=== PATIENT | female | born 1945 | race African-American/Black ===

== ENCOUNTER 2016-11-03 08:43 | Day surgery (SDC) | payer MEDICARE, OTHER ==
[~2016-11-03] VITALS: Ht 160 cm; Wt 61.7 kg
[2016-11-03] VITALS (7 sets, daily range): BP systolic 121–147; BP diastolic 79–85
[~2016-11-03 08:43] MED LIST: ASPIR-LOW81 MG PO; ATIVAN1 MG ORAL; ATORVASTATIN CA20 MG ORAL; BC POWDER PACK1 EAC1 PO; CARAFATE1 G1 ORAL; CREON DR 24,001 EACH PO; DEXILANT60 MG ORAL; GAS-X80 MG PO; LOTREL 10-20 M1 EACH PO; LOTREL 10-40 M1 EACH ORAL; MAALOX MAXIMUM355 M1 PO; MECLIZINE HCL25 MG ORAL; Muscle relaxer PO; NORCO 5-325 TA1 EACH ORAL; NORCO 5-325 TA1 EACH PO; PEPCID20 M1 *; PEPCID20 MG ORAL; PRILOSEC40 MG ORAL; VICODIN ES 7.51 EACH PO; ZANTAC150 MG ORAL; ZESTRIL5 MG PO
[2016-11-03 10:20] LABS: HEMOLYSIS 7; IRON 55 ug/dL (37-145); TOTAL IRON BINDING CAPACITY 321 ug/dL (250-400)
--- NOTE | 2016-11-03 10:53 | Pre-Procedure Note/Attestation ---
Pre-Procedure Note/Attestation Complete Prior to Procedure Planned Procedure: not applicable Procedure Narrative: colonoscopy Indications for Procedure Pre-Operative Diagnosis: screening Attestation I attest that I discussed the nature of the procedure; its benefits; risks and complications; and alternatives (and the risks and benefits of such alternatives ), prior to the procedure, with the patient (or the patient's legal pharmaceutical sales representative). I attest that, if there was a reasonable possibility of needing a blood transfusion, the patient (or the patient's legal pharmaceutical sales representative) was given the [facility] standardized written summary, pursuant to the [place] Blood Safety Act ([place] Health and Safety Code # 1645, as amended). I attest that I re-evaluated the patient just prior to the surgery and that there has been no change in the patient's H&P, except as documented below: LIBBY FRANCO November 03, 2016 10:53
--- NOTE | 2016-11-03 10:54 | Short Stay Surgery H&P ---
History of Present Illness History of Present Illness Chief Complaint screening colon HPI Alisa Severino is a 70 year old female who was admitted on for Lower Abdominal Pain Patient History Allergies: Coded Allergies: MORPHINE (Verified Allergy, Severe, 11/03/16) nausea/vomiting PAST MEDICAL HISTORY: (1) COPD (chronic obstructive pulmonary disease) (2) GERD (gastroesophageal reflux disease) (3) Pancreatitis (4) Gastritis (5) Diverticulosis (6) Constipation (7) Internal hemorrhoids Past Surgeries: Social History: Medication History Scheduled Amlodipine Besylate/Benazepril 10-40 Mg (Lotrel 10-40 Mg Capsule), 1 CAP ORAL DAILY, (Reported) Aspirin* (Aspir-Low*), 81 MG PO DAILY, (Reported) Lipase/Protease/Amylase (Creon Dr 24,000 Units Capsule), 2 EACH PO TID, ( Reported) Lorazepam* (Ativan*), 1 MG ORAL BEDTIME, (Reported) Scheduled PRN Hydrocodone Bit/Acetaminophen 5-325* ([place] 5-325*), 1 TAB ORAL Q6H PRN for For Pain, (Reported) Meclizine Hcl* (Meclizine*), 25 MG ORAL THREE TIMES A DAY PRN for for dizziness, (Reported) Discontinued Medications Atorvastatin Calcium* (Atorvastatin Calcium*), 20 MG ORAL BEDTIME, (Reported) Discontinued Reason: Pt stopped taking med Simethicone (Gas-X), 80 MG PO DAILY, (Reported) Discontinued Reason: Pt stopped taking med Review of Systems Cardiovascular: Reports: no symptoms Gastrointestinal: Reports: gastro esophageal reflux disease Genitourinary: Reports: no symptoms Neurologic: Reports: no symptoms Endocrine: Reports: no symptoms Hematologic: Reports: no symptoms Physical Exam Vital Signs Last Vital Signs Date Time Temp Pulse Resp B/P Pulse Ox O2 Delivery O2 Flow Rate FiO2 11/03/16 09:27 98.2 90 20 147/82 99 Room Air Labs Laboratory Tests Test 11/03/16 09:25 Iron Level 55 ug/dL (37-145) Total Iron Binding Capacity 321 ug/dL (250-400) Percent Iron Saturation 17 % (15-50) Unsaturated Iron Binding 266 ug/dL (112-346) Skin: normal HENT: normal Heart: normal Lungs: normal Abdomen: normal Extremities: normal Plan Plan of Care colonoscopy Final Diagnosis: Attestation Are the patient's medical conditions optimized for surgery? Attestation Response: yes LIBBY FRANCO November 03, 2016 10:54
[2016-11-03] MEDS ORDERED: Propofol 10mg/ml 20ml IV ONE (11:00)
--- NOTE | 2016-11-03 11:27 | Anethesia Preoperative Eval ---
Anesthesia Pre-op PMH/ROS General Date of Evaluation: November 03, 2016 Time of Evaluation: 11:05 Anesthesiologist: lubna ASA Score: ASA 3 Mallampati Score Class I : Soft palate, uvula, fauces, pillars visible Class II: Soft palate, uvula, fauces visible Class III: Soft palate, base of uvula visible Class IV: Only hard plate visible Mallampati Classification: Class II Surgeon: carter Diagnosis: screening Surgical Procedure: colonocopy Anesthesia History: none Social History: smoking Allergies: Coded Allergies: MORPHINE (Verified Allergy, Severe, 11/03/16) nausea/vomiting Past Medical History Cardiovascular: Reports: HTN Pulmonary: Reports: COPD Gastrointestinal/Genitourinary: Reports: other - polycystic kidney disease Anesthesia Pre-op Phys. Exam Physician Exam Last Vital Signs Date Time Temp Pulse Resp B/P Pulse Ox O2 Delivery O2 Flow Rate FiO2 11/03/16 09:27 98.2 90 20 147/82 99 Room Air Airway Exam Mallampati Score: Class II Teeth: missing Anesthesia Pre-op A/P Labs Chemistry Test 11/03/16 09:25 Iron Level 55 ug/dL (37-145) Total Iron Binding Capacity 321 ug/dL (250-400) Percent Iron Saturation 17 % (15-50) Unsaturated Iron Binding 266 ug/dL (112-346) Risk Assessment & Plan Plan: propofol Status Change Before Surgery: Crescencio Stacy MD November 03, 2016 11:27
--- NOTE | 2016-11-03 11:28 | Immediate Post-Op Evaluation ---
Immediate Post-Op Evalulation Immediate Post-Op Evalulation Date of Evaluation: November 03, 2016 Time of Evaluation: 11:45 IV Fluids: 500 Blood Pressure Systolic: 123 Blood Pressure Diastolic: 84 Pulse Rate: 83 Respiratory Rate: 24 O2 Sat by Pulse Oximetry: 100 Temperature (Fahrenheit): 97.8 Pain Score (1-10): 0 Nausea: No Vomiting: No Complications none Patient Status: awake, patent, none Hydration Status: adequate Crescencio Win MD November 03, 2016 11:28
--- NOTE | 2016-11-03 11:29 | 48 Hour Post Anesthesia Eval ---
Post Anesthesia Evaluation Date of Evaluation: November 03, 2016 Time of Evaluation: 12:31 Blood Pressure Systolic: 131 0: 61 Pulse Rate: 73 Respiratory Rate: 17 Temperature (Fahrenheit): 98.6 O2 Sat by Pulse Oximetry: 100 Airway: patent Nausea: No Vomiting: No Pain Intensity: 0 Hydration Status: adequate Cardiopulmonary Status: stable Mental Status/LOC: patient returned to baseline Follow-up Care/Observations: n/a Post-Anesthesia Complications: tolerated well Follow-up care needed: ready to discharge Crescencio Win MD November 03, 2016 11:29
--- NOTE | 2016-11-03 11:37 | Endoscopy Procedure Note ---
Endoscopy Procedure Note Indication for Procedure: screening colon Procedures Performed: colonoscopy Operative Findings/Diagnosis: diverticulosis Specimen: yes Pt Tolerated Procedure Well: Yes Estimated Blood Loss: none Anesthesiologist: lubna Anesthesia: MAC Implant(s) used?: No 50 yrs or older w/o bx or poly: Yes 10yrs. F/U not recommended: Yes If not recommended, why?: Above average risk 10 yrs. F/U needed: Yes 18 years or older w/prev. colo: Yes <3yrs. since last colonoscopy: Yes Med reason:<3 yrs.: Inadequate Prep LIBBY FRANCO November 03, 2016 11:37
--- NOTE | 2016-11-06 13:16 | Procedure Note ---
DATE OF PROCEDURE: 11/03/2016 SURGEON: Terry Villarreal M.D. PROCEDURE: Colonoscopy with biopsy. ANESTHESIOLOGIST: Crescencio Win M.D. INSTRUMENT: Olympus adult flexible colonoscope. INDICATION: Screening colonoscopy. REASON FOR PROCEDURE: The procedure, risks, benefits, and possible consequences, including hemorrhage, aspiration, perforation and infection, and alternative treatments, were explained to the patient/legal guardian by Dr. Terry Villarreal and the patient/legal guardian understood and accepted these risks. DESCRIPTION OF PROCEDURE: After informed consent was obtained and the patient was adequately sedated, first, a rectal exam was performed, which was normal. Then, the scope was advanced from the rectum into the proximal ascending colon. Given poor quality of prep, we could not advance the scope beyond this point. As I mentioned above, the patient has very poor prep especially in the left colon and the cecum. The patient had significant diverticulosis in the left colon and also some diverticulosis on the right, but the one in the left was very large and she had numerous ones. There was some minimum inflammation in the rectum, which was biopsied, most probably nonspecific proctitis. Retroflexion of rectum showed evidence of internal hemorrhoids. SUMMARY OF FINDINGS: 1. Poor colonic prep. 2. Diverticulosis. 3. Internal hemorrhoids. 4. Proctitis status biopsy. RECOMMENDATIONS: Follow up biopsies and treat accordingly. Terry Villarreal M.D. DR: OMAYRA JOB#: [id number] CC:
== END 2016-11-03 12:50 | disposition home or self-care (01) ==
LOC: GAS 08:43
DX: Z12.11 Encounter for screening for malignant neoplasm of colon (principal); K62.89 Other specified diseases of anus and rectum; K57.30 Diverticulosis of large intestine without perforation or abscess without bleeding; K64.8 Other hemorrhoids; I10 Essential (primary) hypertension; J44.9 Chronic obstructive pulmonary disease, unspecified; Q61.3 Polycystic kidney, unspecified; K21.9 Gastro-esophageal reflux disease without esophagitis; Z87.19 Personal history of other diseases of the digestive system; Z88.5 Allergy status to narcotic agent; Z79.82 Long term (current) use of aspirin
CPT/HCPCS: 36415; 45380; 83540; 83550; J2704; 94003; 94150

== ENCOUNTER 2017-01-02 10:31 | Outpatient (CLI) | payer MEDICARE, OTHER ==
--- NOTE | 2017-01-02 11:13 | GI Progress Note ---
Assessment/Plan Problems: (1) Proctitis ICD Codes: K62.89 - Other specified diseases of anus and rectum SNOMED: 2411872 (2) GERD (gastroesophageal reflux disease) ICD Codes: K21.9 - GERD (gastroesophageal reflux disease) SNOMED: 607843800 (3) Gastritis ICD Codes: K29.70 - Gastritis SNOMED: 1351993 (4) Constipation ICD Codes: K59.00 - Constipation SNOMED: 28292914 (5) Internal hemorrhoids ICD Codes: K64.8 - Internal hemorrhoids SNOMED: 77901941 (6) Abdominal pain ICD Codes: R10.9 - Unspecified abdominal pain SNOMED: 19109270 Status: stable Status Narrative Seen with Dr. Villarreal. Assessment/Plan colonoscopy reviewed with patient. iron panel unremarkable SUMMARY OF FINDINGS: 1. Poor colonic prep. 2. Diverticulosis. 3. Internal hemorrhoids. 4. Proctitis status biopsy. RECOMMENDATIONS: Follow up biopsies and treat accordingly >> negative for H. Pylori Rx Amitiza rx omeprazole RTC x 3 months repeat colon x 3 years due to poor prep Subjective Subjective colonoscopy review lower abdominal pain GERD >> zantac helps, but cannot afford constipation hemorrhoids have gotten worse and wants banding Objective T 98.2 BP 118/72 P64 93 RA General Appearance: no apparent distress, alert Cardiovascular: normal rate Respiratory/Chest: normal breath sounds, no respiratory distress Abdominal Exam: normal bowel sounds, non tender, soft Extremities: normal range of motion Kelsie Churchill N.P. Jan 02, 2017 11:13
== END 2017-01-02 11:15 | disposition home or self-care (01) ==
LOC: PAN 10:31
DX: K21.9 Gastro-esophageal reflux disease without esophagitis (principal); K62.89 Other specified diseases of anus and rectum; K29.70 Gastritis, unspecified, without bleeding; K59.00 Constipation, unspecified; K64.8 Other hemorrhoids; R10.9 Unspecified abdominal pain
CPT/HCPCS: 99211

== ENCOUNTER 2017-04-03 10:10 | Outpatient (CLI) | payer MEDICARE, OTHER ==
--- NOTE | 2017-04-03 10:43 | GI Progress Note ---
Assessment/Plan Problems: (1) Abdominal pain ICD Codes: R10.9 - Unspecified abdominal pain SNOMED: 85076025 (2) GERD (gastroesophageal reflux disease) ICD Codes: K21.9 - GERD (gastroesophageal reflux disease) SNOMED: 521749654 (3) Gastritis ICD Codes: K29.70 - Gastritis SNOMED: 9238388 (4) Constipation ICD Codes: K59.00 - Constipation SNOMED: 13594655 Status: stable Status Narrative Discussed with Dr. Villarreal. Assessment/Plan colonoscopy reviewed with patient. iron panel unremarkable SUMMARY OF FINDINGS: 1. Poor colonic prep. 2. Diverticulosis. 3. Internal hemorrhoids. 4. Proctitis status biopsy. follow up biopsies and treat accordingly >> negative for H. Pylori RECOMMENDATIONS: Rx Linzess 72mcg RTC x 3 months repeat colon x 3 years due to poor prep Subjective Subjective GERD >> does not take prescribed omeprazole, takes zantac constipation, did not use amitiza 24 not sure if covered by insurance has regular BM with diet labs by PCP with noted elevated cholesterol Objective T 97.9 BP 117/79 P 74 wt 129 lbs General Appearance: no apparent distress, alert, thin Cardiovascular: normal rate Respiratory/Chest: lungs clear, normal breath sounds Abdominal Exam: normal bowel sounds, non tender, soft Extremities: normal range of motion Kelsie Churchill N.P. Apr 03, 2017 10:43
[2017-04-03] MEDS ORDERED: ZANTAC150 MG ORAL (11:55)
[2017-04-03] MEDS ORDERED: [UNRECOGNIZED DRUG - REMARK] (11:55)
[2017-04-03] MEDS ORDERED: ACETAMINOPHEN-1 EAC1 ORAL (11:55)
== END 2017-04-03 12:10 | disposition home or self-care (01) ==
LOC: PAN 10:10
DX: R10.9 Unspecified abdominal pain (principal); K21.9 Gastro-esophageal reflux disease without esophagitis; K29.70 Gastritis, unspecified, without bleeding; K59.00 Constipation, unspecified; K57.90 Diverticulosis of intestine, part unspecified, without perforation or abscess without bleeding; K64.8 Other hemorrhoids
CPT/HCPCS: 99211

== ENCOUNTER 2017-07-03 10:39 | Outpatient (CLI) | payer MEDICARE, OTHER ==
[~2017-07-03 10:39] MED LIST changes: +ACETAMINOPHEN-1 EAC1 ORAL; +[UNRECOGNIZED DRUG - REMARK]
[2017-07-03 13:50] VITALS: BP 122/75
--- NOTE | 2017-07-04 15:25 | GI Progress Note ---
Assessment/Plan Problems: (1) Abdominal pain ICD Codes: R10.9 - Unspecified abdominal pain SNOMED: 07165639 (2) GERD (gastroesophageal reflux disease) ICD Codes: K21.9 - GERD (gastroesophageal reflux disease) SNOMED: 237334670 (3) Gastritis ICD Codes: K29.70 - Gastritis SNOMED: 7027761 (4) Constipation ICD Codes: K59.00 - Constipation SNOMED: 76124989 Status: stable Status Narrative Seen with Dr. Villarreal. Assessment/Plan EGD/EUS scheduled for 07/06/17 to evaluate GERD and follow up on pancreatic ductal dilation. - NPO @ [place] prior to procedure. Subjective Subjective GERD, taking zantac with no relief constipatino , on Linzess 72 requesting refill Objective T 98.2 BP 122/75 P83 95 RA Denies any unintentional weight loss or changes in dietary habits. General Appearance: WD/WN, no apparent distress, alert Cardiovascular: normal rate Respiratory/Chest: normal breath sounds, no respiratory distress Abdominal Exam: normal bowel sounds, non tender, soft Extremities: normal range of motion, non-tender Objective Colonoscopy 10/2016 No history of EGD Kelsie Churchill N.P. Jul 04, 2017 15:25
--- NOTE | 2017-07-05 09:43 | GI Initial Consult Note ---
History of Present Illness General Date patient seen: Jul 04, 2017 Time patient seen: 10:00 Reason for Consultation: SEVERE GERD Present Illness HPI Alisa Severino is a 71 year old female who presents today with severe epigastric pain with minimal relief from zantac. In addition, she presents today with c/o of constipation requesting a refill on her Linzess 72mcg. Patient has history of EUS for pancreatic ductal dilation back in 2011. Last colonoscopy was performed 10/2016, see summary below. Denies any unintentional weight loss or changes in dietary habits. No signs of abuse or neglect. Patient is not fall risk. Endoscopy Procedure Note Indication for Procedure: screening colon Procedures Performed: colonoscopy Operative Findings/Diagnosis: diverticulosis LIBBY FRANCO - November 03, 2016 11:37 Home Meds Reported Medications Acetaminophen With Codeine (T#3) (TYLENOL #3 TAB*) Y Tab, 2 TAB ORAL Q6H Y for For Pain, TAB 04/03/17 Ranitidine Hcl* (ZANTAC*) 150 Mg Tablet, 150 MG ORAL QHS, #30 TAB 0 Refills 04/03/17 Lipase/Protease/Amylase (CLARICE [place]OHNSON 24,000 UNITS CAPSULE) 1 Each Capsule.dr, 2 EACH PO TID, CAP 02/03/16 Meclizine Hcl* (MECLIZINE*) 25 Mg Tablet, 25 MG ORAL THREE TIMES A DAY Y for for dizziness, TAB 11/03/15 Hydrocodone Bit/Acetaminophen 5-325* ([place] 5-325*) 1 Each Tablet, 1 TAB ORAL Q6H Y for For Pain, #10 TAB 0 Refills 08/05/15 Amlodipine Besylate/Benazepril 10-40 Mg (LOTREL 10-40 MG CAPSULE) 1 Each Capsule , 1 CAP ORAL DAILY, CAP 09/16/14 Lorazepam* (ATIVAN*) 1 Mg Tablet, 1 MG ORAL BEDTIME, TAB 01/29/14 Aspirin* (ASPIR-LOW*) 81 Mg Tablet., 81 MG PO DAILY, TAB 05/27/12 Med list reviewed/reconciled: Yes Allergies: Coded Allergies: MORPHINE (Verified Allergy, Severe, 11/03/16) nausea/vomiting Patient History PMH Narrative (1) COPD (chronic obstructive pulmonary disease) (2) GERD (gastroesophageal reflux disease) (3) Pancreatitis (4) Gastritis (5) Diverticulosis (6) Constipation (7) Internal hemorrhoids Social History: Denies: smoking, alcohol use, drug use, other Review of Systems All Other Systems: negative except mentioned in HPI Physical Exam Vital Signs Date Time Temp Pulse Resp B/P (MAP) Pulse Ox O2 Delivery O2 Flow Rate FiO2 07/03/17 13:50 98.2 83 122/75 92 Sp02 EP Interpretation: reviewed, normal General Appearance: well appearing, no apparent distress, alert, thin Head: normocephalic EENT: PERRL/EOMI, normal ENT inspection Neck: supple Respiratory: normal breath sounds, no respiratory distress Cardiovascular: normal rate Gastrointestinal: normal inspection, non tender, soft, normal bowel sounds, non -distended Rectal: deferred Genitourinary: no CVA tenderness Musculoskeletal: normal inspection, back normal Neurologic: normal inspection, alert, oriented x3, responsive Psychiatric: normal inspection, judgement/insight normal, memory normal Skin: normal inspection, normal color, no rash, warm/dry, palpation normal, well hydrated Lymphatic: normal inspection, no adenopathy GI: Plan Problems: (1) Pancreatic duct dilated (2) GERD (gastroesophageal reflux disease) (3) Gastritis (4) Constipation (5) Diverticulosis (6) Abdominal pain Plan EGD/EUS scheduled for 07/06/17 to evaluate GERD and follow up on pancreatic ductal dilation. - NPO @ [place] prior to procedure. RX Harsh [address] Franco. Kelsie Churchill N.P. Jul 05, 2017 09:42
== END 2017-07-03 11:11 | disposition home or self-care (01) ==
LOC: PAN 10:39
DX: R10.9 Unspecified abdominal pain (principal); K21.9 Gastro-esophageal reflux disease without esophagitis; K29.70 Gastritis, unspecified, without bleeding; K59.00 Constipation, unspecified; K57.90 Diverticulosis of intestine, part unspecified, without perforation or abscess without bleeding; Z79.82 Long term (current) use of aspirin; J44.9 Chronic obstructive pulmonary disease, unspecified; Z88.6 Allergy status to analgesic agent
CPT/HCPCS: 99212

== ENCOUNTER 2017-07-06 08:42 | Day surgery (SDC) | payer MEDICARE, OTHER ==
[~2017-07-06] VITALS: Ht 30.5 cm; Wt 0.5 kg
== END 2017-07-06 10:45 | disposition home or self-care (01) ==
LOC: GAS 08:42
DX: Z53.9 Procedure and treatment not carried out, unspecified reason (principal)

== ENCOUNTER 2017-07-20 07:39 | Day surgery (SDC) | payer MEDICARE, OTHER ==
[~2017-07-20] VITALS: Ht 160 cm; Wt 59.0 kg
[2017-07-20] VITALS (8 sets, daily range): BP systolic 106–138; BP diastolic 64–77
--- NOTE | 2017-07-20 08:15 | Anethesia Preoperative Eval ---
Anesthesia Pre-op PMH/ROS General Date of Evaluation: Jul 20, 2017 Time of Evaluation: 09:02 Anesthesiologist: Gerson ASA Score: ASA 3 Mallampati Score Class I : Soft palate, uvula, fauces, pillars visible Class II: Soft palate, uvula, fauces visible Class III: Soft palate, base of uvula visible Class IV: Only hard plate visible Mallampati Classification: Class II Surgeon: Cherelle Diagnosis: GERD/pancreatic mass Surgical Procedure: EGD/EUS Anesthesia History: none Social History: smoking Family History: no anesthesia problems Allergies: Coded Allergies: MORPHINE (Verified Allergy, Severe, 11/03/16) nausea/vomiting Medications: see eMAR Past Medical History Cardiovascular: Reports: HTN, CAD Pulmonary: Reports: COPD Gastrointestinal/Genitourinary: Reports: GERD, other - diverticulosis, abd pain , Neurologic/Psychiatric: Reports: depression/anxiety - chest pain during anxiety , Endocrine: Reports: other - pancreatic mass, gout Hematology/Immune: Reports: anemia Musculoskeletal/Integumentary: Reports: OA, DJD, other - back pain, PSxH Narrative: hysterectomy 1974, mandibular fx 1985 Anesthesia Pre-op Phys. Exam Physician Exam Constitutional: NAD Neurologic: CN 2-12 intact Cardiovascular: RRR Respiratory: CTA Gastrointestinal: S/NT/ND Airway Exam Mallampati Score: Class II MO: limited ROM: limited - OA Teeth: missing Dentures: upper - partials Anesthesia Pre-op A/P Labs chart reviewed, new labs ordered by MD Studies Pre-op Studies: EKG - NSB 56 bpm Risk Assessment & Plan Assessment: A&ox4 Plan: MAC Status Change Before Surgery: No Pre-Antibiotics Given Within 1 Hr of Incision: No - none per surgeon Sharon Nieto CRNA Jul 20, 2017 08:15
[2017-07-20] MEDS ORDERED: FISH OIL 1,0001 EAC1 ORAL (08:45)
[2017-07-20] MEDS ORDERED: ALLOPURINOL100 M1 ORAL (08:47)
[2017-07-20] MEDS ORDERED: IRON159 MG PO (08:47)
--- NOTE | 2017-07-20 08:55 | Pre-Procedure Note/Attestation ---
Pre-Procedure Note/Attestation Complete Prior to Procedure Planned Procedure: not applicable Procedure Narrative: egd/eus Indications for Procedure Pre-Operative Diagnosis: abd pain Attestation I attest that I discussed the nature of the procedure; its benefits; risks and complications; and alternatives (and the risks and benefits of such alternatives ), prior to the procedure, with the patient (or the patient's legal retail field representative). I attest that, if there was a reasonable possibility of needing a blood transfusion, the patient (or the patient's legal retail field representative) was given the [facility] standardized written summary, pursuant to the [place] Blood Safety Act ([place] Health and Safety Code # 1645, as amended). I attest that I re-evaluated the patient just prior to the surgery and that there has been no change in the patient's H&P, except as documented below: LIBBY FRANCO Jul 20, 2017 08:55
--- NOTE | 2017-07-20 08:56 | Short Stay Surgery H&P ---
History of Present Illness History of Present Illness Chief Complaint see recent office consult note HPI Alisa Severino is a 71 year old female who was admitted on for Gerd,Pancreatic Mass Patient History Allergies: Coded Allergies: MORPHINE (Verified Allergy, Severe, 11/03/16) nausea/vomiting PAST MEDICAL HISTORY: Past Surgeries: Social History: Medication History Scheduled Allopurinol* (Allopurinol*), 100 MG ORAL DAILY, (Reported) Amlodipine Besylate/Benazepril 10-40 Mg (Lotrel 10-40 Mg Capsule), 1 CAP ORAL DAILY, (Reported) Aspirin* (Aspir-Low*), 81 MG PO DAILY, (Reported) Ferrous Sulfate, Dried (Iron), 159 MG PO DA, (Reported) Lipase/Protease/Amylase (Creon Dr 24,000 Units Capsule), 2 EACH PO TID, ( Reported) Lorazepam* (Ativan*), 1 MG ORAL BEDTIME, (Reported) [place]-3 Fatty Acids/Fish Oil* (Fish Oil 1,000 Mg Softgel*), 1 CAP ORAL DAILY, ( Reported) Ranitidine Hcl* (Zantac*), 150 MG ORAL QHS, (Reported) Scheduled PRN Acetaminophen With Codeine (T#3) (Tylenol #3 Tab*), 2 TAB ORAL Q6H PRN for For Pain, (Reported) Hydrocodone Bit/Acetaminophen 5-325* ([place] 5-325*), 1 TAB ORAL Q6H PRN for For Pain, (Reported) Meclizine Hcl* (Meclizine*), 25 MG ORAL THREE TIMES A DAY PRN for for dizziness, (Reported) Physical Exam Vital Signs Last Vital Signs Date Time Temp Pulse Resp B/P (MAP) Pulse Ox O2 Delivery O2 Flow Rate FiO2 07/20/17 08:38 98.2 59 20 138/77 100 Room Air Plan Attestation Are the patient's medical conditions optimized for surgery? LIBBY FRANCO Jul 20, 2017 08:56
[2017-07-20] MEDS ORDERED: Midazolam 2mg/2ml Inj ONE (09:00)
[2017-07-20] MEDS ORDERED: Lidocaine 1% MPF 10mg/ml 5ml ONE (09:00)
[2017-07-20] MEDS ORDERED: Propofol 200mg/20ml IV ONE (09:00)
--- NOTE | 2017-07-20 09:40 | Immediate Post-Op Evaluation ---
Immediate Post-Op Evalulation Immediate Post-Op Evalulation Procedure: EGD/EUS Date of Evaluation: Jul 20, 2017 Time of Evaluation: 09:55 IV Fluids: NSS 700 ml Blood Products: 0 Estimated Blood Loss: 0 Urinary Output: 0 Blood Pressure Systolic: 112 Blood Pressure Diastolic: 69 Pulse Rate: 70 Respiratory Rate: 19 O2 Sat by Pulse Oximetry: 99 Temperature (Fahrenheit): 97.4 Pain Score (1-10): 0 Nausea: No Vomiting: No Complications none noted Patient Status: awake, reacts Hydration Status: adequate Given Within 1 Hr of Incision: No - none per surgeon Sharon Nieto CRNA Jul 20, 2017 09:40
--- NOTE | 2017-07-20 09:42 | 48 Hour Post Anesthesia Eval ---
Post Anesthesia Evaluation Procedure: EGD/EUS Date of Evaluation: Jul 20, 2017 Time of Evaluation: 10:15 Blood Pressure Systolic: 120 0: 68 Pulse Rate: 72 Respiratory Rate: 20 Temperature (Fahrenheit): 97.5 O2 Sat by Pulse Oximetry: 100 Airway: patent Nausea: No Vomiting: No Pain Intensity: 0 Hydration Status: adequate Mental Status/LOC: patient returned to baseline Follow-up care needed: patient intructions given Sharon Nieto CRNA Jul 20, 2017 09:42
--- NOTE | 2017-07-20 09:43 | Endoscopy Procedure Note ---
Endoscopy Procedure Note Indication for Procedure: abd pain, dilated PD Procedures Performed: EGD, other Operative Findings/Diagnosis: esophagitis, pd cyst Specimen: yes Pt Tolerated Procedure Well: Yes Estimated Blood Loss: none Anesthesiologist: raúl Anesthesia: MAC Implant(s) used?: No 50 yrs or older w/o bx or poly: Not Applicable 10yrs. F/U not recommended: Not Applicable LIBBY FRANCO Jul 20, 2017 09:43
[2017-07-20 10:56] LABS: BASOPHILS % (AUTO) 1.1 % (0.0-2.0); EOSINOPHILS % (AUTO) 4.7 % (0.0-3.0); HEMOGLOBIN 12.9 G/DL (12.0-16.0); LYMPHOCYTES % (AUTO) 16.2 % (20.0-45.0); MEAN CORPUSCULAR VOLUME 95 FL (80-99); MONOCYTES % (AUTO) 4.8 % (1.0-10.0); NEUTROPHILS % (AUTO) 73.2 % (45.0-75.0); PLATELET COUNT 310 K/UL (150-450); RED BLOOD COUNT 4.12 M/UL (4.20-5.40); RED CELL DISTRIBUTION WIDTH 12.4 % (11.6-14.8)
[2017-07-20 10:58] LABS: ALANINE AMINOTRANSFERASE 13 U/L (12-78); ALBUMIN 3.5 G/DL (3.4-5.0); ALBUMIN/GLOBULIN RATIO 1.1 (1.0-2.7); ALKALINE PHOSPHATASE 75 U/L (46-116); AMYLASE 118 U/L (25-115); ANION GAP 10 mmol/L (5-15); ASPARTATE AMINO TRANSFERASE 18 U/L (15-37); BILIRUBIN,TOTAL 0.3 MG/DL (0.2-1.0); BLOOD UREA NITROGEN 26 mg/dL (7-18); CALCIUM 8.9 MG/DL (8.5-10.1); CARBON DIOXIDE 25 MMOL/L (21-32); CHLORIDE 109 MMOL/L (98-107); CREATININE 0.8 MG/DL (0.55-1.30); POTASSIUM 4.1 MMOL/L (3.5-5.1); SODIUM 144 MMOL/L (136-145)
--- NOTE | 2017-07-20 12:56 | Procedure Note ---
DATE OF PROCEDURE: 07/20/2017 SURGEON: Terry Villarreal M.D. ANESTHESIOLOGIST: Gerson JONES. PROCEDURE: Upper endoscopy with biopsy and endoscopic ultrasound. ANESTHESIA: Per Gerson JONES. INSTRUMENT: Olympus adult flexible upper endoscope and EUS scope. INDICATION: Abdominal pain, dilated pancreatic duct seen on imaging studies. The procedure, risks, benefits, and possible consequences, including hemorrhage, aspiration, perforation and infection, and alternative treatments, were explained to the patient/legal guardian by Dr. Terry Villarreal and the patient/legal guardian understood and accepted these risks. DESCRIPTION OF PROCEDURE: After informed consent was obtained and the patient was adequately sedated, first Olympus upper endoscope was advanced from mouth into the second portion of duodenum and retroflexion was performed in the stomach. In the esophagus, the patient had evidence of peeling off of the mucosa in the distal esophagus, so this peeling off was all the way up to about half of the esophagus in the mid esophagus. Biopsy from distal esophagus was obtained. At the GE junction which was at about 36 cm from the incisors, the patient had evidence of distal esophageal ring. The patient also has evidence of 4-cm hiatal hernia, In the stomach, there was diffuse gastritis. In the duodenal bulb, there was an adhesion looking may be about 3 mm with central cavitation. Endoscopically, it looked like accessory pancreatic duct and might be pancreatic rest. Given possibility of accessory pancreatic duct, we did not biopsy this lesion. At this time, the upper endoscope was retrieved and EUS radial scope was introduced. The pancreatic parenchyma grossly looked within normal limits in the body and tail of the pancreas. Pancreatic duct measured about 2.5 mm in the body and tail of the pancreas. Then, the scope was advanced to duodenal bulb and second portion of duodenum where the gallbladder and head of the pancreas was carefully examined. The patient had about 1.9-cm gallbladder polyp. No stone was seen in the gallbladder. Common bile duct at the head of the pancreas was measured roughly about 7 mm. There was a small cyst of about 6 mm in the head of the pancreas right at the opening of the pancreatic duct, it seemed to be arising from main pancreatic duct, so most likely this is a side branch of IPMN. It seemed that it was connected to pancreatic duct. SUMMARY OF FINDINGS: 1. Peeling of the distal esophageal lining suggestive of esophagitis. 2. Distal esophageal ring at the gastroesophageal unction at 36 cm from the incisors. 3. A 4-cm hiatal hernia. 4. A 3-mm lesion in the duodenal bulb suspicious for accessory pancreatic duct versus pancreatic rest, not biopsied. 5. Almost 2-cm gallbladder polyp. 6. 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 RECOMMENDATIONS: We will recommend the patient to have an MRCP. MRCP will help us in evaluating the cyst in the head of the pancreas and also if there is a true gallbladder polyp. If there is a true gallbladder polyp, we will recommend surgical resection of the gallbladder given this polyp is over 1-cm. We will discuss with the patient. We also sent some laboratories for today which were pending. The patient also needs to be on PPI daily given this distal esophageal peeling of the mucosa if she is not already on a PPI. Terry Villarreal M.D. DR: Tuan JOB#: [id number] CC: SOPHIA
--- NOTE | 2017-07-21 16:03 | Cardiology Report ---
APPROVED REPORT EKG Measurement Heart [id number] Sinus bradycardia Otherwise normal ECG
== END 2017-07-20 11:55 | disposition home or self-care (01) ==
LOC: GAS 07:39
DX: K44.9 Diaphragmatic hernia without obstruction or gangrene (principal); K82.4 Cholesterolosis of gallbladder; K22.2 Esophageal obstruction; R00.1 Bradycardia, unspecified; Z79.82 Long term (current) use of aspirin; Z88.6 Allergy status to analgesic agent; K21.9 Gastro-esophageal reflux disease without esophagitis; I10 Essential (primary) hypertension; I25.10 Atherosclerotic heart disease of native coronary artery without angina pectoris; J44.9 Chronic obstructive pulmonary disease, unspecified; K57.90 Diverticulosis of intestine, part unspecified, without perforation or abscess without bleeding; F32.9 Major depressive disorder, single episode, unspecified; F41.9 Anxiety disorder, unspecified; M19.90 Unspecified osteoarthritis, unspecified site; Z90.710 Acquired absence of both cervix and uterus
CPT/HCPCS: 36415; 43239; 43259; 80053; 82150; 82378; 83690; 85025; 93005; J2250; J2704; 94003; 94150

== ENCOUNTER 2017-07-31 10:30 | Outpatient (CLI) | payer MEDICARE, OTHER ==
[~2017-07-31 10:30] MED LIST changes: +ALLOPURINOL100 M1 ORAL; +FISH OIL 1,0001 EAC1 ORAL; +IRON159 MG PO
[2017-07-31 10:51] VITALS: BP 139/76
[2017-07-31] MEDS ORDERED: OMEPRAZOLE40 M1 ORAL (10:55)
--- NOTE | 2017-08-01 09:13 | GI Progress Note ---
Assessment/Plan Problems: (1) Esophagitis ICD Codes: K20.9 - Esophagitis, unspecified SNOMED: 86532139 (2) Abdominal pain ICD Codes: R10.9 - Unspecified abdominal pain SNOMED: 91346814 (3) GERD (gastroesophageal reflux disease) ICD Codes: K21.9 - GERD (gastroesophageal reflux disease) SNOMED: 781455972 (4) Constipation ICD Codes: K59.00 - Constipation SNOMED: 94167135 (5) Pancreatitis ICD Codes: K85.9 - Acute pancreatitis, unspecified SNOMED: 97327891 Status: stable Status Narrative Seen with Dr. Villarreal. Assessment/Plan SUMMARY OF FINDINGS reviewed with patient: 1. Peeling of the distal esophageal lining suggestive of esophagitis. 2. Distal esophageal ring at the gastroesophageal unction at 36 cm from the incisors. 3. A 4-cm hiatal hernia. 4. A 3-mm lesion in the duodenal bulb suspicious for accessory pancreatic duct versus pancreatic rest, not biopsied. 5. Almost 2-cm gallbladder polyp. 6. 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 RECOMMENDATIONS: cont PPI defer MRCP, patient cannot have due to foreign body. plan for EUS in 1 year >> If there is a true gallbladder polyp, we will recommend surgical resection of the gallbladder given this polyp is over 1-cm. RTC prn/1year Subjective Subjective abdominal pain, taking creon TID GERD, prilosec 40mg and had dc zantac constipation Objective Last 24 Hour Vital Signs Date Time Temp Pulse Resp B/P (MAP) Pulse Ox O2 Delivery O2 Flow Rate FiO2 07/31/17 10:51 97.6 77 16 139/76 96 General Appearance: WD/WN, no apparent distress, alert Cardiovascular: normal rate Respiratory/Chest: normal breath sounds, no respiratory distress Abdominal Exam: normal bowel sounds, non tender, soft Extremities: normal range of motion, non-tender Kelsie Churchill N.P. Aug 01, 2017 09:13
== END 2017-07-31 11:03 | disposition home or self-care (01) ==
LOC: PAN 10:30
DX: K20.9 Esophagitis, unspecified (principal); R10.9 Unspecified abdominal pain; K21.9 Gastro-esophageal reflux disease without esophagitis; K59.00 Constipation, unspecified; K85.90 Acute pancreatitis without necrosis or infection, unspecified; K44.9 Diaphragmatic hernia without obstruction or gangrene; K82.4 Cholesterolosis of gallbladder
CPT/HCPCS: 99212

== ENCOUNTER 2017-08-02 19:32 | Inpatient (IN) | payer MEDICARE, OTHER ==
[~2017-08-02] VITALS: Ht 160 cm; Wt 56.7 kg
[~2017-08-02 19:32] MED LIST changes: +OMEPRAZOLE40 M1 ORAL
[2017-08-02 19:55] VITALS: BP 154/95
[2017-08-02 20:59] LABS: HEMATOCRIT 48.6 % (37.0-47.0); HEMOGLOBIN 15.8 G/DL (12.0-16.0); MEAN CORPUSCULAR VOLUME 95 FL (80-99); PLATELET COUNT 266 K/UL (150-450); RED CELL DISTRIBUTION WIDTH 13.2 % (11.6-14.8); WHITE BLOOD COUNT 10.1 K/UL (4.8-10.8)
[2017-08-02 21:00] LABS: BASOPHILS % (AUTO) 0.5 % (0.0-2.0); EOSINOPHILS % (AUTO) 0.6 % (0.0-3.0); LYMPHOCYTES % (AUTO) 6.7 % (20.0-45.0); MONOCYTES % (AUTO) 2.1 % (1.0-10.0); NEUTROPHILS % (AUTO) 90.1 % (45.0-75.0)
--- NOTE | 2017-08-02 21:06 | Emergency Room Report ---
History of Present Illness General Chief Complaint: Abdominal Pain Source: Patient Present Illness HPI 71-year-old female, history of pancreatic"mass", had a biopsy a few weeks ago, presenting with lower abdominal pain for one day. Pointing to suprapubic and right lower quadrant for the pain. Also has had more than 5 episodes of nonbilious nonbloody vomiting. Has had constipation but is passing a lot of gas. No chest pain no shortness of breath. No fever or chills Allergies: Coded Allergies: MORPHINE (Verified Allergy, Severe, 11/03/16) nausea/vomiting Patient History Past Medical History: see triage record Past Surgical History: none Pertinent Family History: none Last Menstrual Period: NA Now: No Reviewed Nursing Documentation: PMH: Agreed, PSxH: Agreed Nursing Documentation-PMH Hx Cardiac Problems: Yes Hx Hypertension: Yes Hx COPD: Yes Hx Cancer: No Hx Gastrointestinal Problems: Yes Hx Neurological Problems: No Hx Head Trauma: Yes Review of Systems All Other Systems: negative except mentioned in HPI Physical Exam Vital Signs Date Time Temp Pulse Resp B/P (MAP) Pulse Ox O2 Delivery O2 Flow Rate FiO2 08/02/17 19:49 97.3 90 18 154/95 98 Room Air 97.3 Sp02 EP Interpretation: reviewed, normal General Appearance: alert, GCS 15, non-toxic, mild distress Head: normocephalic, atraumatic Eyes: bilateral eye normal inspection, bilateral eye PERRL, bilateral eye EOMI ENT: normal ENT inspection, normal pharynx, normal voice, moist mucus membranes Neck: normal inspection, full range of motion, supple Respiratory: normal inspection, lungs clear, normal breath sounds, no respiratory distress, no retraction, no wheezing, speaking full sentences, chest symmetrical Cardiovascular #1: normal inspection, regular rate, rhythm, normal capillary refill Cardiovascular #2: 2+ radial (R), 2+ radial (L) Gastrointestinal: other - Suprapubic and right lower quadrant tenderness, no guarding no rebound, normal bowel sounds Musculoskeletal: normal inspection, back normal, normal range of motion, non- tender Neurologic: normal inspection, alert, oriented x3, responsive, motor strength/ tone normal, sensory intact, normal gait, speech normal Psychiatric: normal inspection, judgement/insight normal, memory normal Skin: normal inspection, normal color, no rash, warm/dry, well hydrated, normal turgor Medical Decision Making Diagnostic Impression: Primary Impression: Abdominal pain Additional Impression: Nausea & vomiting ER Course 71-year-old female with abdominal pain with abdominal pain Differential Diagnosis: Gastritis, gastroenteritis, cholecystitis, appendicitis, diverticulitis, SBO,, cardiac, UTI/pyelo Plan: Basic labs, ua, ekg CT abdopelvis ER course: Patient has remained HD stable during ED stay. given zofran/fluids Disposition: Patient will be admitted to med surg. Discussed with hospitalist Dr Martin Please note that this Emergency Department Report was dictated using [employer] operator technology software, occasionally this can lead to erroneous entry secondary to interpretation by the dictation equipment EKG Diagnostic Results EP Interpretation: Yes Rate: normal Rhythm: NSR ST Segments: No acute changes ASA given to patient: No Rhythm Strip EP Interpretation: Yes Rate: 70 Rhythm: NSR, no PVCs, no ectopy Laboratory Tests Test 08/02/17 20:40 08/03/17 09:40 08/04/17 04:35 White Blood Count 10.1 K/UL (4.8-10.8) 5.3 K/UL (4.8-10.8) 4.9 K/UL (4.8-10.8) Red Blood Count 5.10 M/UL (4.20-5.40) 4.13 M/UL (4.20-5.40) L 4.08 M/UL (4.20-5.40) L Hemoglobin 15.8 G/DL (12.0-16.0) 13.1 G/DL (12.0-16.0) 12.8 G/DL (12.0-16.0) Hematocrit 48.6 % (37.0-47.0) H 39.0 % (37.0-47.0) 38.1 % (37.0-47.0) Mean Corpuscular Volume 95 FL (80-99) 94 FL (80-99) 94 FL (80-99) Mean Corpuscular Hemoglobin 30.9 PG (27.0-31.0) 31.6 PG (27.0-31.0) H 31.5 PG (27.0-31.0) H Mean Corpuscular Hemoglobin Concent 32.4 G/DL (32.0-36.0) 33.5 G/DL (32.0-36.0) 33.7 G/DL (32.0-36.0) Red Cell Distribution Width 13.2 % (11.6-14.8) 13.4 % (11.6-14.8) 13.1 % (11.6-14.8) Platelet Count 266 K/UL (150-450) 210 K/UL (150-450) 199 K/UL (150-450) Mean Platelet Volume 6.3 FL (6.5-10.1) L 6.1 FL (6.5-10.1) L 6.1 FL (6.5-10.1) L Neutrophils (%) (Auto) 90.1 % (45.0-75.0) H 67.8 % (45.0-75.0) 61.2 % (45.0-75.0) Lymphocytes (%) (Auto) 6.7 % (20.0-45.0) L 20.4 % (20.0-45.0) 23.5 % (20.0-45.0) Monocytes (%) (Auto) 2.1 % (1.0-10.0) 6.5 % (1.0-10.0) 7.4 % (1.0-10.0) Eosinophils (%) (Auto) 0.6 % (0.0-3.0) 4.1 % (0.0-3.0) H 6.9 % (0.0-3.0) H Basophils (%) (Auto) 0.5 % (0.0-2.0) 1.1 % (0.0-2.0) 1.2 % (0.0-2.0) Sodium Level 140 MMOL/L (136-145) 144 MMOL/L (136-145) 143 MMOL/L (136-145) Potassium Level 4.4 MMOL/L (3.5-5.1) 3.9 MMOL/L (3.5-5.1) 4.2 MMOL/L (3.5-5.1) Chloride Level 104 MMOL/L (98-107) 109 MMOL/L (98-107) H 106 MMOL/L (98-107) Carbon Dioxide Level 28 MMOL/L (21-32) 27 MMOL/L (21-32) 29 MMOL/L (21-32) Anion Gap 8 mmol/L (5-15) 8 mmol/L (5-15) 8 mmol/L (5-15) Blood Urea Nitrogen 18 mg/dL (7-18) 12 mg/dL (7-18) 11 mg/dL (7-18) Creatinine 1.0 MG/DL (0.55-1.30) 1.0 MG/DL (0.55-1.30) 0.9 MG/DL (0.55-1.30) Estimate Glomerular Filtration Rate mL/min (>60) mL/min (>60) mL/min (>60) Glucose Level 162 MG/DL (74-106) H 92 MG/DL (74-106) 79 MG/DL (74-106) Calcium Level 9.9 MG/DL (8.5-10.1) 9.2 MG/DL (8.5-10.1) 9.3 MG/DL (8.5-10.1) Total Bilirubin 0.3 MG/DL (0.2-1.0) 0.3 MG/DL (0.2-1.0) Aspartate Amino Transferase (AST) 21 U/L (15-37) 19 U/L (15-37) Alanine Aminotransferase (ALT) 26 U/L (12-78) 14 U/L (12-78) Alkaline Phosphatase 105 U/L (46-116) 77 U/L (46-116) Troponin I 0.000 ng/mL (0.000-0.056) Total Protein 8.5 G/DL (6.4-8.2) H 6.6 G/DL (6.4-8.2) Albumin 4.5 G/DL (3.4-5.0) 3.5 G/DL (3.4-5.0) Globulin 4.0 g/dL 3.1 g/dL Albumin/Globulin Ratio 1.1 (1.0-2.7) 1.1 (1.0-2.7) Lipase 151 U/L (73-393) Prothrombin Time 11.6 SEC (9.30-11.50) H Prothrombin Time INR 1.1 (0.9-1.1) PTT 28 SEC (23-33) Phosphorus Level 3.5 MG/DL (2.5-4.9) Magnesium Level 2.0 MG/DL (1.8-2.4) Last Vital Signs Date Time Temp Pulse Resp B/P (MAP) Pulse Ox O2 Delivery O2 Flow Rate FiO2 08/02/17 19:49 97.3 90 18 154/95 98 Room Air 97.3 Disposition: ADMITTED INPATIENT Condition: Serious RetinoJanell M.D. Aug 02, 2017 21:05
[2017-08-02 21:10] LABS: ANION GAP 8 mmol/L (5-15); BLOOD UREA NITROGEN 18 mg/dL (7-18); CALCIUM 9.9 MG/DL (8.5-10.1); CARBON DIOXIDE 28 MMOL/L (21-32); CHLORIDE 104 MMOL/L (98-107); POTASSIUM 4.4 MMOL/L (3.5-5.1); SODIUM 140 MMOL/L (136-145)
[2017-08-02 21:14] LABS: ALANINE AMINOTRANSFERASE 26 U/L (12-78); ALBUMIN 4.5 G/DL (3.4-5.0); ALBUMIN/GLOBULIN RATIO 1.1 (1.0-2.7); ALKALINE PHOSPHATASE 105 U/L (46-116); ASPARTATE AMINO TRANSFERASE 21 U/L (15-37); BILIRUBIN,TOTAL 0.3 MG/DL (0.2-1.0)
[2017-08-02 22:00] VITALS: BP 129/63
[2017-08-03] VITALS (8 sets, daily range): BP systolic 112–136; BP diastolic 48–78
[2017-08-03] MEDS ORDERED: LORazepam 1mg tab ORAL PRN (06:45)
[2017-08-03] MEDS ORDERED: Ketorolac 30mg Inj IM PRN (06:45)
[2017-08-03] MEDS ORDERED: Magnesium Citrate Liq Btl ORAL ONE (08:00)
[2017-08-03] MEDS: Allopurinol 100mg Tab ORAL SCH (08:21)
[2017-08-03] MEDS: Heparin 5000 units/ml inj SUBQ SCH ×2 (08:23→21:43)
[2017-08-03] MEDS: D5 1/2NS w/KCl 20mEq 1,000 ML IV SCH ×2 (09:39→21:45)
[2017-08-03 10:29] LABS: BASOPHILS % (AUTO) 1.1 % (0.0-2.0); EOSINOPHILS % (AUTO) 4.1 % (0.0-3.0); HEMOGLOBIN 13.1 G/DL (12.0-16.0); LYMPHOCYTES % (AUTO) 20.4 % (20.0-45.0); MEAN CORPUSCULAR VOLUME 94 FL (80-99); MONOCYTES % (AUTO) 6.5 % (1.0-10.0); NEUTROPHILS % (AUTO) 67.8 % (45.0-75.0); PLATELET COUNT 210 K/UL (150-450); RED BLOOD COUNT 4.13 M/UL (4.20-5.40); RED CELL DISTRIBUTION WIDTH 13.4 % (11.6-14.8); WHITE BLOOD COUNT 5.3 K/UL (4.8-10.8)
[2017-08-03 10:43] LABS: INR 1.1 (0.9-1.1)
--- NOTE | 2017-08-03 10:49 | Diagnostic Imaging Report ---
Clinical Indication: Pain Technique: No oral contrast utilized, per emergency room physician request IV administration nonionic contrast. Venous phase spiral acquisition obtained through the abdomen and pelvis. Multiplanar reconstructions were generated. Total dose length product 528.86 mGycm. CTDIvol(s) 10.75 mGy. Dose reduction achieved using automated exposure control Comparison: 11/16/2015 Findings: The appendix is normal. There is no evidence of diverticulosis or diverticulitis. There is mild prominence of some pelvic small bowel loops which are fluid-filled, normal caliber distal ileum. No free or loculated intraperitoneal air or fluid is evident. There is a small sliding-type hiatal hernia. The stomach, duodenum are unremarkable. Moderate amount of retained fecal material is seen throughout the colon. There is a small fat-containing Bochdalek hernia on the left, more evident on the previous and on the current exam. Again demonstrated is mild central intrahepatic biliary ductal dilatation which appears unchanged from the previous exam. The extrahepatic ducts are nondilated. The gallbladder is unremarkable. The liver demonstrates one or more subcentimeter low-attenuation lesions which are too small to characterize, most likely benign simple cysts, unchanged from previously. The pancreas demonstrates a tiny fat attenuation lesion in the pancreatic head, also evident previously, probably a small lipoma, unchanged. There are few calcifications within the pancreatic tail. Spleen, right adrenal are unremarkable. There is questionably a 1.5 cm left adrenal nodule, unchanged from previously. The right kidney again demonstrates lobulated upper pole contours. Both kidneys demonstrate multiple cysts, as well as subcentimeter low-attenuation lesions which are too small to characterize. No hydronephrosis or hydroureter. The bladder is distended. No pelvic mass or adenopathy. Uterus and ovaries are not demonstrated, presumed surgically absent. The distal abdominal aorta and common iliac arteries are mildly ectatic The included lung bases demonstrate some posterior atelectatic changes. The bones demonstrate degenerative spondylosis changes. There is slight alignment abnormality at L4-5 which is unchanged. There are degenerative changes of the bilateral hips and the pubic symphysis Impression: Borderline dilated fluid-filled distal small bowel. Most likely represents mild enteritis changes. However, the presence of nondilated distal ileum makes very early/partial small bowel obstruction a possibility, although less likely Possible mild constipation Tiny pancreatic head lipoma. No other evidence of pancreatic mass, despite stated clinical history of such. Nonspecific pancreatic calcifications Stable questionable 1.5 cm left adrenal nodule, presumably benign Distended bladder Bilateral renal cysts. Subcentimeter low-attenuation renal as well as hepatic lesions, too small to characterize, most likely benign simple cysts. No further follow-up needed Findings as noted, including degenerative changes of the hips, pubic symphysis and lumbar spine, evidence of prior hysterectomy, small sliding-type hiatal hernia, small left-sided Bochdalek hernia, renal scarring. This agrees with the preliminary interpretation provided overnight by [facility]eradiology service, with the exception of the small bowel abnormality. This was discussed by phone with Dr. Martin at the time of interpretation. The CT scanner at [facility] is accredited by the [place] [employer] and the scans are performed using protocols designed to limit radiation exposure to as low as reasonably achievable to attain images of sufficient resolution adequate for diagnostic evaluation.
[2017-08-03 10:58] LABS: ALANINE AMINOTRANSFERASE 14 U/L (12-78); ALBUMIN 3.5 G/DL (3.4-5.0); ALBUMIN/GLOBULIN RATIO 1.1 (1.0-2.7); ALKALINE PHOSPHATASE 77 U/L (46-116); ANION GAP 8 mmol/L (5-15); ASPARTATE AMINO TRANSFERASE 19 U/L (15-37); BILIRUBIN,TOTAL 0.3 MG/DL (0.2-1.0); BLOOD UREA NITROGEN 12 mg/dL (7-18); CALCIUM 9.2 MG/DL (8.5-10.1); CARBON DIOXIDE 27 MMOL/L (21-32); CHLORIDE 109 MMOL/L (98-107); PHOSPHORUS 3.5 MG/DL (2.5-4.9); POTASSIUM 3.9 MMOL/L (3.5-5.1); SODIUM 144 MMOL/L (136-145)
--- NOTE | 2017-08-03 11:20 | GI Initial Consult Note ---
KerlineKelsie Harmanoi N.PLalo 08/03/17 1120: History of Present Illness General Date patient seen: Aug 03, 2017 Time patient seen: 11:01 Reason for Hospitalization: Abdominal Pain Referring physician: CHANI WATT Reason for Consultation: ABDOMINAL PAIN Present Illness HPI 71-year-old female, history of pancreatic"mass", had a biopsy a few weeks ago, presenting with lower abdominal pain for one day. Pointing to suprapubic and right lower quadrant for the pain. Also has had more than 5 episodes of nonbilious nonbloody vomiting. Has had constipation but is passing a lot of gas. No chest pain no shortness of breath. No fever or chills. GI consulted for multiple eps of vomiting. Patient is known to us in the outpatient setting. Has history of EUS for pancreatic ductal dilation back in 2011. Last colonoscopy was performed 10/2016, see summary below. EUS performed 07/20/17 of this year. She presents today with lower abdominal pain and reports of vomiting. Denies any hematemesis or coffee grounds. At this moment, has nausea with no vomiting. Denies any unintentional weight loss or changes in dietary habits. No signs of abuse or neglect. Endoscopy Procedure Note Indication for Procedure: screening colon Procedures Performed: colonoscopy Operative Findings/Diagnosis: diverticulosis LIBBY FRANCO - November 03, 2016 11:37 Home Meds Active Scripts Al Hydroxide/mg Hydroxide (Mag-Al Plus Suspension) 30 Ml Oral.susp, 30 ML ORAL Q6H Y, #8 OZ Prov:Nadir (Fahad)Nathalia [employer] 08/05/17 Reported Medications Omeprazole (OMEPRAZOLE) 40 Mg Capsule.dr, 40 MG ORAL DAILY, CAP 07/31/17 Ferrous Sulfate, Dried (IRON) 159 Mg Tablet.er, 159 MG PO DA, TAB 07/20/17 Allopurinol* (ALLOPURINOL*) 100 Mg Tablet, 100 MG ORAL DAILY, TAB 07/20/17 [place]-3 Fatty Acids/Fish Oil* (FISH OIL 1,000 MG SOFTGEL*) 1 Each Capsule, 1 CAP ORAL DAILY, #30 CAP 0 Refills 07/20/17 Acetaminophen With Codeine (T#3) (TYLENOL #3 TAB*) Y Tab, 2 TAB ORAL Q6H Y for For Pain, TAB 04/03/17 Lipase/Protease/Amylase (CLARICE JOHNSON 24,000 UNITS CAPSULE) 1 Each Capsule., 2 EACH PO TID, CAP 02/03/16 Meclizine Hcl* (MECLIZINE*) 25 Mg Tablet, 25 MG ORAL THREE TIMES A DAY Y for for dizziness, TAB 11/03/15 Hydrocodone Bit/Acetaminophen 5-325* (NORCO 5-325*) 1 Each Tablet, 1 TAB ORAL Q6H Y for For Pain, #10 TAB 0 Refills 08/05/15 Amlodipine Besylate/Benazepril 10-40 Mg (LOTREL 10-40 MG CAPSULE) 1 Each Capsule , 1 CAP ORAL DAILY, CAP 09/16/14 Lorazepam* (ATIVAN*) 1 Mg Tablet, 1 MG ORAL BEDTIME, TAB 01/29/14 Aspirin* (ASPIR-LOW*) 81 Mg Tablet., 81 MG PO DAILY, TAB 05/27/12 Discontinued Reported Medications Ranitidine Hcl* (ZANTAC*) 150 Mg Tablet, 150 MG ORAL QHS, #30 TAB 0 Refills 04/03/17 Med list reviewed/reconciled: Yes Allergies: Coded Allergies: MORPHINE (Verified Allergy, Severe, 11/03/16) nausea/vomiting Patient History History Provided By: Patient PMH Narrative Past Medical History: see triage record Past Surgical History: none Pertinent Family History: none Last Menstrual Period: NA Now: No Reviewed Nursing Documentation: PMH: Agreed, PSxH: Agreed Nursing Documentation-PMH Hx Cardiac Problems: Yes Hx Hypertension: Yes Hx COPD: Yes Hx Cancer: No Hx Gastrointestinal Problems: Yes Hx Neurological Problems: No Hx Head Trauma: Yes Social History: Denies: smoking, alcohol use, drug use, other Review of Systems All Other Systems: negative except mentioned in HPI Physical Exam Vital Signs Date Time Temp Pulse Resp B/P (MAP) Pulse Ox O2 Delivery O2 Flow Rate FiO2 08/02/17 19:49 97.3 90 18 154/95 98 Room Air 97.3 Sp02 EP Interpretation: reviewed, normal Labs Laboratory Tests Test 08/02/17 20:40 08/03/17 09:40 White Blood Count 10.1 K/UL (4.8-10.8) 5.3 K/UL (4.8-10.8) Red Blood Count 5.10 M/UL (4.20-5.40) 4.13 M/UL (4.20-5.40) L Hemoglobin 15.8 G/DL (12.0-16.0) 13.1 G/DL (12.0-16.0) Hematocrit 48.6 % (37.0-47.0) H 39.0 % (37.0-47.0) Mean Corpuscular Volume 95 FL (80-99) 94 FL (80-99) Mean Corpuscular Hemoglobin 30.9 PG (27.0-31.0) 31.6 PG (27.0-31.0) H Mean Corpuscular Hemoglobin Concent 32.4 G/DL (32.0-36.0) 33.5 G/DL (32.0-36.0) Red Cell Distribution Width 13.2 % (11.6-14.8) 13.4 % (11.6-14.8) Platelet Count 266 K/UL (150-450) 210 K/UL (150-450) Mean Platelet Volume 6.3 FL (6.5-10.1) L 6.1 FL (6.5-10.1) L Neutrophils (%) (Auto) 90.1 % (45.0-75.0) H 67.8 % (45.0-75.0) Lymphocytes (%) (Auto) 6.7 % (20.0-45.0) L 20.4 % (20.0-45.0) Monocytes (%) (Auto) 2.1 % (1.0-10.0) 6.5 % (1.0-10.0) Eosinophils (%) (Auto) 0.6 % (0.0-3.0) 4.1 % (0.0-3.0) H Basophils (%) (Auto) 0.5 % (0.0-2.0) 1.1 % (0.0-2.0) Sodium Level 140 MMOL/L (136-145) Pending Potassium Level 4.4 MMOL/L (3.5-5.1) Pending Chloride Level 104 MMOL/L (98-107) Pending Carbon Dioxide Level 28 MMOL/L (21-32) Pending Anion Gap 8 mmol/L (5-15) Blood Urea Nitrogen 18 mg/dL (7-18) Pending Creatinine 1.0 MG/DL (0.55-1.30) Pending Estimat Glomerular Filtration Rate mL/min (>60) Pending Glucose Level 162 MG/DL (74-106) H Pending Calcium Level 9.9 MG/DL (8.5-10.1) Pending Total Bilirubin 0.3 MG/DL (0.2-1.0) Pending Aspartate Amino Transf (AST/SGOT) 21 U/L (15-37) Pending Alanine Aminotransferase (ALT/SGPT) 26 U/L (12-78) Pending Alkaline Phosphatase 105 U/L (46-116) Pending Troponin I 0.000 ng/mL (0.000-0.056) Total Protein 8.5 G/DL (6.4-8.2) H Pending Albumin 4.5 G/DL (3.4-5.0) Pending Globulin 4.0 g/dL Pending Albumin/Globulin Ratio 1.1 (1.0-2.7) Lipase 151 U/L (73-393) Prothrombin Time 11.6 SEC (9.30-11.50) H Prothromb Time International Ratio 1.1 (0.9-1.1) Activated Partial Thromboplast Time 28 SEC (23-33) Phosphorus Level Pending Magnesium Level Pending General Appearance: well appearing, no apparent distress, alert, thin Head: normocephalic EENT: PERRL/EOMI, normal ENT inspection Neck: supple Respiratory: normal breath sounds, no respiratory distress Cardiovascular: normal rate Gastrointestinal: normal inspection, non tender, soft, normal bowel sounds, non -distended Rectal: deferred Genitourinary: no CVA tenderness Musculoskeletal: normal inspection, back normal Neurologic: normal inspection, alert, oriented x3, responsive Psychiatric: normal inspection, judgement/insight normal, memory normal Skin: normal inspection, normal color, no rash, warm/dry, palpation normal, well hydrated Lymphatic: normal inspection, no adenopathy Current Medications Current Medications Medications (Trade) Dose Ordered Sig/Divya Route PRN Reason Start Time Stop Time Status Last Admin Dose Admin Acetaminophen (Tylenol) 650 mg Q6H PRN ORAL Mild Pain/Temp > 100.5 08/03/17 06:45 09/02/17 06:44 Allopurinol (Zyloprim) 100 mg DAILY ORAL 08/03/17 09:00 09/02/17 08:59 08/03/17 08:21 Dextrose/ Electrolytes 1,000 ml @ 75 mls/hr [id number] IV 08/03/17 08:00 09/02/17 07:59 08/03/17 09:39 Heparin Sodium (Porcine) (Heparin 5000 units/ml) 5,000 units EVERY 12 HOURS SUBQ 08/03/17 09:00 09/02/17 08:59 08/03/17 08:23 Ketorolac Tromethamine (Toradol 30mg) 15 mg Q6H PRN IM Moderate Breakthru Pain (5-7) 08/03/17 06:45 08/08/17 06:44 08/03/17 08:49 Lorazepam (Ativan) 1 mg HSPRN PRN ORAL For Anxiety 08/03/17 06:45 08/10/17 06:44 Ondansetron HCl (Zofran) 4 mg Q4H PRN IVP Nausea & Vomiting 08/03/17 06:45 09/02/17 06:44 GI: Plan Problems: (1) Nausea & vomiting (2) Abdominal pain (3) GERD (gastroesophageal reflux disease) (4) Pancreatitis (5) Constipation (6) Pancreatic duct dilated Plan s/p EUS 07/20/17 - see full report: 1. Peeling of the distal esophageal lining suggestive of esophagitis. 2. Distal esophageal ring at the gastroesophageal unction at 36 cm from the incisors. 3. A 4-cm hiatal hernia. 4. A 3-mm lesion in the duodenal bulb suspicious for accessory pancreatic duct versus pancreatic rest, not biopsied. 5. Almost 2-cm gallbladder polyp. 6. 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 CT AP reviewed >> - Borderline dilated fluid-filled distal small bowel. Most likely represents mild enteritis changes. - Possible mild constipation - Distended bladder - See full report. RECOMMENDATIONS: symptomatic treatment zofran prn cont PPI FLD, adv as tolerated Pancrease TID bowel regime bladder scan fu labs defer MRCP, patient cannot have due to foreign body. Discussed with Dr. Franco. Thank you for this patient referral, we will follow. LIBBY FRANCO 08/06/17 0915: History of Present Illness General Reason for Hospitalization: Abdominal Pain Present Illness Home Meds Active Scripts Al Hydroxide/mg Hydroxide (Mag-Al Plus Suspension) 30 Ml Oral.susp, 30 ML ORAL Q6H Y, #8 OZ Prov:Nadir (Fahad)Nathalia [employer] 08/05/17 Reported Medications Omeprazole (OMEPRAZOLE) 40 Mg Capsule.dr, 40 MG ORAL DAILY, CAP 07/31/17 Ferrous Sulfate, Dried (IRON) 159 Mg Tablet.er, 159 MG PO DA, TAB 07/20/17 Allopurinol* (ALLOPURINOL*) 100 Mg Tablet, 100 MG ORAL DAILY, TAB 07/20/17 [place]-3 Fatty Acids/Fish Oil* (FISH OIL 1,000 MG SOFTGEL*) 1 Each Capsule, 1 CAP ORAL DAILY, #30 CAP 0 Refills 07/20/17 Acetaminophen With Codeine (T#3) (TYLENOL #3 TAB*) Y Tab, 2 TAB ORAL Q6H Y for For Pain, TAB 04/03/17 Lipase/Protease/Amylase (CREON DR 24,000 UNITS CAPSULE) 1 Each Capsule.dr, 2 EACH PO TID, CAP 02/03/16 Meclizine Hcl* (MECLIZINE*) 25 Mg Tablet, 25 MG ORAL THREE TIMES A DAY Y for for dizziness, TAB 11/03/15 Hydrocodone Bit/Acetaminophen 5-325* (NORCO 5-325*) 1 Each Tablet, 1 TAB ORAL Q6H Y for For Pain, #10 TAB 0 Refills 08/05/15 Amlodipine Besylate/Benazepril 10-40 Mg (LOTREL 10-40 MG CAPSULE) 1 Each Capsule , 1 CAP ORAL DAILY, CAP 09/16/14 Lorazepam* (ATIVAN*) 1 Mg Tablet, 1 MG ORAL BEDTIME, TAB 01/29/14 Aspirin* (ASPIR-LOW*) 81 Mg Tablet.dr, 81 MG PO DAILY, TAB 05/27/12 Discontinued Reported Medications Ranitidine Hcl* (ZANTAC*) 150 Mg Tablet, 150 MG ORAL QHS, #30 TAB 0 Refills 04/03/17 Allergies: Coded Allergies: MORPHINE (Verified Allergy, Severe, 11/03/16) nausea/vomiting GI: Plan Plan The patient was seen and examined at bedside and all new and available data was reviewed in the patients chart. I agree with the above findings, impression and plan. (Patient seen earlier today. Signature stamp does not reflect patient encounter time.). - MD Kerline BernabeEn[facility] Memo NSunshine Aug 03, 2017 11:20 LIBBY FRANCO Aug 06, 2017 09:15
[2017-08-03] MEDS: Docusate 100mg cap ORAL SCH ×2 (13:18→18:09)
--- NOTE | 2017-08-03 14:19 | Cardiology Report ---
APPROVED REPORT EKG Measurement Heart [id number] VT [id number] Sinus rhythm with premature atrial complexes Otherwise normal ECG
--- NOTE | 2017-08-03 16:03 | Consultation ---
History of Present Illness General Date patient seen: Aug 03, 2017 Time patient seen: 15:00 Chief Complaint: Abdominal Pain Referring physician: CHANI WATT Reason for Consultation: inhospital management Present Illness HPI 71-year-old female,with PMH of HTN, COPD, ? pancreatic"mass"(had a biopsy a few weeks ago), presented with lower abdominal pain x1 day psin,localzied in suprapubic and lower abdominal areas About 5 episodes of nonbloody nonbilious emesis Passing gas, but constipated denied fevers, chills Workup in ED initiated. VSS, afebrile, BP slightly up-154/95 ECG with NSR, no acute ischemic changes, troponin negative lipase, LFT, renal parameters , lytes all WNL no leukocytosis stable HH patient was admitted for further management CT A/P revealed Borderline dilated fluid-filled distal small bowel. Most likely represents mild enteritis changes. However, the presence of nondilated distal ileum makes very early/partial small bowel obstruction a possibility, although less likely. Possible mild constipation Tiny pancreatic head lipoma. No other evidence of pancreatic mass, despite stated clinical history of such. Allergies: Coded Allergies: MORPHINE (Verified Allergy, Severe, 11/03/16) nausea/vomiting Medication History Scheduled Allopurinol* (Allopurinol*), 100 MG ORAL DAILY, (Reported) Amlodipine Besylate/Benazepril 10-40 Mg (Lotrel 10-40 Mg Capsule), 1 CAP ORAL DAILY, (Reported) Aspirin* (Aspir-Low*), 81 MG PO DAILY, (Reported) Ferrous Sulfate, Dried (Iron), 159 MG PO DA, (Reported) Lipase/Protease/Amylase (Creon Dr 24,000 Units Capsule), 2 EACH PO TID, ( Reported) Lorazepam* (Ativan*), 1 MG ORAL BEDTIME, (Reported) [place]-3 Fatty Acids/Fish Oil* (Fish Oil 1,000 Mg Softgel*), 1 CAP ORAL DAILY, ( Reported) Omeprazole (Omeprazole), 40 MG ORAL DAILY, (Reported) Scheduled PRN Acetaminophen With Codeine (T#3) (Tylenol #3 Tab*), 2 TAB ORAL Q6H PRN for For Pain, (Reported) Hydrocodone Bit/Acetaminophen 5-325* ([place]armel 5-325*), 1 TAB ORAL Q6H PRN for For Pain, (Reported) Meclizine Hcl* (Meclizine*), 25 MG ORAL THREE TIMES A DAY PRN for for dizziness, (Reported) Discontinued Medications Ranitidine Hcl* (Zantac*), 150 MG ORAL QHS, (Reported) Discontinued Reason: MD discontinued med Patient History Healthcare decision maker DAYNA MITCHELL Resuscitation status Full Code Advanced Directive on File No Past Medical/Surgical History Past Medical/Surgical History: (1) HTN (hypertension) (2) Esophagitis (3) Diverticulosis (4) COPD (chronic obstructive pulmonary disease) (5) Pancreatic duct dilated (6) GERD (gastroesophageal reflux disease) (7) Pancreatitis Physical Exam Physical Exam Narrative General Appearance: no acute distress HEENT: normocephalic, atraumatic, anicteric, mucous membranes moist, PERRL Respiratory/Chest: lungs clear, no respiratory distress, no accessory muscle use Cardiovascular: normal rate, no JVD Abdomen: normal bowel sounds, soft, non tender, non distended Extremities: no edema, pedal pulses normal Neurologic/Psychiatric: no motor/sensory deficits, alert, oriented x 3, responsive Musculoskeletal: normal muscle bulk Last 24 Hour Vital Signs Date Time Temp Pulse Resp B/P (MAP) Pulse Ox O2 Delivery O2 Flow Rate FiO2 08/03/17 11:44 Room Air 08/03/17 11:44 97.9 66 20 132/72 95 08/03/17 08:00 97.9 66 20 132/72 95 08/03/17 08:00 Room Air 08/03/17 03:05 98.2 67 19 122/65 93 08/03/17 01:55 98.2 80 20 125/72 98 Room Air 97.3 08/03/17 01:45 80 20 125/72 98 Room Air 08/03/17 00:00 85 25 127/60 97 Room Air 08/02/17 22:00 80 21 129/63 98 Room Air 08/02/17 19:55 97.3 18 154/95 98 Room Air 97.3 08/02/17 19:49 97.3 90 18 154/95 98 Room Air 97.3 Intake and Output 08/02/17 08/03/17 19:00 07:00 Intake Total 0 ml Balance 0 ml Intake Oral 0 ml # Voids 2 Laboratory Tests Test 08/02/17 20:40 08/03/17 09:40 White Blood Count 10.1 K/UL (4.8-10.8) 5.3 K/UL (4.8-10.8) Red Blood Count 5.10 M/UL (4.20-5.40) 4.13 M/UL (4.20-5.40) L Hemoglobin 15.8 G/DL (12.0-16.0) 13.1 G/DL (12.0-16.0) Hematocrit 48.6 % (37.0-47.0) H 39.0 % (37.0-47.0) Mean Corpuscular Volume 95 FL (80-99) 94 FL (80-99) Mean Corpuscular Hemoglobin 30.9 PG (27.0-31.0) 31.6 PG (27.0-31.0) H Mean Corpuscular Hemoglobin Concent 32.4 G/DL (32.0-36.0) 33.5 G/DL (32.0-36.0) Red Cell Distribution Width 13.2 % (11.6-14.8) 13.4 % (11.6-14.8) Platelet Count 266 K/UL (150-450) 210 K/UL (150-450) Mean Platelet Volume 6.3 FL (6.5-10.1) L 6.1 FL (6.5-10.1) L Neutrophils (%) (Auto) 90.1 % (45.0-75.0) H 67.8 % (45.0-75.0) Lymphocytes (%) (Auto) 6.7 % (20.0-45.0) L 20.4 % (20.0-45.0) Monocytes (%) (Auto) 2.1 % (1.0-10.0) 6.5 % (1.0-10.0) Eosinophils (%) (Auto) 0.6 % (0.0-3.0) 4.1 % (0.0-3.0) H Basophils (%) (Auto) 0.5 % (0.0-2.0) 1.1 % (0.0-2.0) Sodium Level 140 MMOL/L (136-145) 144 MMOL/L (136-145) Potassium Level 4.4 MMOL/L (3.5-5.1) 3.9 MMOL/L (3.5-5.1) Chloride Level 104 MMOL/L (98-107) 109 MMOL/L (98-107) H Carbon Dioxide Level 28 MMOL/L (21-32) 27 MMOL/L (21-32) Anion Gap 8 mmol/L (5-15) 8 mmol/L (5-15) Blood Urea Nitrogen 18 mg/dL (7-18) 12 mg/dL (7-18) Creatinine 1.0 MG/DL (0.55-1.30) 1.0 MG/DL (0.55-1.30) Estimat Glomerular Filtration Rate mL/min (>60) mL/min (>60) Glucose Level 162 MG/DL (74-106) H 92 MG/DL (74-106) Calcium Level 9.9 MG/DL (8.5-10.1) 9.2 MG/DL (8.5-10.1) Total Bilirubin 0.3 MG/DL (0.2-1.0) 0.3 MG/DL (0.2-1.0) Aspartate Amino Transf (AST/SGOT) 21 U/L (15-37) 19 U/L (15-37) Alanine Aminotransferase (ALT/SGPT) 26 U/L (12-78) 14 U/L (12-78) Alkaline Phosphatase 105 U/L (46-116) 77 U/L (46-116) Troponin I 0.000 ng/mL (0.000-0.056) Total Protein 8.5 G/DL (6.4-8.2) H 6.6 G/DL (6.4-8.2) Albumin 4.5 G/DL (3.4-5.0) 3.5 G/DL (3.4-5.0) Globulin 4.0 g/dL 3.1 g/dL Albumin/Globulin Ratio 1.1 (1.0-2.7) 1.1 (1.0-2.7) Lipase 151 U/L (73-393) Prothrombin Time 11.6 SEC (9.30-11.50) H Prothromb Time International Ratio 1.1 (0.9-1.1) Activated Partial Thromboplast Time 28 SEC (23-33) Phosphorus Level 3.5 MG/DL (2.5-4.9) Magnesium Level 2.0 MG/DL (1.8-2.4) Height (Feet): 5 Height (Inches): 3.00 Weight (Pounds): 125 Medications Current Medications Medications (Trade) Dose Ordered Sig/Divya Route PRN Reason Start Time Stop Time Status Last Admin Dose Admin Acetaminophen (Tylenol) 650 mg Q6H PRN ORAL Mild Pain/Temp > 100.5 08/03/17 06:45 09/02/17 06:44 08/03/17 11:59 Allopurinol (Zyloprim) 100 mg DAILY ORAL 08/03/17 09:00 09/02/17 08:59 08/03/17 08:21 Amylase/Lipase/ Protease (Pancrease) 2 ea BEFORE MEALS ORAL 08/03/17 16:30 09/02/17 16:29 Dextrose/ Electrolytes 1,000 ml @ 75 mls/hr [id number] IV 08/03/17 08:00 09/02/17 07:59 08/03/17 09:39 Docusate Sodium (Colace) 100 mg THREE TIMES A DAY ORAL 08/03/17 13:00 09/02/17 12:59 08/03/17 13:18 Heparin Sodium (Porcine) (Heparin 5000 units/ml) 5,000 units EVERY 12 HOURS SUBQ 08/03/17 09:00 09/02/17 08:59 08/03/17 08:23 Ketorolac Tromethamine (Toradol 30mg) 15 mg Q6H PRN IM Moderate Breakthru Pain (5-7) 08/03/17 06:45 08/08/17 06:44 08/03/17 08:49 Lorazepam (Ativan) 1 mg HSPRN PRN ORAL For Anxiety 08/03/17 06:45 08/10/17 06:44 Ondansetron HCl (Zofran) 4 mg Q4H PRN IVP Nausea & Vomiting 08/03/17 06:45 09/02/17 06:44 Pantoprazole (Protonix) 40 mg DAILY ORAL 08/04/17 09:00 09/03/17 08:59 Polyethylene Glycol (Miralax) 17 gm BEDTIME ORAL 08/03/17 21:00 09/02/17 20:59 Assessment/Plan Assessment/Plan ASSESSMENT abdominal pain intractable n/v possible enteritis pancreatitis dilated pancreatic duct COPD HTN GERD PLAN OF CARE MS floor IVF GI follows EUS findings noted ( from previous admissio0 a/emetic prn FL diet and advance as tolerated PPI [id number] bowel regimen O2 titrate prn, HHN prn monitor renal parameters,correct lytes as needed pain management bladder scan with PVR case discussed and evaluated by supervising physician Nadir (Fahad),Nathalia ANNE Aug 03, 2017 16:03
[2017-08-03] MEDS: Pancrease Cap ORAL SCH (17:03)
[2017-08-03] MEDS ORDERED: Norco 5mg/325mg tab ORAL PRN (17:45)
--- NOTE | 2017-08-03 18:05 | History & Physical ---
History and Physical History & Physicial Dictated for Int Med-Dr Martin no. [id number]. TAB GOLDSTEIN Aug 03, 2017 18:05
[2017-08-03] MEDS: Miralax 17gm pkt ORAL SCH (21:41)
--- NOTE | 2017-08-03 21:45 | History and Physical Report ---
DATE OF ADMISSION: 08/02/2017 CHIEF COMPLAINT: The patient is a 71-year-old white female, presents with chief complaint of abdominal pain, nausea, and vomiting. HISTORY OF PRESENT ILLNESS: The patient had an endoscopy on by Dr. Terry Villarreal. Please see procedure notes from that time. The patient states that since her endoscopy, she has had abdominal pain. The patient also has had reflux. The patient states that it got worse yesterday approximately 2 p.m. The patient also had intractable nausea with vomiting. The patient presented to [facility] emergency room. The patient is admitted for abdominal pain, nausea, and vomiting. REVIEW OF SYSTEMS: CONSTITUTIONAL: The patient denies weight loss or weight gain. The patient denies fevers or chills. HEENT: The patient denies ear or throat pain. The patient denies headache. CARDIOVASCULAR: The patient denies palpitations or chest pain. CHEST: The patient denies wheezes or shortness of breath. ABDOMINAL: The patient complains of epigastric pain. The patient complains of reflux. The patient complains of intractable nausea and vomiting. The patient denies constipation or diarrhea. GENITOURINARY: The patient denies dysuria or increased frequency of urination. NEUROMUSCULAR: The patient denies seizures or generalized weakness. PAST MEDICAL HISTORY: Significant for: 1. History of renal cysts. 2. Chronic obstructive pulmonary disease. 3. Hypertension. PAST SURGICAL HISTORY: The patient denies. CURRENT MEDICATIONS: 1. Tylenol No. 3 one tablet p.o. q.6 hours. 2. Allopurinol 100 mg p.o. daily. 3. Lotrel 10/40 one tablet p.o. daily. 4. Aspirin 81 mg p.o. daily. 5. Iron sulfate 159 mg p.o. daily. 6. Gary 5/325 mg one tablet p.o. q.6 h. p.r.n. 7. Creon two tablets p.o. three times daily. 8. Ativan 1 mg p.o. at bedtime. 9. Meclizine 25 mg p.o. three times daily. 10. Fish oil one tablet p.o. daily. 11. Omeprazole 40 mg p.o. daily. ALLERGIES: The patient claims no known allergies, however, the medical record states she is allergic to morphine. The patient also states she is allergic to phenobarbital. SOCIAL HISTORY: The patient is . The patient lives with her grown niece. The patient denies tobacco use, having quit in 2016. The patient denies alcohol use. PHYSICAL EXAMINATION: VITAL SIGNS: Temperature 98.2, respirations 20, pulse 80, and blood pressure 125/72. GENERAL: The patient is a well-developed and well-nourished white female, in no apparent distress. HEENT: Eyes, pupils are equal and responsive to light and accommodation. Extraocular movements are intact. NECK: Supple without lymphadenopathy. CHEST: Lungs are clear to auscultation bilaterally without wheezes or rales. CARDIOVASCULAR: Regular rhythm and rate. S1, S2 are normal without murmurs, rubs, or gallops. ABDOMEN: Soft, nontender, and nondistended. Positive bowel sounds. No evidence of hepatosplenomegaly. Currently, no rebound or guarding noted. EXTREMITIES: Negative for clubbing, cyanosis, or edema. RECTAL/GENITAL: Refused. NEUROLOGIC: Cranial nerves II through XII are grossly intact without focal deficits. Motor strength is 5/5 bilaterally. Deep tendon reflexes are 2+ plantar. LABORATORY AND DIAGNOSTIC DATA: Laboratory studies, WBC 10.1, hemoglobin 15.8, hematocrit 48.6, and platelets . Sodium 140, potassium 4.4, chloride 104, CO2 28, BUN 18, creatinine 1.0, and glucose 162. Lipase is normal at 151. CT scan of the abdomen revealed mild constipation, bilateral renal cysts. ASSESSMENT: This is a 71-year-old female with: 1. Abdominal pain. 2. Epigastric pain. 3. Gastroesophageal reflux disease. 4. Nausea with vomiting. 5. Hypertension. TREATMENT: 1. Abdominal pain/epigastric pain/gastroesophageal reflux disease/nausea/vomiting. A Gastroenterology consultation has been obtained with Dr. Terry Villarreal. The patient may require endoscopy during this. We will follow recommendations of Gastroenterology. 2. Hypertension. Continue Lotrel as above. Luis F Norman M.D. DR: FRANCIA JOB#: [id number] CC:
[2017-08-04] VITALS (7 sets, daily range): BP systolic 122–148; BP diastolic 71–100
[2017-08-04] MEDS: HYDROcodone/Acetamin 10/325 tab ORAL PRN ×4 (03:01→21:38)
[2017-08-04] MEDS: Pancrease Cap ORAL SCH ×3 (06:30→16:58)
[2017-08-04 07:28] LABS: BASOPHILS % (AUTO) 1.2 % (0.0-2.0); EOSINOPHILS % (AUTO) 6.9 % (0.0-3.0); HEMATOCRIT 38.1 % (37.0-47.0); HEMOGLOBIN 12.8 G/DL (12.0-16.0); LYMPHOCYTES % (AUTO) 23.5 % (20.0-45.0); MEAN CORPUSCULAR VOLUME 94 FL (80-99); MONOCYTES % (AUTO) 7.4 % (1.0-10.0); NEUTROPHILS % (AUTO) 61.2 % (45.0-75.0); PLATELET COUNT 199 K/UL (150-450); RED BLOOD COUNT 4.08 M/UL (4.20-5.40); RED CELL DISTRIBUTION WIDTH 13.1 % (11.6-14.8); WHITE BLOOD COUNT 4.9 K/UL (4.8-10.8)
[2017-08-04 07:47] LABS: ANION GAP 8 mmol/L (5-15); BLOOD UREA NITROGEN 11 mg/dL (7-18); CALCIUM 9.3 MG/DL (8.5-10.1); CARBON DIOXIDE 29 MMOL/L (21-32); CHLORIDE 106 MMOL/L (98-107); CREATININE 0.9 MG/DL (0.55-1.30); POTASSIUM 4.2 MMOL/L (3.5-5.1); SODIUM 143 MMOL/L (136-145)
[2017-08-04] MEDS: Docusate 100mg cap ORAL SCH ×3 (08:40→16:58)
[2017-08-04] MEDS: Allopurinol 100mg Tab ORAL SCH (08:40)
[2017-08-04] MEDS: Heparin 5000 units/ml inj SUBQ SCH ×2 (08:43→20:37)
[2017-08-04] MEDS: D5 1/2NS w/KCl 20mEq 1,000 ML IV SCH ×2 (10:40→14:46)
--- NOTE | 2017-08-04 10:49 | General Progress Note ---
Assessment/Plan Problem List: (1) Diverticulosis ICD Codes: K57.90 - Diverticulosis SNOMED: 700801511 (2) HTN (hypertension) ICD Codes: I10 - Essential (primary) hypertension SNOMED: 88151741 (3) Esophagitis ICD Codes: K20.9 - Esophagitis, unspecified SNOMED: 87651773 (4) Pancreatic duct dilated ICD Codes: K86.89 - Other specified diseases of pancreas SNOMED: 578827586 (5) Abdominal pain ICD Codes: R10.9 - Unspecified abdominal pain SNOMED: 43809460 (6) GERD (gastroesophageal reflux disease) ICD Codes: K21.9 - GERD (gastroesophageal reflux disease) SNOMED: 063824811 (7) Constipation ICD Codes: K59.00 - Constipation SNOMED: 53223380 Assessment/Plan no active GI concern ppi laxatives ok to dc GI stand point Subjective ROS Limited/Unobtainable: Yes Allergies: Coded Allergies: MORPHINE (Verified Allergy, Severe, 11/03/16) nausea/vomiting Subjective multiple c/o Objective Last 24 Hour Vital Signs Date Time Temp Pulse Resp B/P (MAP) Pulse Ox O2 Delivery O2 Flow Rate FiO2 08/04/17 09:39 97.9 08/04/17 09:19 97.9 61 19 130/71 96 08/04/17 08:40 97.9 08/04/17 04:00 97.6 69 20 147/78 93 08/04/17 03:01 97.9 08/04/17 00:00 97.9 64 21 140/78 96 08/03/17 19:59 97.0 65 19 136/78 96 08/03/17 15:53 97.0 63 20 134/77 97 08/03/17 11:44 Room Air 08/03/17 11:44 97.9 66 20 132/72 95 Intake and Output 08/03/17 08/04/17 19:00 07:00 Intake Total 1357.5 ml 1445 ml Output Total 600 ml 426 ml Balance 757.5 ml 1019 ml Intake Oral 720 ml 620 ml IV Total 637.5 ml 825 ml Output Urine Total 300 ml Post Void Residual 300 ml 426 ml Bladder Scan Volume Amount 88ml 151-200 ml 200ml 201-300 ml 81ml # Voids 2 4 Laboratory Tests 08/04/17 04:35: White Blood Count 4.9, Red Blood Count 4.08L, Hemoglobin 12.8, Hematocrit 38.1, Mean Corpuscular Volume 94, Mean Corpuscular Hemoglobin 31.5H, Mean Corpuscular Hemoglobin Concent 33.7, Red Cell Distribution Width 13.1, Platelet Count 199, Mean Platelet Volume 6.1L, Neutrophils (%) (Auto) 61.2, Lymphocytes (%) (Auto) 23.5, Monocytes (%) (Auto) 7.4, Eosinophils (%) (Auto) 6.9H, Basophils (%) (Auto ) 1.2, Sodium Level 143, Potassium Level 4.2, Chloride Level 106, Carbon Dioxide Level 29, Anion Gap 8, Blood Urea Nitrogen 11, Creatinine 0.9, Estimat Glomerular Filtration Rate , Glucose Level 79, Calcium Level 9.3 Height (Feet): 5 Height (Inches): 3.00 Weight (Pounds): 125 General Appearance: alert Neck: supple Cardiovascular: normal rate Respiratory/Chest: decreased breath sounds Abdomen: normal bowel sounds, non tender, soft Extremities: non-tender LIBBY FRANCO Aug 04, 2017 10:49
[2017-08-04] MEDS: Norco 5mg/325mg tab ORAL PRN (11:14)
--- NOTE | 2017-08-04 13:29 | Pulmonology Progress Note ---
Assessment/Plan Assessment/Plan ASSESSMENT possible enteritis abdominal pain with intractable n/v -resolved ( likely due to possible enteritis ) dilated pancreatic duct diverticulosis COPD HTN GERD PLAN OF CARE [facility] floor IVF GI follows EUS findings noted ( from previous admissio0 a/emetic prn [place] diet, tolerates , and advance to soft Pancrease bowel regimen O2 titrate prn, HHN prn monitor renal parameters,correct lytes as needed pain management bladder scan with PVR apparently reflected that patient is retaining urine repeat bladder scan and record GI cleared for dc , no active GI concerns get UA case discussed and evaluated by supervising physician Subjective Allergies: Coded Allergies: MORPHINE (Verified Allergy, Severe, 11/03/16) nausea/vomiting Subjective afebrile, no leukocytosis no signs of respiratory distress tolerates diet GI follows Objective Last 24 Hour Vital Signs Date Time Temp Pulse Resp B/P (MAP) Pulse Ox O2 Delivery O2 Flow Rate FiO2 08/04/17 12:13 98.1 08/04/17 12:00 98.1 69 18 148/76 97 08/04/17 11:14 97.9 08/04/17 09:39 97.9 08/04/17 09:19 97.9 61 19 130/71 96 08/04/17 08:40 97.9 08/04/17 08:00 97.9 61 19 130/71 96 08/04/17 04:00 97.6 69 20 147/78 93 08/04/17 03:01 97.9 08/04/17 00:00 97.9 64 21 140/78 96 08/03/17 19:59 97.0 65 19 136/78 96 08/03/17 15:53 97.0 63 20 134/77 97 Intake and Output 08/03/17 08/04/17 19:00 07:00 Intake Total 1357.5 ml 1445 ml Output Total 600 ml 426 ml Balance 757.5 ml 1019 ml Intake Oral 720 ml 620 ml IV Total 637.5 ml 825 ml Output Urine Total 300 ml Post Void Residual 300 ml 426 ml Bladder Scan Volume Amount 88ml 151-200 ml 200ml 201-300 ml 81ml # Voids 2 4 General Appearance: no acute distress HEENT: normocephalic, atraumatic, anicteric, mucous membranes moist, PERRL Respiratory/Chest: lungs clear, no respiratory distress, no accessory muscle use Cardiovascular: normal rate, no JVD Abdomen: normal bowel sounds, soft, non tender, non distended Extremities: no edema, pedal pulses normal Neurologic/Psychiatric: no motor/sensory deficits, alert, oriented x 3, responsive Musculoskeletal: normal muscle bulk Laboratory Tests 08/04/17 04:35: White Blood Count 4.9, Red Blood Count 4.08L, Hemoglobin 12.8, Hematocrit 38.1, Mean Corpuscular Volume 94, Mean Corpuscular Hemoglobin 31.5H, Mean Corpuscular Hemoglobin Concent 33.7, Red Cell Distribution Width 13.1, Platelet Count 199, Mean Platelet Volume 6.1L, Neutrophils (%) (Auto) 61.2, Lymphocytes (%) (Auto) 23.5, Monocytes (%) (Auto) 7.4, Eosinophils (%) (Auto) 6.9H, Basophils (%) (Auto ) 1.2, Sodium Level 143, Potassium Level 4.2, Chloride Level 106, Carbon Dioxide Level 29, Anion Gap 8, Blood Urea Nitrogen 11, Creatinine 0.9, Estimat Glomerular Filtration Rate , Glucose Level 79, Calcium Level 9.3 Current Medications Medications (Trade) Dose Ordered Sig/Divya Route PRN Reason Start Time Stop Time Status Last Admin Dose Admin Acetaminophen (Tylenol) 650 mg Q6H PRN ORAL Mild Pain/Temp > 100.5 08/03/17 06:45 09/02/17 06:44 08/03/17 11:59 Acetaminophen/ Hydrocodone Bitart ([place] 10/325) 1 tab Q4H PRN ORAL Severe Pain (Pain Scale 7-10) 08/03/17 18:00 08/10/17 17:59 08/04/17 08:40 Acetaminophen/ Hydrocodone Bitart ([place] 5/325) 1 tab Q6H PRN ORAL Moderate Pain (Pain Scale 4-6) 08/03/17 18:30 08/10/17 17:44 08/04/17 11:14 Allopurinol (Zyloprim) 100 mg DAILY ORAL 08/03/17 09:00 09/02/17 08:59 08/04/17 08:40 Amylase/Lipase/ Protease (Pancrease) 2 ea BEFORE MEALS ORAL 08/03/17 16:30 09/02/17 16:29 08/04/17 11:14 Dextrose/ Electrolytes 1,000 ml @ 75 mls/hr [id number] IV 08/03/17 08:00 09/02/17 07:59 08/03/17 21:45 Docusate Sodium (Colace) 100 mg THREE TIMES A DAY ORAL 08/03/17 13:00 09/02/17 12:59 08/04/17 12:41 Heparin Sodium (Porcine) (Heparin 5000 units/ml) 5,000 units EVERY 12 HOURS SUBQ 08/03/17 09:00 09/02/17 08:59 08/04/17 08:43 Lorazepam (Ativan) 1 mg HSPRN PRN ORAL For Anxiety 08/03/17 06:45 08/10/17 06:44 Ondansetron HCl (Zofran) 4 mg Q4H PRN IVP Nausea & Vomiting 08/03/17 06:45 09/02/17 06:44 Pantoprazole (Protonix) 40 mg DAILY ORAL 08/04/17 09:00 09/03/17 08:59 08/04/17 08:40 Polyethylene Glycol (Miralax) 17 gm BEDTIME ORAL 08/03/17 21:00 09/02/17 20:59 08/03/17 21:41 Nadir ([facility])Nathalia NP Aug 04, 2017 13:29
--- NOTE | 2017-08-04 14:20 | Internal Med Progress Note ---
Subjective Date of Service: Aug 04, 2017 Physician Name GoldsteinLuis F Attending Physician Oren Martin MD Current Medications Medications (Trade) Dose Ordered Sig/Divya Route PRN Reason Start Time Stop Time Status Last Admin Dose Admin Acetaminophen (Tylenol) 650 mg Q6H PRN ORAL Mild Pain/Temp > 100.5 08/03/17 06:45 09/02/17 06:44 08/03/17 11:59 Acetaminophen/ Hydrocodone Bitart ([place] 10/325) 1 tab Q4H PRN ORAL Severe Pain (Pain Scale 7-10) 08/03/17 18:00 08/10/17 17:59 08/04/17 08:40 Acetaminophen/ Hydrocodone Bitart ([place] 5/325) 1 tab Q6H PRN ORAL Moderate Pain (Pain Scale 4-6) 08/03/17 18:30 08/10/17 17:44 08/04/17 11:14 Allopurinol (Zyloprim) 100 mg DAILY ORAL 08/03/17 09:00 09/02/17 08:59 08/04/17 08:40 Amylase/Lipase/ Protease (Pancrease) 2 ea BEFORE MEALS ORAL 08/03/17 16:30 09/02/17 16:29 08/04/17 11:14 Dextrose/ Electrolytes 1,000 ml @ 75 mls/hr [id number] IV 08/03/17 08:00 09/02/17 07:59 08/03/17 21:45 Docusate Sodium (Colace) 100 mg THREE TIMES A DAY ORAL 08/03/17 13:00 09/02/17 12:59 08/04/17 12:41 Heparin Sodium (Porcine) (Heparin 5000 units/ml) 5,000 units EVERY 12 HOURS SUBQ 08/03/17 09:00 09/02/17 08:59 08/04/17 08:43 Lorazepam (Ativan) 1 mg HSPRN PRN ORAL For Anxiety 08/03/17 06:45 08/10/17 06:44 Ondansetron HCl (Zofran) 4 mg Q4H PRN IVP Nausea & Vomiting 08/03/17 06:45 09/02/17 06:44 Pantoprazole (Protonix) 40 mg DAILY ORAL 08/04/17 09:00 09/03/17 08:59 08/04/17 08:40 Polyethylene Glycol (Miralax) 17 gm BEDTIME ORAL 08/03/17 21:00 09/02/17 20:59 08/03/17 21:41 Allergies: Coded Allergies: MORPHINE (Verified Allergy, Severe, 11/03/16) nausea/vomiting ROS Limited/Unobtainable: No Constitutional: Reports: no symptoms HEENT: Reports: no symptoms Cardiovascular: Reports: no symptoms Respiratory: Reports: no symptoms Gastrointestinal/Abdominal: Reports: abdominal pain Genitourinary: Reports: no symptoms Neurologic/Psychiatric: Reports: no symptoms Subjective 71 YO F admitted with abdominal pain and nausea/vomiting. Cover for Int Med-Dr Martin. Objective Last Vital Signs Date Time Temp Pulse Resp B/P (MAP) Pulse Ox O2 Delivery O2 Flow Rate FiO2 08/04/17 12:13 98.1 08/04/17 12:00 69 18 148/76 97 08/03/17 11:44 Room Air General Appearance: WD/WN, no apparent distress, alert EENT: PERRL/EOMI, normal ENT inspection, TMs normal Neck: non-tender, normal alignment, supple Cardiovascular: normal peripheral pulses, normal rate, regular rhythm, no gallop/murmur, no JVD Respiratory/Chest: chest wall non-tender, lungs clear, normal breath sounds, no respiratory distress, no accessory muscle use Abdomen: normal bowel sounds, non tender, soft, no organomegaly, no mass Extremities: normal range of motion, non-tender 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, no motor/sensory deficits Skin: normal pigmentation, cyanotic Laboratory Tests Test 08/04/17 04:35 White Blood Count 4.9 K/UL (4.8-10.8) Red Blood Count 4.08 M/UL (4.20-5.40) L Hemoglobin 12.8 G/DL (12.0-16.0) Hematocrit 38.1 % (37.0-47.0) Mean Corpuscular Volume 94 FL (80-99) Mean Corpuscular Hemoglobin 31.5 PG (27.0-31.0) H Mean Corpuscular Hemoglobin Concent 33.7 G/DL (32.0-36.0) Red Cell Distribution Width 13.1 % (11.6-14.8) Platelet Count 199 K/UL (150-450) Mean Platelet Volume 6.1 FL (6.5-10.1) L Neutrophils (%) (Auto) 61.2 % (45.0-75.0) Lymphocytes (%) (Auto) 23.5 % (20.0-45.0) Monocytes (%) (Auto) 7.4 % (1.0-10.0) Eosinophils (%) (Auto) 6.9 % (0.0-3.0) H Basophils (%) (Auto) 1.2 % (0.0-2.0) Sodium Level 143 MMOL/L (136-145) Potassium Level 4.2 MMOL/L (3.5-5.1) Chloride Level 106 MMOL/L (98-107) Carbon Dioxide Level 29 MMOL/L (21-32) Anion Gap 8 mmol/L (5-15) Blood Urea Nitrogen 11 mg/dL (7-18) Creatinine 0.9 MG/DL (0.55-1.30) Estimat Glomerular Filtration Rate mL/min (>60) Glucose Level 79 MG/DL (74-106) Calcium Level 9.3 MG/DL (8.5-10.1) Intake and Output 08/03/17 08/04/17 19:00 07:00 Intake Total 1357.5 ml 1445 ml Output Total 600 ml 426 ml Balance 757.5 ml 1019 ml Intake Oral 720 ml 620 ml IV Total 637.5 ml 825 ml Output Urine Total 300 ml Post Void Residual 300 ml 426 ml Bladder Scan Volume Amount 88ml 151-200 ml 200ml 201-300 ml 81ml # Voids 2 4 Assessment/Plan Problem List: (1) HTN (hypertension) (2) COPD (chronic obstructive pulmonary disease) (3) GERD (gastroesophageal reflux disease) (4) Nausea & vomiting Assessment & Plan: Resolved (5) Abdominal pain Assessment & Plan: See GI note. (6) Pancreatitis Assessment & Plan: Continue pancrease Status: progressing Assessment/Plan Advance to soft diet. LUIS F GOLDSTEIN Aug 04, 2017 14:20
[2017-08-04 14:46] LABS: APPEARANCE,URINE CLEAR; BILIRUBIN, URINE NEGATIVE (NEGATIVE); COLOR,URINE PALE YELLOW; GLUCOSE, URINE (UA) NEGATIVE (NEGATIVE); KETONES,URINE NEGATIVE (NEGATIVE); LEUKOCYTE ESTERASE ,URINE NEGATIVE (NEGATIVE); NITRITE,URINE NEGATIVE (NEGATIVE); PH,URINE 8 (4.5-8.0); PROTEIN,URINE NEGATIVE (NEGATIVE); UROBILINOGEN,URINE NORMAL MG/DL (0.0-1.0)
[2017-08-04] MEDS: Mylanta II UD 30ml ORAL PRN (14:53)
[2017-08-04] MEDS: Miralax 17gm pkt ORAL SCH (20:36)
[2017-08-05] VITALS: BP 150/75
[2017-08-05] MEDS: HYDROcodone/Acetamin 10/325 tab ORAL PRN ×2 (03:38→13:20)
[2017-08-05 04:00] VITALS: BP 153/78
[2017-08-05] MEDS: D5 1/2NS w/KCl 20mEq 1,000 ML IV SCH (04:53)
[2017-08-05] MEDS: Mylanta II UD 30ml ORAL PRN (05:08)
[2017-08-05 05:53] LABS: EOSINOPHILS % (AUTO) 8.1 % (0.0-3.0); HEMATOCRIT 39.4 % (37.0-47.0); HEMOGLOBIN 13.4 G/DL (12.0-16.0); MEAN CORPUSCULAR VOLUME 94 FL (80-99); MONOCYTES % (AUTO) 6.5 % (1.0-10.0); NEUTROPHILS % (AUTO) 61.4 % (45.0-75.0); PLATELET COUNT 208 K/UL (150-450); RED BLOOD COUNT 4.21 M/UL (4.20-5.40); RED CELL DISTRIBUTION WIDTH 12.9 % (11.6-14.8); WHITE BLOOD COUNT 5.5 K/UL (4.8-10.8)
[2017-08-05 06:12] LABS: ANION GAP 6 mmol/L (5-15); BLOOD UREA NITROGEN 10 mg/dL (7-18); CALCIUM 9.3 MG/DL (8.5-10.1); CARBON DIOXIDE 29 MMOL/L (21-32); CHLORIDE 107 MMOL/L (98-107); POTASSIUM 4.1 MMOL/L (3.5-5.1); SODIUM 142 MMOL/L (136-145)
[2017-08-05] MEDS: Pancrease Cap ORAL SCH ×2 (06:13→10:56)
[2017-08-05 08:00] VITALS: BP 163/86
[2017-08-05] MEDS: Docusate 100mg cap ORAL SCH ×2 (08:17→13:20)
[2017-08-05] MEDS: Norco 5mg/325mg tab ORAL PRN (08:17)
[2017-08-05] MEDS: Allopurinol 100mg Tab ORAL SCH (08:17)
[2017-08-05] MEDS: Heparin 5000 units/ml inj SUBQ SCH (08:22)
--- NOTE | 2017-08-05 08:23 | General Progress Note ---
Assessment/Plan Problem List: (1) Diverticulosis ICD Codes: K57.90 - Diverticulosis SNOMED: 818230448 (2) HTN (hypertension) ICD Codes: I10 - Essential (primary) hypertension SNOMED: 41083204 (3) Esophagitis ICD Codes: K20.9 - Esophagitis, unspecified SNOMED: 37442547 (4) Pancreatic duct dilated ICD Codes: K86.89 - Other specified diseases of pancreas SNOMED: 634742656 (5) Abdominal pain ICD Codes: R10.9 - Unspecified abdominal pain SNOMED: 92660419 (6) GERD (gastroesophageal reflux disease) ICD Codes: K21.9 - GERD (gastroesophageal reflux disease) SNOMED: 798949405 (7) Constipation ICD Codes: K59.00 - Constipation SNOMED: 01623277 Assessment/Plan no active GI concern ppi laxatives ok to dc GI stand point Subjective ROS Limited/Unobtainable: Yes Allergies: Coded Allergies: MORPHINE (Verified Allergy, Severe, 11/03/16) nausea/vomiting Subjective multiple c/o Objective Last 24 Hour Vital Signs Date Time Temp Pulse Resp B/P (MAP) Pulse Ox O2 Delivery O2 Flow Rate FiO2 08/05/17 04:43 Room Air 08/05/17 04:37 97.7 08/05/17 04:00 97.7 60 20 153/78 94 Room Air 08/05/17 03:38 97.2 08/05/17 00:48 Room Air 08/05/17 00:00 97.2 65 19 150/75 95 Room Air 08/04/17 21:38 98.6 08/04/17 20:00 Room Air 08/04/17 20:00 98.6 61 21 122/76 97 Room Air 08/04/17 16:58 97.6 08/04/17 15:21 97.6 64 20 147/100 97 08/04/17 12:13 98.1 08/04/17 12:00 98.1 69 18 148/76 97 08/04/17 11:14 97.9 08/04/17 09:19 97.9 61 19 130/71 96 08/04/17 08:40 97.9 Intake and Output 08/04/17 08/05/17 19:00 07:00 Intake Total 1245 ml 825 ml Output Total 800 ml 138 ml Balance 445 ml 687 ml Intake Oral 570 ml IV Total 675 ml 825 ml Output Urine Total 600 ml Post Void Residual 200 ml 138 ml Bladder Scan Volume Amount 101-150 ml 101-150 ml # Voids 4 4 # Bowel Movements 1 Laboratory Tests 08/04/17 14:00: Urine Color Pale yellow, Urine Appearance Clear, Urine pH 8, Urine Specific [place] 1.010, Urine Protein Negative, Urine Glucose (UA) Negative, Urine Ketones Negative, Urine Occult Blood 1+H, Urine Nitrite Negative, Urine Bilirubin Negative, Urine Urobilinogen Normal, Urine Leukocyte Esterase Negative , Urine RBC 2-4H, Urine WBC 0-2, Urine Squamous Epithelial Cells Few, Urine Bacteria Occasional 08/05/17 03:30: White Blood Count 5.5, Red Blood Count 4.21, Hemoglobin 13.4, Hematocrit 39.4, Mean Corpuscular Volume 94, Mean Corpuscular Hemoglobin 31.8H, Mean Corpuscular Hemoglobin Concent 34.0, Red Cell Distribution Width 12.9, Platelet Count 208, Mean Platelet Volume 6.2L, Neutrophils (%) (Auto) 61.4, Lymphocytes (%) (Auto) 23.0, Monocytes (%) (Auto) 6.5, Eosinophils (%) (Auto) 8.1H, Basophils (%) (Auto ) 1.0, Sodium Level 142, Potassium Level 4.1, Chloride Level 107, Carbon Dioxide Level 29, Anion Gap 6, Blood Urea Nitrogen 10, Creatinine 1.0, Estimat Glomerular Filtration Rate , Glucose Level 98, Calcium Level 9.3 Height (Feet): 5 Height (Inches): 3.00 Weight (Pounds): 125 General Appearance: no apparent distress EENT: normal ENT inspection Neck: supple Cardiovascular: normal rate Respiratory/Chest: decreased breath sounds Abdomen: normal bowel sounds, non tender, soft Extremities: non-tender LIBBY FRANCO Aug 05, 2017 08:23
[2017-08-05 11:40] VITALS: BP 168/89
--- NOTE | 2017-08-05 12:38 | Pulmonology Progress Note ---
Assessment/Plan Assessment/Plan ASSESSMENT possible enteritis abdominal pain with intractable n/v-resolved ( possibly due to enteritis, other GI pathology may contribute as well) ) dilated pancreatic duct diverticulosis GERD COPD HTN PLAN OF CARE [facility] floor IVF GI follows EUS findings noted ( from previous admissio0 a/emetic prn tolerated soft diet , no n/v/ Pancrease bowel regimen O2 titrate prn, HHN prn monitor renal parameters,correct lytes as needed pain management bladder scan with PVR apparently reflected that patient was retaining urine bladder scan with PVR -143 cc GI cleared for dc , no active GI concerns UA - negative for infection dietary eval done to educate patient on proper nutrition at home agree with dc today case discussed and evaluated by supervising physician Subjective Allergies: Coded Allergies: MORPHINE (Verified Allergy, Severe, 11/03/16) nausea/vomiting Subjective afebrile, no leukocytosis no signs of respiratory distress tolerates diet GI follows, patient reports feeling better Objective Last 24 Hour Vital Signs Date Time Temp Pulse Resp B/P (MAP) Pulse Ox O2 Delivery O2 Flow Rate FiO2 08/05/17 11:40 97.7 59 19 168/89 96 08/05/17 09:25 69 163/86 08/05/17 09:16 97.7 08/05/17 08:17 97.7 08/05/17 08:00 97.2 69 19 163/86 96 08/05/17 04:43 Room Air 08/05/17 04:37 97.7 08/05/17 04:00 97.7 60 20 153/78 94 Room Air 08/05/17 03:38 97.2 08/05/17 00:48 Room Air 08/05/17 00:00 97.2 65 19 150/75 95 Room Air 08/04/17 21:38 98.6 08/04/17 20:00 Room Air 08/04/17 20:00 98.6 61 21 122/76 97 Room Air 08/04/17 16:58 97.6 08/04/17 15:21 97.6 64 20 147/100 97 Intake and Output 08/04/17 08/05/17 19:00 07:00 Intake Total 1245 ml 825 ml Output Total 800 ml 138 ml Balance 445 ml 687 ml Intake Oral 570 ml IV Total 675 ml 825 ml Output Urine Total 600 ml Post Void Residual 200 ml 138 ml Bladder Scan Volume Amount 101-150 ml 101-150 ml # Voids 4 4 # Bowel Movements 1 Objective General Appearance: no acute distress HEENT: normocephalic, atraumatic, anicteric, mucous membranes moist, PERRL Respiratory/Chest: lungs clear, no respiratory distress, no accessory muscle use Cardiovascular: normal rate, no JVD Abdomen: normal bowel sounds, soft, non tender, non distended Extremities: no edema, pedal pulses normal Neurologic/Psychiatric: no motor/sensory deficits, alert, oriented x 3, responsive Musculoskeletal: normal muscle bulk Laboratory Tests 08/04/17 14:00: Urine Color Pale yellow, Urine Appearance Clear, Urine pH 8, Urine Specific [place] 1.010, Urine Protein Negative, Urine Glucose (UA) Negative, Urine Ketones Negative, Urine Occult Blood 1+H, Urine Nitrite Negative, Urine Bilirubin Negative, Urine Urobilinogen Normal, Urine Leukocyte Esterase Negative , Urine RBC 2-4H, Urine WBC 0-2, Urine Squamous Epithelial Cells Few, Urine Bacteria Occasional 08/05/17 03:30: White Blood Count 5.5, Red Blood Count 4.21, Hemoglobin 13.4, Hematocrit 39.4, Mean Corpuscular Volume 94, Mean Corpuscular Hemoglobin 31.8H, Mean Corpuscular Hemoglobin Concent 34.0, Red Cell Distribution Width 12.9, Platelet Count 208, Mean Platelet Volume 6.2L, Neutrophils (%) (Auto) 61.4, Lymphocytes (%) (Auto) 23.0, Monocytes (%) (Auto) 6.5, Eosinophils (%) (Auto) 8.1H, Basophils (%) (Auto ) 1.0, Sodium Level 142, Potassium Level 4.1, Chloride Level 107, Carbon Dioxide Level 29, Anion Gap 6, Blood Urea Nitrogen 10, Creatinine 1.0, Estimat Glomerular Filtration Rate , Glucose Level 98, Calcium Level 9.3 Current Medications Medications (Trade) Dose Ordered Sig/Divya Route PRN Reason Start Time Stop Time Status Last Admin Dose Admin Acetaminophen (Tylenol) 650 mg Q6H PRN ORAL Mild Pain/Temp > 100.5 08/03/17 06:45 09/02/17 06:44 08/03/17 11:59 Acetaminophen/ Hydrocodone Bitart ([place] 10/325) 1 tab Q4H PRN ORAL Severe Pain (Pain Scale 7-10) 2/16/18 18:00 08/10/17 17:59 08/05/17 03:38 Acetaminophen/ Hydrocodone Bitart ([place] 5/325) 1 tab Q6H PRN ORAL Moderate Pain (Pain Scale 4-6) 08/03/17 18:30 08/10/17 17:44 08/05/17 08:17 Al Hydroxide/Mg Hydroxide ([place] II) 30 ml Q6H PRN ORAL Abdominal cramps 08/04/17 15:00 09/03/17 14:59 08/05/17 05:08 Allopurinol (Zyloprim) 100 mg DAILY ORAL 08/03/17 09:00 09/02/17 08:59 08/05/17 08:17 Amlodipine Besylate (Norvasc) 2.5 mg DAILY ORAL 08/05/17 10:00 09/04/17 09:59 08/05/17 09:25 Amylase/Lipase/ Protease (Pancrease) 2 ea BEFORE MEALS ORAL 08/03/17 16:30 09/02/17 16:29 08/05/17 10:56 Dextrose/ Electrolytes 1,000 ml @ 75 mls/hr [id number] IV 08/03/17 08:00 09/02/17 07:59 08/05/17 04:53 Docusate Sodium (Colace) 100 mg THREE TIMES A DAY ORAL 08/03/17 13:00 09/02/17 12:59 08/05/17 08:17 Heparin Sodium (Porcine) (Heparin 5000 units/ml) 5,000 units EVERY 12 HOURS SUBQ 08/03/17 09:00 09/02/17 08:59 08/05/17 08:22 Lorazepam (Ativan) 1 mg HSPRN PRN ORAL For Anxiety 08/03/17 06:45 08/10/17 06:44 08/04/17 20:36 Ondansetron HCl (Zofran) 4 mg Q4H PRN IVP Nausea & Vomiting 08/03/17 06:45 09/02/17 06:44 Pantoprazole (Protonix) 40 mg DAILY ORAL 08/04/17 09:00 09/03/17 08:59 08/05/17 08:17 Polyethylene Glycol (Miralax) 17 gm BEDTIME ORAL 08/03/17 21:00 09/02/17 20:59 08/04/17 20:36 Nadir ([facility])Nathalia NP Aug 05, 2017 12:38
[2017-08-05] MEDS ORDERED: MYLANTA II30 ML ORAL (12:39)
--- NOTE | 2017-08-05 14:49 | Internal Med Progress Note ---
Subjective Date of Service: Aug 05, 2017 Physician Name GoldsteinLuis F Attending Physician Oren Martin MD Current Medications Medications (Trade) Dose Ordered Sig/Divya Route PRN Reason Start Time Stop Time Status Last Admin Dose Admin Acetaminophen (Tylenol) 650 mg Q6H PRN ORAL Mild Pain/Temp > 100.5 08/03/17 06:45 09/02/17 06:44 08/03/17 11:59 Acetaminophen/ Hydrocodone Bitart ([place] 10/325) 1 tab Q4H PRN ORAL Severe Pain (Pain Scale 7-10) 08/03/17 18:00 08/10/17 17:59 08/05/17 13:20 Acetaminophen/ Hydrocodone Bitart ([place] 5/325) 1 tab Q6H PRN ORAL Moderate Pain (Pain Scale 4-6) 08/03/17 18:30 08/10/17 17:44 08/05/17 08:17 Al Hydroxide/Mg Hydroxide (Mylanta II) 30 ml Q6H PRN ORAL Abdominal cramps 08/04/17 15:00 09/03/17 14:59 08/05/17 05:08 Allopurinol (Zyloprim) 100 mg DAILY ORAL 08/03/17 09:00 09/02/17 08:59 08/05/17 08:17 Amlodipine Besylate (Norvasc) 2.5 mg DAILY ORAL 08/05/17 10:00 09/04/17 09:59 08/05/17 09:25 Amylase/Lipase/ Protease (Pancrease) 2 ea BEFORE MEALS ORAL 08/03/17 16:30 09/02/17 16:29 08/05/17 10:56 Dextrose/ Electrolytes 1,000 ml @ 75 mls/hr [id number] IV 08/03/17 08:00 09/02/17 07:59 08/05/17 04:53 Docusate Sodium (Colace) 100 mg THREE TIMES A DAY ORAL 08/03/17 13:00 09/02/17 12:59 08/05/17 13:20 Heparin Sodium (Porcine) (Heparin 5000 units/ml) 5,000 units EVERY 12 HOURS SUBQ 08/03/17 09:00 09/02/17 08:59 08/05/17 08:22 Lorazepam (Ativan) 1 mg HSPRN PRN ORAL For Anxiety 08/03/17 06:45 08/10/17 06:44 08/04/17 20:36 Ondansetron HCl (Zofran) 4 mg Q4H PRN IVP Nausea & Vomiting 08/03/17 06:45 09/02/17 06:44 Pantoprazole (Protonix) 40 mg DAILY ORAL 08/04/17 09:00 09/03/17 08:59 08/05/17 08:17 Polyethylene Glycol (Miralax) 17 gm BEDTIME ORAL 08/03/17 21:00 09/02/17 20:59 08/04/17 20:36 Allergies: Coded Allergies: MORPHINE (Verified Allergy, Severe, 11/03/16) nausea/vomiting ROS Limited/Unobtainable: No Constitutional: Reports: no symptoms HEENT: Reports: no symptoms Cardiovascular: Reports: no symptoms Respiratory: Reports: no symptoms Gastrointestinal/Abdominal: Reports: no symptoms Genitourinary: Reports: no symptoms Neurologic/Psychiatric: Reports: no symptoms Subjective 71 YO F admitted with abdominal pain and nausea/vomiting. Cover for [facility] Martin. Objective Last Vital Signs Date Time Temp Pulse Resp B/P (MAP) Pulse Ox O2 Delivery O2 Flow Rate FiO2 08/05/17 14:19 97.7 08/05/17 11:40 59 19 168/89 96 08/05/17 04:43 Room Air Laboratory Tests Test 08/05/17 03:30 White Blood Count 5.5 K/UL (4.8-10.8) Red Blood Count 4.21 M/UL (4.20-5.40) Hemoglobin 13.4 G/DL (12.0-16.0) Hematocrit 39.4 % (37.0-47.0) Mean Corpuscular Volume 94 FL (80-99) Mean Corpuscular Hemoglobin 31.8 PG (27.0-31.0) H Mean Corpuscular Hemoglobin Concent 34.0 G/DL (32.0-36.0) Red Cell Distribution Width 12.9 % (11.6-14.8) Platelet Count 208 K/UL (150-450) Mean Platelet Volume 6.2 FL (6.5-10.1) L Neutrophils (%) (Auto) 61.4 % (45.0-75.0) Lymphocytes (%) (Auto) 23.0 % (20.0-45.0) Monocytes (%) (Auto) 6.5 % (1.0-10.0) Eosinophils (%) (Auto) 8.1 % (0.0-3.0) H Basophils (%) (Auto) 1.0 % (0.0-2.0) Sodium Level 142 MMOL/L (136-145) Potassium Level 4.1 MMOL/L (3.5-5.1) Chloride Level 107 MMOL/L (98-107) Carbon Dioxide Level 29 MMOL/L (21-32) Anion Gap 6 mmol/L (5-15) Blood Urea Nitrogen 10 mg/dL (7-18) Creatinine 1.0 MG/DL (0.55-1.30) Estimat Glomerular Filtration Rate mL/min (>60) Glucose Level 98 MG/DL (74-106) Calcium Level 9.3 MG/DL (8.5-10.1) Intake and Output 08/04/17 08/05/17 19:00 07:00 Intake Total 1245 ml 825 ml Output Total 800 ml 138 ml Balance 445 ml 687 ml Intake Oral 570 ml IV Total 675 ml 825 ml Output Urine Total 600 ml Post Void Residual 200 ml 138 ml Bladder Scan Volume Amount 101-150 ml 101-150 ml # Voids 4 4 # Bowel Movements 1 Objective General Appearance: WD/WN, no apparent distress, alert EENT: PERRL/EOMI, normal ENT inspection, TMs normal Neck: non-tender, normal alignment, supple Cardiovascular: normal peripheral pulses, normal rate, regular rhythm, no gallop/murmur, no JVD Respiratory/Chest: chest wall non-tender, lungs clear, normal breath sounds, no respiratory distress, no accessory muscle use Abdomen: normal bowel sounds, non tender, soft, no organomegaly, no mass Extremities: normal range of motion, non-tender Neurologic: tobacco hanger II-XII grossly normal, no motor/sensory deficits Skin: normal pigmentation, cyanotic Assessment/Plan Problem List: (1) HTN (hypertension) (2) COPD (chronic obstructive pulmonary disease) (3) GERD (gastroesophageal reflux disease) (4) Nausea & vomiting Assessment & Plan: Resolved (5) Abdominal pain Assessment & Plan: See GI note. (6) Pancreatitis Assessment & Plan: Continue pancrease Assessment/Plan Discharge home today. F/U Dr Villarreal in 1 week. F/U Dr Goldstein 2 weeks LUIS F GOLDSTEIN Aug 05, 2017 14:49
--- NOTE | 2017-08-08 12:40 | Discharge Summary ---
Discharge Summary Hospital Course Date of Admission Aug 02, 2017 at 21:53 Date of Discharge Aug 05, 2017 at 15:30 Admitting Diagnosis NAUSEA/VOMITING/dehydration HPI Alisa Severino is a 71 year old female who was admitted on Aug 02, 2017 at 21: 53 for Nausea,Vomiting,Dehydration Hospital Course dc summary #[id number] Discharge Medications New Medications: Al Hydroxide/mg Hydroxide (Mag-Al Plus Suspension) 30 Ml Oral.susp 30 ML ORAL Q6H PRN, #8 OZ Continued Medications: Allopurinol* (Allopurinol*) 100 Mg Tablet 100 MG ORAL DAILY, TAB Amlodipine Besylate/Benazepril 10-40 Mg (Lotrel 10-40 Mg Capsule) 1 Each Capsule 1 CAP ORAL DAILY, CAP Aspirin* (Aspir-Low*) 81 Mg Tablet.dr 81 MG PO DAILY, TAB Ferrous Sulfate, Dried (Iron) 159 Mg Tablet.er 159 MG PO DA, TAB Lipase/Protease/Amylase (Creon Dr 24,000 Units Capsule) 1 Each Capsule.dr 2 EACH PO TID, CAP Lorazepam* (Ativan*) 1 Mg Tablet 1 MG ORAL BEDTIME, TAB Meclizine Hcl* (Meclizine*) 25 Mg Tablet 25 MG ORAL THREE TIMES A DAY PRN for for dizziness, TAB [place]-3 Fatty Acids/Fish Oil* (Fish Oil 1,000 Mg Softgel*) 1 Each Capsule 1 CAP ORAL DAILY, #30 CAP 0 Refills Omeprazole (Omeprazole) 40 Mg Capsule.dr 40 MG ORAL DAILY, CAP Discharge Condition Upon Discharge: stable Discharge Disposition Patient was discharged to Home (01) Discharge Diagnoses: Nadir (Fahad)Nathalia NP Aug 08, 2017 12:40
--- NOTE | 2017-08-09 04:30 | Discharge Summary 2 SIG ---
DATE OF ADMISSION: 08/02/2017 DATE OF DISCHARGE: 08/05/2017 REASON FOR ADMISSION: 71 years old female with past medical history of diverticulosis, dilated pancreatic duct, COPD, hypertension, and GERD, presented with lower abdominal pain. She reported more than five episodes of nonbilious and nonbloody vomiting and had constipation, but was able to pass lots of gas. She denied chest pain, shortness of breath or palpitations. No fever. No chills. Workup in the emergency department revealed slightly elevated blood pressure -154/95, otherwise stable vital signs. WBC -10.1. Hemoglobin and hematocrit stable. Electrolytes within normal limits. Troponin negative. Lipase -151. LFT were within normal limits. CT abdomen/pelvis with borderline dilated fluid-filled distal small bowel,most likely representing mild enteritis changes. No free air or fluid. No hydronephrosis. The patient was admitted with diagnoses of abdominal pain, intractable nausea and vomiting, GERD, hypertension, and COPD. HOSPITAL COURSE: The patient was admitted to Medical/Surgical floor. GI and Pulmonology consults were requested. The patient was on the IV fluids. GI closely followed. On previous admission, the patient had an endoscopic ultrasound. Antiemetic provided as needed. The patient was started slowly on diet and was advanced as tolerated. Patient was able to tolerate diet. No further nausea or vomiting. Pancrease added to take with meals. Bowel regimen was instituted. The patient was able to have bowel movement. Supplemental oxygen provided as needed to keep pulse oximetry above 92%. Pulmonary toilet was on the standby as needed. No evidence of acute COPD exacerbation. Renal parameters and electrolytes were closely monitored, and electrolytes were replaced as needed. Pain management was provided. Urinalysis was negative for UTI. Dietary evaluation was done to educate the patient on proper nutrition at home. GI cleared the patient for discharge. Follow up with the GI as outpatient. Per GI, no active GI concerns at this time. Continue PPI and bowel regimen. The patient was stable for discharge FINAL DIAGNOSES: 1. Possible enteritis. 2. Diverticulosis. 3. Pancreatitis. 4. Dilated pancreatic duct. 5. Chronic obstructive pulmonary disease. 6. Hypertension. 7. Gastroesophageal reflux disease. 8. Abdominal pain, likely secondary to possible enteritis, resolved. 9. Intractable nausea and vomiting, resolved. DISCHARGE MEDICATIONS: See medication reconciliation list. DISCHARGE INSTRUCTIONS: The patient was discharged home. Follow up with the GI doctor next week and with the primary care provider in two weeks. Oren Martin M.D. Nathalia MedinaMohawk Valley General HospitalTrino Austin DR: CHEO JOB#: [id number] CC: SOPHIA
== END 2017-08-05 15:30 | disposition home health service (06) | DRG 391 ==
LOC: EMR 21:27 → 4W 21:53 → EDBEDREQ 23:24 → 4W 08-03 17:37
DX: K52.9 Noninfective gastroenteritis and colitis, unspecified (principal); K85.90 Acute pancreatitis without necrosis or infection, unspecified; J44.9 Chronic obstructive pulmonary disease, unspecified; K86.89 Other specified diseases of pancreas; R10.9 Unspecified abdominal pain; K57.90 Diverticulosis of intestine, part unspecified, without perforation or abscess without bleeding; I10 Essential (primary) hypertension; K21.9 Gastro-esophageal reflux disease without esophagitis; Z88.6 Allergy status to analgesic agent; K44.9 Diaphragmatic hernia without obstruction or gangrene; K20.9 Esophagitis, unspecified; K59.00 Constipation, unspecified
CPT/HCPCS: 36415; 74177; 80048; 80053; 81001; 82962; 83690; 83735; 84100; 84484; 85025; 85610; 85730; 93005; 99212; 99285; J2405

== ENCOUNTER 2017-08-21 11:22 | Outpatient (CLI) | payer MEDICARE, OTHER ==
[~2017-08-21 11:22] MED LIST changes: +MYLANTA II30 ML ORAL
[2017-08-21 12:49] VITALS: BP 118/67
--- NOTE | 2017-08-22 16:09 | GI Progress Note ---
Assessment/Plan Problems: (1) Diarrhea ICD Codes: R19.7 - Diarrhea, unspecified SNOMED: 77896946 (2) Abdominal pain ICD Codes: R10.9 - Unspecified abdominal pain SNOMED: 46668098 (3) GERD (gastroesophageal reflux disease) ICD Codes: K21.9 - GERD (gastroesophageal reflux disease) SNOMED: 554912370 (4) Esophagitis ICD Codes: K20.9 - Esophagitis, unspecified SNOMED: 86365062 Status: stable Status Narrative Seen with Dr. Villarreal. Assessment/Plan SUMMARY OF FINDINGS reviewed with patient: 1. Peeling of the distal esophageal lining suggestive of esophagitis. 2. Distal esophageal ring at the gastroesophageal unction at 36 cm from the incisors. 3. A 4-cm hiatal hernia. 4. A 3-mm lesion in the duodenal bulb suspicious for accessory pancreatic duct versus pancreatic rest, not biopsied. 5. Almost 2-cm gallbladder polyp. 6. 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 RECOMMENDATIONS: plan of care / labs d/w patient cont dexilant defer MRCP, patient cannot have due to foreign body. plan for EUS in 1 year >> If there is a true gallbladder polyp, we will recommend surgical resection of the gallbladder given this polyp is over 1-cm. RTC prn/1year Subjective Subjective abdominal pain GERD, currently taking dexilant diarrhea Objective T 97.6 BP 69 77 97 RA General Appearance: WD/WN, no apparent distress, alert Cardiovascular: normal rate Respiratory/Chest: normal breath sounds, no respiratory distress Abdominal Exam: normal bowel sounds, non tender, soft Extremities: normal range of motion, non-tender Kelsie Churchill N.Valeriy Aug 22, 2017 16:08
== END 2017-08-21 11:55 | disposition home or self-care (01) ==
LOC: PAN 11:22
DX: Z53.9 Procedure and treatment not carried out, unspecified reason (principal)

== ENCOUNTER 2017-11-01 13:07 | Outpatient (CLI) | payer MEDICARE, OTHER ==
[2017-11-01 13:36] VITALS: BP 141/81
--- NOTE | 2017-11-01 15:41 | GI Progress Note ---
Assessment/Plan Problems: (1) Abdominal pain ICD Codes: R10.9 - Unspecified abdominal pain SNOMED: 24343065 (2) GERD (gastroesophageal reflux disease) ICD Codes: K21.9 - GERD (gastroesophageal reflux disease) SNOMED: 953520478 (3) Diarrhea ICD Codes: R19.7 - Diarrhea, unspecified SNOMED: 20488110 (4) Esophagitis ICD Codes: K20.9 - Esophagitis, unspecified SNOMED: 51178310 (5) Constipation ICD Codes: K59.00 - Constipation SNOMED: 66397612 (6) Internal hemorrhoids ICD Codes: K64.8 - Internal hemorrhoids SNOMED: 52739567 Status: stable Status Narrative Seen with Dr. Villarreal. Assessment/Plan Anusol HC BID prn Rx Bentyl 20mg PO q8 hours. RTC x 3 months The patient was seen and examined at bedside and all new and available data was reviewed in the patients chart. I agree with the above findings, impression and plan. (Patient seen earlier today. Signature stamp does not reflect patient encounter time.). - Terry Villarreal MD Subjective Subjective lower abdominal pain, possible UTI? epigastric pain abdominal cramping constipation, taking linzess diarrhea at times, mucous and blood in stool history of hemorrhoids Objective Last 24 Hour Vital Signs Date Time Temp Pulse Resp B/P (MAP) Pulse Ox O2 Delivery O2 Flow Rate FiO2 11/01/17 13:36 98.1 81 141/81 95 98.1 General Appearance: WD/WN, no apparent distress, alert Cardiovascular: normal rate Respiratory/Chest: normal breath sounds, no respiratory distress Abdominal Exam: normal bowel sounds, non tender, soft Extremities: normal range of motion, non-tender Petey Churchill [employer] MA[employer]GER November 01, 2017 15:41
== END 2017-11-01 13:39 | disposition home or self-care (01) ==
LOC: PAN 13:07
DX: K21.9 Gastro-esophageal reflux disease without esophagitis (principal); R19.7 Diarrhea, unspecified; K20.9 Esophagitis, unspecified; K59.00 Constipation, unspecified; K64.8 Other hemorrhoids; R10.9 Unspecified abdominal pain
CPT/HCPCS: 99212

== ENCOUNTER 2018-01-28 13:06 | Outpatient (CLI) | payer MEDICARE, OTHER ==
--- NOTE | 2018-01-28 16:01 | GI Progress Note ---
Assessment/Plan Problems: (1) Abdominal pain ICD Codes: R10.9 - Unspecified abdominal pain SNOMED: 65318526 (2) GERD (gastroesophageal reflux disease) ICD Codes: K21.9 - GERD (gastroesophageal reflux disease) SNOMED: 741263086 (3) Diarrhea ICD Codes: R19.7 - Diarrhea, unspecified SNOMED: 35779270 (4) Esophagitis ICD Codes: K20.9 - Esophagitis, unspecified SNOMED: 21904691 (5) Internal hemorrhoids ICD Codes: K64.8 - Internal hemorrhoids SNOMED: 41743428 (6) Proctitis ICD Codes: K62.89 - Other specified diseases of anus and rectum SNOMED: 8215751 (7) Diverticulosis ICD Codes: K57.90 - Diverticulosis SNOMED: 955261760 Status Narrative Seen with Dr. Villarreal. Assessment/Plan Dexilant refill annusol HC prn Bentyl 20g PRN RTC x 3 months The patient was seen and examined at bedside and all new and available data was reviewed in the patients chart. I agree with the above findings, impression and plan. (Patient seen earlier today. Signature stamp does not reflect patient encounter time.). - Terry Villarreal MD Subjective Subjective abdominal pain, lower abdominal cramping GERD constipation rectal bleed, occasional Objective T 97.6 BP 120/74 P 69 97 General Appearance: WD/WN, no apparent distress, alert Cardiovascular: normal rate Respiratory/Chest: normal breath sounds, no respiratory distress Abdominal Exam: normal bowel sounds, non tender, soft Extremities: normal range of motion, non-tender Petey Churchill NP Jan 28, 2018 16:01
== END 2018-01-28 13:36 | disposition home or self-care (01) ==
LOC: PAN 13:06
DX: R10.9 Unspecified abdominal pain (principal); K21.9 Gastro-esophageal reflux disease without esophagitis; R19.7 Diarrhea, unspecified; K20.9 Esophagitis, unspecified; K64.8 Other hemorrhoids; K62.89 Other specified diseases of anus and rectum; K57.90 Diverticulosis of intestine, part unspecified, without perforation or abscess without bleeding; K59.00 Constipation, unspecified
CPT/HCPCS: G0463

== ENCOUNTER → 2018-03-07 | Outpatient (CLI) | payer MEDICARE, OTHER ==
[2018-03-07 11:07] LABS: BILIRUBIN, URINE NEGATIVE (NEGATIVE); COLOR,URINE PALE YELLOW; GLUCOSE, URINE (UA) NEGATIVE (NEGATIVE); KETONES,URINE NEGATIVE (NEGATIVE); LEUKOCYTE ESTERASE ,URINE NEGATIVE (NEGATIVE); NITRITE,URINE NEGATIVE (NEGATIVE); PH,URINE 6 (4.5-8.0); PROTEIN,URINE NEGATIVE (NEGATIVE); UROBILINOGEN,URINE NORMAL MG/DL (0.0-1.0)
[2018-03-07 11:21] LABS: APPEARANCE,URINE SLIGHTLY CLOUDY
[2018-03-07 11:24] LABS: ANION GAP 7 mmol/L (5-15); BLOOD UREA NITROGEN 29 mg/dL (7-18); CALCIUM 9.7 MG/DL (8.5-10.1); CARBON DIOXIDE 27 MMOL/L (21-32); CHLORIDE 109 MMOL/L (98-107); PHOSPHORUS 4.9 MG/DL (2.5-4.9); POTASSIUM 4.9 MMOL/L (3.5-5.1); SODIUM 143 MMOL/L (136-145)
== END | disposition home or self-care (01) ==
LOC: LAB 10:28
DX: I12.9 Hypertensive chronic kidney disease with stage 1 through stage 4 chronic kidney disease, or unspecified chronic kidney disease (principal); N18.3 Chronic kidney disease, stage 3 (moderate)
CPT/HCPCS: 36415; 80048; 81003; 82044; 83970; 84100; 84165; 87086

== ENCOUNTER 2018-03-19 10:30 | Outpatient (CLI) | payer MEDICARE, OTHER ==
--- NOTE | 2018-03-19 14:27 | Diagnostic Imaging Report ---
Indication: Follow-up of abnormalities demonstrated on prior imaging studies, history of urinary frequency Technique: Grayscale and duplex images of the kidneys, retroperitoneum, and bladder were obtained. Comparison: Reference made to 08/02/2017 CT scan Findings: Right kidney measures 8.6 cm in length. Demonstrates mild axis rotation. There is a prominent extrarenal pelvis, also demonstrated on prior CT. There is also apparent mild upper pole hydronephrosis although parapelvic cysts can also have this appearance. Note that this improved after patient voided Echogenic foci in the upper pole measuring up to 8 mm diameter are noted. Other cysts in the right kidney are also noted. A hyperechoic lesion measuring 8 mm diameter is also seen in the right renal interpolar region. Review of prior CT scans indicates that this is most likely a small angiomyolipoma. Left kidney measures 12 cm in length. Both kidneys demonstrate normal echogenicity. No left hydronephrosis demonstrated. It demonstrates a large upper pole cyst measuring up to 8.8 cm long axis dimension, as well as other smaller cysts. Normal inferior vena cava. Bladder is normal. Impression: Mild right upper pole hydronephrosis, versus renal parapelvic cysts, favor the former. There is also a prominent extrarenal pelvis. 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
== END 2018-03-19 12:30 | disposition home or self-care (01) ==
LOC: ULS 10:30
DX: N20.0 Calculus of kidney (principal); Q61.9 Cystic kidney disease, unspecified
CPT/HCPCS: 76770

== ENCOUNTER 2018-04-17 11:38 | Emergency (ER) | payer MEDICARE, OTHER ==
[~2018-04-17] VITALS: Ht 160 cm; Wt 51.7 kg
[2018-04-17 11:53] VITALS: BP 101/57
[2018-04-17] MEDS ORDERED: ANUSOL-HC25 MG RECTAL (13:04)
[2018-04-17] MEDS ORDERED: ANUSOL-HC30 GM RC (13:04)
--- NOTE | 2018-04-17 13:04 | Emergency Room Report ---
History of Present Illness General Chief Complaint: General Complaint Source: Patient Present Illness HPI This patient is here c/o hemorrhoid pain. She has had this in the past, well documented here. Pt. is not constipated, no abd pain. No fever, no other issues. Allergies: Coded Allergies: MORPHINE (Verified Allergy, Severe, 11/03/16) nausea/vomiting Patient History Now: No Nursing Documentation-PMH Hx Cardiac Problems: Yes Hx Hypertension: Yes Hx COPD: Yes Hx Cancer: No Hx Gastrointestinal Problems: Yes - pancreatitis, hemorrhoids Hx Neurological Problems: No Hx Head Trauma: Yes Review of Systems Constitutional: Reports: no symptoms Eye: Reports: no symptoms ENT: Reports: no symptoms Respiratory: Reports: no symptoms Cardiovascular: Reports: no symptoms Gastrointestinal: Reports: see HPI Genitourinary: Reports: no symptoms Musculoskeletal: Reports: no symptoms Skin: Reports: no symptoms Psychiatric: Reports: no symptoms Neurological: Reports: no symptoms Endocrine: Reports: no symptoms Hematologic/Lymphatic: Reports: no symptoms Allergic: Reports: no symptoms All Other Systems: negative except mentioned in HPI Physical Exam Vital Signs Date Time Temp Pulse Resp B/P (MAP) Pulse Ox O2 Delivery O2 Flow Rate FiO2 04/17/18 11:53 64 13 Room Air 04/17/18 11:53 97.5 101/57 94 Sp02 EP Interpretation: reviewed, normal General Appearance: normal inspection, well appearing, no apparent distress, alert, GCS 15, non-toxic Head: normocephalic, atraumatic Eyes: bilateral eye normal inspection, bilateral eye PERRL, bilateral eye EOMI ENT: normal ENT inspection, hearing grossly normal, normal pharynx, no angioedema, normal voice, moist mucus membranes Neck: normal inspection, full range of motion, supple, no meningismus, no bony tend Respiratory: normal inspection, lungs clear, normal breath sounds, no rhonchi, no respiratory distress, no retraction, no accessory muscle use, no wheezing Cardiovascular #1: normal inspection, regular rate, rhythm, no edema Gastrointestinal: normal inspection, normal bowel sounds, non tender, soft, no mass, non-distended, other - external hemorrhoid, tender. pt. also did not clean herself well, loose brown bm Musculoskeletal: gait/station normal, normal range of motion Neurologic: normal inspection, alert, oriented x3, responsive, motor strength/ tone normal Psychiatric: normal inspection, judgement/insight normal, memory normal Suicide Risk Assessment: Suicidal Ideation: No Had intent to initiate attempt: No Pt's plan for suicide attempt: No Has means to complete attempt: No Skin: normal inspection, normal color, no rash, warm/dry Medical Decision Making Diagnostic Impression: Primary Impression: Acute hemorrhoid Last Vital Signs Date Time Temp Pulse Resp B/P (MAP) Pulse Ox O2 Delivery O2 Flow Rate FiO2 04/17/18 11:53 97.5 64 13 101/57 94 Room Air Status: unchanged Disposition: HOME, SELF-CARE Scripts Hydrocortisone Hc 2.5% Cream (ANUSOL-HC 2.5% CREAM) Y Cr 30 GM RC BID for 7 Days, #1 GM Prov: Emile Ramirez M.D. 04/17/18 Hydrocortisone Acetate* (ANUSOL-HC*) 25 Mg Supp.rect 1 SUPP RECTAL TWICE A DAY, #20 SUPP Prov: Emile Ramirez M.D. 04/17/18 Referrals: NON PHYSICIAN (PCP) Emile Ramirez M.D. Apr 17, 2018 13:04
[2018-04-17 13:45] VITALS: BP 101/57
== END 2018-04-17 13:45 | disposition home or self-care (01) ==
LOC: EMR 12:15
DX: K64.4 Residual hemorrhoidal skin tags (principal); I10 Essential (primary) hypertension; J44.9 Chronic obstructive pulmonary disease, unspecified; Z88.5 Allergy status to narcotic agent
CPT/HCPCS: 99283

== ENCOUNTER 2018-08-02 17:09 | Emergency (ER) | payer MEDICARE, OTHER ==
[~2018-08-02] VITALS: Ht 160 cm; Wt 51.7 kg
[~2018-08-02 17:09] MED LIST changes: +ANUSOL-HC25 MG RECTAL; +ANUSOL-HC30 GM RC
[2018-08-02 17:25] VITALS: BP 135/72
--- NOTE | 2018-08-02 17:25 | NUR ---
ED Nurse Note: ABMULATED IN TO ER DUE TO BURNING PAIN IN THE CHEST X 1 MONTH; HX OF GERD. DENIES N/V/D/ NOR DIAPHORESIS.
[2018-08-02] MEDS ORDERED: Mylanta II UD 30ml ORAL ONE (17:45)
[2018-08-02] MEDS ORDERED: Lidocaine 2% Visc 15ml soln ORAL ONE (17:45)
--- NOTE | 2018-08-02 18:43 | NUR ---
ED Nurse Note: EDUCATED PT THAT WE NEED URINE SAMPLE, PT IS SLEEPING IN BED, VERBALIZED UNDERSTANDING THE NEED OF URINE SAMPLE
--- NOTE | 2018-08-02 19:11 | NUR ---
HAND-OFF: Report given to EVELYN DIAZ. NO S/S OF DISTRESS.
--- NOTE | 2018-08-02 19:12 | NUR ---
ED Nurse Note: Received report from Gavin/RN. Pt is A/O X 4.
--- NOTE | 2018-08-02 19:32 | Emergency Room Report ---
History of Present Illness General Chief Complaint: Chest Pain Source: Patient Present Illness Allergies: Coded Allergies: MORPHINE (Verified Allergy, Severe, 11/03/16) nausea/vomiting Nursing Documentation-PMH Past Medical History: No History, Except For Hx Cardiac Problems: No - Hypotension Hx Hypertension: Yes Hx Pacemaker: No Hx Asthma: No Hx COPD: Yes Hx Diabetes: No Hx Cancer: No Hx Gastrointestinal Problems: Yes - GERD Hx Dialysis: No History Of Psychiatric Problem: No Hx Neurological Problems: No Hx Cerebrovascular Accident: No Hx Seizures: No Hx Head Trauma: Yes Review of Systems All Other Systems: negative except mentioned in HPI Physical Exam Vital Signs Date Time Temp Pulse Resp B/P (MAP) Pulse Ox O2 Delivery O2 Flow Rate FiO2 08/02/18 17:19 98.2 72 14 135/72 95 Room Air Medical Decision Making PA Attestation Dr. Alves is my supervising Physician whom patient management has been discussed with. Diagnostic Impression: Primary Impression: Pneumonia Qualified Codes: J18.1 - Lobar pneumonia, unspecified organism Additional Impression: COPD (chronic obstructive pulmonary disease) Qualified Codes: J44.9 - Chronic obstructive pulmonary disease, unspecified EKG Diagnostic Results EP Interpretation: Dr. Alves Rate: normal - 72 Rhythm: NSR ST Segments: no acute changes ASA given to the pt in ED: No PA Scribe Text This Interpretation was scribed by DIONICIO Chanel. Last Vital Signs Date Time Temp Pulse Resp B/P (MAP) Pulse Ox O2 Delivery O2 Flow Rate FiO2 08/02/18 17:25 72 14 Room Air 08/02/18 17:25 98.2 135/72 95 Disposition: HOME, SELF-CARE Condition: Stable Scripts Phenazopyridine Hcl* (PYRIDIUM*) 100 Mg Tablet 100 MG ORAL THREE TIMES A DAY, #6 TAB Prov: Jacey Chanel 08/02/18 Acetaminophen* (TYLENOL EXTRA STRENGTH*) 500 Mg Tablet 500 MG ORAL Q8H PRN for Prn Headache/Temp > 101, #20 TAB 0 Refills Prov: Jacey Chanel 08/02/18 Trimethoprim/Sulfamethoxazole 160/800* (BACTRIM DS TABLET*) 1 Each Tablet 1 TAB ORAL TWICE A DAY, #14 TAB Prov: Jacey Chanel 08/02/18 Patient Instructions: Community-Acquired Pneumonia, Adult, [id number] Additional Instructions: Take medications as directed. Follow up with a Primary Care Provider in 3 days, even if your symptoms have resolved. --Please review list of primary care clinics, if you do not already have a primary care provider Return sooner to ED if new symptoms occur, or current symptoms become worse. - Please note that this Emergency Department Report was dictated using [employer] tender second operator technology software, occasionally this can lead to erroneous entry secondary to interpretation by the dictation equipment. Jacey Chanel Aug 02, 2018 19:32
[2018-08-02] MEDS ORDERED: Cephalexin 500mg cap ORAL ONE (20:00)
[2018-08-02] MEDS ORDERED: TYLENOL EXTRA500 MG ORAL (20:05)
[2018-08-02] MEDS ORDERED: PHENAZOPYRIDIN100 MG ORAL (20:05)
[2018-08-02] MEDS ORDERED: BACTRIM DS TAB1 EAC1 ORAL (20:05)
[2018-08-02 20:26] VITALS: BP 135/72
--- NOTE | 2018-08-02 20:26 | NUR ---
ED Nurse Note: Pt has seen by Jacey/DIONICIO. All orders carried out. Pt is ready for discharge. D/c instruction and prescription given to Pt . Pt d/c from ED with steady gait.
[2018-08-02 20:29] LABS: APPEARANCE,URINE SLIGHTLY CLOUDY; BILIRUBIN, URINE NEGATIVE (NEGATIVE); GLUCOSE, URINE (UA) NEGATIVE (NEGATIVE); KETONES,URINE NEGATIVE (NEGATIVE); LEUKOCYTE ESTERASE ,URINE 1+ (NEGATIVE); NITRITE,URINE NEGATIVE (NEGATIVE); PH,URINE 6 (4.5-8.0); PROTEIN,URINE 2+ (NEGATIVE); UROBILINOGEN,URINE NORMAL MG/DL (0.0-1.0)
[2018-08-02 20:34] LABS: COLOR,URINE YELLOW
--- NOTE | 2018-08-04 16:28 | Cardiology Report ---
APPROVED REPORT EKG Measurement Heart [id number] Normal sinus rhythm Nonspecific ST abnormality Abnormal ECG
== END 2018-08-02 20:26 | disposition home or self-care (01) ==
LOC: EMR 18:01
DX: J18.9 Pneumonia, unspecified organism (principal); J44.9 Chronic obstructive pulmonary disease, unspecified; I10 Essential (primary) hypertension; K21.9 Gastro-esophageal reflux disease without esophagitis
CPT/HCPCS: 71045; 81003; 93005; 99283

== ENCOUNTER 2018-08-16 20:32 | Inpatient (IN) | payer MEDICARE, OTHER ==
[~2018-08-16] VITALS: Ht 160 cm; Wt 52.2 kg
[~2018-08-16 20:32] MED LIST changes: +BACTRIM DS TAB1 EAC1 ORAL; +PHENAZOPYRIDIN100 MG ORAL; +TYLENOL EXTRA500 MG ORAL
[2018-08-16 20:55] VITALS: BP 138/87
--- NOTE | 2018-08-16 20:55 | NUR ---
ED Nurse Note: Pt arrived Ed from Home, c/o rectal bleeding for 2 days and pain. Pt is A/O X 4. VSS. Waiting for orders.
--- NOTE | 2018-08-16 21:14 | Emergency Room Report ---
History of Present Illness General Chief Complaint: Gastrointestinal Bleed Source: Patient Present Illness HPI Patient presents with several days of rectal bleeding. She's passed some clots and also some mucus. Sometimes is bright red and sometimes is darker. She can' t quantify how much blood but she says it was a lot. She also complains about lower abdominal pain. She says the pain right now is 9/10 and aching and pressure in the lower abdomen not radiating. She states she's had pancreatitis in the past. This feels slightly different from that. She's been treating herself with suppositories. The patient is status post colonoscopy. She says she has polyps. The patient takes baby aspirin daily but no other blood thinners. She states she's been feeling weak when she stands. There is no vomiting, cough, chest pain or palpitations. She denies any rashes. Patient has a history of gout and arthritis. Allergies: Coded Allergies: MORPHINE (Verified Allergy, Severe, 11/03/16) nausea/vomiting Patient History Past Medical History: see triage record Past Surgical History: hysterectomy, other - Repair of vulvar prolapse Social History: Denies: smoking - Prior Social History Narrative from home Last Menstrual Period: FLORI Reviewed Nursing Documentation: PMH: Agreed; PSxH: Agreed Nursing Documentation-PMH Past Medical History: No History, Except For Hx Cardiac Problems: No Hx Hypertension: Yes Hx Pacemaker: No Hx Asthma: No Hx COPD: Yes Hx Diabetes: No Hx Cancer: No Hx Gastrointestinal Problems: Yes - GERD, Gout Hx Dialysis: No Hx Neurological Problems: No Hx Cerebrovascular Accident: No Hx Seizures: No Hx Head Trauma: Yes Review of Systems All Other Systems: negative except mentioned in HPI Physical Exam Vital Signs Date Time Temp Pulse Resp B/P (MAP) Pulse Ox O2 Delivery O2 Flow Rate FiO2 08/16/18 20:46 97.9 74 16 137/75 95 Room Air Sp02 EP Interpretation: reviewed, normal General Appearance: no apparent distress, alert, GCS 15, thin Head: normocephalic Eyes: bilateral eye normal inspection, bilateral eye PERRL, bilateral eye EOMI ENT: moist mucus membranes Neck: supple Respiratory: lungs clear, normal breath sounds Cardiovascular #1: regular rate, rhythm Cardiovascular #2: 2+ radial (R) Gastrointestinal: normal inspection, normal bowel sounds, tenderness - Lower abdomen Rectal: other - Rectal prolapse Musculoskeletal: back normal, gait/station normal, normal range of motion, other - MCP joint swelling Neurologic: alert, oriented x3, grossly normal Psychiatric: mood/affect normal Skin: normal inspection, warm/dry Procedures Additional Procedure Procedure Narrative Reduced rectal prolapse with ease. Anal tone is poor and this may recur. Medical Decision Making Diagnostic Impression: Primary Impression: Rectal prolapse Additional Impression: Lower gastrointestinal bleed ER Course Patient presents with abdominal pain and rectal bleeding and rectal prolapse. Differential includes pancreatitis, diverticulosis, bleeding from prolapse, hemorrhoids amongst others. The prolapse has been reduced in the emergency department. However the patient needs to be admitted. She'll be evaluated with EKG, chest x-ray, abdomen film and labs. The patient will receive IV hydration, Zofran and fentanyl. EKG no injury. Chest x-ray no infiltrates. Abdomen no obstruction or masses. CBC with normal white count and slight anemia. CMP and UA unremarkable. Rectal prolapsed again slightly after going to the bathroom. Patient improved after fentanyl. Admit med Dr. Martin. Consult with Dr. Freire. Patient requested repeat dose of pain medication. Laboratory Tests Test 08/16/18 21:21 White Blood Count 7.3 K/UL (4.8-10.8) Red Blood Count 3.94 M/UL (4.20-5.40) L Hemoglobin 12.1 G/DL (12.0-16.0) Hematocrit 37.5 % (37.0-47.0) Mean Corpuscular Volume 95 FL (80-99) Mean Corpuscular Hemoglobin 30.8 PG (27.0-31.0) Mean Corpuscular Hemoglobin Concent 32.4 G/DL (32.0-36.0) Red Cell Distribution Width 12.9 % (11.6-14.8) Platelet Count 264 K/UL (150-450) Mean Platelet Volume 5.0 FL (6.5-10.1) L Neutrophils (%) (Auto) 67.2 % (45.0-75.0) Lymphocytes (%) (Auto) 18.3 % (20.0-45.0) L Monocytes (%) (Auto) 7.0 % (1.0-10.0) Eosinophils (%) (Auto) 5.6 % (0.0-3.0) H Basophils (%) (Auto) 1.8 % (0.0-2.0) Prothrombin Time 11.9 SEC (9.30-11.50) H Prothrombin Time INR 1.1 (0.9-1.1) PTT 28 SEC (23-33) Urine Color Pale yellow Urine Appearance Clear Urine pH 6 (4.5-8.0) Urine Specific [place] 1.010 (1.005-1.035) Urine Protein 1+ (NEGATIVE) H Urine Glucose (UA) Negative (NEGATIVE) Urine Ketones Negative (NEGATIVE) Urine Blood 4+ (NEGATIVE) H Urine Nitrite Negative (NEGATIVE) Urine Bilirubin Negative (NEGATIVE) Urine Urobilinogen Normal MG/DL (0.0-1.0) Urine Leukocyte Esterase 3+ (NEGATIVE) H Urine RBC 5-10 /HPF (0 - 2) H Urine WBC 2-4 /HPF (0 - 2) Urine Squamous Epithelial Cells Few /LPF (NONE/OCC) Urine Bacteria Few /HPF (NONE) Sodium Level 143 MMOL/L (136-145) Potassium Level 3.5 MMOL/L (3.5-5.1) Chloride Level 109 MMOL/L (98-107) H Carbon Dioxide Level 24 MMOL/L (21-32) Anion Gap 10 mmol/L (5-15) Blood Urea Nitrogen 19 mg/dL (7-18) H Creatinine 0.9 MG/DL (0.55-1.30) Estimate Glomerular Filtration Rate mL/min (>60) Glucose Level 90 MG/DL (74-106) Calcium Level 9.0 MG/DL (8.5-10.1) Total Bilirubin 0.3 MG/DL (0.2-1.0) Aspartate Amino Transferase (AST) 20 U/L (15-37) Alanine Aminotransferase (ALT) 18 U/L (12-78) Alkaline Phosphatase 88 U/L (46-116) Troponin I 0.009 ng/mL (0.000-0.056) Total Protein 6.3 G/DL (6.4-8.2) L Albumin 3.3 G/DL (3.4-5.0) L Globulin 3.0 g/dL Albumin/Globulin Ratio 1.1 (1.0-2.7) Lipase 72 U/L (73-393) L EKG Diagnostic Results Rate: normal Rhythm: NSR ST Segments: no acute changes Rhythm Strip Diag. Results EP Interpretation: yes Rhythm: NSR, no PVC's, no ectopy Chest X-Ray Diagnostic Results Chest X-Ray Diagnostic Results : Chest X-Ray Ordered: Yes # of Views/Limited/Complete: 1 View Indication: Other EP Interpretation: Yes Interpretation: no consolidation, no effusion, no pneumothorax Impression: No acute disease Other X-Ray Diagnostic Results Other X-Ray Diagnostic Results : X-Ray ordered: abd # of Views/Limited Vs Complete: 1 View Indication: Pain EP Interpretation: Yes Interpretation: nonspecific bowel gas, no sbo, other - no mases Impression: Other Last Vital Signs Date Time Temp Pulse Resp B/P (MAP) Pulse Ox O2 Delivery O2 Flow Rate FiO2 08/17/18 08:10 Room Air 08/17/18 08:00 96.3 72 18 119/63 (81) 08/17/18 01:15 99 Status: improved Disposition: ADMITTED INPATIENT Condition: Serious Stuart Green MD Aug 16, 2018 21:14
[2018-08-16] MEDS ORDERED: fentaNYL 100 mcg/2 mL IV ONE (21:15)
--- NOTE | 2018-08-16 21:21 | NUR ---
ED Nurse Note: Blood and urine collected and sent to Lab.
[2018-08-16 21:46] LABS: APPEARANCE,URINE CLEAR; BILIRUBIN, URINE NEGATIVE (NEGATIVE); COLOR,URINE PALE YELLOW; GLUCOSE, URINE (UA) NEGATIVE (NEGATIVE); KETONES,URINE NEGATIVE (NEGATIVE); LEUKOCYTE ESTERASE ,URINE 3+ (NEGATIVE); NITRITE,URINE NEGATIVE (NEGATIVE); PH,URINE 6 (4.5-8.0); PROTEIN,URINE 1+ (NEGATIVE); UROBILINOGEN,URINE NORMAL MG/DL (0.0-1.0)
[2018-08-16 21:48] LABS: BASOPHILS % (AUTO) 1.8 % (0.0-2.0); EOSINOPHILS % (AUTO) 5.6 % (0.0-3.0); HEMATOCRIT 37.5 % (37.0-47.0); HEMOGLOBIN 12.1 G/DL (12.0-16.0); INR 1.1 (0.9-1.1); LYMPHOCYTES % (AUTO) 18.3 % (20.0-45.0); MEAN CORPUSCULAR VOLUME 95 FL (80-99); NEUTROPHILS % (AUTO) 67.2 % (45.0-75.0); PLATELET COUNT 264 K/UL (150-450); RED BLOOD COUNT 3.94 M/UL (4.20-5.40); RED CELL DISTRIBUTION WIDTH 12.9 % (11.6-14.8); WHITE BLOOD COUNT 7.3 K/UL (4.8-10.8)
[2018-08-16 21:58] LABS: ANION GAP 10 mmol/L (5-15); BLOOD UREA NITROGEN 19 mg/dL (7-18); CARBON DIOXIDE 24 MMOL/L (21-32); CHLORIDE 109 MMOL/L (98-107); CREATININE 0.9 MG/DL (0.55-1.30); POTASSIUM 3.5 MMOL/L (3.5-5.1); SODIUM 143 MMOL/L (136-145)
--- NOTE | 2018-08-16 21:58 | Diagnostic Imaging Report ---
EXAM: XR Chest, 1 View CLINICAL HISTORY: ABD PAIN TECHNIQUE: Frontal view of the chest. COMPARISON: No relevant prior studies available. FINDINGS: Lungs: No consolidation. Pleural space: Unremarkable. No pneumothorax. Heart: Unremarkable. No cardiomegaly. Mediastinum: Unremarkable. Bones/joints: No acute fracture. Degenerative changes of the shoulders, left greater than right. High riding humeral head on the left suggesting chronic rotator cuff tear. IMPRESSION: No acute cardiopulmonary disease.
--- NOTE | 2018-08-16 21:59 | Diagnostic Imaging Report ---
EXAM: XR Abdomen, 1 View CLINICAL HISTORY: ABD PAIN TECHNIQUE: Frontal supine view of the abdomen/pelvis. COMPARISON: No relevant prior studies available. FINDINGS: Gastrointestinal tract: Nonspecific bowel gas pattern. Stool throughout the colon. Bones/joints: No acute fracture. IMPRESSION: Nonspecific bowel gas pattern. Stool throughout the colon.
[2018-08-16 22:02] LABS: ALANINE AMINOTRANSFERASE 18 U/L (12-78); ALBUMIN 3.3 G/DL (3.4-5.0); ALBUMIN/GLOBULIN RATIO 1.1 (1.0-2.7); ALKALINE PHOSPHATASE 88 U/L (46-116); ASPARTATE AMINO TRANSFERASE 20 U/L (15-37); BILIRUBIN,TOTAL 0.3 MG/DL (0.2-1.0)
[2018-08-16] MEDS: Sodium Chloride 550 ML IV SCH (22:06)
--- NOTE | 2018-08-17 00:45 | NUR ---
NURSE NOTES: Received telephone report from ER nurse EVELYN Freeamn.
[2018-08-17] MEDS: Sodium Chloride 550 ML IV SCH (00:55)
[2018-08-17 01:15] VITALS: BP 120/73
--- NOTE | 2018-08-17 01:15 | NUR ---
TRANSFER TO FLOOR: Patient transferred to PR/ 418 as ordered. Report given to Bridge/RN. Belongings sent with Pt and rechecked with PT. Pt is A/O X 4. VSS.
--- NOTE | 2018-08-17 01:20 | NUR ---
NURSE NOTES: Received patient to floor. Belongings checked. A&Ox4, on room air, no signs of distress or labored breathing. IV intact, patent, and saline locked. Side rails up x2. Bed in lowest position with call light in reach. Notified MD, awaiting orders. Will continue to monitor.
[2018-08-17] MEDS ORDERED: fentaNYL 100 mcg/2 mL IV PRN (02:00)
--- NOTE | 2018-08-17 07:57 | NUR ---
nurse notes received patient in bed, awake, no sign of distress, HL patent, denies pain or discomfort, on fall precaution observed and maintained, kept clean dry and comfortable in bed, needs met and anticipated, will cont to monitor patient condition colton jordan
[2018-08-17 08:00] VITALS: BP 119/63
--- NOTE | 2018-08-17 08:18 | NUR ---
HAND-OFF: Report given to EVELYN Gibson.
[2018-08-17] MEDS ORDERED: Nitroglycerin Subl 0.4mg tab SL PRN (11:30)
[2018-08-17] MEDS ORDERED: Mylanta II UD 30ml ORAL PRN (11:30)
[2018-08-17] MEDS ORDERED: Phytonadione 10 MG in D5W 55 ML IVPB ONE (11:30)
[2018-08-17] MEDS: D5NS 1,000 ML IV SCH ×2 (11:49→23:06)
[2018-08-17 12:00] VITALS: BP 121/85
--- NOTE | 2018-08-17 12:01 | Consultation ---
History of Present Illness General Date patient seen: Aug 17, 2018 Chief Complaint: Gastrointestinal Bleed Present Illness HPI 72 year old female with hx of COPD, HTH, GERD, presented to ER with several days of rectal bleeding. She's passed some clots and also some mucus. She also complains about lower abdominal pain. She says the pain right now is 9/10 and aching and pressure in the lower abdomen not radiating. She is admitted for further treatment. Allergies: Coded Allergies: MORPHINE (Verified Allergy, Severe, 11/03/16) nausea/vomiting Medication History Scheduled Allopurinol* (Allopurinol*), 100 MG ORAL DAILY, (Reported) Amlodipine Besylate/Benazepril 10-40 Mg (Lotrel 10-40 Mg Capsule), 1 CAP ORAL DAILY, (Reported) Aspirin* (Aspir-Low*), 81 MG PO DAILY, (Reported) Ferrous Sulfate, Dried (Iron), 159 MG PO DA, (Reported) Hydrocortisone Acetate* (Anusol-Hc*), 1 SUPP RECTAL TWICE A DAY Hydrocortisone Hc 2.5% Cream (Anusol-Hc 2.5% Cream), 30 GM RC BID Lipase/Protease/Amylase (Creon Dr 24,000 Units Capsule), 2 EACH PO TID, ( Reported) Lorazepam* (Ativan*), 1 MG ORAL BEDTIME, (Reported) Baird-3 Fatty Acids/Fish Oil* (Fish Oil 1,000 Mg Softgel*), 1 CAP ORAL DAILY, ( Reported) Omeprazole (Omeprazole), 40 MG ORAL DAILY, (Reported) Phenazopyridine Hcl* (Pyridium*), 100 MG ORAL THREE TIMES A DAY Trimethoprim/Sulfamethoxazole 160/800* (Bactrim Ds Tablet*), 1 TAB ORAL TWICE A DAY Scheduled PRN Acetaminophen* (Tylenol Extra Strength*), 500 MG ORAL Q8H PRN for Prn Headache/ Temp > 101 Hydrocodone Bit/Acetaminophen 5-325* (Gepp 5-325*), 1 TAB ORAL Q6H PRN for For Pain, (Reported) Meclizine Hcl* (Meclizine*), 25 MG ORAL THREE TIMES A DAY PRN for for dizziness, (Reported) Patient History Healthcare decision maker Resuscitation status Full Code Advanced Directive on File Past Medical/Surgical History Past Medical/Surgical History: (1) COPD (chronic obstructive pulmonary disease) (2) Pancreatitis (3) GERD (gastroesophageal reflux disease) Review of Systems All Other Systems: negative except mentioned in HPI Physical Exam General Appearance: cachetic Lines, tubes and drains: peripheral HEENT: normocephalic, atraumatic Neck: non-tender, normal alignment Respiratory/Chest: chest wall non-tender, lungs clear Cardiovascular/Chest: normal peripheral pulses, normal rate Abdomen: normal bowel sounds, non tender Genitourinary/Rectal: normal genital exam Extremities: normal range of motion Last 24 Hour Vital Signs Date Time Temp Pulse Resp B/P (MAP) Pulse Ox O2 Delivery O2 Flow Rate FiO2 08/17/18 08:10 Room Air 08/17/18 08:00 96.3 72 18 119/63 (81) 08/17/18 01:59 Room Air 08/17/18 01:15 97.8 76 16 134/83 99 Room Air 08/17/18 01:15 98.1 73 20 120/73 (89) 96 08/16/18 22:37 98.1 08/16/18 20:55 76 16 Room Air 08/16/18 20:55 97.8 76 16 138/87 99 Room Air 08/16/18 20:46 97.9 74 16 137/75 95 Room Air Intake and Output 08/16/18 08/17/18 19:00 07:00 Intake Total 500 ml Balance 500 ml Intake Oral 0 ml IV Total 500 ml # Voids 1 Laboratory Tests Test 08/16/18 21:21 White Blood Count 7.3 K/UL (4.8-10.8) Red Blood Count 3.94 M/UL (4.20-5.40) L Hemoglobin 12.1 G/DL (12.0-16.0) Hematocrit 37.5 % (37.0-47.0) Mean Corpuscular Volume 95 FL (80-99) Mean Corpuscular Hemoglobin 30.8 PG (27.0-31.0) Mean Corpuscular Hemoglobin Concent 32.4 G/DL (32.0-36.0) Red Cell Distribution Width 12.9 % (11.6-14.8) Platelet Count 264 K/UL (150-450) Mean Platelet Volume 5.0 FL (6.5-10.1) L Neutrophils (%) (Auto) 67.2 % (45.0-75.0) Lymphocytes (%) (Auto) 18.3 % (20.0-45.0) L Monocytes (%) (Auto) 7.0 % (1.0-10.0) Eosinophils (%) (Auto) 5.6 % (0.0-3.0) H Basophils (%) (Auto) 1.8 % (0.0-2.0) Prothrombin Time 11.9 SEC (9.30-11.50) H Prothromb Time International Ratio 1.1 (0.9-1.1) Activated Partial Thromboplast Time 28 SEC (23-33) Urine Color Pale yellow Urine Appearance Clear Urine pH 6 (4.5-8.0) Urine Specific [place] 1.010 (1.005-1.035) Urine Protein 1+ (NEGATIVE) H Urine Glucose (UA) Negative (NEGATIVE) Urine Ketones Negative (NEGATIVE) Urine Blood 4+ (NEGATIVE) H Urine Nitrite Negative (NEGATIVE) Urine Bilirubin Negative (NEGATIVE) Urine Urobilinogen Normal MG/DL (0.0-1.0) Urine Leukocyte Esterase 3+ (NEGATIVE) H Urine RBC 5-10 /HPF (0 - 2) H Urine WBC 2-4 /HPF (0 - 2) Urine Squamous Epithelial Cells Few /LPF (NONE/OCC) Urine Bacteria Few /HPF (NONE) Sodium Level 143 MMOL/L (136-145) Potassium Level 3.5 MMOL/L (3.5-5.1) Chloride Level 109 MMOL/L (98-107) H Carbon Dioxide Level 24 MMOL/L (21-32) Anion Gap 10 mmol/L (5-15) Blood Urea Nitrogen 19 mg/dL (7-18) H Creatinine 0.9 MG/DL (0.55-1.30) Estimat Glomerular Filtration Rate mL/min (>60) Glucose Level 90 MG/DL (74-106) Calcium Level 9.0 MG/DL (8.5-10.1) Total Bilirubin 0.3 MG/DL (0.2-1.0) Aspartate Amino Transf (AST/SGOT) 20 U/L (15-37) Alanine Aminotransferase (ALT/SGPT) 18 U/L (12-78) Alkaline Phosphatase 88 U/L (46-116) Troponin I 0.009 ng/mL (0.000-0.056) Total Protein 6.3 G/DL (6.4-8.2) L Albumin 3.3 G/DL (3.4-5.0) L Globulin 3.0 g/dL Albumin/Globulin Ratio 1.1 (1.0-2.7) Lipase 72 U/L (73-393) L Height (Feet): 5 Height (Inches): 3.00 Weight (Pounds): 115 Medications Current Medications Medications (Trade) Dose Ordered Sig/Divya Route PRN Reason Start Time Stop Time Status Last Admin Dose Admin Acetaminophen (Tylenol) 650 mg Q4H PRN ORAL T>100.5 08/17/18 11:30 09/16/18 11:29 Al Hydroxide/Mg Hydroxide (Mylanta II) 30 ml Q6H PRN ORAL dyspepsia 08/17/18 11:30 09/16/18 11:29 Allopurinol (Zyloprim) 100 mg DAILY ORAL 08/18/18 09:00 09/17/18 08:59 Dextrose (Dextrose 50%) 25 ml Q30M PRN IV Hypoglycemia 08/17/18 11:30 09/16/18 11:29 Dextrose (Dextrose 50%) 50 ml Q30M PRN IV Hypoglycemia 08/17/18 11:30 09/16/18 11:29 Dextrose/Sodium Chloride 1,000 ml @ 100 mls/hr Q10H IV 08/17/18 11:30 09/16/18 11:29 08/17/18 11:49 Diphenhydramine HCl (Benadryl) 25 mg Q6H PRN ORAL Itching/Pruritis 08/17/18 11:30 09/16/18 11:29 Nitroglycerin (Ntg) 0.4 mg Q5MIN X 3 DOSES PRN SL Prn Chest Pain 08/17/18 11:30 09/16/18 11:29 Ondansetron HCl (Zofran) 4 mg Q6H PRN IVP Nausea & Vomiting 08/17/18 11:30 09/16/18 11:29 Phytonadione 10 mg/Dextrose 56 ml @ 110 mls/hr ONCE ONCE IVPB 08/17/18 11:30 08/17/18 12:00 UNV Polyethylene Glycol (Miralax) 17 gm HSPRN PRN ORAL Constipation 08/17/18 21:00 09/16/18 20:59 Temazepam (Restoril) 15 mg HSPRN PRN ORAL Insomnia 08/17/18 21:00 08/24/18 20:59 Assessment/Plan Problem List: (1) Gastrointestinal hemorrhage ICD Codes: K92.2 - Gastrointestinal hemorrhage, unspecified SNOMED: 73426745 (2) Rectal bleeding ICD Codes: K62.5 - Hemorrhage of anus and rectum SNOMED: 76393361 (3) COPD (chronic obstructive pulmonary disease) ICD Codes: J44.9 - COPD (chronic obstructive pulmonary disease) SNOMED: 49144809 (4) HTN (hypertension) ICD Codes: I10 - Essential (primary) hypertension SNOMED: 50938698 Assessment/Plan NPO iv fluids prn prbc GI evaluation respiratory treatment titrate fio2 to sat of 92% Mina Zheng MD Aug 17, 2018 12:01
--- NOTE | 2018-08-17 12:25 | Consultation ---
History of Present Illness General Date patient seen: Aug 17, 2018 Reason for Hospitalization: Gastrointestinal Bleed Present Illness HPI This is a very pleasant 72-year-old female with multiple medical comorbidities who presents to the emergency department [facility] complaining of rectal bleeding and clots which she had noticed in the past few days which are very concerning to her. Patient states history of what she believes to be hemorrhoids but no significant bleeding history prior. Denies any abdominal pain nausea vomiting or discomfort. In emergency department was noted to have rectal prolapse which was easily reducible by ED physician. States that she had a colonoscopy by Dr. Lofton but cannot remember when and was only found to have benign polyps. States that her primary care physician is Dr. Luis F Norman. Currently rectal prolapse resolved and has not noted bleeding since. Surgery called to evaluate and assist with care and management. Patient seen, patient examined, patient evaluated. Allergies: Coded Allergies: MORPHINE (Verified Allergy, Severe, 11/03/16) nausea/vomiting Medication History Scheduled Allopurinol* (Allopurinol*), 100 MG ORAL DAILY, (Reported) Amlodipine Besylate/Benazepril 10-40 Mg (Lotrel 10-40 Mg Capsule), 1 CAP ORAL DAILY, (Reported) Aspirin* (Aspir-Low*), 81 MG PO DAILY, (Reported) Ferrous Sulfate, Dried (Iron), 159 MG PO DA, (Reported) Hydrocortisone Acetate* (Anusol-Hc*), 1 SUPP RECTAL TWICE A DAY Hydrocortisone Hc 2.5% Cream (Anusol-Hc 2.5% Cream), 30 GM RC BID Lipase/Protease/Amylase (Creon Dr 24,000 Units Capsule), 2 EACH PO TID, ( Reported) Lorazepam* (Ativan*), 1 MG ORAL BEDTIME, (Reported) [place]-3 Fatty Acids/Fish Oil* (Fish Oil 1,000 Mg Softgel*), 1 CAP ORAL DAILY, ( Reported) Omeprazole (Omeprazole), 40 MG ORAL DAILY, (Reported) Phenazopyridine Hcl* (Pyridium*), 100 MG ORAL THREE TIMES A DAY Trimethoprim/Sulfamethoxazole 160/800* (Bactrim Ds Tablet*), 1 TAB ORAL TWICE A DAY Scheduled PRN Acetaminophen* (Tylenol Extra Strength*), 500 MG ORAL Q8H PRN for Prn Headache/ Temp > 101 Hydrocodone Bit/Acetaminophen 5-325* ([place] 5-325*), 1 TAB ORAL Q6H PRN for For Pain, (Reported) Meclizine Hcl* (Meclizine*), 25 MG ORAL THREE TIMES A DAY PRN for for dizziness, (Reported) Patient History History Provided By: Patient, Medical Record, PMD Healthcare decision maker Resuscitation status Full Code Advanced Directive on File Past Medical/Surgical History Past Medical/Surgical History: (1) Dysuria (2) H/O flexible sigmoidoscopy (3) Gastritis (4) Pancreatitis (5) Pancreatic duct dilated (6) Constipation (7) Internal hemorrhoids (8) Esophagitis (9) Diarrhea (10) Diverticulosis (11) Proctitis (12) GERD (gastroesophageal reflux disease) (13) Abdominal pain (14) Gastrointestinal hemorrhage (15) COPD (chronic obstructive pulmonary disease) (16) Rectal bleeding (17) HTN (hypertension) Review of Systems Review of Symptoms General ROS: no weight loss or fever Psychological ROS: no depression or mood changes, no memory loss Ophthalmic ROS: no visual changes or eye irritation ENT ROS: no nasal congestion, hearing loss, dizziness Allergy and Immunology ROS: no allergic symptoms or urticaria Hematological and Lymphatic ROS: no swollen glands, unusual bleeding or bruising Endocrine ROS: no polyuria, polydipsia, weight changes, temperature intolerance Respiratory ROS: no cough, shortness of breath, or wheezing Cardiovascular ROS: no chest pain or dyspnea on exertion Gastrointestinal ROS: denies abdominal pain, bright red blood in stool. Musculoskeletal ROS: no myalgias or arthralgias Neurological ROS: no TIA or stroke symptoms Dermatological ROS: no new or changing skin lesions, rashes or pruritis Physical Exam Physical Exam General appearance: alert, cooperative, no distress, appears stated age Head: Normocephalic, without obvious abnormality, atraumatic Eyes: conjunctivae/corneas clear. PERRL, EOM's intact. Fundi benign Throat: Lips, mucosa, and tongue normal. Teeth and gums normal Neck: supple, symmetrical, trachea midline, no adenopathy, thyroid: not enlarged, symmetric, no tenderness/mass/nodules, no carotid bruit and no JVD Lungs: clear to auscultation bilaterally Heart: regular rate and rhythm, S1, S2 normal, no murmur, click, rub or gallop Abdomen: soft, non-tender. Bowel sounds normal. No masses, no organomegaly Extremities: extremities normal, atraumatic, no cyanosis or edema Pulses: 2+ and symmetric Skin: Skin color, texture, turgor normal. No rashes or lesions Neurologic: Grossly normal Last 24 Hour Vital Signs Date Time Temp Pulse Resp B/P (MAP) Pulse Ox O2 Delivery O2 Flow Rate FiO2 08/17/18 08:10 Room Air 08/17/18 08:00 96.3 72 18 119/63 (81) 08/17/18 01:59 Room Air 08/17/18 01:15 97.8 76 16 134/83 99 Room Air 08/17/18 01:15 98.1 73 20 120/73 (89) 96 08/16/18 22:37 98.1 08/16/18 20:55 76 16 Room Air 08/16/18 20:55 97.8 76 16 138/87 99 Room Air 08/16/18 20:46 97.9 74 16 137/75 95 Room Air Intake and Output 08/16/18 08/17/18 19:00 07:00 Intake Total 500 ml Balance 500 ml Intake Oral 0 ml IV Total 500 ml # Voids 1 Laboratory Tests Test 08/16/18 21:21 White Blood Count 7.3 K/UL (4.8-10.8) Red Blood Count 3.94 M/UL (4.20-5.40) L Hemoglobin 12.1 G/DL (12.0-16.0) Hematocrit 37.5 % (37.0-47.0) Mean Corpuscular Volume 95 FL (80-99) Mean Corpuscular Hemoglobin 30.8 PG (27.0-31.0) Mean Corpuscular Hemoglobin Concent 32.4 G/DL (32.0-36.0) Red Cell Distribution Width 12.9 % (11.6-14.8) Platelet Count 264 K/UL (150-450) Mean Platelet Volume 5.0 FL (6.5-10.1) L Neutrophils (%) (Auto) 67.2 % (45.0-75.0) Lymphocytes (%) (Auto) 18.3 % (20.0-45.0) L Monocytes (%) (Auto) 7.0 % (1.0-10.0) Eosinophils (%) (Auto) 5.6 % (0.0-3.0) H Basophils (%) (Auto) 1.8 % (0.0-2.0) Prothrombin Time 11.9 SEC (9.30-11.50) H Prothromb Time International Ratio 1.1 (0.9-1.1) Activated Partial Thromboplast Time 28 SEC (23-33) Urine Color Pale yellow Urine Appearance Clear Urine pH 6 (4.5-8.0) Urine Specific [place] 1.010 (1.005-1.035) Urine Protein 1+ (NEGATIVE) H Urine Glucose (UA) Negative (NEGATIVE) Urine Ketones Negative (NEGATIVE) Urine Blood 4+ (NEGATIVE) H Urine Nitrite Negative (NEGATIVE) Urine Bilirubin Negative (NEGATIVE) Urine Urobilinogen Normal MG/DL (0.0-1.0) Urine Leukocyte Esterase 3+ (NEGATIVE) H Urine RBC 5-10 /HPF (0 - 2) H Urine WBC 2-4 /HPF (0 - 2) Urine Squamous Epithelial Cells Few /LPF (NONE/OCC) Urine Bacteria Few /HPF (NONE) Sodium Level 143 MMOL/L (136-145) Potassium Level 3.5 MMOL/L (3.5-5.1) Chloride Level 109 MMOL/L (98-107) H Carbon Dioxide Level 24 MMOL/L (21-32) Anion Gap 10 mmol/L (5-15) Blood Urea Nitrogen 19 mg/dL (7-18) H Creatinine 0.9 MG/DL (0.55-1.30) Estimat Glomerular Filtration Rate mL/min (>60) Glucose Level 90 MG/DL (74-106) Calcium Level 9.0 MG/DL (8.5-10.1) Total Bilirubin 0.3 MG/DL (0.2-1.0) Aspartate Amino Transf (AST/SGOT) 20 U/L (15-37) Alanine Aminotransferase (ALT/SGPT) 18 U/L (12-78) Alkaline Phosphatase 88 U/L (46-116) Troponin I 0.009 ng/mL (0.000-0.056) Total Protein 6.3 G/DL (6.4-8.2) L Albumin 3.3 G/DL (3.4-5.0) L Globulin 3.0 g/dL Albumin/Globulin Ratio 1.1 (1.0-2.7) Lipase 72 U/L (73-393) L Height (Feet): 5 Height (Inches): 3.00 Weight (Pounds): 115 Medications Current Medications Medications (Trade) Dose Ordered Sig/Divya Route PRN Reason Start Time Stop Time Status Last Admin Dose Admin Acetaminophen (Tylenol) 650 mg Q4H PRN ORAL T>100.5 08/17/18 11:30 09/16/18 11:29 Al Hydroxide/Mg Hydroxide (Mylanta II) 30 ml Q6H PRN ORAL dyspepsia 08/17/18 11:30 09/16/18 11:29 Allopurinol (Zyloprim) 100 mg DAILY ORAL 08/18/18 09:00 09/17/18 08:59 Dextrose (Dextrose 50%) 25 ml Q30M PRN IV Hypoglycemia 08/17/18 11:30 09/16/18 11:29 Dextrose (Dextrose 50%) 50 ml Q30M PRN IV Hypoglycemia 08/17/18 11:30 09/16/18 11:29 Dextrose/Sodium Chloride 1,000 ml @ 100 mls/hr Q10H IV 08/17/18 11:30 09/16/18 11:29 08/17/18 11:49 Diphenhydramine HCl (Benadryl) 25 mg Q6H PRN ORAL Itching/Pruritis 08/17/18 11:30 09/16/18 11:29 Nitroglycerin (Ntg) 0.4 mg Q5MIN X 3 DOSES PRN SL Prn Chest Pain 08/17/18 11:30 09/16/18 11:29 Ondansetron HCl (Zofran) 4 mg Q6H PRN IVP Nausea & Vomiting 08/17/18 11:30 09/16/18 11:29 Polyethylene Glycol (Miralax) 17 gm HSPRN PRN ORAL Constipation 08/17/18 21:00 09/16/18 20:59 Temazepam (Restoril) 15 mg HSPRN PRN ORAL Insomnia 08/17/18 21:00 08/24/18 20:59 Assessment/Plan Problem List: (1) Rectal prolapse Assessment & Plan: Acute episode of rectal prolapse with bleeding. Prolapse is able to be reduced without complication by emergency department physician. Since patient has been doing well without any recurrent episodes of bleeding. Patient is afebrile hemodynamically stable and labs noted. Imaging pending. Long discussion had with patient at the bedside regarding her history of potential hemorrhoids and rectal prolapse. Detailed discussion had about potential surgical or nonoperative interventions. Patient expressed understanding. Okay for diet No acute surgical intervention planned Appreciate GI input will follow with recs thank you ICD Codes: K62.3 - Rectal prolapse SNOMED: [id number] Cheo Freire Aug 17, 2018 12:25
[2018-08-17 16:00] VITALS: BP 136/76
[2018-08-17] MEDS ORDERED: Norco 5mg/325mg tab ORAL PRN (18:30)
--- NOTE | 2018-08-17 18:47 | History & Physical ---
History and Physical History & Physicial Dictated for Int Med-DR Martin no. [id number]. Luis F Norman MD Aug 17, 2018 18:47
--- NOTE | 2018-08-17 19:27 | NUR ---
HAND-OFF: Report given to EVELYN Maria.
[2018-08-17 20:00] VITALS: BP 121/61
--- NOTE | 2018-08-17 20:03 | NUR ---
NURSE NOTES: Pt received awake, alert, asking for towels, pain medication and other meds, bed in lowest position, able to make needs known, call light within reach, IV fluids running, will continue to monitor.
[2018-08-17] MEDS: ALPRAZolam 0.5mg tab ORAL PRN (20:15)
[2018-08-17] MEDS: HYDROcodone/Acetamin 10/325 tab ORAL PRN (20:18)
[2018-08-17] MEDS ORDERED: Miralax 17gm pkt ORAL PRN (21:00)
[2018-08-18] VITALS: BP 114/61
--- NOTE | 2018-08-18 03:45 | History and Physical Report ---
DATE OF ADMISSION: 08/16/2018 CHIEF COMPLAINT: The patient is a 72-year-old white female, who presents with complaint of rectal bleeding. HISTORY OF PRESENT ILLNESS: One week prior to admission, the patient began to have some spotting in her stool. Blood was bright red. Bleeding has increased over the last couple of days. The patient was now passing clots. The patient also complains of a rectal mass. The patient presented to [facility] emergency room. The patient was admitted for rectal bleeding and rectal prolapse. REVIEW OF SYSTEMS: CONSTITUTIONAL: The patient denies weight loss or weight gain. The patient denies fevers or chills. HEENT: The patient denies ear or throat pain. The patient denies headache. CARDIOVASCULAR: The patient denies palpitations or chest pain. CHEST: The patient denies wheezes or shortness of breath. ABDOMEN: The patient complains of rectal bleeding and rectal prolapse as above. The patient denies nausea, vomiting, diarrhea, or constipation. GENITOURINARY: The patient denies dysuria or increased frequency of urination. NEUROMUSCULAR: The patient denies seizures or generalized weakness. PAST MEDICAL HISTORY: Significant for, 1. History of renal cysts. 2. Chronic obstructive pulmonary disease. 3. Hypertension. PAST SURGICAL HISTORY: The patient denies. CURRENT MEDICATIONS: 1. Tylenol 500 mg one tablet p.o. q.8 h. p.r.n. 2. Allopurinol 100 mg p.o. daily. 3. Amlodipine/benazepril 10/40 one tab p.o. daily. 4. Aspirin 81 mg p.o. daily. 5. Hydrocodone 5/325 mg one tablet p.o. q.6 h. p.r.n. 6. Creon 1 tablet p.o. three times daily. 7. Xanax 1 mg p.o. q.6 h. p.r.n. 8. Omeprazole 40 mg p.o. daily. 9. Pyridium. ALLERGIES: Phenobarbital. SOCIAL HISTORY: The patient is single; however, lives with her adult niece. The patient denies tobacco use, having quit in 2015. The patient denies alcohol use. PHYSICAL EXAMINATION: VITAL SIGNS: Temperature 96.3 degrees, respirations 18, pulse 72, and blood pressure 119/63. GENERAL: The patient is a well-developed and well-nourished white female, in no apparent distress. HEENT: Eyes, pupils are equal and responsive to light and accommodation. Extraocular movements are intact. NECK: Supple without lymphadenopathy. CHEST: Lungs are clear to auscultation bilaterally without wheezes or rales. CARDIOVASCULAR: Regular rate. S1 and S2 are normal without murmurs, rubs, or gallops. ABDOMEN: Soft, nontender, and nondistended. Positive bowel sounds. No evidence of hepatosplenomegaly. Currently, no rebound or guarding noted. EXTREMITIES: Negative for clubbing, cyanosis, or edema. RECTAL/GENITALIA: Refused. NEUROLOGICAL: Cranial nerves II through XII are grossly intact without focal deficits. Motor strength is 5/5 bilaterally intact. Deep tendon reflexes are 2+ plantar. LABORATORY STUDIES: WBC 7.3, hemoglobin 12.9, hematocrit 37.5, and platelets 264,000. Sodium 143, potassium 3.5, chloride 109, CO2 24, BUN 19, creatinine 0.9, and glucose 90. ASSESSMENT: This is a 72-year-old white female. 1. Rectal bleeding. 2. Rectal prolapse. 3. Chronic obstructive pulmonary disease. 4. Hypertension. TREATMENT: 1. Rectal bleed/rectal prolapse. A Gastroenterology consultation has been obtained with Dr. Terry Villarreal. A Surgery consultation has been obtained with Dr. Freire. We will follow recommendations of Surgery and Gastroenterology. 2. Chronic obstructive pulmonary disease. The patient remained on albuterol metered-dose inhaler two puffs p.o. q.i.d. p.r.n. 3. Hypertension. Continue Lotrel as above. Luis F Norman M.D. DR: BETTY JOB#: [id number] CC:
[2018-08-18 04:00] VITALS: BP 121/76
--- NOTE | 2018-08-18 07:10 | NUR ---
NURSE NOTES: Pt received awake, alert, oriented x4, no sign of distress, IVF patent and infusing well,bed in lowest position, able to make needs known, call light within reach, colton jordan
--- NOTE | 2018-08-18 07:26 | NUR ---
HAND-OFF: Report given to EVELYN Gibson.
[2018-08-18 07:50] LABS: HEMATOCRIT 39.9 % (37.0-47.0); MEAN CORPUSCULAR VOLUME 95 FL (80-99); PLATELET COUNT 279 K/UL (150-450); RED CELL DISTRIBUTION WIDTH 13.1 % (11.6-14.8); WHITE BLOOD COUNT 3.2 K/UL (4.8-10.8)
[2018-08-18 07:53] LABS: INR 1.1 (0.9-1.1)
[2018-08-18 08:00] VITALS: BP 156/81
[2018-08-18] MEDS: Allopurinol 100mg Tab ORAL SCH (08:07)
[2018-08-18] MEDS: HYDROcodone/Acetamin 10/325 tab ORAL PRN ×2 (08:07→14:19)
[2018-08-18] MEDS: D5NS 1,000 ML IV SCH ×2 (08:09→17:04)
[2018-08-18 08:16] LABS: ALANINE AMINOTRANSFERASE 20 U/L (12-78); ALBUMIN 3.3 G/DL (3.4-5.0); ALBUMIN/GLOBULIN RATIO 1.1 (1.0-2.7); ALKALINE PHOSPHATASE 89 U/L (46-116); AMYLASE 33 U/L (25-115); ANION GAP 5 mmol/L (5-15); ASPARTATE AMINO TRANSFERASE 17 U/L (15-37); BILIRUBIN,TOTAL 0.3 MG/DL (0.2-1.0); BLOOD UREA NITROGEN 8 mg/dL (7-18); CARBON DIOXIDE 29 MMOL/L (21-32); CHLORIDE 110 MMOL/L (98-107); CREATININE 0.8 MG/DL (0.55-1.30); POTASSIUM 3.5 MMOL/L (3.5-5.1); SODIUM 144 MMOL/L (136-145)
[2018-08-18] MEDS ORDERED: D5NS 1000ml IV ONE (11:31)
[2018-08-18] MEDS ORDERED: Tubing IV Secondary IV ONE (11:31)
--- NOTE | 2018-08-18 12:06 | Diagnostic Imaging Report ---
EXAM: CT Abdomen and Pelvis Without Intravenous Contrast CLINICAL HISTORY: ABD PAIN TECHNIQUE: Axial computed tomography images of the abdomen and pelvis without intravenous contrast. CTDI is 12.18 mGy and DLP is 590 mGy-cm. One or more of the following dose reduction techniques were used: automated exposure control, adjustment of the mA and/or kV according to patient size, use of iterative reconstruction technique. COMPARISON: CT abdomen and pelvis dated 08/02/17 FINDINGS: Lung bases: Mild dependent atelectasis in bilateral lung bases. ABDOMEN: Liver: Unremarkable. Gallbladder and bile ducts: Distended gallbladder without calcified stones. Distention of the common bile duct to 11 mm and pancreatic duct to 7 mm. No radiodense ductal stones or obstructing masses identified. Pancreas: See above. Spleen: Unremarkable. No splenomegaly. Adrenals: Left adrenal thickening with possible 1.5 cm hypodense nodule, unchanged. Right adrenal gland appears unremarkable. Kidneys and ureters: Bilateral simple appearing renal cortical cysts, largest measuring 6.8 cm in the left lower renal pole. No obstructing stones. Stomach and bowel: Right inguinal hernia containing loop of small bowel. No evidence of strangulation. Mild fluid distention and air fluid levels in the proximal small bowel loops may suggest partial obstruction. Mild diffuse colonic fecal retention suggests constipation. No mucosal thickening. PELVIS: Appendix: No findings to suggest acute appendicitis. Bladder: Diffusely distended. No stones. Reproductive: Unremarkable as visualized. ABDOMEN and PELVIS: Intraperitoneal space: Moderate volume free fluid in the pelvis. No free air. Bones/joints: Multilevel degenerative changes throughout the visualized spine with disc space loss and endplate osteophytes, most prominent at L5-S1. No acute fracture. No dislocation. Soft tissues: See above. Vasculature: Atherosclerotic calcifications throughout the abdominal aorta and its proximal branches. No abnormal dilatation. Lymph nodes: Unremarkable. No enlarged lymph nodes. IMPRESSION: 1. Right inguinal hernia containing loop of small bowel. No evidence of strangulation. Mild fluid distention and air fluid levels in the proximal small bowel loops may suggest partial obstruction. 2. Mild diffuse colonic fecal retention suggests constipation. 3. Moderate volume pelvic free fluid. 4. Distended gallbladder without calcified stones. Distention of the common bile duct to 11 mm and pancreatic duct to 7 mm. No radiodense ductal stones or obstructing masses identified. If there is continued clinical concern, this can be further evaluated with MRI/MRCP.
[2018-08-18 12:12] VITALS: BP 140/75
--- NOTE | 2018-08-18 13:23 | Surgery Progress Note ---
Surgery Progress Note Subjective Additional Comments no acute events. resting comfortable. tolerating diet. Objective Last 24 Hour Vital Signs Date Time Temp Pulse Resp B/P (MAP) Pulse Ox O2 Delivery O2 Flow Rate FiO2 08/18/18 12:12 97.5 60 18 140/75 (96) 93 08/18/18 08:10 Room Air 08/18/18 08:00 98.6 60 17 156/81 (106) 93 08/18/18 04:00 98.0 60 16 121/76 (91) 93 08/18/18 00:00 97.7 57 16 114/61 (78) 92 08/17/18 21:00 Room Air 08/17/18 20:00 97.9 56 15 121/61 (81) 97 08/17/18 16:00 98.1 67 18 136/76 (96) I&O Intake and Output 08/17/18 08/18/18 19:00 07:00 Intake Total 1200 ml 1460 ml Balance 1200 ml 1460 ml Intake Oral 500 ml 360 ml IV Total 700 ml 1100 ml # Voids 3 2 # Bowel Movements 1 1 Drains: none Cardiovascular: RSR Respiratory: clear Abdomen: soft, flat, non-tender, non-distended Extremities: no cyanosis Laboratory Tests Test 08/18/18 07:05 White Blood Count 3.2 K/UL (4.8-10.8) #L Red Blood Count 4.20 M/UL (4.20-5.40) Hemoglobin 13.0 G/DL (12.0-16.0) Hematocrit 39.9 % (37.0-47.0) Mean Corpuscular Volume 95 FL (80-99) Mean Corpuscular Hemoglobin 31.0 PG (27.0-31.0) Mean Corpuscular Hemoglobin Concent 32.7 G/DL (32.0-36.0) Red Cell Distribution Width 13.1 % (11.6-14.8) Platelet Count 279 K/UL (150-450) Mean Platelet Volume 5.3 FL (6.5-10.1) L Neutrophils (%) (Auto) % (45.0-75.0) Lymphocytes (%) (Auto) % (20.0-45.0) Monocytes (%) (Auto) % (1.0-10.0) Eosinophils (%) (Auto) % (0.0-3.0) Basophils (%) (Auto) % (0.0-2.0) Differential Total Cells Counted 100 Neutrophils % (Manual) 72 % (45-75) Lymphocytes % (Manual) 22 % (20-45) Monocytes % (Manual) 3 % (1-10) Eosinophils % (Manual) 3 % (0-3) Basophils % (Manual) 0 % (0-2) Band Neutrophils 0 % (0-8) Platelet Estimate Adequate Platelet Morphology Normal Red Blood Cell Morphology Normal Prothrombin Time 11.6 SEC (9.30-11.50) H Prothromb Time International Ratio 1.1 (0.9-1.1) Activated Partial Thromboplast Time 29 SEC (23-33) Sodium Level 144 MMOL/L (136-145) Potassium Level 3.5 MMOL/L (3.5-5.1) Chloride Level 110 MMOL/L (98-107) H Carbon Dioxide Level 29 MMOL/L (21-32) Anion Gap 5 mmol/L (5-15) Blood Urea Nitrogen 8 mg/dL (7-18) Creatinine 0.8 MG/DL (0.55-1.30) Estimat Glomerular Filtration Rate mL/min (>60) Glucose Level 72 MG/DL (74-106) L Calcium Level 9.0 MG/DL (8.5-10.1) Total Bilirubin 0.3 MG/DL (0.2-1.0) Aspartate Amino Transf (AST/SGOT) 17 U/L (15-37) Alanine Aminotransferase (ALT/SGPT) 20 U/L (12-78) Alkaline Phosphatase 89 U/L (46-116) Total Protein 6.4 G/DL (6.4-8.2) Albumin 3.3 G/DL (3.4-5.0) L Globulin 3.1 g/dL Albumin/Globulin Ratio 1.1 (1.0-2.7) Amylase Level 33 U/L (25-115) Lipase 79 U/L (73-393) Plan Problems: (1) Rectal prolapse Assessment & Plan: Acute episode of rectal prolapse with bleeding. Prolapse is able to be reduced without complication by emergency department physician. Since patient has been doing well without any recurrent episodes of bleeding. Patient is afebrile hemodynamically stable and labs noted. Imaging pending. Long discussion had with patient at the bedside regarding her history of potential hemorrhoids and rectal prolapse. Detailed discussion had about potential surgical or nonoperative interventions. Patient expressed understanding. CT noted. Labs okay Okay for diet No acute surgical intervention planned Appreciate GI input will follow with recs thank you Cheo Freire Aug 18, 2018 13:23
--- NOTE | 2018-08-18 15:15 | Consultation ---
DATE OF CONSULTATION: 08/18/2018 CONSULTING PHYSICIAN: Terry Villarreal M.D. CHIEF COMPLAINT: Rectal bleeding. HISTORY OF PRESENT ILLNESS: The patient is a 72-year-old female, known to me from office and from multiple admissions to [facility]. She has been a long-term patient of my office. She had history of chronic acid reflux disease. She has history of distal esophagitis, hiatal hernia, gastritis. She had history of colonoscopy in 2017, which unfortunately was poor prep, but had some diverticulosis and internal hemorrhoids. The patient was readmitted with severe rectal bleeding and rectal pain. PAST MEDICAL HISTORY: 1. History of hiatal hernia. 2. Esophagitis. 3. Gastritis. 4. Diverticulosis. 5. Internal hemorrhoids. 6. Renal cyst. 7. COPD. 8. Hypertension. 9. Pancreatic cyst. 10. Gallbladder polyp. PAST SURGICAL HISTORY: None. ALLERGIES: To phenobarbital. MEDICATIONS: Please see medication reconciliation list. SOCIAL HISTORY: The patient denies any tobacco, alcohol, or drug abuse. FAMILY HISTORY: Mother of colon cancer. REVIEW OF SYSTEMS: A 10-point review of systems was performed and pertinent positives in HPI. PHYSICAL EXAMINATION: VITAL SIGNS: Temperature is 98, pulse 60, respirations 16, blood pressure is 121/75. HEENT: Normocephalic, atraumatic. Sclerae anicteric. NECK: Supple. No evidence of obvious adenopathy. CARDIOVASCULAR: Regular rate and rhythm. Plus S1 and S2. No obvious murmur. LUNGS: Clear to auscultation bilaterally. ABDOMEN: Positive bowel sounds. Soft, nontender. No rebound. No guarding. No peritoneal sign. EXTREMITIES: No cyanosis, no clubbing, no edema. LABORATORY DATA: White count 3.2, hemoglobin 13, hematocrit 39, platelet count is 279. ASSESSMENT AND PLAN: This is a 72-year-old female with rectal bleeding, history of poor colonoscopy prep in 2017. Signs and symptoms are suspicious for diverticular bleed, given the painless bleeding. No significant drop in hemoglobin and hematocrit, but the patient is very anxious as she states "my mom of colon cancer and I wanted to check it again." Given the poor prep in 2 years ago, we are going to go ahead and prep her soon today in the hospital and get it done tomorrow a colonoscopy. The patient was informed of the risks and benefits of the procedure and she agreed to it. So, we will plan for tomorrow. I want to thank Dr. Norman for this kind referral. Terry Villarreal M.D. DR: KONSTANTIN JOB#: [id number] CC: Luis F Norman M.D.; Fax#: [phone]
[2018-08-18 15:57] VITALS: BP 136/88
[2018-08-18] MEDS ORDERED: Nulytely 4L ORAL ONE (16:00)
[2018-08-18] MEDS: D5 1/2NS w/KCl 20mEq 1,000 ML IV SCH (16:03)
[2018-08-18] MEDS: ALPRAZolam 0.5mg tab ORAL PRN (16:23)
--- NOTE | 2018-08-18 16:23 | Pulmonology Progress Note ---
Assessment/Plan Problems: (1) Gastrointestinal hemorrhage (2) Rectal bleeding (3) COPD (chronic obstructive pulmonary disease) (4) HTN (hypertension) Assessment/Plan npo iv fluids prbc prn respiratory treatment symptomatic treatment check electrolytes pt/ot titrate fio2 to sat of 92% dvt prophylaxis. Subjective ROS Limited/Unobtainable: No Constitutional: Reports: no symptoms HEENT: Repors: no symptoms Allergies: Coded Allergies: MORPHINE (Verified Allergy, Severe, 11/03/16) nausea/vomiting Objective Last 24 Hour Vital Signs Date Time Temp Pulse Resp B/P (MAP) Pulse Ox O2 Delivery O2 Flow Rate FiO2 08/18/18 15:57 97.7 66 18 136/88 (104) 99 08/18/18 12:12 97.5 60 18 140/75 (96) 93 08/18/18 08:10 Room Air 08/18/18 08:00 98.6 60 17 156/81 (106) 93 08/18/18 04:00 98.0 60 16 121/76 (91) 93 08/18/18 00:00 97.7 57 16 114/61 (78) 92 08/17/18 21:00 Room Air 08/17/18 20:00 97.9 56 15 121/61 (81) 97 Intake and Output 08/17/18 08/18/18 19:00 07:00 Intake Total 1200 ml 1460 ml Balance 1200 ml 1460 ml Intake Oral 500 ml 360 ml IV Total 700 ml 1100 ml # Voids 3 2 # Bowel Movements 1 1 General Appearance: WD/WN HEENT: normocephalic, atraumatic Respiratory/Chest: chest wall non-tender, lungs clear Cardiovascular: normal peripheral pulses, normal rate Abdomen: normal bowel sounds, soft, non tender Extremities: no clubbing Laboratory Tests 08/18/18 07:05: White Blood Count 3.2#L, Red Blood Count 4.20, Hemoglobin 13.0, Hematocrit 39.9 , Mean Corpuscular Volume 95, Mean Corpuscular Hemoglobin 31.0, Mean Corpuscular Hemoglobin Concent 32.7, Red Cell Distribution Width 13.1, Platelet Count 279, Mean Platelet Volume 5.3L, Neutrophils (%) (Auto) , Lymphocytes (%) ( Auto) , Monocytes (%) (Auto) , Eosinophils (%) (Auto) , Basophils (%) (Auto) , Differential Total Cells Counted 100, Neutrophils % (Manual) 72, Lymphocytes % ( Manual) 22, Monocytes % (Manual) 3, Eosinophils % (Manual) 3, Basophils % ( Manual) 0, Band Neutrophils 0, Platelet Estimate Adequate, Platelet Morphology Normal, Red Blood Cell Morphology Normal, Prothrombin Time 11.6H, Prothromb Time International Ratio 1.1, Activated Partial Thromboplast Time 29, Sodium Level 144, Potassium Level 3.5, Chloride Level 110H, Carbon Dioxide Level 29, Anion Gap 5, Blood Urea Nitrogen 8, Creatinine 0.8, Estimat Glomerular Filtration Rate , Glucose Level 72L, Calcium Level 9.0, Total Bilirubin 0.3, Aspartate Amino Transf (AST/SGOT) 17, Alanine Aminotransferase (ALT/SGPT) 20, Alkaline Phosphatase 89, Total Protein 6.4, Albumin 3.3L, Globulin 3.1, Albumin/ Globulin Ratio 1.1, Amylase Level 33, Lipase 79 Current Medications Medications (Trade) Dose Ordered Sig/Divya Route PRN Reason Start Time Stop Time Status Last Admin Dose Admin Acetaminophen (Tylenol) 650 mg Q4H PRN ORAL T>100.5 08/17/18 11:30 09/16/18 11:29 Acetaminophen/ Hydrocodone Bitart ([place] 10/325) 1 tab Q4H PRN ORAL Severe Pain (Pain Scale 7-10) 08/17/18 18:30 08/24/18 18:29 08/18/18 14:19 Acetaminophen/ Hydrocodone Bitart ([place] 5/325) 1 tab Q4H PRN ORAL Moderate Pain (Pain Scale 4-6) 08/17/18 18:30 08/24/18 18:29 Al Hydroxide/Mg Hydroxide (Mylanta II) 30 ml Q6H PRN ORAL dyspepsia 08/17/18 11:30 09/16/18 11:29 Allopurinol (Zyloprim) 100 mg DAILY ORAL 08/18/18 09:00 09/17/18 08:59 08/18/18 08:07 Alprazolam (Xanax) 0.5 mg Q6H PRN ORAL For Anxiety 08/17/18 18:30 08/24/18 18:29 08/17/18 20:15 Dextrose (Dextrose 50%) 25 ml Q30M PRN IV Hypoglycemia 08/17/18 11:30 09/16/18 11:29 Dextrose (Dextrose 50%) 50 ml Q30M PRN IV Hypoglycemia 08/17/18 11:30 09/16/18 11:29 Dextrose/ Electrolytes 1,000 ml @ 75 mls/hr [id number] IV 08/18/18 16:00 09/17/18 15:59 08/18/18 16:03 Dextrose/Sodium Chloride 1,000 ml @ 100 mls/hr Q10H IV 08/17/18 11:30 09/16/18 11:29 08/18/18 08:09 Diphenhydramine HCl (Benadryl) 25 mg Q6H PRN ORAL Itching/Pruritis 08/17/18 11:30 09/16/18 11:29 Nitroglycerin (Ntg) 0.4 mg Q5MIN X 3 DOSES PRN SL Prn Chest Pain 08/17/18 11:30 09/16/18 11:29 Ondansetron HCl (Zofran) 4 mg Q6H PRN IVP Nausea & Vomiting 08/17/18 11:30 09/16/18 11:29 Polyethylene Glycol (Miralax) 17 gm HSPRN PRN ORAL Constipation 08/17/18 21:00 09/16/18 20:59 08/17/18 20:24 Temazepam (Restoril) 15 mg HSPRN PRN ORAL Insomnia 08/17/18 21:00 08/24/18 20:59 Mina Zheng MD Aug 18, 2018 16:23
--- NOTE | 2018-08-18 17:16 | Internal Med Progress Note ---
Subjective Date of Service: Aug 18, 2018 Physician Name Luis F Norman Attending Physician Oren Martin MD Current Medications Medications (Trade) Dose Ordered Sig/Divya Route PRN Reason Start Time Stop Time Status Last Admin Dose Admin Acetaminophen (Tylenol) 650 mg Q4H PRN ORAL T>100.5 08/17/18 11:30 09/16/18 11:29 Acetaminophen/ Hydrocodone Bitart ([place] 10/325) 1 tab Q4H PRN ORAL Severe Pain (Pain Scale 7-10) 08/17/18 18:30 08/24/18 18:29 08/18/18 14:19 Acetaminophen/ Hydrocodone Bitart ([place] 5/325) 1 tab Q4H PRN ORAL Moderate Pain (Pain Scale 4-6) 08/17/18 18:30 08/24/18 18:29 Al Hydroxide/Mg Hydroxide (Mylanta II) 30 ml Q6H PRN ORAL dyspepsia 08/17/18 11:30 09/16/18 11:29 Allopurinol (Zyloprim) 100 mg DAILY ORAL 08/18/18 09:00 09/17/18 08:59 08/18/18 08:07 Alprazolam (Xanax) 0.5 mg Q6H PRN ORAL For Anxiety 08/17/18 18:30 08/24/18 18:29 08/18/18 16:23 Dextrose (Dextrose 50%) 25 ml Q30M PRN IV Hypoglycemia 08/17/18 11:30 09/16/18 11:29 Dextrose (Dextrose 50%) 50 ml Q30M PRN IV Hypoglycemia 08/17/18 11:30 09/16/18 11:29 Dextrose/ Electrolytes 1,000 ml @ 75 mls/hr [id number] IV 08/18/18 16:00 09/17/18 15:59 08/18/18 16:03 Dextrose/Sodium Chloride 1,000 ml @ 100 mls/hr Q10H IV 08/17/18 11:30 09/16/18 11:29 08/18/18 08:09 Diphenhydramine HCl (Benadryl) 25 mg Q6H PRN ORAL Itching/Pruritis 08/17/18 11:30 09/16/18 11:29 Nitroglycerin (Ntg) 0.4 mg Q5MIN X 3 DOSES PRN SL Prn Chest Pain 08/17/18 11:30 09/16/18 11:29 Ondansetron HCl (Zofran) 4 mg Q6H PRN IVP Nausea & Vomiting 08/17/18 11:30 09/16/18 11:29 Polyethylene Glycol (Miralax) 17 gm HSPRN PRN ORAL Constipation 08/17/18 21:00 09/16/18 20:59 08/17/18 20:24 Temazepam (Restoril) 15 mg HSPRN PRN ORAL Insomnia 08/17/18 21:00 08/24/18 20:59 Allergies: Coded Allergies: MORPHINE (Verified Allergy, Severe, 11/03/16) nausea/vomiting ROS Limited/Unobtainable: No Constitutional: Reports: no symptoms HEENT: Reports: no symptoms Cardiovascular: Reports: no symptoms Respiratory: Reports: no symptoms Gastrointestinal/Abdominal: Reports: rectal bleeding Genitourinary: Reports: no symptoms Neurologic/Psychiatric: Reports: no symptoms Subjective 72 YO F admitted with rectal bleeding and prolapse. Cover for Int Med-DR Martin. Await colonoscopy 08/19/18 Objective Last Vital Signs Date Time Temp Pulse Resp B/P (MAP) Pulse Ox O2 Delivery O2 Flow Rate FiO2 08/18/18 15:57 97.7 66 18 136/88 (104) 99 08/18/18 08:10 Room Air Laboratory Tests Test 08/18/18 07:05 White Blood Count 3.2 K/UL (4.8-10.8) #L Red Blood Count 4.20 M/UL (4.20-5.40) Hemoglobin 13.0 G/DL (12.0-16.0) Hematocrit 39.9 % (37.0-47.0) Mean Corpuscular Volume 95 FL (80-99) Mean Corpuscular Hemoglobin 31.0 PG (27.0-31.0) Mean Corpuscular Hemoglobin Concent 32.7 G/DL (32.0-36.0) Red Cell Distribution Width 13.1 % (11.6-14.8) Platelet Count 279 K/UL (150-450) Mean Platelet Volume 5.3 FL (6.5-10.1) L Neutrophils (%) (Auto) % (45.0-75.0) Lymphocytes (%) (Auto) % (20.0-45.0) Monocytes (%) (Auto) % (1.0-10.0) Eosinophils (%) (Auto) % (0.0-3.0) Basophils (%) (Auto) % (0.0-2.0) Differential Total Cells Counted 100 Neutrophils % (Manual) 72 % (45-75) Lymphocytes % (Manual) 22 % (20-45) Monocytes % (Manual) 3 % (1-10) Eosinophils % (Manual) 3 % (0-3) Basophils % (Manual) 0 % (0-2) Band Neutrophils 0 % (0-8) Platelet Estimate Adequate Platelet Morphology Normal Red Blood Cell Morphology Normal Prothrombin Time 11.6 SEC (9.30-11.50) H Prothromb Time International Ratio 1.1 (0.9-1.1) Activated Partial Thromboplast Time 29 SEC (23-33) Sodium Level 144 MMOL/L (136-145) Potassium Level 3.5 MMOL/L (3.5-5.1) Chloride Level 110 MMOL/L (98-107) H Carbon Dioxide Level 29 MMOL/L (21-32) Anion Gap 5 mmol/L (5-15) Blood Urea Nitrogen 8 mg/dL (7-18) Creatinine 0.8 MG/DL (0.55-1.30) Estimat Glomerular Filtration Rate mL/min (>60) Glucose Level 72 MG/DL (74-106) L Calcium Level 9.0 MG/DL (8.5-10.1) Total Bilirubin 0.3 MG/DL (0.2-1.0) Aspartate Amino Transf (AST/SGOT) 17 U/L (15-37) Alanine Aminotransferase (ALT/SGPT) 20 U/L (12-78) Alkaline Phosphatase 89 U/L (46-116) Total Protein 6.4 G/DL (6.4-8.2) Albumin 3.3 G/DL (3.4-5.0) L Globulin 3.1 g/dL Albumin/Globulin Ratio 1.1 (1.0-2.7) Amylase Level 33 U/L (25-115) Lipase 79 U/L (73-393) Intake and Output 08/17/18 08/18/18 19:00 07:00 Intake Total 1200 ml 1460 ml Balance 1200 ml 1460 ml Intake Oral 500 ml 360 ml IV Total 700 ml 1100 ml # Voids 3 2 # Bowel Movements 1 1 Objective PHYSICAL EXAMINATION: GENERAL: The patient is a well-developed and well-nourished white female, in no apparent distress. HEENT: Eyes, pupils are equal and responsive to light and accommodation. Extraocular movements are intact. NECK: Supple without lymphadenopathy. CHEST: Lungs are clear to auscultation bilaterally without wheezes or rales. CARDIOVASCULAR: Regular rate. S1 and S2 are normal without murmurs, rubs, or gallops. ABDOMEN: Soft, nontender, and nondistended. Positive bowel sounds. No evidence of hepatosplenomegaly. Currently, no rebound or guarding noted. EXTREMITIES: Negative for clubbing, cyanosis, or edema. RECTAL/GENITALIA: Refused. NEUROLOGICAL: Cranial nerves II through XII are grossly intact without focal deficits. Motor strength is 5/5 bilaterally intact. Deep tendon reflexes are 2+ plantar. Assessment/Plan Assessment/Plan ASSESSMENT: This is a 72-year-old white female. 1. Rectal bleeding. 2. Rectal prolapse. 3. Chronic obstructive pulmonary disease. 4. Hypertension. TREATMENT: 1. Rectal bleed/rectal prolapse. A Gastroenterology consultation has been obtained with Dr. Terry Villarreal. A Surgery consultation has been obtained with Dr. Freire. We will follow recommendations of Surgery and Gastroenterology. 2. Chronic obstructive pulmonary disease. The patient remained on albuterol metered-dose inhaler two puffs p.o. q.i.d. p.r.n. 3. Hypertension. Continue Lotrel as above. 4. colonoscopy 08/19/18-see GI note Luis F Norman MD Aug 18, 2018 17:16
--- NOTE | 2018-08-18 18:00 | NUR ---
nurse notes 1601 started golitely and tolerated well no BM yet .colton jordan
--- NOTE | 2018-08-18 18:59 | NUR ---
HAND-OFF: Report given to EVELYN Julian accordingly
[2018-08-18 20:00] VITALS: BP 145/82
--- NOTE | 2018-08-18 20:44 | NUR ---
NURSE NOTES: Pt received awake, going to restroom to have a bowel movement she states, able to make needs known, NPO at midnight, pt aware, will continue to monitor.
[2018-08-19] VITALS (10 sets, daily range): BP systolic 143–162; BP diastolic 69–95
[2018-08-19] MEDS: HYDROcodone/Acetamin 10/325 tab ORAL PRN ×3 (00:07→20:35)
[2018-08-19] MEDS: ALPRAZolam 0.5mg tab ORAL PRN ×3 (00:13→16:13)
[2018-08-19] MEDS: D5NS 1,000 ML IV SCH (03:30)
[2018-08-19] MEDS: D5 1/2NS w/KCl 20mEq 1,000 ML IV SCH ×3 (05:26→23:00)
[2018-08-19] MEDS ORDERED: fentaNYL 100 mcg/2 mL IV ONE (07:00)
[2018-08-19] MEDS ORDERED: Propofol 200mg/20ml IV ONE (07:00)
[2018-08-19] MEDS ORDERED: Midazolam 2mg/2ml Inj ONE (07:00)
--- NOTE | 2018-08-19 07:03 | Anethesia Preoperative Eval ---
Anesthesia Pre-op PMH/ROS General Date of Evaluation: Aug 19, 2018 Time of Evaluation: 07:00 Anesthesiologist: Aurelio ASA Score: ASA 3 Mallampati Score Class I : Soft palate, uvula, fauces, pillars visible Class II: Soft palate, uvula, fauces visible Class III: Soft palate, base of uvula visible Class IV: Only hard plate visible Mallampati Classification: Class II Surgeon: Cherelle Diagnosis: Rectal bleed Surgical Procedure: Colonoscopy Anesthesia History: none Family History: no anesthesia problems Allergies: Coded Allergies: MORPHINE (Verified Allergy, Severe, 11/03/16) nausea/vomiting Medications: see eMAR Patient NPO?: Yes Past Medical History Cardiovascular: Reports: HTN; Denies: CAD, NM, valve dz, arrhythmia, other Pulmonary: Reports: COPD; Denies: asthma, TAE, other Gastrointestinal/Genitourinary: Reports: GERD; Denies: CRI, ESRD, other Neurologic/Psychiatric: Reports: depression/anxiety; Denies: dementia, CVA, TIA, other Endocrine: Reports: hypothyroidism; Denies: DM, steroids, other HEENT: Denies: cataract (L), cataract (R), glaucoma, KENAITZE (L), KENAITZE (R), other Hematology/Immune: Denies: anemia, DVT, bleeding disorder, other Musculoskeletal/Integumentary: Reports: DJD; Denies: OA, RA, DDD, edema, other Other: other - malnourished PMH Narrative: as above PSxH Narrative: see H&P Anesthesia Pre-op Phys. Exam Physician Exam Last Vital Signs Date Time Temp Pulse Resp B/P (MAP) Pulse Ox O2 Delivery O2 Flow Rate FiO2 08/19/18 04:00 97.9 75 18 147/79 (101) 99 08/18/18 21:00 Room Air Constitutional: NAD Neurologic: CN 2-12 intact Cardiovascular: RRR, no M/R/G Respiratory: CTA Gastrointestinal: S/NT/ND Airway Exam Mallampati Score: Class II MO: limited Neck: stiff ROM: limited Teeth: missing Dentures: no upper, no lower Anesthesia Pre-op A/P Labs Hematology Test 08/18/18 07:05 08/19/18 05:10 White Blood Count 3.2 K/UL (4.8-10.8) #L Pending Red Blood Count 4.20 M/UL (4.20-5.40) Pending Hemoglobin 13.0 G/DL (12.0-16.0) Pending Hematocrit 39.9 % (37.0-47.0) Pending Mean Corpuscular Volume 95 FL (80-99) Pending Mean Corpuscular Hemoglobin 31.0 PG (27.0-31.0) Pending Mean Corpuscular Hemoglobin Concent 32.7 G/DL (32.0-36.0) Pending Red Cell Distribution Width 13.1 % (11.6-14.8) Pending Platelet Count 279 K/UL (150-450) Pending Mean Platelet Volume 5.3 FL (6.5-10.1) L Pending Neutrophils (%) (Auto) % (45.0-75.0) Pending Lymphocytes (%) (Auto) % (20.0-45.0) Pending Monocytes (%) (Auto) % (1.0-10.0) Pending Eosinophils (%) (Auto) % (0.0-3.0) Pending Basophils (%) (Auto) % (0.0-2.0) Pending Differential Total Cells Counted 100 Neutrophils % (Manual) 72 % (45-75) Lymphocytes % (Manual) 22 % (20-45) Monocytes % (Manual) 3 % (1-10) Eosinophils % (Manual) 3 % (0-3) Basophils % (Manual) 0 % (0-2) Band Neutrophils 0 % (0-8) Platelet Estimate Adequate Platelet Morphology Normal Red Blood Cell Morphology Normal Coagulation Test 08/18/18 07:05 Prothrombin Time 11.6 SEC (9.30-11.50) H Prothromb Time International Ratio 1.1 (0.9-1.1) Activated Partial Thromboplast Time 29 SEC (23-33) Chemistry Test 08/18/18 07:05 08/19/18 05:10 Sodium Level 144 MMOL/L (136-145) Pending Potassium Level 3.5 MMOL/L (3.5-5.1) Pending Chloride Level 110 MMOL/L (98-107) H Pending Carbon Dioxide Level 29 MMOL/L (21-32) Pending Anion Gap 5 mmol/L (5-15) Blood Urea Nitrogen 8 mg/dL (7-18) Pending Creatinine 0.8 MG/DL (0.55-1.30) Pending Estimat Glomerular Filtration Rate mL/min (>60) Pending Glucose Level 72 MG/DL (74-106) L Pending Calcium Level 9.0 MG/DL (8.5-10.1) Pending Total Bilirubin 0.3 MG/DL (0.2-1.0) Aspartate Amino Transf (AST/SGOT) 17 U/L (15-37) Alanine Aminotransferase (ALT/SGPT) 20 U/L (12-78) Alkaline Phosphatase 89 U/L (46-116) Total Protein 6.4 G/DL (6.4-8.2) Albumin 3.3 G/DL (3.4-5.0) L Globulin 3.1 g/dL Albumin/Globulin Ratio 1.1 (1.0-2.7) Amylase Level 33 U/L (25-115) Lipase 79 U/L (73-393) Risk Assessment & Plan Assessment: asa 3 Plan: MAC Status Change Before Surgery: No Pre-Antibiotics Drug: none Jairo Carey MD Aug 19, 2018 07:03
[2018-08-19 07:10] LABS: BASOPHILS % (AUTO) 0.6 % (0.0-2.0); EOSINOPHILS % (AUTO) 3.8 % (0.0-3.0); HEMATOCRIT 36.9 % (37.0-47.0); HEMOGLOBIN 12.2 G/DL (12.0-16.0); LYMPHOCYTES % (AUTO) 11.1 % (20.0-45.0); MEAN CORPUSCULAR VOLUME 93 FL (80-99); MONOCYTES % (AUTO) 5.2 % (1.0-10.0); NEUTROPHILS % (AUTO) 79.2 % (45.0-75.0); PLATELET COUNT 233 K/UL (150-450); RED BLOOD COUNT 3.95 M/UL (4.20-5.40); RED CELL DISTRIBUTION WIDTH 12.8 % (11.6-14.8); WHITE BLOOD COUNT 4.6 K/UL (4.8-10.8)
[2018-08-19] MEDS ORDERED: NS 500ML IVPB ONE (07:11)
--- NOTE | 2018-08-19 07:12 | Pre-Procedure Note/Attestation ---
Pre-Procedure Note/Attestation Complete Prior to Procedure Planned Procedure: not applicable Procedure Narrative: colonoscopy Indications for Procedure Pre-Operative Diagnosis: rectal bleed Attestation I attest that I discussed the nature of the procedure; its benefits; risks and complications; and alternatives (and the risks and benefits of such alternatives ), prior to the procedure, with the patient (or the patient's legal patient support representative). I attest that, if there was a reasonable possibility of needing a blood transfusion, the patient (or the patient's legal patient support representative) was given the [facility] standardized written summary, pursuant to the Wesley Mery Blood Safety Act ([place] Health and Safety Code # 1645, as amended). I attest that I re-evaluated the patient just prior to the surgery and that there has been no change in the patient's H&P, except as documented below: Terry Villarreal MD Aug 19, 2018 07:12
--- NOTE | 2018-08-19 07:13 | General Progress Note ---
Assessment/Plan Problem List: (1) Lower gastrointestinal bleed ICD Codes: K92.2 - Gastrointestinal hemorrhage, unspecified SNOMED: 83416328 (2) Diverticulosis ICD Codes: K57.90 - Diverticulosis SNOMED: 455693793 (3) Gastritis ICD Codes: K29.70 - Gastritis SNOMED: 8518898 (4) Esophagitis ICD Codes: K20.9 - Esophagitis, unspecified SNOMED: 65424692 (5) HTN (hypertension) ICD Codes: I10 - Essential (primary) hypertension SNOMED: 86058375 Assessment/Plan plan for colonoscopy for today Subjective ROS Limited/Unobtainable: Yes Allergies: Coded Allergies: MORPHINE (Verified Allergy, Severe, 11/03/16) nausea/vomiting Objective Last 24 Hour Vital Signs Date Time Temp Pulse Resp B/P (MAP) Pulse Ox O2 Delivery O2 Flow Rate FiO2 08/19/18 04:00 97.9 75 18 147/79 (101) 99 08/19/18 00:00 97.9 78 18 143/81 (101) 98 08/18/18 21:00 Room Air 08/18/18 20:00 97.7 56 18 145/82 (103) 97 08/18/18 15:57 97.7 66 18 136/88 (104) 99 08/18/18 12:12 97.5 60 18 140/75 (96) 93 08/18/18 08:10 Room Air 08/18/18 08:00 98.6 60 17 156/81 (106) 93 Intake and Output 08/18/18 08/19/18 19:00 07:00 Intake Total 1200 ml 300 ml Balance 1200 ml 300 ml Intake Oral 650 ml IV Total 550 ml 300 ml # Bowel Movements 1 8 Laboratory Tests 08/19/18 05:10: White Blood Count [Pending], Red Blood Count [Pending], Hemoglobin [Pending], Hematocrit [Pending], Mean Corpuscular Volume [Pending], Mean Corpuscular Hemoglobin [Pending], Mean Corpuscular Hemoglobin Concent [Pending], Red Cell Distribution Width [Pending], Platelet Count [Pending], Mean Platelet Volume [ Pending], Neutrophils (%) (Auto) [Pending], Lymphocytes (%) (Auto) [Pending], Monocytes (%) (Auto) [Pending], Eosinophils (%) (Auto) [Pending], Basophils (%) (Auto) [Pending], Sodium Level [Pending], Potassium Level [Pending], Chloride Level [Pending], Carbon Dioxide Level [Pending], Blood Urea Nitrogen [Pending], Creatinine [Pending], Estimat Glomerular Filtration Rate [Pending], Glucose Level [Pending], Calcium Level [Pending] Height (Feet): 5 Height (Inches): 3.00 Weight (Pounds): 115 General Appearance: alert EENT: normal ENT inspection Neck: supple Cardiovascular: normal rate Respiratory/Chest: lungs clear Abdomen: normal bowel sounds, non tender, soft Extremities: non-tender Terry Villarreal MD Aug 19, 2018 07:13
--- NOTE | 2018-08-19 07:18 | NUR ---
HAND-OFF: Report given to EVELYN Yeh. Endorsed that pt went down for Colonoscopy and to call back 2 family members when pt returns.
[2018-08-19 07:34] LABS: ANION GAP 6 mmol/L (5-15); BLOOD UREA NITROGEN 5 mg/dL (7-18); CALCIUM 8.7 MG/DL (8.5-10.1); CARBON DIOXIDE 27 MMOL/L (21-32); CHLORIDE 110 MMOL/L (98-107); CREATININE 0.7 MG/DL (0.55-1.30); POTASSIUM 3.9 MMOL/L (3.5-5.1); SODIUM 143 MMOL/L (136-145)
--- NOTE | 2018-08-19 07:38 | Endoscopy Procedure Note ---
Endoscopy Procedure Note General Indication for Procedure: rectal bleed Procedures Performed: colonoscopy Operative Findings/Diagnosis: diverticulosis Specimen: yes Pt Tolerated Procedure Well: Yes Estimated Blood Loss: none Anesthesia Anesthesiologist: alisha Anesthesia: MAC Inserted Devices Implant(s) used?: No GI Core Measures 50 yrs or older w/o bx or poly: Not Applicable 10yrs. F/U not recommended: Not Applicable Terry Villarreal MD Aug 19, 2018 07:38
--- NOTE | 2018-08-19 07:43 | Immediate Post-Op Evaluation ---
Immediate Post-Op Evalulation Immediate Post-Op Evalulation Procedure: Colonoscopy Date of Evaluation: Aug 19, 2018 Time of Evaluation: 07:42 IV Fluids: 300 Blood Products: none Estimated Blood Loss: none Urinary Output: none Blood Pressure Systolic: 148 Blood Pressure Diastolic: 79 Pulse Rate: 62 Respiratory Rate: 20 O2 Sat by Pulse Oximetry: 98 Temperature (Fahrenheit): 97.6 Pain Score (1-10): 1 Nausea: No Vomiting: No Complications none Patient Status: awake, patent, none Hydration Status: adequate Jairo Carey MD Aug 19, 2018 07:43
--- NOTE | 2018-08-19 07:46 | NUR ---
NURSE NOTES: Patient received but currently off the floor, receiving her colonoscopy.
--- NOTE | 2018-08-19 08:11 | 48 Hour Post Anesthesia Eval ---
Post Anesthesia Evaluation Procedure: Colonoscopy Date of Evaluation: Aug 19, 2018 Time of Evaluation: 08:10 Blood Pressure Systolic: 158 0: 76 Pulse Rate: 64 Respiratory Rate: 20 Temperature (Fahrenheit): 97.6 O2 Sat by Pulse Oximetry: 98 Airway: patent Nausea: No Vomiting: No Pain Intensity: 1 Hydration Status: adequate Cardiopulmonary Status: stable Mental Status/LOC: patient returned to baseline Follow-up Care/Observations: n/a Post-Anesthesia Complications: none Follow-up care needed: N/A Jairo Carey MD Aug 19, 2018 08:11
[2018-08-19] MEDS: Allopurinol 100mg Tab ORAL SCH (09:06)
[2018-08-19] MEDS ORDERED: Benazepril 10mg tab ONE (11:15)
--- NOTE | 2018-08-19 14:28 | Pulmonology Progress Note ---
Assessment/Plan Problems: (1) Gastrointestinal hemorrhage (2) Rectal bleeding (3) COPD (chronic obstructive pulmonary disease) (4) HTN (hypertension) Assessment/Plan prbc prn npo respiratory treatment symptomatic treatment check electrolytes pt/ot titrate fio2 to sat of 92% dvt prophylaxis. Subjective ROS Limited/Unobtainable: No Constitutional: Reports: no symptoms HEENT: Repors: no symptoms Respiratory: Reports: no symptoms Allergies: Coded Allergies: MORPHINE (Verified Allergy, Severe, 11/03/16) nausea/vomiting Objective Last 24 Hour Vital Signs Date Time Temp Pulse Resp B/P (MAP) Pulse Ox O2 Delivery O2 Flow Rate FiO2 08/19/18 12:00 97.7 64 17 151/93 (112) 95 08/19/18 11:20 158/76 08/19/18 11:20 64 158/76 08/19/18 09:36 97.6 08/19/18 09:00 Room Air 08/19/18 08:11 64 20 98 08/19/18 08:00 98.3 67 15 159/95 100 Nasal Cannula 3 08/19/18 07:50 61 23 160/83 100 Nasal Cannula 3 08/19/18 07:45 60 18 162/83 99 Nasal Cannula 3 08/19/18 07:43 62 20 98 08/19/18 07:40 98.1 72 20 154/76 98 Nasal Cannula 3 08/19/18 04:00 97.9 75 18 147/79 (101) 99 08/19/18 00:00 97.9 78 18 143/81 (101) 98 08/18/18 21:00 Room Air 08/18/18 20:00 97.7 56 18 145/82 (103) 97 08/18/18 15:57 97.7 66 18 136/88 (104) 99 Intake and Output 08/18/18 08/19/18 18:59 06:59 Intake Total 1225 ml 375 ml Balance 1225 ml 375 ml Intake Oral 650 ml IV Total 575 ml 375 ml # Bowel Movements 1 8 General Appearance: WD/WN HEENT: normocephalic, mucous membranes moist Cardiovascular: normal peripheral pulses, normal rate Abdomen: soft, non tender Skin: no rash Microbiology Date/Time Source Procedure Growth Status 08/17/18 00:55 Nasal Nares MRSA Culture - Final NO METHICILLIN RESISTANT STAPH AUREUS... Complete 08/17/18 00:55 Rectum - Final NO CARBAPENEM-RESISTANT ENTEROBACTERI... Complete 08/17/18 00:55 Rectum VRE Culture - Final NO VANCOMYCIN RESISTANT ENTEROCOCCUS ... Complete Laboratory Tests 08/19/18 05:10: White Blood Count 4.6L, Red Blood Count 3.95L, Hemoglobin 12.2, Hematocrit 36.9L , Mean Corpuscular Volume 93, Mean Corpuscular Hemoglobin 30.8, Mean Corpuscular Hemoglobin Concent 33.0, Red Cell Distribution Width 12.8, Platelet Count 233, Mean Platelet Volume 5.4L, Neutrophils (%) (Auto) 79.2H, Lymphocytes (%) (Auto) 11.1L, Monocytes (%) (Auto) 5.2, Eosinophils (%) (Auto) 3.8H, Basophils (%) (Auto) 0.6, Sodium Level 143, Potassium Level 3.9, Chloride Level 110H, Carbon Dioxide Level 27, Anion Gap 6, Blood Urea Nitrogen 5L, Creatinine 0.7, Estimat Glomerular Filtration Rate , Glucose Level 91, Calcium Level 8.7 Current Medications Medications (Trade) Dose Ordered Sig/Divya Route PRN Reason Start Time Stop Time Status Last Admin Dose Admin Acetaminophen (Tylenol) 650 mg Q4H PRN ORAL T>100.5 08/17/18 11:30 09/16/18 11:29 Acetaminophen/ Hydrocodone Bitart ([place] 10/325) 1 tab Q4H PRN ORAL Severe Pain (Pain Scale 7-10) 08/17/18 18:30 08/24/18 18:29 08/19/18 14:13 Acetaminophen/ Hydrocodone Bitart ([place] 5/325) 1 tab Q4H PRN ORAL Moderate Pain (Pain Scale 4-6) 08/17/18 18:30 08/24/18 18:29 08/19/18 09:06 Al Hydroxide/Mg Hydroxide (Mylanta II) 30 ml Q6H PRN ORAL dyspepsia 08/17/18 11:30 09/16/18 11:29 Allopurinol (Zyloprim) 100 mg DAILY ORAL 08/18/18 09:00 09/17/18 08:59 08/19/18 09:06 Alprazolam (Xanax) 0.5 mg Q6H PRN ORAL For Anxiety 08/17/18 18:30 08/24/18 18:29 08/19/18 09:06 Amlodipine Besylate (Norvasc) 10 mg DAILY ORAL 08/20/18 09:00 09/19/18 08:59 Benazepril HCl (Lotensin) 40 mg DAILY ORAL 08/20/18 09:00 09/19/18 08:59 Dextrose (Dextrose 50%) 25 ml Q30M PRN IV Hypoglycemia 08/17/18 11:30 09/16/18 11:29 Dextrose (Dextrose 50%) 50 ml Q30M PRN IV Hypoglycemia 08/17/18 11:30 09/16/18 11:29 Dextrose/ Electrolytes 1,000 ml @ 75 mls/hr [id number] IV 08/18/18 16:00 09/17/18 15:59 08/19/18 05:26 Diphenhydramine HCl (Benadryl) 25 mg Q6H PRN ORAL Itching/Pruritis 08/17/18 11:30 09/16/18 11:29 Nitroglycerin (Ntg) 0.4 mg Q5MIN X 3 DOSES PRN SL Prn Chest Pain 08/17/18 11:30 09/16/18 11:29 Ondansetron HCl (Zofran) 4 mg Q6H PRN IVP Nausea & Vomiting 08/17/18 11:30 09/16/18 11:29 Polyethylene Glycol (Miralax) 17 gm HSPRN PRN ORAL Constipation 08/17/18 21:00 09/16/18 20:59 08/17/18 20:24 Temazepam (Restoril) 15 mg HSPRN PRN ORAL Insomnia 08/17/18 21:00 08/24/18 20:59 Mina Zheng MD Aug 19, 2018 14:28
--- NOTE | 2018-08-19 15:30 | Procedure Note ---
DATE OF PROCEDURE: 08/19/2018 SURGEON: Terry Villarreal M.D. REFERRING PHYSICIAN: Oren Martin M.D. PROCEDURE: Colonoscopy with biopsy. ANESTHESIA: Per Dr. Carey. INSTRUMENT: Olympus adult flexible colonoscope. INDICATION: Rectal bleeding. REASON FOR PROCEDURE: The procedure, risks, benefits, and possible consequences, including hemorrhage, aspiration, perforation and infection, and alternative treatments, were explained to the patient/legal guardian by Dr. Terry Villarreal and the patient/legal guardian understood and accepted these risks. PROCEDURE IN DETAIL: After informed consent was obtained and the patient was adequately sedated, first rectal exam was performed, which was normal. Then, scope was advanced from rectum into area seems to be cecum. Unfortunately, the prep was poor so we could not see exactly the landmarks. This examination was extremely limited given the poor prep. The patient has significant diverticulosis in the left colon, most probably the source of bleeding. There was no evidence of any bleeding at this time. The patient had evidence of mild to moderate proctitis. Biopsy from the rectum was obtained. Retroflexion of rectum showed evidence of internal hemorrhoids. SUMMARY OF FINDINGS: 1. Poor colonic prep. 2. Diverticulosis. 3. Internal hemorrhoids. 4. Proctitis versus rectal prolapse. RECOMMENDATIONS: The patient most probably would benefit from surgical evaluation for rectal prolapse if this continues to be a problem for her. At this time, we think the source of bleeding was diverticular bleed, but given this prep we could not rule out anything else. We recommend to have another colonoscopy with a better prep within a year or so. I want to thank Dr. Oren Martin for this kind referral. Terry Villarreal M.D. DR: BRITTA JOB#: [id number] CC:
--- NOTE | 2018-08-19 17:33 | Surgery Progress Note ---
Surgery Progress Note Subjective Additional Comments s/p colonoscopy. states she feels okay. no complaints. Objective Last 24 Hour Vital Signs Date Time Temp Pulse Resp B/P (MAP) Pulse Ox O2 Delivery O2 Flow Rate FiO2 08/19/18 16:00 98.2 71 19 160/76 (104) 95 08/19/18 12:00 97.7 64 17 151/93 (112) 95 08/19/18 11:20 158/76 08/19/18 11:20 64 158/76 08/19/18 09:36 97.6 08/19/18 09:00 Room Air 08/19/18 08:11 64 20 98 08/19/18 08:00 98.3 67 15 159/95 100 Nasal Cannula 3 08/19/18 07:50 61 23 160/83 100 Nasal Cannula 3 08/19/18 07:45 60 18 162/83 99 Nasal Cannula 3 08/19/18 07:43 62 20 98 08/19/18 07:40 98.1 72 20 154/76 98 Nasal Cannula 3 08/19/18 04:00 97.9 75 18 147/79 (101) 99 08/19/18 00:00 97.9 78 18 143/81 (101) 98 08/18/18 21:00 Room Air 08/18/18 20:00 97.7 56 18 145/82 (103) 97 I&O Intake and Output 08/18/18 08/19/18 19:00 07:00 Intake Total 1200 ml 300 ml Balance 1200 ml 300 ml Intake Oral 650 ml IV Total 550 ml 300 ml # Bowel Movements 1 8 Drains: none Cardiovascular: RSR Respiratory: clear Abdomen: soft, non-tender, non-distended Extremities: no cyanosis Laboratory Tests Test 08/19/18 05:10 White Blood Count 4.6 K/UL (4.8-10.8) L Red Blood Count 3.95 M/UL (4.20-5.40) L Hemoglobin 12.2 G/DL (12.0-16.0) Hematocrit 36.9 % (37.0-47.0) L Mean Corpuscular Volume 93 FL (80-99) Mean Corpuscular Hemoglobin 30.8 PG (27.0-31.0) Mean Corpuscular Hemoglobin Concent 33.0 G/DL (32.0-36.0) Red Cell Distribution Width 12.8 % (11.6-14.8) Platelet Count 233 K/UL (150-450) Mean Platelet Volume 5.4 FL (6.5-10.1) L Neutrophils (%) (Auto) 79.2 % (45.0-75.0) H Lymphocytes (%) (Auto) 11.1 % (20.0-45.0) L Monocytes (%) (Auto) 5.2 % (1.0-10.0) Eosinophils (%) (Auto) 3.8 % (0.0-3.0) H Basophils (%) (Auto) 0.6 % (0.0-2.0) Sodium Level 143 MMOL/L (136-145) Potassium Level 3.9 MMOL/L (3.5-5.1) Chloride Level 110 MMOL/L (98-107) H Carbon Dioxide Level 27 MMOL/L (21-32) Anion Gap 6 mmol/L (5-15) Blood Urea Nitrogen 5 mg/dL (7-18) L Creatinine 0.7 MG/DL (0.55-1.30) Estimat Glomerular Filtration Rate mL/min (>60) Glucose Level 91 MG/DL (74-106) Calcium Level 8.7 MG/DL (8.5-10.1) Plan Problems: (1) Rectal prolapse Assessment & Plan: Acute episode of rectal prolapse with bleeding. Prolapse is able to be reduced without complication by emergency department physician. Since patient has been doing well without any recurrent episodes of bleeding. Patient is afebrile hemodynamically stable and labs noted. Imaging pending. Long discussion had with patient at the bedside regarding her history of potential hemorrhoids and rectal prolapse. Detailed discussion had about potential surgical or nonoperative interventions. Patient expressed understanding. CT noted. Labs okay Colonoscopy with bleeding identified to be diverticular. hemorrhoids noted. proctitis noted. no significant prolapse seen Okay for diet No acute surgical intervention planned Appreciate GI input will monitor diverticular bleeding which has stopped outpatient full colonoscopy given poor prep currently will follow with recs thank you Cheo Freire Aug 19, 2018 17:33
--- NOTE | 2018-08-19 19:27 | NUR ---
HAND-OFF: Report given to Denisha RIVAS.
--- NOTE | 2018-08-19 19:34 | Internal Med Progress Note ---
Subjective Date of Service: Aug 19, 2018 Physician Name Luis F Norman Attending Physician Oren Martin MD Current Medications Medications (Trade) Dose Ordered Sig/Divya Route PRN Reason Start Time Stop Time Status Last Admin Dose Admin Acetaminophen (Tylenol) 650 mg Q4H PRN ORAL T>100.5 08/17/18 11:30 09/16/18 11:29 Acetaminophen/ Hydrocodone Bitart ([place] 10/325) 1 tab Q4H PRN ORAL Severe Pain (Pain Scale 7-10) 08/17/18 18:30 08/24/18 18:29 08/19/18 14:13 Acetaminophen/ Hydrocodone Bitart ([place] 5/325) 1 tab Q4H PRN ORAL Moderate Pain (Pain Scale 4-6) 08/17/18 18:30 08/24/18 18:29 08/19/18 09:06 Al Hydroxide/Mg Hydroxide (Mylanta II) 30 ml Q6H PRN ORAL dyspepsia 08/17/18 11:30 09/16/18 11:29 Allopurinol (Zyloprim) 100 mg DAILY ORAL 08/18/18 09:00 09/17/18 08:59 08/19/18 09:06 Alprazolam (Xanax) 0.5 mg Q6H PRN ORAL For Anxiety 08/17/18 18:30 08/24/18 18:29 08/19/18 16:13 Amlodipine Besylate (Norvasc) 10 mg DAILY ORAL 08/20/18 09:00 09/19/18 08:59 Benazepril HCl (Lotensin) 40 mg DAILY ORAL 08/20/18 09:00 09/19/18 08:59 Dextrose (Dextrose 50%) 25 ml Q30M PRN IV Hypoglycemia 08/17/18 11:30 09/16/18 11:29 Dextrose (Dextrose 50%) 50 ml Q30M PRN IV Hypoglycemia 08/17/18 11:30 09/16/18 11:29 Dextrose/ Electrolytes 1,000 ml @ 75 mls/hr [id number] IV 08/18/18 16:00 09/17/18 15:59 08/19/18 05:26 Diphenhydramine HCl (Benadryl) 25 mg Q6H PRN ORAL Itching/Pruritis 08/17/18 11:30 09/16/18 11:29 Nitroglycerin (Ntg) 0.4 mg Q5MIN X 3 DOSES PRN SL Prn Chest Pain 08/17/18 11:30 09/16/18 11:29 Ondansetron HCl (Zofran) 4 mg Q6H PRN IVP Nausea & Vomiting 08/17/18 11:30 09/16/18 11:29 Polyethylene Glycol (Miralax) 17 gm HSPRN PRN ORAL Constipation 08/17/18 21:00 09/16/18 20:59 08/17/18 20:24 Temazepam (Restoril) 15 mg HSPRN PRN ORAL Insomnia 08/17/18 21:00 08/24/18 20:59 Allergies: Coded Allergies: MORPHINE (Verified Allergy, Severe, 11/03/16) nausea/vomiting ROS Limited/Unobtainable: No Constitutional: Reports: no symptoms HEENT: Reports: no symptoms Cardiovascular: Reports: no symptoms Respiratory: Reports: no symptoms Gastrointestinal/Abdominal: Reports: no symptoms Genitourinary: Reports: no symptoms Neurologic/Psychiatric: Reports: no symptoms Subjective 72 YO F admitted with rectal bleeding and prolapse. Cover for Int Med-DR Martin. S/P colonoscopy 08/19/18 Objective Last Vital Signs Date Time Temp Pulse Resp B/P (MAP) Pulse Ox O2 Delivery O2 Flow Rate FiO2 08/19/18 16:00 98.2 71 19 160/76 (104) 95 08/19/18 09:00 Room Air 08/19/18 08:00 3 Laboratory Tests Test 08/19/18 05:10 White Blood Count 4.6 K/UL (4.8-10.8) L Red Blood Count 3.95 M/UL (4.20-5.40) L Hemoglobin 12.2 G/DL (12.0-16.0) Hematocrit 36.9 % (37.0-47.0) L Mean Corpuscular Volume 93 FL (80-99) Mean Corpuscular Hemoglobin 30.8 PG (27.0-31.0) Mean Corpuscular Hemoglobin Concent 33.0 G/DL (32.0-36.0) Red Cell Distribution Width 12.8 % (11.6-14.8) Platelet Count 233 K/UL (150-450) Mean Platelet Volume 5.4 FL (6.5-10.1) L Neutrophils (%) (Auto) 79.2 % (45.0-75.0) H Lymphocytes (%) (Auto) 11.1 % (20.0-45.0) L Monocytes (%) (Auto) 5.2 % (1.0-10.0) Eosinophils (%) (Auto) 3.8 % (0.0-3.0) H Basophils (%) (Auto) 0.6 % (0.0-2.0) Sodium Level 143 MMOL/L (136-145) Potassium Level 3.9 MMOL/L (3.5-5.1) Chloride Level 110 MMOL/L (98-107) H Carbon Dioxide Level 27 MMOL/L (21-32) Anion Gap 6 mmol/L (5-15) Blood Urea Nitrogen 5 mg/dL (7-18) L Creatinine 0.7 MG/DL (0.55-1.30) Estimat Glomerular Filtration Rate mL/min (>60) Glucose Level 91 MG/DL (74-106) Calcium Level 8.7 MG/DL (8.5-10.1) Microbiology Date/Time Source Procedure Growth Status 08/17/18 00:55 Nasal Nares MRSA Culture - Final NO METHICILLIN RESISTANT STAPH AUREUS... Complete 08/17/18 00:55 Rectum - Final NO CARBAPENEM-RESISTANT ENTEROBACTERI... Complete 08/17/18 00:55 Rectum VRE Culture - Final NO VANCOMYCIN RESISTANT ENTEROCOCCUS ... Complete Intake and Output 08/18/18 08/19/18 19:00 07:00 Intake Total 1200 ml 300 ml Balance 1200 ml 300 ml Intake Oral 650 ml IV Total 550 ml 300 ml # Bowel Movements 1 8 Objective PHYSICAL EXAMINATION: GENERAL: The patient is a well-developed and well-nourished white female, in no apparent distress. HEENT: Eyes, pupils are equal and responsive to light and accommodation. Extraocular movements are intact. NECK: Supple without lymphadenopathy. CHEST: Lungs are clear to auscultation bilaterally without wheezes or rales. CARDIOVASCULAR: Regular rate. S1 and S2 are normal without murmurs, rubs, or gallops. ABDOMEN: Soft, nontender, and nondistended. Positive bowel sounds. No evidence of hepatosplenomegaly. Currently, no rebound or guarding noted. EXTREMITIES: Negative for clubbing, cyanosis, or edema. RECTAL/GENITALIA: Refused. NEUROLOGICAL: Cranial nerves II through XII are grossly intact without focal deficits. Motor strength is 5/5 bilaterally intact. Deep tendon reflexes are 2+ plantar. Assessment/Plan Problem List: (1) Diverticulosis Assessment/Plan ASSESSMENT: This is a 72-year-old white female. 1. Rectal bleeding. 2. Rectal prolapse. 3. Chronic obstructive pulmonary disease. 4. Hypertension. 5. Diverticulosis TREATMENT: 1. Rectal bleed/rectal prolapse. A Gastroenterology consultation has been obtained with Dr. Terry Villarreal. A Surgery consultation has been obtained with Dr. Freire. We will follow recommendations of Surgery and Gastroenterology. 2. Chronic obstructive pulmonary disease. The patient remained on albuterol metered-dose inhaler two puffs p.o. q.i.d. p.r.n. 3. Hypertension. Continue Lotrel as above. 4. S/P colonoscopy 08/19/18=diverticular bleed-see GI note Luis F Norman MD Aug 19, 2018 19:34
--- NOTE | 2018-08-19 22:30 | NUR ---
NURSE NOTES: Patient noted with fever of 100.2F at 2000. Tylenol 650mg and cooling measure provided. Rechecked temp 102F at 2140. Informed Dr Martin and received orders of BC x 2, UA, Motrin once, and Rocephin q 24hr. Cont cooling measures, and rechecked temp at 99.7F at 2230. Will cont monitor closely.
[2018-08-19] MEDS ORDERED: cefTRIAXone 1 GM in D5W 55 ML IVPB SCH (23:00)
[2018-08-20] VITALS: BP 141/87
[2018-08-20 00:23] LABS: APPEARANCE,URINE CLEAR; BILIRUBIN, URINE NEGATIVE (NEGATIVE); COLOR,URINE PALE YELLOW; GLUCOSE, URINE (UA) NEGATIVE (NEGATIVE); KETONES,URINE NEGATIVE (NEGATIVE); NITRITE,URINE NEGATIVE (NEGATIVE); PH,URINE 7 (4.5-8.0); PROTEIN,URINE 1+ (NEGATIVE); UROBILINOGEN,URINE NORMAL MG/DL (0.0-1.0)
[2018-08-20] MEDS: HYDROcodone/Acetamin 10/325 tab ORAL PRN (00:38)
[2018-08-20 00:42] LABS: LEUKOCYTE ESTERASE ,URINE 1+ (NEGATIVE)
[2018-08-20 04:00] VITALS: BP 149/88
[2018-08-20 07:01] LABS: BASOPHILS % (AUTO) 2.1 % (0.0-2.0); EOSINOPHILS % (AUTO) 4.5 % (0.0-3.0); HEMATOCRIT 41.4 % (37.0-47.0); HEMOGLOBIN 13.7 G/DL (12.0-16.0); LYMPHOCYTES % (AUTO) 11.8 % (20.0-45.0); MEAN CORPUSCULAR VOLUME 93 FL (80-99); MONOCYTES % (AUTO) 7.7 % (1.0-10.0); NEUTROPHILS % (AUTO) 73.9 % (45.0-75.0); PLATELET COUNT 240 K/UL (150-450); RED BLOOD COUNT 4.44 M/UL (4.20-5.40); WHITE BLOOD COUNT 4.3 K/UL (4.8-10.8)
[2018-08-20 07:25] LABS: ANION GAP 5 mmol/L (5-15); BLOOD UREA NITROGEN 10 mg/dL (7-18); CALCIUM 9.2 MG/DL (8.5-10.1); CARBON DIOXIDE 30 MMOL/L (21-32); CHLORIDE 107 MMOL/L (98-107); CREATININE 0.9 MG/DL (0.55-1.30); POTASSIUM 4.2 MMOL/L (3.5-5.1); SODIUM 142 MMOL/L (136-145)
--- NOTE | 2018-08-20 07:35 | NUR ---
HAND-OFF: Report given to Anisa Isbell RN.
--- NOTE | 2018-08-20 07:45 | NUR ---
NURSE NOTES: Received patient in bed, awake, alert and oriented x4. Denies any pain or discomfort.Denies rectal bleeding. Patient states that she wants to leave the hospital so she can follow up with her primary doctor. RN explained the risks and benefits due to patient had episodes of fever last night. Patient says " I am fine now, no fever. I really have to go home.So I can follow up with my doctor." I know what AMA is." RN explained what AMA is again and patient understood." Awaiting for her ride.Dr. Higginbothamd Dr. Martin to inform.
[2018-08-20 08:00] VITALS: BP 143/79
[2018-08-20 08:55] VITALS: BP 143/79
[2018-08-20] MEDS: Allopurinol 100mg Tab ORAL SCH (08:55)
--- NOTE | 2018-08-20 09:25 | NUR ---
NURSE NOTES: Patient left the facility AMA. Dr. Martin made aware. V/S stable. Afebrile. All belongings accounted for IV and ID were removed. No s/s of infection on IV removal site. Patient's niece came to crop picker the patient. Skin intact. Patient will follow up with her primary doctor. 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
--- NOTE | 2018-08-21 01:32 | Cardiology Report ---
APPROVED REPORT EKG Measurement Heart [id number] Normal sinus rhythm with sinus arrhythmia Septal infarct, age undetermined Abnormal ECG
--- NOTE | 2018-08-22 12:26 | Discharge Summary ---
Discharge Summary Discharge Summary _ DATE OF ADMISSION: 08/16/2018 DATE OF DISCHARGE: 08/20/2018 Patient left AGAINST MEDICAL ADVICE: REASON FOR ADMISSION: 72 years old female with past medical history of hypertension, COPD, GERD, gout , history of head trauma, presented to emergency department with chief complaint of several days of rectal bleeding. Patient reported passing some clots and some mucus with bright red to darker color stools. She also complained of lower abdominal pain. Upon evaluation vital signs were stable. Chest x-ray revealed no acute cardiopulmonary pathology. No leukocytosis, mild anemia with hemoglobin 12.1, hematocrit 37.5. C EKG revealed sinus rhythm, no acute ischemic changes. Urinalysis was unremarkable. CMP unremarkable. Abdominal x-ray revealed nonspecific bowel gas pattern with stool throughout the colon Patient had rectal prolapse after going to the bathroom which was reduced without complication by emergency department physician. Patient was admitted for workup of rectal prolapse and lower GI bleeding. CONSULTANTS: pulmonary Dr. Zheng GI specialist Dr. Villarreal surgery Dr. Freire HOSPITAL COURSE: Patient admitted and started on IV hydration. GI and surgery consults were requested. GI specialist seen and evaluated patient and stated that signs and symptoms were suspicious for diverticular bleeding , given the painless bleeding. No significant drop in hemoglobin and hematocrit was noted, but patient was very anxious since her mother from colon cancer. Given poor preparation 2 years ago, it was recommended to have colonoscopy in the hospital. Patient subsequently undergone colonoscopy, however poor colonic prep noted. Patient with evidence of diverticulosis, internal hemorrhoids and proctitis versus rectal abscess. Per GI recommendation, patient would benefit from surgical evaluation for rectal prolapse if this continues to be a problem. The source of bleeding was likely diverticular bleeding but given poor prep could not rule out anything else. GI specialist recommended another colonoscopy with a better preparation within a year or so. Hemoglobin and hematocrit were closely monitored and remained stable, prior to discharge hemoglobin 13.7, hematocrit 41.4. Surgeon closely followed. No further rectal bleeding. Patient had acute episode of rectal prolapse with the bleeding. Prolapse was able to be reduced without complication by emergency department physician. Since that patient had been doing well without any recurrent episode of bleeding. Patient remain afebrile and hemodynamically stable. Laboratory workup was stable. Surgeon had a long discussion regarding internal hemorrhoids and rectal prolapse. Potential surgical and nonoperative management were discussed with patient. Patient was recommended c outpatient full colonoscopy, given poor preparation in the hospital, as advised by GI specialist. No acute surgical intervention was planned at this time. Diet was slowly started and advanced as tolerated. Antiemetic were on board. Patient was able to tolerate diet,, no nausea no vomiting, no further episodes of rectal bleeding. Blood pressure was managed with calcium channel dilan and RUBA inhibitor and remained stable. Supplemental oxygen was on board to keep pulse oximetry above 92%. Pain management was addressed. Bowel regimen was instituted. Supportive care provided. Patient decided to leave AGAINST MEDICAL ADVICE. The risks and consequences of signing AGAINST MEDICAL ADVICE were discussed with patient in detail. Patient verbalized understanding, nevertheless signed AMA form and left accompanied by her niece. Patient stated that she will follow-up with her primary care provider. FINAL DIAGNOSES: Rectal prolapse -reduced Lower GI bleeding Diverticulosis Internal hemorrhoids Hypertension COPD I have been assigned to dictate discharge summary for this account. I was not involved in the patient's management. Nathalia Schmitz NP Aug 22, 2018 12:26
--- NOTE | 2018-08-22 14:15 | Diagnostic Imaging Report ---
APPROVED REPORT CPT Code: 71699 Present Symptoms Lower Extremity Pain: Bilateral BILATERAL: Imaging reveals a patent deep venous system bilaterally. There is no evidence of thrombus within the common femoral, superficial femoral, popliteal or tibial segments. The greater saphenous veins are within normal limits. Doppler indicates normal spontaneous flow within these segments. NOTE: Left Leg: Vulvar varicosities are noted in the left greater saphenous vein at the thigh and knee levels.
== END 2018-08-20 09:45 | disposition left against medical advice (07) | DRG 393 ==
LOC: EMR 21:06 → 4E 23:40 → EDBEDREQ 08-17 00:08
PROC: 0DBP8ZX Excision of Rectum, Via Natural or Artificial Opening Endoscopic, Diagnostic (ICD-10-PCS; principal; 2018-08-19 07:16)
DX: K62.3 Rectal prolapse (principal); K57.91 Diverticulosis of intestine, part unspecified, without perforation or abscess with bleeding; I10 Essential (primary) hypertension; J44.9 Chronic obstructive pulmonary disease, unspecified; Z88.6 Allergy status to analgesic agent; K44.9 Diaphragmatic hernia without obstruction or gangrene; K64.8 Other hemorrhoids
CPT/HCPCS: 36415; 71045; 74018; 74176; 80048; 80053; 81001; 81003; 82150; 83690; 84484; 85007; 85025; 85610; 85730; 86850; 86900; 86901; 87040; 87081; 87086; 93005; 93970; 94003; 94150; 96374; 96375; 99285; J2250; J2405

== ENCOUNTER 2018-10-01 09:51 | Outpatient (CLI) | payer MEDICARE, OTHER ==
--- NOTE | 2018-10-01 10:33 | General Progress Note ---
Assessment/Plan Problem List: (1) Rectal prolapse ICD Codes: K62.3 - Rectal prolapse SNOMED: 04350703 (2) Abdominal pain ICD Codes: R10.9 - Unspecified abdominal pain SNOMED: 12746325 (3) GERD (gastroesophageal reflux disease) ICD Codes: K21.9 - GERD (gastroesophageal reflux disease) SNOMED: 346373590 (4) Proctitis ICD Codes: K62.89 - Other specified diseases of anus and rectum SNOMED: 2950236 (5) Diverticulosis ICD Codes: K57.90 - Diverticulosis SNOMED: 444335929 (6) Pancreatic duct dilated ICD Codes: K86.89 - Other specified diseases of pancreas SNOMED: 280357251 (7) Gastritis ICD Codes: K29.70 - Gastritis SNOMED: 8878997 (8) Constipation ICD Codes: K59.00 - Constipation SNOMED: 22488387 (9) Esophagitis ICD Codes: K20.9 - Esophagitis, unspecified SNOMED: 78924747 (10) Internal hemorrhoids ICD Codes: K64.8 - Internal hemorrhoids SNOMED: 67223960 (11) HTN (hypertension) ICD Codes: I10 - Essential (primary) hypertension SNOMED: 87026075 Diagnoses Results of Pharmacotherapy: add Mov[employer] will need MRCP chart for recent hospital admission reviewed plan repeat colonoscopy in one year given poor prep Subjective ROS Limited/Unobtainable: Yes Allergies: Coded Allergies: MORPHINE (Verified Allergy, Severe, 11/03/16) nausea/vomiting Objective General Appearance: alert EENT: normal ENT inspection Neck: supple Cardiovascular: normal rate Respiratory/Chest: lungs clear Abdomen: normal bowel sounds, non tender, soft Extremities: non-tender Terry Villarreal MD Oct 01, 2018 10:33
[2018-10-01] MEDS ORDERED: LINZESS145 MCG PO (10:46)
[2018-10-01] MEDS ORDERED: MOVANTIK12.5 MG PO (10:47)
[2018-10-01 12:08] VITALS: BP 119/62
== END 2018-10-01 13:43 | disposition home or self-care (01) ==
LOC: PAN 09:51
DX: K62.3 Rectal prolapse (principal); R10.9 Unspecified abdominal pain; K21.9 Gastro-esophageal reflux disease without esophagitis; K62.89 Other specified diseases of anus and rectum; K57.90 Diverticulosis of intestine, part unspecified, without perforation or abscess without bleeding; K86.89 Other specified diseases of pancreas; K29.70 Gastritis, unspecified, without bleeding; K59.00 Constipation, unspecified; K20.9 Esophagitis, unspecified; K64.8 Other hemorrhoids; I10 Essential (primary) hypertension; Z88.6 Allergy status to analgesic agent
CPT/HCPCS: 99213

== ENCOUNTER 2018-10-14 16:55 | Inpatient (IN) | payer MEDICARE, OTHER ==
[~2018-10-14] VITALS: Ht 160 cm; Wt 51.3 kg
[~2018-10-14 16:55] MED LIST changes: +LINZESS145 MCG PO; +MOVANTIK12.5 MG PO
--- NOTE | 2018-10-14 17:26 | NUR ---
ED Nurse Note: PT WALKED IN TO ER TODAY FROM HOME. AOX4. PT C/O BLOOD WHEN WIPING AFTER BM X SUNDAY. PT STATES THERE IS NO BLOOD IN STOOL AND THAT BLOOD IS ONLY PRESENT WHEN WIPING. PT STATES SHE HAS HX OF HEMORRHOIDS AND IS TO HAVE SX FOR REMOVAL WITH DR. ZARATE IN THE NEAR FUTURE. PT ALSO C/O CHRONIC LOWER ABDOMINAL PAIN, 03/27. PT DENIES PAINFUL URINATION AND BURNING SENSATION.
[2018-10-14 17:28] VITALS: BP 123/95
[2018-10-14 17:45] LABS: ANION GAP 11 mmol/L (5-15); BLOOD UREA NITROGEN 23 mg/dL (7-18); CALCIUM 9.1 MG/DL (8.5-10.1); CARBON DIOXIDE 25 MMOL/L (21-32); CHLORIDE 109 MMOL/L (98-107); CREATININE 0.9 MG/DL (0.55-1.30); POTASSIUM 3.7 MMOL/L (3.5-5.1); SODIUM 145 MMOL/L (136-145)
[2018-10-14 17:46] LABS: BASOPHILS % (AUTO) 1.4 % (0.0-2.0); EOSINOPHILS % (AUTO) 5.6 % (0.0-3.0); HEMATOCRIT 38.8 % (37.0-47.0); HEMOGLOBIN 12.9 G/DL (12.0-16.0); LYMPHOCYTES % (AUTO) 15.2 % (20.0-45.0); MEAN CORPUSCULAR VOLUME 91 FL (80-99); MONOCYTES % (AUTO) 7.6 % (1.0-10.0); NEUTROPHILS % (AUTO) 70.2 % (45.0-75.0); PLATELET COUNT 201 K/UL (150-450); RED BLOOD COUNT 4.26 M/UL (4.20-5.40); RED CELL DISTRIBUTION WIDTH 12.8 % (11.6-14.8); WHITE BLOOD COUNT 5.9 K/UL (4.8-10.8)
[2018-10-14 17:52] LABS: INR 1.1 (0.9-1.1)
[2018-10-14 17:58] LABS: ALANINE AMINOTRANSFERASE 17 U/L (12-78); ALBUMIN 3.8 G/DL (3.4-5.0); ALBUMIN/GLOBULIN RATIO 1.1 (1.0-2.7); ALKALINE PHOSPHATASE 97 U/L (46-116); ASPARTATE AMINO TRANSFERASE 16 U/L (15-37); BILIRUBIN,TOTAL 0.2 MG/DL (0.2-1.0); CKMB 1.6 NG/ML (0.0-3.6); CREATINE KINASE 291 U/L (26-308)
--- NOTE | 2018-10-14 18:06 | Emergency Room Report ---
History of Present Illness General Chief Complaint: Abdominal Pain Source: Patient Present Illness HPI Patient presents with complaints of blood per rectum Reports that she noticed this on Sunday Since then she has noticed green stool denies any chest pain or shortness of breath this was also associated with some lower abdominal cramping and sharp pain denies any vomiting denies any fevers or chills denies any rash Patient has previous colonoscopy Allergies: Coded Allergies: MORPHINE (Verified Allergy, Severe, 11/03/16) nausea/vomiting Patient History Past Medical History: see triage record Pertinent Family History: none Now: No Reviewed Nursing Documentation: PMH: Agreed; PSxH: Agreed Nursing Documentation-PMH Past Medical History: No History, Except For Hx Cardiac Problems: No Hx Hypertension: Yes Hx Pacemaker: No Hx Asthma: No Hx COPD: Yes Hx Diabetes: No Hx Cancer: No Hx Gastrointestinal Problems: Yes - gout Pancreatitis Hx Dialysis: No Hx Neurological Problems: No Hx Cerebrovascular Accident: No Hx Seizures: No Hx Head Trauma: Yes Review of Systems All Other Systems: negative except mentioned in HPI Physical Exam Vital Signs Date Time Temp Pulse Resp B/P (MAP) Pulse Ox O2 Delivery O2 Flow Rate FiO2 10/14/18 17:00 97.9 66 20 134/71 95 Room Air Sp02 EP Interpretation: reviewed, normal General Appearance: well appearing, no apparent distress Head: normocephalic, atraumatic Eyes: bilateral eye PERRL, bilateral eye EOMI ENT: hearing grossly normal, normal pharynx, TMs + canals normal, uvula midline Neck: full range of motion, supple, no meningismus, no bony tend Respiratory: lungs clear, normal breath sounds, no rhonchi, no respiratory distress, no retraction, no accessory muscle use Cardiovascular #1: normal peripheral pulses, regular rate, rhythm, no edema, no gallop, no JVD, no murmur Gastrointestinal: normal bowel sounds, non tender, soft, no mass, no organomegaly, non-distended, no guarding, no hernia, no pulsatile mass, no rebound Rectal: other - External hemorrhoids no obvious active hemorrhage Genitourinary: no CVA tenderness Musculoskeletal: normal inspection Neurologic: oriented x3, responsive, microbial specialist III-XII nml as tested, motor strength/ tone normal, sensory intact Psychiatric: mood/affect normal Skin: normal color, no rash, warm/dry, palpation normal Lymphatic: normal inspection, no adenopathy Medical Decision Making Diagnostic Impression: Primary Impression: Abdominal pain Additional Impression: Rectal bleeding ER Course Multiple differentials and consideration including but not limited to diverticulitis, lower GI bleed, bowel obstruction patient's blood work is appropriate Repeat abdominal exam is soft and imaging study was not repeated Patient requires further inpatient care and GI specialty referral was made Labs Test 10/14/18 16:15 White Blood Count 5.9 K/UL (4.8-10.8) Red Blood Count 4.26 M/UL (4.20-5.40) Hemoglobin 12.9 G/DL (12.0-16.0) Hematocrit 38.8 % (37.0-47.0) Mean Corpuscular Volume 91 FL (80-99) Mean Corpuscular Hemoglobin 30.3 PG (27.0-31.0) Mean Corpuscular Hemoglobin Concent 33.3 G/DL (32.0-36.0) Red Cell Distribution Width 12.8 % (11.6-14.8) Platelet Count 201 K/UL (150-450) Mean Platelet Volume 5.6 FL (6.5-10.1) Neutrophils (%) (Auto) 70.2 % (45.0-75.0) Lymphocytes (%) (Auto) 15.2 % (20.0-45.0) Monocytes (%) (Auto) 7.6 % (1.0-10.0) Eosinophils (%) (Auto) 5.6 % (0.0-3.0) Basophils (%) (Auto) 1.4 % (0.0-2.0) Prothrombin Time 11.3 SEC (9.30-11.50) Prothromb Time International Ratio 1.1 (0.9-1.1) Activated Partial Thromboplast Time 28 SEC (23-33) Sodium Level 145 MMOL/L (136-145) Potassium Level 3.7 MMOL/L (3.5-5.1) Chloride Level 109 MMOL/L (98-107) Carbon Dioxide Level 25 MMOL/L (21-32) Anion Gap 11 mmol/L (5-15) Blood Urea Nitrogen 23 mg/dL (7-18) Creatinine 0.9 MG/DL (0.55-1.30) Estimat Glomerular Filtration Rate mL/min (>60) Glucose Level 102 MG/DL (74-106) Calcium Level 9.1 MG/DL (8.5-10.1) Total Bilirubin 0.2 MG/DL (0.2-1.0) Aspartate Amino Transf (AST/SGOT) 16 U/L (15-37) Alanine Aminotransferase (ALT/SGPT) 17 U/L (12-78) Alkaline Phosphatase 97 U/L (46-116) Total Creatine Kinase 291 U/L (26-308) Creatine Kinase MB 1.6 NG/ML (0.0-3.6) Creatine Kinase MB Relative Index 0.5 Troponin I 0.000 ng/mL (0.000-0.056) Total Protein 7.4 G/DL (6.4-8.2) Albumin 3.8 G/DL (3.4-5.0) Globulin 3.6 g/dL Albumin/Globulin Ratio 1.1 (1.0-2.7) Rhythm Strip Diag. Results EP Interpretation: yes Rate: 80 Rhythm: NSR, no PVC's, no ectopy Last Vital Signs Date Time Temp Pulse Resp B/P (MAP) Pulse Ox O2 Delivery O2 Flow Rate FiO2 10/14/18 17:28 70 12 Room Air 10/14/18 17:28 98.1 123/95 98 Status: improved Disposition: ADMITTED INPATIENT Condition: Serious Referrals: Terry Villarreal MD (PCP) Rah Vizcarra DO Oct 14, 2018 18:06
--- NOTE | 2018-10-14 19:04 | NUR ---
ED Nurse Note: REPORT GIVEN TO EVELYN MCGHEE.
[2018-10-14] MEDS: D5NS 1,000 ML IV SCH (19:39)
[2018-10-14] MEDS ORDERED: Morphine Sulfate 2mg/ml Inj(IV/IM USE ONLY) IVP PRN (19:45)
[2018-10-14] MEDS ORDERED: Nitroglycerin Subl 0.4mg tab SL PRN (19:45)
[2018-10-14] MEDS ORDERED: Miralax 17gm pkt ORAL PRN (19:45)
--- NOTE | 2018-10-14 20:45 | NUR ---
NURSE NOTES: Patient admitted on room 308-2. Came from ER via wheelchair. Admission orders received noted and carried out. Admission assessment done. Belongings list checked. IV started on left arm tolerated well. needs attended. Call light within reach. In stable condition.
[2018-10-14] MEDS ORDERED: LORazepam 1mg tab ORAL SCH (21:00)
--- NOTE | 2018-10-14 21:00 | NUR ---
ED Nurse Note: Patient was admited to MS due to external hemorroids bleeding. AAO x4, VSS at this time. Patient was transfered by ACLS protocol. All belongings were given to the patient.
[2018-10-14] MEDS: Mylanta II UD 30ml ORAL PRN (21:38)
[2018-10-15] VITALS: BP 147/78
[2018-10-15 04:00] VITALS: BP 125/67
[2018-10-15] MEDS: D5NS 1,000 ML IV SCH ×2 (05:36→15:50)
--- NOTE | 2018-10-15 07:30 | NUR ---
NURSE NOTES: Patient lying in bed awake. No complain of pain or distress at this time. Skin intact and dry. IV dressing intact and dry. Bed lowest position. Call light within reach. Will continue to monitor.
[2018-10-15 08:00] VITALS: BP 127/80
[2018-10-15 08:11] LABS: BASOPHILS % (AUTO) 1.1 % (0.0-2.0); EOSINOPHILS % (AUTO) 7.9 % (0.0-3.0); HEMATOCRIT 37.7 % (37.0-47.0); HEMOGLOBIN 12.5 G/DL (12.0-16.0); LYMPHOCYTES % (AUTO) 15.5 % (20.0-45.0); MEAN CORPUSCULAR VOLUME 93 FL (80-99); NEUTROPHILS % (AUTO) 66.5 % (45.0-75.0); PLATELET COUNT 174 K/UL (150-450); RED BLOOD COUNT 4.05 M/UL (4.20-5.40); RED CELL DISTRIBUTION WIDTH 13.1 % (11.6-14.8); WHITE BLOOD COUNT 3.6 K/UL (4.8-10.8)
[2018-10-15 08:12] LABS: INR 1.1 (0.9-1.1)
[2018-10-15 08:36] LABS: ALANINE AMINOTRANSFERASE 15 U/L (12-78); ALBUMIN 3.1 G/DL (3.4-5.0); ALKALINE PHOSPHATASE 78 U/L (46-116); AMYLASE 51 U/L (25-115); ANION GAP 10 mmol/L (5-15); ASPARTATE AMINO TRANSFERASE 15 U/L (15-37); BILIRUBIN,TOTAL 0.3 MG/DL (0.2-1.0); BLOOD UREA NITROGEN 14 mg/dL (7-18); CALCIUM 9.1 MG/DL (8.5-10.1); CARBON DIOXIDE 25 MMOL/L (21-32); CHLORIDE 112 MMOL/L (98-107); CREATININE 0.8 MG/DL (0.55-1.30); POTASSIUM 3.8 MMOL/L (3.5-5.1); SODIUM 147 MMOL/L (136-145)
[2018-10-15] MEDS: Allopurinol 100mg Tab ORAL SCH (09:14)
[2018-10-15] MEDS: Mylanta II UD 30ml ORAL PRN ×2 (10:27→16:49)
[2018-10-15] MEDS: HYDROcodone/Acetamin 5/325 tab ORAL PRN ×2 (10:28→16:50)
--- NOTE | 2018-10-15 10:38 | GI Initial Consult Note ---
History of Present Illness General Date patient seen: Oct 15, 2018 Time patient seen: 10:31 Reason for Hospitalization: Abdominal Pain Referring physician: CHANI WATT Reason for Consultation: Rectal bleeding Present Illness HPI Patient presents with complaints of blood per rectum Reports that she noticed this on Sunday Since then she has noticed green stool denies any chest pain or shortness of breath this was also associated with some lower abdominal cramping and sharp pain denies any vomiting denies any fevers or chills denies any rash Patient has previous colonoscopy GI consulted for gastrointestinal bleed. This patient is known to us, 72-year- old female with a history of pancreatic mass, history of EUS with pancreatic ductal dilation back in . Has recent history of colonoscopy back in August 2018 noted with diverticulosis. Patient presents today complaining of severe rectal pain and bleed since last Sunday. Patient states that she has been having occasional rectal bleeding and pain over the course of the last month. States she denies any abdominal pain, denies any nausea vomiting, denies any constipation or diarrhea.'s labs reviewed; hemoglobin 12.5, no transaminitis. Patient states she had a recent fall and currently complaining of generalized pain. Home Meds Active Scripts Hydrocortisone Hc 2.5% Cream (ANUSOL-HC 2.5% CREAM) Y Cr, 30 GM RC BID for 7 Days, #1 GM Prov:Emile Ramirez M.D. 04/17/18 Hydrocortisone Acetate* (ANUSOL-HC*) 25 Mg Supp.rect, 1 SUPP RECTAL TWICE A DAY , #20 SUPP Prov:Emile Ramirez M.D. 04/17/18 Reported Medications Naloxegol Oxalate (Movantik) 12.5 Mg Tablet, 12.5 MG PO DAILY, TAB 10/01/18 Linaclotide (LINZESS) 145 Mcg Capsule, 145 MCG PO DAILY, CAP 10/01/18 Omeprazole (OMEPRAZOLE) 40 Mg Capsule., 40 MG ORAL DAILY, CAP 07/31/17 Allopurinol* (ALLOPURINOL*) 100 Mg Tablet, 100 MG ORAL DAILY, TAB 07/20/17 [place]-3 Fatty Acids/Fish Oil* (FISH OIL 1,000 MG SOFTGEL*) 1 Each Capsule, 1 CAP ORAL DAILY, #30 CAP 0 Refills 07/20/17 Lipase/Protease/Amylase ([place]AR[place] 24,000 UNITS CAPSULE) 1 Each Capsule.dr, 2 EACH PO TID, CAP 02/03/16 Hydrocodone Bit/Acetaminophen 5-325* ([place] 5-325*) 1 Each Tablet, 1 TAB ORAL Q6H PRN for For Pain, #10 TAB 0 Refills 08/05/15 Amlodipine Besylate/Benazepril 10-40 Mg (LOTREL 10-40 MG CAPSULE) 1 Each Capsule , 1 CAP ORAL DAILY, CAP 09/16/14 Lorazepam* (ATIVAN*) 1 Mg Tablet, 1 MG ORAL BEDTIME, TAB 01/29/14 Aspirin* (ASPIR-LOW*) 81 Mg Tablet.dr, 81 MG PO DAILY, TAB 05/27/12 Med list reviewed/reconciled: Yes Allergies: Coded Allergies: MORPHINE (Verified Allergy, Severe, 11/03/16) nausea/vomiting Patient History History Provided By: Patient, Medical Record [facility] Narrative Past Medical History: No History, Except For Hx Cardiac Problems: No Hx Hypertension: Yes Hx Pacemaker: No Hx Asthma: No Hx COPD: Yes Hx Diabetes: No Hx Cancer: No Hx Gastrointestinal Problems: Yes - gout Pancreatitis Hx Dialysis: No Hx Neurological Problems: No Hx Cerebrovascular Accident: No Hx Seizures: No Hx Head Trauma: Yes Social History: Denies: smoking, alcohol use, drug use, other Review of Systems All Other Systems: negative except mentioned in HPI Physical Exam Vital Signs Date Time Temp Pulse Resp B/P (MAP) Pulse Ox O2 Delivery O2 Flow Rate FiO2 10/14/18 17:00 97.9 66 20 134/71 95 Room Air Sp02 EP Interpretation: reviewed, normal Labs Laboratory Tests Test 10/14/18 16:15 10/15/18 06:23 White Blood Count 5.9 K/UL (4.8-10.8) 3.6 K/UL (4.8-10.8) L Red Blood Count 4.26 M/UL (4.20-5.40) 4.05 M/UL (4.20-5.40) L Hemoglobin 12.9 G/DL (12.0-16.0) 12.5 G/DL (12.0-16.0) Hematocrit 38.8 % (37.0-47.0) 37.7 % (37.0-47.0) Mean Corpuscular Volume 91 FL (80-99) 93 FL (80-99) Mean Corpuscular Hemoglobin 30.3 PG (27.0-31.0) 30.8 PG (27.0-31.0) Mean Corpuscular Hemoglobin Concent 33.3 G/DL (32.0-36.0) 33.1 G/DL (32.0-36.0) Red Cell Distribution Width 12.8 % (11.6-14.8) 13.1 % (11.6-14.8) Platelet Count 201 K/UL (150-450) 174 K/UL (150-450) Mean Platelet Volume 5.6 FL (6.5-10.1) L 6.0 FL (6.5-10.1) L Neutrophils (%) (Auto) 70.2 % (45.0-75.0) 66.5 % (45.0-75.0) Lymphocytes (%) (Auto) 15.2 % (20.0-45.0) L 15.5 % (20.0-45.0) L Monocytes (%) (Auto) 7.6 % (1.0-10.0) 9.0 % (1.0-10.0) Eosinophils (%) (Auto) 5.6 % (0.0-3.0) H 7.9 % (0.0-3.0) H Basophils (%) (Auto) 1.4 % (0.0-2.0) 1.1 % (0.0-2.0) Prothrombin Time 11.3 SEC (9.30-11.50) 11.5 SEC (9.30-11.50) Prothromb Time International Ratio 1.1 (0.9-1.1) 1.1 (0.9-1.1) Activated Partial Thromboplast Time 28 SEC (23-33) 28 SEC (23-33) Sodium Level 145 MMOL/L (136-145) 147 MMOL/L (136-145) H Potassium Level 3.7 MMOL/L (3.5-5.1) 3.8 MMOL/L (3.5-5.1) Chloride Level 109 MMOL/L (98-107) H 112 MMOL/L (98-107) H Carbon Dioxide Level 25 MMOL/L (21-32) 25 MMOL/L (21-32) Anion Gap 11 mmol/L (5-15) 10 mmol/L (5-15) Blood Urea Nitrogen 23 mg/dL (7-18) H 14 mg/dL (7-18) Creatinine 0.9 MG/DL (0.55-1.30) 0.8 MG/DL (0.55-1.30) Estimat Glomerular Filtration Rate mL/min (>60) mL/min (>60) Glucose Level 102 MG/DL (74-106) 90 MG/DL (74-106) Calcium Level 9.1 MG/DL (8.5-10.1) 9.1 MG/DL (8.5-10.1) Total Bilirubin 0.2 MG/DL (0.2-1.0) 0.3 MG/DL (0.2-1.0) Aspartate Amino Transf (AST/SGOT) 16 U/L (15-37) 15 U/L (15-37) Alanine Aminotransferase (ALT/SGPT) 17 U/L (12-78) 15 U/L (12-78) Alkaline Phosphatase 97 U/L (46-116) 78 U/L (46-116) Total Creatine Kinase 291 U/L (26-308) Creatine Kinase MB 1.6 NG/ML (0.0-3.6) Creatine Kinase MB Relative Index 0.5 Troponin I 0.000 ng/mL (0.000-0.056) Total Protein 7.4 G/DL (6.4-8.2) 6.3 G/DL (6.4-8.2) L Albumin 3.8 G/DL (3.4-5.0) 3.1 G/DL (3.4-5.0) L Globulin 3.6 g/dL 3.2 g/dL Albumin/Globulin Ratio 1.1 (1.0-2.7) 1.0 (1.0-2.7) Amylase Level 51 U/L (25-115) Lipase 120 U/L (73-393) General Appearance: well appearing, no apparent distress, alert Head: normocephalic EENT: PERRL/EOMI, normal ENT inspection Neck: supple Respiratory: normal breath sounds, no respiratory distress Cardiovascular: normal rate Gastrointestinal: normal inspection, non tender, soft, normal bowel sounds, non -distended Rectal: deferred Genitourinary: no CVA tenderness Musculoskeletal: normal inspection, back normal Neurologic: normal inspection, alert, oriented x3, responsive Psychiatric: normal inspection, judgement/insight normal, memory normal Skin: normal inspection, normal color, no rash, warm/dry, palpation normal, well hydrated Lymphatic: normal inspection, no adenopathy Current Medications Current Medications Medications (Trade) Dose Ordered Sig/Divya Route PRN Reason Start Time Stop Time Status Last Admin Dose Admin Acetaminophen (Tylenol) 650 mg Q4H PRN ORAL fever 10/14/18 19:45 11/13/18 19:44 Acetaminophen/ Hydrocodone Bitart ([place] 5/325) 1 tab Q6H PRN ORAL For Pain 10/14/18 19:45 10/21/18 19:44 10/15/18 10:28 Al Hydroxide/Mg Hydroxide (Mylanta II) 30 ml Q6H PRN ORAL dyspepsia 10/14/18 19:45 11/13/18 19:44 10/15/18 10:27 Allopurinol (Zyloprim) 100 mg DAILY ORAL 10/15/18 09:00 11/14/18 08:59 10/15/18 09:14 Dextrose (Dextrose 50%) 25 ml Q30M PRN IV Hypoglycemia 10/14/18 19:45 11/13/18 19:44 Dextrose (Dextrose 50%) 50 ml Q30M PRN IV Hypoglycemia 10/14/18 19:45 11/13/18 19:44 Dextrose/Sodium Chloride 1,000 ml @ 100 mls/hr Q10H IV 10/14/18 19:39 11/13/18 19:38 10/15/18 05:36 Diphenhydramine HCl (Benadryl) 25 mg Q6H PRN ORAL Itching/Pruritis 10/14/18 19:45 11/13/18 19:44 Lorazepam (Ativan) 1 mg BEDTIME ORAL 10/14/18 21:00 10/21/18 20:59 10/14/18 21:00 Nitroglycerin (Ntg) 0.4 mg Q5M X 3 DOSES PRN SL Prn Chest Pain 10/14/18 19:45 11/13/18 19:44 Ondansetron HCl (Zofran) 4 mg Q6H PRN IVP Nausea & Vomiting 10/14/18 19:45 11/13/18 19:44 Polyethylene Glycol (Miralax) 17 gm HSPRN PRN ORAL Constipation 10/14/18 19:45 11/13/18 19:44 Temazepam (Restoril) 15 mg HSPRN PRN ORAL Insomnia 10/14/18 19:45 10/21/18 19:44 GI: Plan Problems: (1) Diverticulosis (2) Bleeding external hemorrhoids (3) Abdominal pain (4) Rectal bleeding (5) GERD (gastroesophageal reflux disease) Plan No plans for GI procedures advance diet Stable H&H, as needed transfusions PPI Mylanta as needed Anusol HC as needed Follow labs Discussed with Dr. Villarreal. Thank you for this patient referral, we will follow. The patient was seen and examined at bedside and all new and available data was reviewed in the patients chart. I agree with the above findings, impression and plan. (Patient seen earlier today. Signature stamp does not reflect patient encounter time.). - MD Kerline HornerFlagstaff Medical CenterMemo WELDING TECHNICIAN Oct 15, 2018 10:38
--- NOTE | 2018-10-15 11:12 | Diagnostic Imaging Report ---
Indication: Dyspnea Comparison: 08/16/2018 A single view chest radiograph was obtained. Findings: Cardiomediastinal appearance is within normal limits for age. The lungs are clear. Pulmonary vascularity is appropriate. The diaphragmatic contour is smooth and costophrenic angles are sharp. No pleural effusions are identified. The bones are unremarkable. Degenerative changes of both shoulders noted. Impression: No acute findings
[2018-10-15 12:00] VITALS: BP 153/87
--- NOTE | 2018-10-15 12:26 | Consultation ---
History of Present Illness General Chief Complaint: Abdominal Pain Referring physician: CHANI WATT Reason for Consultation: Rectal bleeding Present Illness Allergies: Coded Allergies: MORPHINE (Verified Allergy, Severe, 11/03/16) nausea/vomiting Medication History Scheduled Allopurinol* (Allopurinol*), 100 MG ORAL DAILY, (Reported) Amlodipine Besylate/Benazepril 10-40 Mg (Lotrel 10-40 Mg Capsule), 1 CAP ORAL DAILY, (Reported) Aspirin* (Aspir-Low*), 81 MG PO DAILY, (Reported) Hydrocortisone Acetate* (Anusol-Hc*), 1 SUPP RECTAL TWICE A DAY Hydrocortisone Hc 2.5% Cream (Anusol-Hc 2.5% Cream), 30 GM RC BID Linaclotide (Linzess), 145 MCG PO DAILY, (Reported) Lipase/Protease/Amylase ([place] Dr 24,000 Units Capsule), 2 EACH PO TID, ( Reported) Lorazepam* (Ativan*), 1 MG ORAL BEDTIME, (Reported) Naloxegol Oxalate (Movantik), 12.5 MG PO DAILY, (Reported) [place]-3 Fatty Acids/Fish Oil* (Fish Oil 1,000 Mg Softgel*), 1 CAP ORAL DAILY, ( Reported) Omeprazole (Omeprazole), 40 MG ORAL DAILY, (Reported) Scheduled PRN Hydrocodone Bit/Acetaminophen 5-325* ([place] 5-325*), 1 TAB ORAL Q6H PRN for For Pain, (Reported) Patient History Healthcare decision maker Resuscitation status Full Code Advanced Directive on File Past Medical/Surgical History Past Medical/Surgical History: (1) COPD (chronic obstructive pulmonary disease) (2) Pancreatitis (3) Internal hemorrhoids (4) Rectal prolapse (5) Gastritis (6) HTN (hypertension) (7) GERD (gastroesophageal reflux disease) (8) Diverticulosis Review of Systems All Other Systems: negative except mentioned in HPI Physical Exam General Appearance: WD/WN, no apparent distress Lines, tubes and drains: peripheral HEENT: normocephalic, atraumatic Neck: non-tender, normal alignment Respiratory/Chest: chest wall non-tender, lungs clear Breasts: no masses Cardiovascular/Chest: normal peripheral pulses, normal rate Abdomen: normal bowel sounds Genitourinary/Rectal: normal genital exam Extremities: normal range of motion Last 24 Hour Vital Signs Date Time Temp Pulse Resp B/P (MAP) Pulse Ox O2 Delivery O2 Flow Rate FiO2 10/15/18 09:00 Room Air 10/15/18 08:00 97.8 61 20 127/80 (96) 98 10/15/18 04:00 98.5 58 17 125/67 (86) 97 10/15/18 00:00 98.5 72 16 147/78 (101) 97 10/14/18 23:52 Room Air 10/14/18 21:00 97.9 68 16 145/ 98 Room Air 10/14/18 17:28 70 12 Room Air 10/14/18 17:28 98.1 70 12 123/95 98 Room Air 10/14/18 17:00 97.9 66 20 134/71 95 Room Air Intake and Output 10/14/18 10/15/18 18:59 06:59 Intake Total 500 ml 700 ml Balance 500 ml 700 ml Intake IV Total 500 ml 700 ml # Voids 1 2 Laboratory Tests Test 10/14/18 16:15 10/15/18 06:23 White Blood Count 5.9 K/UL (4.8-10.8) 3.6 K/UL (4.8-10.8) L Red Blood Count 4.26 M/UL (4.20-5.40) 4.05 M/UL (4.20-5.40) L Hemoglobin 12.9 G/DL (12.0-16.0) 12.5 G/DL (12.0-16.0) Hematocrit 38.8 % (37.0-47.0) 37.7 % (37.0-47.0) Mean Corpuscular Volume 91 FL (80-99) 93 FL (80-99) Mean Corpuscular Hemoglobin 30.3 PG (27.0-31.0) 30.8 PG (27.0-31.0) Mean Corpuscular Hemoglobin Concent 33.3 G/DL (32.0-36.0) 33.1 G/DL (32.0-36.0) Red Cell Distribution Width 12.8 % (11.6-14.8) 13.1 % (11.6-14.8) Platelet Count 201 K/UL (150-450) 174 K/UL (150-450) Mean Platelet Volume 5.6 FL (6.5-10.1) L 6.0 FL (6.5-10.1) L Neutrophils (%) (Auto) 70.2 % (45.0-75.0) 66.5 % (45.0-75.0) Lymphocytes (%) (Auto) 15.2 % (20.0-45.0) L 15.5 % (20.0-45.0) L Monocytes (%) (Auto) 7.6 % (1.0-10.0) 9.0 % (1.0-10.0) Eosinophils (%) (Auto) 5.6 % (0.0-3.0) H 7.9 % (0.0-3.0) H Basophils (%) (Auto) 1.4 % (0.0-2.0) 1.1 % (0.0-2.0) Prothrombin Time 11.3 SEC (9.30-11.50) 11.5 SEC (9.30-11.50) Prothromb Time International Ratio 1.1 (0.9-1.1) 1.1 (0.9-1.1) Activated Partial Thromboplast Time 28 SEC (23-33) 28 SEC (23-33) Sodium Level 145 MMOL/L (136-145) 147 MMOL/L (136-145) H Potassium Level 3.7 MMOL/L (3.5-5.1) 3.8 MMOL/L (3.5-5.1) Chloride Level 109 MMOL/L (98-107) H 112 MMOL/L (98-107) H Carbon Dioxide Level 25 MMOL/L (21-32) 25 MMOL/L (21-32) Anion Gap 11 mmol/L (5-15) 10 mmol/L (5-15) Blood Urea Nitrogen 23 mg/dL (7-18) H 14 mg/dL (7-18) Creatinine 0.9 MG/DL (0.55-1.30) 0.8 MG/DL (0.55-1.30) Estimat Glomerular Filtration Rate mL/min (>60) mL/min (>60) Glucose Level 102 MG/DL (74-106) 90 MG/DL (74-106) Calcium Level 9.1 MG/DL (8.5-10.1) 9.1 MG/DL (8.5-10.1) Total Bilirubin 0.2 MG/DL (0.2-1.0) 0.3 MG/DL (0.2-1.0) Aspartate Amino Transf (AST/SGOT) 16 U/L (15-37) 15 U/L (15-37) Alanine Aminotransferase (ALT/SGPT) 17 U/L (12-78) 15 U/L (12-78) Alkaline Phosphatase 97 U/L (46-116) 78 U/L (46-116) Total Creatine Kinase 291 U/L (26-308) Creatine Kinase MB 1.6 NG/ML (0.0-3.6) Creatine Kinase MB Relative Index 0.5 Troponin I 0.000 ng/mL (0.000-0.056) Total Protein 7.4 G/DL (6.4-8.2) 6.3 G/DL (6.4-8.2) L Albumin 3.8 G/DL (3.4-5.0) 3.1 G/DL (3.4-5.0) L Globulin 3.6 g/dL 3.2 g/dL Albumin/Globulin Ratio 1.1 (1.0-2.7) 1.0 (1.0-2.7) Amylase Level 51 U/L (25-115) Lipase 120 U/L (73-393) Height (Feet): 5 Height (Inches): 3.00 Weight (Pounds): 113 Medications Current Medications Medications (Trade) Dose Ordered Sig/Divya Route PRN Reason Start Time Stop Time Status Last Admin Dose Admin Acetaminophen (Tylenol) 650 mg Q4H PRN ORAL fever 10/14/18 19:45 11/13/18 19:44 Acetaminophen/ Hydrocodone Bitart ([place] 5/325) 1 tab Q6H PRN ORAL For Pain 10/14/18 19:45 10/21/18 19:44 10/15/18 10:28 Al Hydroxide/Mg Hydroxide (Mylanta II) 30 ml Q6H PRN ORAL dyspepsia 10/14/18 19:45 11/13/18 19:44 10/15/18 10:27 Allopurinol (Zyloprim) 100 mg DAILY ORAL 10/15/18 09:00 11/14/18 08:59 10/15/18 09:14 Dextrose (Dextrose 50%) 25 ml Q30M PRN IV Hypoglycemia 10/14/18 19:45 11/13/18 19:44 Dextrose (Dextrose 50%) 50 ml Q30M PRN IV Hypoglycemia 10/14/18 19:45 11/13/18 19:44 Dextrose/Sodium Chloride 1,000 ml @ 100 mls/hr Q10H IV 10/14/18 19:39 11/13/18 19:38 10/15/18 05:36 Diphenhydramine HCl (Benadryl) 25 mg Q6H PRN ORAL Itching/Pruritis 10/14/18 19:45 11/13/18 19:44 Lorazepam (Ativan) 1 mg BEDTIME ORAL 10/14/18 21:00 10/21/18 20:59 10/14/18 21:00 Nitroglycerin (Ntg) 0.4 mg Q5M X 3 DOSES PRN SL Prn Chest Pain 10/14/18 19:45 11/13/18 19:44 Ondansetron HCl (Zofran) 4 mg Q6H PRN IVP Nausea & Vomiting 10/14/18 19:45 11/13/18 19:44 Polyethylene Glycol (Miralax) 17 gm HSPRN PRN ORAL Constipation 10/14/18 19:45 11/13/18 19:44 Temazepam (Restoril) 15 mg HSPRN PRN ORAL Insomnia 10/14/18 19:45 10/21/18 19:44 Assessment/Plan Problem List: (1) Diverticulosis ICD Codes: K57.90 - Diverticulosis SNOMED: 938183214 (2) HTN (hypertension) ICD Codes: I10 - Essential (primary) hypertension SNOMED: 06716650 (3) Internal hemorrhoids ICD Codes: K64.8 - Internal hemorrhoids SNOMED: 82574166 Assessment/Plan: npo IV fluids h2 blockers prbc if hem > 8 GI evaluation Mina Zheng MD Oct 15, 2018 12:26
--- NOTE | 2018-10-15 13:51 | NUR ---
CASE MANAGEMENT:REVIEW 72 YR OLD FEMALE FROM HOME TO ER CC: ABDOMINAL PAIN AND HEMORRHOID BLEEDING PMH: PANCREATITIS SI: RECTAL BLEEDING. ABDOMINAL PAIN 97.9 66 20 134/71 95% ON RA H/H=12.9/38.8 BUN+23 IS: 500CC NS BOLUS CHEST XRAY : MED/SURG STATUS 3 EAST
--- NOTE | 2018-10-15 15:57 | Cardiology Report ---
APPROVED REPORT EKG Measurement Heart [id number] Sinus rhythm with sinus arrhythmia with occasional premature ventricular complexes Otherwise normal ECG
[2018-10-15 16:00] VITALS: BP 124/77
--- NOTE | 2018-10-15 17:11 | History & Physical ---
History and Physical History & Physicial Dictated for [facility] [id number] Luis F Norman MD Oct 15, 2018 17:11
[2018-10-15] MEDS: Pancrease Cap ORAL SCH (17:48)
--- NOTE | 2018-10-15 19:30 | NUR ---
HAND-OFF: Report given to Jagruti RIVAS and Tiago RIVAS. Patient in stable condition.
[2018-10-15 20:00] VITALS: BP 127/71
[2018-10-15] MEDS: ALPRAZolam 0.5mg tab ORAL PRN (21:17)
[2018-10-16] VITALS: BP 140/69
[2018-10-16] MEDS: HYDROcodone/Acetamin 5/325 tab ORAL PRN ×3 (00:09→13:03)
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
[2018-10-16] MEDS: D5NS 1,000 ML IV SCH ×2 (01:59→11:39)
[2018-10-16 04:00] VITALS: BP 164/61
[2018-10-16] MEDS: ALPRAZolam 0.5mg tab ORAL PRN (05:25)
[2018-10-16 07:15] LABS: BASOPHILS % (AUTO) 0.7 % (0.0-2.0); EOSINOPHILS % (AUTO) 4.8 % (0.0-3.0); HEMOGLOBIN 12.7 G/DL (12.0-16.0); MEAN CORPUSCULAR VOLUME 92 FL (80-99); MONOCYTES % (AUTO) 6.5 % (1.0-10.0); PLATELET COUNT 198 K/UL (150-450); RED BLOOD COUNT 4.12 M/UL (4.20-5.40); RED CELL DISTRIBUTION WIDTH 12.4 % (11.6-14.8); WHITE BLOOD COUNT 4.7 K/UL (4.8-10.8)
[2018-10-16 07:19] LABS: ANION GAP 9 mmol/L (5-15); BLOOD UREA NITROGEN 16 mg/dL (7-18); CALCIUM 9.3 MG/DL (8.5-10.1); CARBON DIOXIDE 27 MMOL/L (21-32); CHLORIDE 108 MMOL/L (98-107); CREATININE 0.8 MG/DL (0.55-1.30); POTASSIUM 3.9 MMOL/L (3.5-5.1); SODIUM 144 MMOL/L (136-145)
[2018-10-16 08:00] VITALS: BP 153/84
--- NOTE | 2018-10-16 08:00 | NUR ---
NURSE NOTES: Received report from Tiago Marin pt a/a/o x4 laying in bed with no signs of distress or other issues at this time. pt on regular/easy/chew diet with no nausea/vomiting. IV on the left AC gauge #20 heplock. pt is able to ambulate around the room with steady gait. no skin issues. bed in lowest position. call light with in reach, side rales up x2. I will f/u as needed.
[2018-10-16] MEDS: Pancrease Cap ORAL SCH ×2 (08:39→12:56)
[2018-10-16] MEDS: Allopurinol 100mg Tab ORAL SCH (08:39)
--- NOTE | 2018-10-16 10:39 | GI Progress Note ---
Assessment/Plan Problems: (1) Rectal bleeding ICD Codes: K62.5 - Hemorrhage of anus and rectum SNOMED: 42706380 (2) GERD (gastroesophageal reflux disease) ICD Codes: K21.9 - GERD (gastroesophageal reflux disease) SNOMED: 014403859 (3) Bleeding external hemorrhoids ICD Codes: K64.4 - Residual hemorrhoidal skin tags SNOMED: 96833196 (4) Constipation ICD Codes: K59.00 - Constipation SNOMED: 42377421 (5) Internal hemorrhoids ICD Codes: K64.8 - Internal hemorrhoids SNOMED: 10416056 (6) Gastrointestinal hemorrhage ICD Codes: K92.2 - Gastrointestinal hemorrhage, unspecified SNOMED: 85968701 (7) Diverticulosis ICD Codes: K57.90 - Diverticulosis SNOMED: 499944843 Status: stable Status Narrative Discussed with Dr. Villarreal Assessment/Plan No plans for GI procedures advance diet Stable H&H, as needed transfusions PPI Mylanta as needed Anusol HC as needed Follow labs outpatient follow up DC planning The patient was seen and examined at bedside and all new and available data was reviewed in the patients chart. I agree with the above findings, impression and plan. (Patient seen earlier today. Signature stamp does not reflect patient encounter time.). - Terry Villarreal MD Subjective Subjective Denies any abdominal pain States that she had a bowel movement this morning noted as a dark marsh, black color. Objective Last 24 Hour Vital Signs Date Time Temp Pulse Resp B/P (MAP) Pulse Ox O2 Delivery O2 Flow Rate FiO2 10/16/18 04:00 98.4 63 18 164/61 (95) 95 10/16/18 00:00 98.6 62 18 140/69 (92) 96 10/15/18 21:00 Room Air 10/15/18 20:00 99.2 66 18 127/71 (89) 96 10/15/18 16:00 97.7 62 20 124/77 (93) 99 10/15/18 12:00 98.4 63 20 153/87 (109) 97 Intake and Output 10/15/18 10/16/18 19:00 07:00 Intake Total 600 ml 800 ml Balance 600 ml 800 ml Intake Oral 600 ml 800 ml # Voids 4 3 Laboratory Tests Test 10/16/18 05:35 White Blood Count 4.7 K/UL (4.8-10.8) L Red Blood Count 4.12 M/UL (4.20-5.40) L Hemoglobin 12.7 G/DL (12.0-16.0) Hematocrit 38.0 % (37.0-47.0) Mean Corpuscular Volume 92 FL (80-99) Mean Corpuscular Hemoglobin 30.8 PG (27.0-31.0) Mean Corpuscular Hemoglobin Concent 33.5 G/DL (32.0-36.0) Red Cell Distribution Width 12.4 % (11.6-14.8) Platelet Count 198 K/UL (150-450) Mean Platelet Volume 6.1 FL (6.5-10.1) L Neutrophils (%) (Auto) 74.0 % (45.0-75.0) Lymphocytes (%) (Auto) 14.0 % (20.0-45.0) L Monocytes (%) (Auto) 6.5 % (1.0-10.0) Eosinophils (%) (Auto) 4.8 % (0.0-3.0) H Basophils (%) (Auto) 0.7 % (0.0-2.0) Sodium Level 144 MMOL/L (136-145) Potassium Level 3.9 MMOL/L (3.5-5.1) Chloride Level 108 MMOL/L (98-107) H Carbon Dioxide Level 27 MMOL/L (21-32) Anion Gap 9 mmol/L (5-15) Blood Urea Nitrogen 16 mg/dL (7-18) Creatinine 0.8 MG/DL (0.55-1.30) Estimat Glomerular Filtration Rate mL/min (>60) Glucose Level 96 MG/DL (74-106) Calcium Level 9.3 MG/DL (8.5-10.1) Height (Feet): 5 Height (Inches): 3.00 Weight (Pounds): 113 General Appearance: WD/WN, no apparent distress, alert, thin Cardiovascular: normal rate Respiratory/Chest: normal breath sounds, no respiratory distress Abdominal Exam: normal bowel sounds, non tender, soft Extremities: non-tender Petey Churchill NP October 16, 2018 10:39
[2018-10-16 12:00] VITALS: BP 148/76
[2018-10-16] MEDS ORDERED: PANTOPRAZOLE SO40 MG ORAL (12:29)
--- NOTE | 2018-10-16 12:29 | Internal Med Progress Note ---
Subjective Date of Service: October 16, 2018 Physician Name Luis F Norman Attending Physician Oren Martin MD Current Medications Medications (Trade) Dose Ordered Sig/Divya Route PRN Reason Start Time Stop Time Status Last Admin Dose Admin Acetaminophen (Tylenol) 650 mg Q4H PRN ORAL fever 10/14/18 19:45 11/13/18 19:44 Acetaminophen/ Hydrocodone Bitart ([place] 5/325) 1 tab Q6H PRN ORAL For Pain 10/14/18 19:45 10/21/18 19:44 10/16/18 06:30 Al Hydroxide/Mg Hydroxide (Mylanta II) 30 ml Q6H PRN ORAL dyspepsia 10/14/18 19:45 11/13/18 19:44 10/15/18 16:49 Allopurinol (Zyloprim) 100 mg DAILY ORAL 10/15/18 09:00 11/14/18 08:59 10/16/18 08:39 Alprazolam (Xanax) 1 mg Q6H PRN ORAL For Anxiety 10/15/18 17:00 10/22/18 16:59 10/16/18 05:25 Amylase/Lipase/ Protease (Pancrease) 2 ea THREE TIMES A DAY ORAL 10/15/18 18:00 11/14/18 17:59 10/16/18 08:39 Dextrose (Dextrose 50%) 25 ml Q30M PRN IV Hypoglycemia 10/14/18 19:45 11/13/18 19:44 Dextrose (Dextrose 50%) 50 ml Q30M PRN IV Hypoglycemia 10/14/18 19:45 11/13/18 19:44 Dextrose/Sodium Chloride 1,000 ml @ 100 mls/hr Q10H IV 10/14/18 19:39 11/13/18 19:38 10/16/18 01:59 Diphenhydramine HCl (Benadryl) 25 mg Q6H PRN ORAL Itching/Pruritis 10/14/18 19:45 11/13/18 19:44 Nitroglycerin (Ntg) 0.4 mg Q5M X 3 DOSES PRN SL Prn Chest Pain 10/14/18 19:45 11/13/18 19:44 Non-Formulary Medication (Non-Formulary Med) 1 ea DAILY ORAL 10/16/18 09:00 11/15/18 08:59 UNV Ondansetron HCl (Zofran) 4 mg Q6H PRN IVP Nausea & Vomiting 10/14/18 19:45 11/13/18 19:44 Pantoprazole (Protonix) 40 mg DAILY ORAL 10/16/18 09:00 11/15/18 08:59 10/16/18 08:39 Polyethylene Glycol (Miralax) 17 gm HSPRN PRN ORAL Constipation 10/14/18 19:45 11/13/18 19:44 Temazepam (Restoril) 15 mg HSPRN PRN ORAL Insomnia 10/14/18 19:45 10/21/18 19:44 Allergies: Coded Allergies: MORPHINE (Verified Allergy, Severe, 11/03/16) nausea/vomiting ROS Limited/Unobtainable: No Constitutional: Reports: no symptoms HEENT: Reports: no symptoms Cardiovascular: Reports: no symptoms Respiratory: Reports: no symptoms Gastrointestinal/Abdominal: Reports: rectal bleeding Genitourinary: Reports: no symptoms Neurologic/Psychiatric: Reports: no symptoms Subjective 72 YO F admitted with rectal bleeding. Cover for Int Med-Dr Martin Objective Last Vital Signs Date Time Temp Pulse Resp B/P (MAP) Pulse Ox O2 Delivery O2 Flow Rate FiO2 10/16/18 08:00 97.7 60 16 153/84 (107) 95 10/15/18 21:00 Room Air Laboratory Tests Test 10/16/18 05:35 White Blood Count 4.7 K/UL (4.8-10.8) L Red Blood Count 4.12 M/UL (4.20-5.40) L Hemoglobin 12.7 G/DL (12.0-16.0) Hematocrit 38.0 % (37.0-47.0) Mean Corpuscular Volume 92 FL (80-99) Mean Corpuscular Hemoglobin 30.8 PG (27.0-31.0) Mean Corpuscular Hemoglobin Concent 33.5 G/DL (32.0-36.0) Red Cell Distribution Width 12.4 % (11.6-14.8) Platelet Count 198 K/UL (150-450) Mean Platelet Volume 6.1 FL (6.5-10.1) L Neutrophils (%) (Auto) 74.0 % (45.0-75.0) Lymphocytes (%) (Auto) 14.0 % (20.0-45.0) L Monocytes (%) (Auto) 6.5 % (1.0-10.0) Eosinophils (%) (Auto) 4.8 % (0.0-3.0) H Basophils (%) (Auto) 0.7 % (0.0-2.0) Sodium Level 144 MMOL/L (136-145) Potassium Level 3.9 MMOL/L (3.5-5.1) Chloride Level 108 MMOL/L (98-107) H Carbon Dioxide Level 27 MMOL/L (21-32) Anion Gap 9 mmol/L (5-15) Blood Urea Nitrogen 16 mg/dL (7-18) Creatinine 0.8 MG/DL (0.55-1.30) Estimat Glomerular Filtration Rate mL/min (>60) Glucose Level 96 MG/DL (74-106) Calcium Level 9.3 MG/DL (8.5-10.1) Intake and Output 10/15/18 10/16/18 18:59 06:59 Intake Total 600 ml 800 ml Balance 600 ml 800 ml Intake Oral 600 ml 800 ml # Voids 4 3 Objective PHYSICAL EXAMINATION: GENERALLY: The patient is a well-developed and well-nourished thin-appearing female, in no apparent distress. HEENT: Eyes, pupils are equal and responsive to light and accommodation. Extraocular movements are intact. NECK: Supple without lymphadenopathy. CHEST: Lungs are clear to auscultation bilaterally without wheezes or rales. CARDIOVASCULAR: Regular rhythm and rate. S1 and S2 are normal without murmurs, rubs, or gallops. ABDOMEN: Soft, nontender, and nondistended. Positive bowel sounds. No evidence of hepatosplenomegaly. Currently, no rebound or guarding noted. EXTREMITIES: Negative for clubbing, cyanosis, or edema. RECTAL/GENITAL: Refused. NEUROLOGIC: Cranial nerves II through XII are grossly intact without focal deficits. Motor strength is 5/5 bilaterally. Deep tendon reflexes are 2+ plantar. Assessment/Plan Assessment/Plan ASSESSMENT: This is a 72-year-old female. 1. Rectal bleeding. 2. Proctitis. 3. Internal hemorrhoids. 4. Diverticulosis. 5. History of renal cysts. 6. Chronic obstructive pulmonary disease. 7. Hypertension. 8. Gout. 9. Peripheral neuropathy of the bilateral feet. TREATMENT: 1. Rectal bleeding, proctitis, internal hemorrhoids, diverticulosis. A Gastroenterology consultation has been obtained with Dr. Terry Villarreal. Colonoscopy on hold-see GI note. We will follow recommendations of Gastroenterology. C ontinue Anusol-HC suppositories as above. 2. Chronic obstructive pulmonary disease. A Pulmonary consultation has been obtained with Dr. Mina Zheng. 3. Hypertension. Continue benazepril/hydrochlorothiazide as above. Continue amlodipine/benazepril as above. 4. Gout. Continue allopurinol as above. 5. Peripheral neuropathy of bilateral feet. 6. History of renal cysts. Luis F Norman MD October 16, 2018 12:29
[2018-10-16] MEDS ORDERED: Bismuth Subsalicylate 30ml ORAL PRN (12:30)
--- NOTE | 2018-10-16 12:33 | Pulmonology Progress Note ---
Assessment/Plan Problems: (1) Diverticulosis (2) HTN (hypertension) (3) Internal hemorrhoids Assessment/Plan NO more bloody BM still cramps in lower abdomen GI note appreciated h/H stable no new complains Subjective ROS Limited/Unobtainable: No Constitutional: Reports: no symptoms HEENT: Repors: no symptoms Respiratory: Reports: no symptoms Allergies: Coded Allergies: MORPHINE (Verified Allergy, Severe, 11/03/16) nausea/vomiting Objective Last 24 Hour Vital Signs Date Time Temp Pulse Resp B/P (MAP) Pulse Ox O2 Delivery O2 Flow Rate FiO2 10/16/18 08:00 97.7 60 16 153/84 (107) 95 10/16/18 04:00 98.4 63 18 164/61 (95) 95 10/16/18 00:00 98.6 62 18 140/69 (92) 96 10/15/18 21:00 Room Air 10/15/18 20:00 99.2 66 18 127/71 (89) 96 10/15/18 16:00 97.7 62 20 124/77 (93) 99 Intake and Output 10/15/18 10/16/18 18:59 06:59 Intake Total 600 ml 800 ml Balance 600 ml 800 ml Intake Oral 600 ml 800 ml # Voids 4 3 General Appearance: WD/WN HEENT: normocephalic, atraumatic Respiratory/Chest: chest wall non-tender, lungs clear, normal breath sounds Breasts: no masses Cardiovascular: normal peripheral pulses Abdomen: normal bowel sounds, no organomegaly Genitourinary: normal external genitalia Extremities: no cyanosis, no clubbing Skin: no rash Laboratory Tests 10/16/18 05:35: White Blood Count 4.7L, Red Blood Count 4.12L, Hemoglobin 12.7, Hematocrit 38.0 , Mean Corpuscular Volume 92, Mean Corpuscular Hemoglobin 30.8, Mean Corpuscular Hemoglobin Concent 33.5, Red Cell Distribution Width 12.4, Platelet Count 198, Mean Platelet Volume 6.1L, Neutrophils (%) (Auto) 74.0, Lymphocytes ( %) (Auto) 14.0L, Monocytes (%) (Auto) 6.5, Eosinophils (%) (Auto) 4.8H, Basophils (%) (Auto) 0.7, Sodium Level 144, Potassium Level 3.9, Chloride Level 108H, Carbon Dioxide Level 27, Anion Gap 9, Blood Urea Nitrogen 16, Creatinine 0.8, Estimat Glomerular Filtration Rate , Glucose Level 96, Calcium Level 9.3 Current Medications Medications (Trade) Dose Ordered Sig/Divya Route PRN Reason Start Time Stop Time Status Last Admin Dose Admin Acetaminophen (Tylenol) 650 mg Q4H PRN ORAL fever 10/14/18 19:45 11/13/18 19:44 Acetaminophen/ Hydrocodone Bitart ([place] 5/325) 1 tab Q6H PRN ORAL For Pain 10/14/18 19:45 10/21/18 19:44 10/16/18 06:30 Al Hydroxide/Mg Hydroxide (Mylanta II) 30 ml Q6H PRN ORAL dyspepsia 10/14/18 19:45 11/13/18 19:44 10/15/18 16:49 Allopurinol (Zyloprim) 100 mg DAILY ORAL 10/15/18 09:00 11/14/18 08:59 10/16/18 08:39 Alprazolam (Xanax) 1 mg Q6H PRN ORAL For Anxiety 10/15/18 17:00 10/22/18 16:59 10/16/18 05:25 Amylase/Lipase/ Protease (Pancrease) 2 ea THREE TIMES A DAY ORAL 10/15/18 18:00 11/14/18 17:59 10/16/18 08:39 Bismuth Subsalicylate (Pepto-Bismol) 30 ml Q3H PRN ORAL Diarrhea 10/16/18 12:30 11/15/18 12:29 Dextrose (Dextrose 50%) 25 ml Q30M PRN IV Hypoglycemia 10/14/18 19:45 11/13/18 19:44 Dextrose (Dextrose 50%) 50 ml Q30M PRN IV Hypoglycemia 10/14/18 19:45 11/13/18 19:44 Dextrose/Sodium Chloride 1,000 ml @ 100 mls/hr Q10H IV 10/14/18 19:39 11/13/18 19:38 10/16/18 01:59 Diphenhydramine HCl (Benadryl) 25 mg Q6H PRN ORAL Itching/Pruritis 10/14/18 19:45 11/13/18 19:44 Nitroglycerin (Ntg) 0.4 mg Q5M X 3 DOSES PRN SL Prn Chest Pain 10/14/18 19:45 11/13/18 19:44 Non-Formulary Medication (Non-Formulary Med) 1 ea DAILY ORAL 10/16/18 09:00 11/15/18 08:59 UNV Ondansetron HCl (Zofran) 4 mg Q6H PRN IVP Nausea & Vomiting 10/14/18 19:45 11/13/18 19:44 Pantoprazole (Protonix) 40 mg DAILY ORAL 10/16/18 09:00 11/15/18 08:59 10/16/18 08:39 Polyethylene Glycol (Miralax) 17 gm HSPRN PRN ORAL Constipation 10/14/18 19:45 11/13/18 19:44 Temazepam (Restoril) 15 mg HSPRN PRN ORAL Insomnia 10/14/18 19:45 10/21/18 19:44 Mina Zheng MD October 16, 2018 12:33
--- NOTE | 2018-10-16 14:56 | Diagnostic Imaging Report ---
APPROVED REPORT CPT Code: 03882 Present Symptoms Comments: Pain BILATERAL: Imaging reveals a patent deep venous system bilaterally. There is no evidence of thrombus within the common femoral, superficial femoral, popliteal or tibial segments. Doppler indicates normal spontaneous flow within these segments. Venous reflux study: There is an evidence of venous reflux within the greater saphenous venous system. The reflux was lasted longer than 0.5 seconds in the both legs greater saphenous veins at the above thigh, knee and calf area.
--- NOTE | 2018-10-16 15:00 | NUR ---
NURSE NOTES: Received discharge orders to d/c home. RN given discharge instructions and belongings list to patient as well as RX for Protonix. called and faxed RX to [facility], medication was delivered to pt's room prior to d/c. pt's niece will provide transportation. i will f/u as needed.
--- NOTE | 2018-10-16 15:02 | Consultation ---
History of Present Illness General Date patient seen: October 16, 2018 Reason for Hospitalization: Abdominal Pain Present Illness HPI 72F well known to me from prior admission and office visits. called my office c /o rectal bleeding. was informed to go to ED if severe and believed hemorrhage so came to [facility] [place] [facility] for evaluation. hx of hemorrhoids and rectal prolapse. since admission bleeding resolved. labs noted. exam stable. currently no complaints. no n/v/f/c. states mild lower pelvic pain when constipated. intermittent small blood in bowel movements at times but this last episode scared her because of lots of blood Allergies: Coded Allergies: MORPHINE (Verified Allergy, Severe, 11/03/16) nausea/vomiting Medication History Scheduled Allopurinol* (Allopurinol*), 100 MG ORAL DAILY, (Reported) Amlodipine Besylate/Benazepril 10-40 Mg (Lotrel 10-40 Mg Capsule), 1 CAP ORAL DAILY, (Reported) Hydrocortisone Acetate* (Anusol-Hc*), 1 SUPP RECTAL TWICE A DAY Hydrocortisone Hc 2.5% Cream (Anusol-Hc 2.5% Cream), 30 GM RC BID Linaclotide (Linzess), 145 MCG PO DAILY, (Reported) Lipase/Protease/Amylase (Creon Dr 24,000 Units Capsule), 2 EACH PO TID, ( Reported) Lorazepam* (Ativan*), 1 MG ORAL BEDTIME, (Reported) Naloxegol Oxalate (Movantik), 12.5 MG PO DAILY, (Reported) [place]-3 Fatty Acids/Fish Oil* (Fish Oil 1,000 Mg Softgel*), 1 CAP ORAL DAILY, ( Reported) Omeprazole (Omeprazole), 40 MG ORAL DAILY, (Reported) Pantoprazole* (Pantoprazole*), 40 MG ORAL DAILY Scheduled PRN Hydrocodone Bit/Acetaminophen 5-325* ([place] 5-325*), 1 TAB ORAL Q6H PRN for For Pain, (Reported) Discontinued Medications Aspirin* (Aspir-Low*), 81 MG PO DAILY, (Reported) Discontinued Reason: Pt had allergic rxn Patient History History Provided By: Patient, Family Member, Medical Record, PMD Healthcare decision maker Resuscitation status Full Code Advanced Directive on File Past Medical/Surgical History Past Medical/Surgical History: (1) Gastrointestinal hemorrhage (2) COPD (chronic obstructive pulmonary disease) (3) Diarrhea (4) Pancreatitis (5) Internal hemorrhoids (6) Esophagitis (7) Constipation (8) Rectal prolapse (9) Gastritis (10) Proctitis (11) HTN (hypertension) (12) Pancreatic duct dilated (13) Bleeding external hemorrhoids (14) Diverticulosis (15) GERD (gastroesophageal reflux disease) (16) Rectal bleeding Review of Systems Review of Symptoms General ROS: no weight loss or fever Psychological ROS: no depression or mood changes, no memory loss Ophthalmic ROS: no visual changes or eye irritation ENT ROS: no nasal congestion, hearing loss, dizziness Allergy and Immunology ROS: no allergic symptoms or urticaria Hematological and Lymphatic ROS: no swollen glands, unusual bleeding or bruising Endocrine ROS: no polyuria, polydipsia, weight changes, temperature intolerance Respiratory ROS: no cough, shortness of breath, or wheezing Cardiovascular ROS: no chest pain or dyspnea on exertion Gastrointestinal ROS: denies abdominal pain, bright red blood in stool. Musculoskeletal ROS: no myalgias or arthralgias Neurological ROS: no TIA or stroke symptoms Dermatological ROS: no new or changing skin lesions, rashes or pruritis Physical Exam Physical Exam General appearance: alert, cooperative, no distress, appears stated age Head: Normocephalic, without obvious abnormality, atraumatic Eyes: conjunctivae/corneas clear. PERRL, EOM's intact. Fundi benign Throat: Lips, mucosa, and tongue normal. Teeth and gums normal Neck: supple, symmetrical, trachea midline, no adenopathy, thyroid: not enlarged, symmetric, no tenderness/mass/nodules, no carotid bruit and no JVD Lungs: clear to auscultation bilaterally Heart: regular rate and rhythm, S1, S2 normal, no murmur, click, rub or gallop Abdomen: soft, non-tender. Bowel sounds normal. No masses, no organomegaly Extremities: extremities normal, atraumatic, no cyanosis or edema Pulses: 2+ and symmetric Skin: Skin color, texture, turgor normal. No rashes or lesions Neurologic: Grossly normal Last 24 Hour Vital Signs Date Time Temp Pulse Resp B/P (MAP) Pulse Ox O2 Delivery O2 Flow Rate FiO2 10/16/18 08:00 97.7 60 16 153/84 (107) 95 10/16/18 04:00 98.4 63 18 164/61 (95) 95 10/16/18 00:00 98.6 62 18 140/69 (92) 96 10/15/18 21:00 Room Air 10/15/18 20:00 99.2 66 18 127/71 (89) 96 10/15/18 16:00 97.7 62 20 124/77 (93) 99 Intake and Output 10/15/18 10/16/18 18:59 06:59 Intake Total 600 ml 800 ml Balance 600 ml 800 ml Intake Oral 600 ml 800 ml # Voids 4 3 Laboratory Tests Test 10/16/18 05:35 White Blood Count 4.7 K/UL (4.8-10.8) L Red Blood Count 4.12 M/UL (4.20-5.40) L Hemoglobin 12.7 G/DL (12.0-16.0) Hematocrit 38.0 % (37.0-47.0) Mean Corpuscular Volume 92 FL (80-99) Mean Corpuscular Hemoglobin 30.8 PG (27.0-31.0) Mean Corpuscular Hemoglobin Concent 33.5 G/DL (32.0-36.0) Red Cell Distribution Width 12.4 % (11.6-14.8) Platelet Count 198 K/UL (150-450) Mean Platelet Volume 6.1 FL (6.5-10.1) L Neutrophils (%) (Auto) 74.0 % (45.0-75.0) Lymphocytes (%) (Auto) 14.0 % (20.0-45.0) L Monocytes (%) (Auto) 6.5 % (1.0-10.0) Eosinophils (%) (Auto) 4.8 % (0.0-3.0) H Basophils (%) (Auto) 0.7 % (0.0-2.0) Sodium Level 144 MMOL/L (136-145) Potassium Level 3.9 MMOL/L (3.5-5.1) Chloride Level 108 MMOL/L (98-107) H Carbon Dioxide Level 27 MMOL/L (21-32) Anion Gap 9 mmol/L (5-15) Blood Urea Nitrogen 16 mg/dL (7-18) Creatinine 0.8 MG/DL (0.55-1.30) Estimat Glomerular Filtration Rate mL/min (>60) Glucose Level 96 MG/DL (74-106) Calcium Level 9.3 MG/DL (8.5-10.1) Height (Feet): 5 Height (Inches): 3.00 Weight (Pounds): 113 Medications Current Medications Medications (Trade) Dose Ordered Sig/Divya Route PRN Reason Start Time Stop Time Status Last Admin Dose Admin Acetaminophen (Tylenol) 650 mg Q4H PRN ORAL fever 10/14/18 19:45 11/13/18 19:44 Acetaminophen/ Hydrocodone Bitart ([place] 5/325) 1 tab Q6H PRN ORAL For Pain 10/14/18 19:45 10/21/18 19:44 10/16/18 13:03 Al Hydroxide/Mg Hydroxide (Mylanta II) 30 ml Q6H PRN ORAL dyspepsia 10/14/18 19:45 11/13/18 19:44 10/15/18 16:49 Allopurinol (Zyloprim) 100 mg DAILY ORAL 10/15/18 09:00 11/14/18 08:59 10/16/18 08:39 Alprazolam (Xanax) 1 mg Q6H PRN ORAL For Anxiety 10/15/18 17:00 10/22/18 16:59 10/16/18 05:25 Amylase/Lipase/ Protease (Pancrease) 2 ea THREE TIMES A DAY ORAL 10/15/18 18:00 11/14/18 17:59 10/16/18 12:56 Bismuth Subsalicylate (Pepto-Bismol) 30 ml Q3H PRN ORAL Diarrhea 10/16/18 12:30 11/15/18 12:29 Dextrose (Dextrose 50%) 25 ml Q30M PRN IV Hypoglycemia 10/14/18 19:45 11/13/18 19:44 Dextrose (Dextrose 50%) 50 ml Q30M PRN IV Hypoglycemia 10/14/18 19:45 11/13/18 19:44 Dextrose/Sodium Chloride 1,000 ml @ 100 mls/hr Q10H IV 10/14/18 19:39 11/13/18 19:38 10/16/18 01:59 Diphenhydramine HCl (Benadryl) 25 mg Q6H PRN ORAL Itching/Pruritis 10/14/18 19:45 11/13/18 19:44 Nitroglycerin (Ntg) 0.4 mg Q5M X 3 DOSES PRN SL Prn Chest Pain 10/14/18 19:45 11/13/18 19:44 Non-Formulary Medication (Non-Formulary Med) 1 ea DAILY ORAL 10/16/18 09:00 11/15/18 08:59 UNV Ondansetron HCl (Zofran) 4 mg Q6H PRN IVP Nausea & Vomiting 10/14/18 19:45 11/13/18 19:44 Pantoprazole (Protonix) 40 mg DAILY ORAL 10/16/18 09:00 11/15/18 08:59 10/16/18 08:39 Polyethylene Glycol (Miralax) 17 gm HSPRN PRN ORAL Constipation 10/14/18 19:45 11/13/18 19:44 Temazepam (Restoril) 15 mg HSPRN PRN ORAL Insomnia 10/14/18 19:45 10/21/18 19:44 Assessment/Plan Problem List: (1) Gastrointestinal hemorrhage Assessment & Plan: bleeding hemorrhoids rectal prolapse now bleeding stopped likely mild and controlled now planned for outpatient colonoscopy soon f/u with me outpatient after colonoscopy patient wants to proceed with rectal prolapse surgery okay to d/c from hospital for now will follow up outpatient thank you ICD Codes: K92.2 - Gastrointestinal hemorrhage, unspecified SNOMED: 05179492 (2) COPD (chronic obstructive pulmonary disease) ICD Codes: J44.9 - COPD (chronic obstructive pulmonary disease) SNOMED: 29033188 (3) Diarrhea ICD Codes: R19.7 - Diarrhea, unspecified SNOMED: 30672983 (4) Pancreatitis ICD Codes: K85.9 - Acute pancreatitis, unspecified SNOMED: 88622944 (5) Internal hemorrhoids ICD Codes: K64.8 - Internal hemorrhoids SNOMED: 75199438 (6) Esophagitis ICD Codes: K20.9 - Esophagitis, unspecified SNOMED: 71678755 (7) Constipation ICD Codes: K59.00 - Constipation SNOMED: 72610214 (8) Rectal prolapse ICD Codes: K62.3 - Rectal prolapse SNOMED: 04012297 (9) Gastritis ICD Codes: K29.70 - Gastritis SNOMED: 5753849 (10) Proctitis ICD Codes: K62.89 - Other specified diseases of anus and rectum SNOMED: 0291274 (11) HTN (hypertension) ICD Codes: I10 - Essential (primary) hypertension SNOMED: 46773712 (12) Pancreatic duct dilated ICD Codes: K86.89 - Other specified diseases of pancreas SNOMED: 834204545 (13) Bleeding external hemorrhoids ICD Codes: K64.4 - Residual hemorrhoidal skin tags SNOMED: 13839780 (14) Diverticulosis ICD Codes: K57.90 - Diverticulosis SNOMED: 540302214 (15) GERD (gastroesophageal reflux disease) ICD Codes: K21.9 - GERD (gastroesophageal reflux disease) SNOMED: 190433585 (16) Rectal bleeding ICD Codes: K62.5 - Hemorrhage of anus and rectum SNOMED: 10905516 Status: stable Cheo Freire October 16, 2018 15:02
[2018-10-16] MEDS ORDERED: D5NS 1000ml IV ONE (16:45)
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
== END 2018-10-16 15:15 | disposition home or self-care (01) | DRG 393 ==
LOC: EMR 17:20 → 3E 18:35 → EDBEDREQ 20:30
DX: K64.8 Other hemorrhoids (principal); K57.91 Diverticulosis of intestine, part unspecified, without perforation or abscess with bleeding; K62.3 Rectal prolapse; K62.89 Other specified diseases of anus and rectum; E11.9 Type 2 diabetes mellitus without complications; I10 Essential (primary) hypertension; J44.9 Chronic obstructive pulmonary disease, unspecified; M10.9 Gout, unspecified; G62.9 Polyneuropathy, unspecified; K21.9 Gastro-esophageal reflux disease without esophagitis; Z79.82 Long term (current) use of aspirin; Z88.6 Allergy status to analgesic agent
CPT/HCPCS: 36415; 71045; 80048; 80053; 82150; 82550; 82553; 83690; 84484; 85025; 85610; 85730; 93005; 93970; 99285

== ENCOUNTER 2018-11-25 09:01 | Day surgery (SDC) | payer MEDICARE, OTHER ==
[2018-11-25] VITALS (9 sets, daily range): BP systolic 110–149; BP diastolic 47–87
[~2018-11-25] VITALS: Ht 160 cm; Wt 50.8 kg
[~2018-11-25 09:01] MED LIST changes: +PANTOPRAZOLE SO40 MG ORAL
[2018-11-25 10:08] LABS: BASOPHILS % (AUTO) 0.8 % (0.0-2.0); EOSINOPHILS % (AUTO) 3.7 % (0.0-3.0); HEMATOCRIT 41.1 % (37.0-47.0); HEMOGLOBIN 13.4 G/DL (12.0-16.0); LYMPHOCYTES % (AUTO) 9.9 % (20.0-45.0); MEAN CORPUSCULAR VOLUME 92 FL (80-99); MONOCYTES % (AUTO) 5.3 % (1.0-10.0); NEUTROPHILS % (AUTO) 80.3 % (45.0-75.0); PLATELET COUNT 236 K/UL (150-450); RED BLOOD COUNT 4.48 M/UL (4.20-5.40); RED CELL DISTRIBUTION WIDTH 12.6 % (11.6-14.8); WHITE BLOOD COUNT 5.1 K/UL (4.8-10.8)
--- NOTE | 2018-11-25 10:12 | Short Stay Surgery H&P ---
History of Present Illness History of Present Illness Chief Complaint see recent office note HPI Alisa Severino is a 72 year old female who was admitted on for Gerd, Abdominal Pain Patient History Allergies: Coded Allergies: MORPHINE (Verified Allergy, Severe, 11/25/18) nausea/vomiting Medication History Scheduled Allopurinol* (Allopurinol*), 100 MG ORAL DAILY, (Reported) Amlodipine Besylate/Benazepril 10-40 Mg (Lotrel 10-40 Mg Capsule), 1 CAP ORAL DAILY, (Reported) Hydrocortisone Acetate* (Anusol-Hc*), 1 SUPP RECTAL TWICE A DAY Hydrocortisone Hc 2.5% Cream (Anusol-Hc 2.5% Cream), 30 GM RC BID Linaclotide (Linzess), 145 MCG PO DAILY, (Reported) Lipase/Protease/Amylase (Creon Dr 24,000 Units Capsule), 2 EACH PO TID, ( Reported) Lorazepam* (Ativan*), 1 MG ORAL BEDTIME, (Reported) Naloxegol Oxalate (Movantik), 12.5 MG PO DAILY, (Reported) [place]-3 Fatty Acids/Fish Oil* (Fish Oil 1,000 Mg Softgel*), 1 CAP ORAL DAILY, ( Reported) Omeprazole (Omeprazole), 40 MG ORAL DAILY, (Reported) Pantoprazole* (Pantoprazole*), 40 MG ORAL DAILY Scheduled PRN Hydrocodone Bit/Acetaminophen 5-325* ([place] 5-325*), 1 TAB ORAL Q6H PRN for For Pain, (Reported) Physical Exam Labs Laboratory Tests Test 11/25/18 09:55 White Blood Count 5.1 K/UL (4.8-10.8) Red Blood Count 4.48 M/UL (4.20-5.40) Hemoglobin 13.4 G/DL (12.0-16.0) Hematocrit 41.1 % (37.0-47.0) Mean Corpuscular Volume 92 FL (80-99) Mean Corpuscular Hemoglobin 30.0 PG (27.0-31.0) Mean Corpuscular Hemoglobin Concent 32.6 G/DL (32.0-36.0) Red Cell Distribution Width 12.6 % (11.6-14.8) Platelet Count 236 K/UL (150-450) Mean Platelet Volume 5.7 FL (6.5-10.1) L Neutrophils (%) (Auto) 80.3 % (45.0-75.0) H Lymphocytes (%) (Auto) 9.9 % (20.0-45.0) L Monocytes (%) (Auto) 5.3 % (1.0-10.0) Eosinophils (%) (Auto) 3.7 % (0.0-3.0) H Basophils (%) (Auto) 0.8 % (0.0-2.0) Sodium Level Pending Potassium Level Pending Chloride Level Pending Carbon Dioxide Level Pending Blood Urea Nitrogen Pending Creatinine Pending Estimat Glomerular Filtration Rate Pending Glucose Level Pending Calcium Level Pending Total Bilirubin Pending Aspartate Amino Transf (AST/SGOT) Pending Alanine Aminotransferase (ALT/SGPT) Pending Alkaline Phosphatase Pending Total Protein Pending Albumin Pending Globulin Pending Amylase Level Pending Lipase Pending Carcinoembryonic Antigen Pending CA 19-9 Antigen Pending Plan Attestation Are the patient's medical conditions optimized for surgery? Terry Villarreal MD Nov 25, 2018 10:12
--- NOTE | 2018-11-25 10:12 | Pre-Procedure Note/Attestation ---
Pre-Procedure Note/Attestation Complete Prior to Procedure Planned Procedure: not applicable Procedure Narrative: eus Indications for Procedure Pre-Operative Diagnosis: panc cyst Attestation I attest that I discussed the nature of the procedure; its benefits; risks and complications; and alternatives (and the risks and benefits of such alternatives ), prior to the procedure, with the patient (or the patient's legal sales representative meats). I attest that, if there was a reasonable possibility of needing a blood transfusion, the patient (or the patient's legal sales representative meats) was given the [facility] standardized written summary, pursuant to the [place] Blood Safety Act ([place] Health and Safety Code # 1645, as amended). I attest that I re-evaluated the patient just prior to the surgery and that there has been no change in the patient's H&P, except as documented below: Terry Villarreal MD Nov 25, 2018 10:12
[2018-11-25] MEDS ORDERED: XANAX2 MG ORAL (10:20)
[2018-11-25 10:26] LABS: ALANINE AMINOTRANSFERASE 20 U/L (12-78); ALBUMIN/GLOBULIN RATIO 1.1 (1.0-2.7); ALKALINE PHOSPHATASE 85 U/L (46-116); AMYLASE 54 U/L (25-115); ANION GAP 13 mmol/L (5-15); ASPARTATE AMINO TRANSFERASE 20 U/L (15-37); BILIRUBIN,TOTAL 0.4 MG/DL (0.2-1.0); BLOOD UREA NITROGEN 27 mg/dL (7-18); CALCIUM 8.9 MG/DL (8.5-10.1); CARBON DIOXIDE 20 MMOL/L (21-32); CHLORIDE 106 MMOL/L (98-107); CREATININE 1.3 MG/DL (0.55-1.30); POTASSIUM 4.6 MMOL/L (3.5-5.1); SODIUM 139 MMOL/L (136-145)
[2018-11-25] MEDS ORDERED: fentaNYL 100 mcg/2 mL IV ONE (10:30)
[2018-11-25] MEDS ORDERED: Propofol 200mg/20ml IV ONE (10:30)
[2018-11-25] MEDS ORDERED: LR 1000ml 1,000 ML IVLG SCH (10:55)
--- NOTE | 2018-11-25 10:55 | Anethesia Preoperative Eval ---
Anesthesia Pre-op PMH/ROS General Date of Evaluation: Nov 25, 2018 Time of Evaluation: 10:25 Anesthesiologist: Aurelio ASA Score: ASA 3 Mallampati Score Class I : Soft palate, uvula, fauces, pillars visible Class II: Soft palate, uvula, fauces visible Class III: Soft palate, base of uvula visible Class IV: Only hard plate visible Mallampati Classification: Class II Surgeon: Cherelle Diagnosis: Abdominal pain Surgical Procedure: EGD with EUS Anesthesia History: none Social History: smoking - h/o heavy smoking Family History: no anesthesia problems Allergies: Coded Allergies: MORPHINE (Verified Allergy, Severe, 11/25/18) nausea/vomiting Medications: see eMAR Patient NPO?: Yes Past Medical History Cardiovascular: Reports: HTN; Denies: CAD, TN, valve dz, arrhythmia, other Pulmonary: Reports: COPD; Denies: asthma, TAE, other Gastrointestinal/Genitourinary: Reports: GERD, other - h/o pancreatitis; Denies: CRI, ESRD Neurologic/Psychiatric: Reports: depression/anxiety; Denies: dementia, CVA, TIA, other Endocrine: Denies: DM, hypothyroidism, steroids, other HEENT: Reports: cataract (L), cataract (R) - s/p Sx bilateral Hematology/Immune: Denies: anemia, DVT, bleeding disorder, other Musculoskeletal/Integumentary: Reports: OA, other - gout PMH Narrative: as above PSxH Narrative: Hysterectomy Anesthesia Pre-op Phys. Exam Physician Exam Last Vital Signs Date Time Temp Pulse Resp B/P (MAP) Pulse Ox O2 Delivery O2 Flow Rate FiO2 11/25/18 10:13 Room Air 11/25/18 10:00 97.7 60 18 127/80 98 Constitutional: NAD Neurologic: CN 2-12 intact Cardiovascular: RRR, no M/R/G Respiratory: other - some wheezing n Gastrointestinal: S/NT/ND Airway Exam Mallampati Score: Class III MO: limited Neck: stiff ROM: limited Teeth: missing Dentures: no upper, no lower Anesthesia Pre-op A/P Labs Hematology Test 11/25/18 09:55 White Blood Count 5.1 K/UL (4.8-10.8) Red Blood Count 4.48 M/UL (4.20-5.40) Hemoglobin 13.4 G/DL (12.0-16.0) Hematocrit 41.1 % (37.0-47.0) Mean Corpuscular Volume 92 FL (80-99) Mean Corpuscular Hemoglobin 30.0 PG (27.0-31.0) Mean Corpuscular Hemoglobin Concent 32.6 G/DL (32.0-36.0) Red Cell Distribution Width 12.6 % (11.6-14.8) Platelet Count 236 K/UL (150-450) Mean Platelet Volume 5.7 FL (6.5-10.1) L Neutrophils (%) (Auto) 80.3 % (45.0-75.0) H Lymphocytes (%) (Auto) 9.9 % (20.0-45.0) L Monocytes (%) (Auto) 5.3 % (1.0-10.0) Eosinophils (%) (Auto) 3.7 % (0.0-3.0) H Basophils (%) (Auto) 0.8 % (0.0-2.0) Chemistry Test 11/25/18 09:55 Sodium Level 139 MMOL/L (136-145) Potassium Level 4.6 MMOL/L (3.5-5.1) Chloride Level 106 MMOL/L (98-107) Carbon Dioxide Level 20 MMOL/L (21-32) L Anion Gap 13 mmol/L (5-15) Blood Urea Nitrogen 27 mg/dL (7-18) H Creatinine 1.3 MG/DL (0.55-1.30) Estimat Glomerular Filtration Rate mL/min (>60) Glucose Level 83 MG/DL (74-106) Calcium Level 8.9 MG/DL (8.5-10.1) Total Bilirubin 0.4 MG/DL (0.2-1.0) Aspartate Amino Transf (AST/SGOT) 20 U/L (15-37) Alanine Aminotransferase (ALT/SGPT) 20 U/L (12-78) Alkaline Phosphatase 85 U/L (46-116) Total Protein 7.5 G/DL (6.4-8.2) Albumin 4.0 G/DL (3.4-5.0) Globulin 3.5 g/dL Albumin/Globulin Ratio 1.1 (1.0-2.7) Amylase Level 54 U/L (25-115) Lipase 116 U/L (73-393) Carcinoembryonic Antigen Pending CA 19-9 Antigen Pending Studies Pre-op Studies: EKG - NSR Risk Assessment & Plan Assessment: ASA 3 Plan: MAC Status Change Before Surgery: Jairo Villegas MD Nov 25, 2018 10:55
[2018-11-25] MEDS ORDERED: fentaNYL 100 mcg/2 mL IV PRN (11:00)
--- NOTE | 2018-11-25 11:11 | Endoscopy Procedure Note ---
Endoscopy Procedure Note General Indication for Procedure: pancreatic cyst Procedures Performed: other - EUS Operative Findings/Diagnosis: dilated PD and CBD Specimen: none Pt Tolerated Procedure Well: Yes Estimated Blood Loss: none Anesthesia Anesthesiologist: alisha Anesthesia: MAC Inserted Devices Implant(s) used?: No GI Core Measures 50 yrs or older w/o bx or poly: Not Applicable 10yrs. F/U recommended: Not Applicable Terry Villarreal MD Nov 25, 2018 11:11
--- NOTE | 2018-11-25 11:11 | Immediate Post-Op Evaluation ---
Immediate Post-Op Evalulation Immediate Post-Op Evalulation Procedure: EGD with EUS Date of Evaluation: Nov 25, 2018 Time of Evaluation: 11:10 IV Fluids: 400 Blood Products: none Estimated Blood Loss: none Urinary Output: none Blood Pressure Systolic: 126 Blood Pressure Diastolic: 76 Pulse Rate: 68 Respiratory Rate: 22 O2 Sat by Pulse Oximetry: 98 Temperature (Fahrenheit): 97.5 Pain Score (1-10): 1 Nausea: No Vomiting: No Complications none Patient Status: reacts, patent, none Hydration Status: adequate Jairo Carey MD Nov 25, 2018 11:11
--- NOTE | 2018-11-25 11:49 | 48 Hour Post Anesthesia Eval ---
Post Anesthesia Evaluation Procedure: EGD with EUS Date of Evaluation: Nov 25, 2018 Time of Evaluation: 11:47 Blood Pressure Systolic: 128 0: 76 Pulse Rate: 68 Respiratory Rate: 20 Temperature (Fahrenheit): 97.6 O2 Sat by Pulse Oximetry: 99 Airway: patent Nausea: No Vomiting: No Pain Intensity: 1 Hydration Status: adequate Cardiopulmonary Status: stable Mental Status/LOC: patient returned to baseline Follow-up Care/Observations: n/a Post-Anesthesia Complications: none Follow-up care needed: ready to discharge Jairo Carey MD Nov 25, 2018 11:49
--- NOTE | 2018-11-25 18:45 | Procedure Note ---
DATE OF PROCEDURE: 11/25/2018 SURGEON: Terry Villarreal M.D. PROCEDURE: Endoscopic ultrasound. ANESTHESIOLOGIST: Jairo Carey M.D. INSTRUMENT: Olympus adult flexible EUS scope. INDICATION: Pancreatic cyst and abdominal pain. REASON FOR PROCEDURE: The procedure, risks, benefits, and possible consequences, including hemorrhage, aspiration, perforation and infection, and alternative treatments, were explained to the patient/legal guardian by Dr. Terry Villarreal and the patient/legal guardian understood and accepted these risks. PROCEDURE IN DETAIL: After informed consent was obtained and the patient was adequately sedated, the EUS scope was advanced from the mouth into the second portion of the duodenum and pancreatic parenchyma was carefully examined through gastrointestinal mucosa. Starting scanning at GE junction, first celiac axis was examined. There was no obvious celiac axis lymphadenopathy. Then, the scope was slowly passed into the stomach where the pancreatic body and tail was examined. The tail of the pancreas measured about 2.2 mm and the body measured about 2.7 and genu went up to about 3.6 and that the head of the pancreas at the ampulla was about 5.8 mm. So, pancreatic duct was mildly dilated. No obvious pancreatic mass or cyst was seen. Common bile duct was also dilated at the ampulla 8.7, more proximal 7.4, then 5.3, and then later 4.6. Based on the endoscopic tube, the ampulla was somewhat limited prominent and inflamed. We also saw some evidence of sludge in the gallbladder minimum. No obvious mass, no obvious pancreatic cyst was seen in this examination. SUMMARY OF FINDINGS: 1. Dilated both pancreatic duct and common bile duct. Common bile duct measured at the ampulla about 8.7 and pancreatic duct measured 5.8 and they both tapered down. Pancreatic duct tapered to about 2.2 in detail and common bile duct tapered to about 4.6. So, we have evidence of both the pancreatic duct and common bile duct mildly dilated without any obvious mass. 2. Also evidence of mild gallbladder sludge. RECOMMENDATIONS: Our recommendation is if the patient shows signs and symptoms of abdominal pain, not tolerating diet, the patient might benefit from an ERCP and sphincterotomy. Meanwhile, the patient needs a close followup. We are going to review her chart to see when was the last imaging studies, which has been done. She might benefit from repeat imaging studies including an MRI or an MRCP for further evaluation. Terry Villarreal M.D. DR: OMAYRA JOB#: [id number] CC:
== END 2018-11-25 12:00 | disposition home or self-care (01) ==
LOC: GAS 09:01
DX: R10.9 Unspecified abdominal pain (principal); K21.9 Gastro-esophageal reflux disease without esophagitis; Z88.6 Allergy status to analgesic agent; Z79.899 Other long term (current) drug therapy; I10 Essential (primary) hypertension; J44.9 Chronic obstructive pulmonary disease, unspecified; F32.9 Major depressive disorder, single episode, unspecified; F41.9 Anxiety disorder, unspecified; M19.90 Unspecified osteoarthritis, unspecified site; Z90.710 Acquired absence of both cervix and uterus; Z87.891 Personal history of nicotine dependence
CPT/HCPCS: 36415; 43259; 80053; 82150; 82378; 83690; 85025; J2704; J3010; 94003; 94150

== ENCOUNTER 2018-11-28 13:58 | Outpatient (CLI) | payer MEDICARE, OTHER ==
[~2018-11-28 13:58] MED LIST changes: +XANAX2 MG ORAL
--- NOTE | 2018-11-28 14:22 | General Progress Note ---
Assessment/Plan Problem List: (1) Rectal bleeding ICD Codes: K62.5 - Hemorrhage of anus and rectum SNOMED: 00125914 (2) GERD (gastroesophageal reflux disease) ICD Codes: K21.9 - GERD (gastroesophageal reflux disease) SNOMED: 336720549 (3) Diverticulosis ICD Codes: K57.90 - Diverticulosis SNOMED: 619909893 (4) Pancreatic duct dilated ICD Codes: K86.89 - Other specified diseases of pancreas SNOMED: 372060214 (5) HTN (hypertension) ICD Codes: I10 - Essential (primary) hypertension SNOMED: 63016598 (6) Gastritis ICD Codes: K29.70 - Gastritis SNOMED: 8291032 (7) Esophagitis ICD Codes: K20.9 - Esophagitis, unspecified SNOMED: 64937703 Assessment/Plan: EUS reviewed labs reviewed consider CT pancreatic protocol trial of Zenpep Subjective ROS Limited/Unobtainable: Yes Allergies: Coded Allergies: MORPHINE (Verified Allergy, Severe, 11/25/18) nausea/vomiting Objective General Appearance: alert EENT: normal ENT inspection Neck: supple Cardiovascular: normal rate Respiratory/Chest: decreased breath sounds Abdomen: normal bowel sounds, non tender, soft Extremities: non-tender Terry Villarreal MD Nov 28, 2018 14:22
[2018-11-28] MEDS ORDERED: DEXILANT60 MG ORAL (15:11)
[2018-11-28 15:14] VITALS: BP 98/72
== END 2018-11-28 16:04 | disposition home or self-care (01) ==
LOC: PAN 13:58
DX: K62.5 Hemorrhage of anus and rectum (principal); K21.9 Gastro-esophageal reflux disease without esophagitis; K57.90 Diverticulosis of intestine, part unspecified, without perforation or abscess without bleeding; K86.89 Other specified diseases of pancreas; I10 Essential (primary) hypertension; K29.70 Gastritis, unspecified, without bleeding; K20.9 Esophagitis, unspecified; Z88.6 Allergy status to analgesic agent

== ENCOUNTER 2018-12-15 16:04 | Inpatient (IN) | payer MEDICARE, OTHER ==
[~2018-12-15] VITALS: Ht 160 cm; Wt 50.8 kg
[2018-12-15 16:24] VITALS: BP 112/60
--- NOTE | 2018-12-15 16:25 | NUR ---
ED Nurse Note: Pt walked in to ER c/o abdominal pain 9/10 and having loose stool for 5 days. pt aao x4 and ambulatory. skin clean and intact. calm and cooperative. 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
--- NOTE | 2018-12-15 16:26 | NUR ---
ED Nurse Note: pt stated pt is from [facility].
--- NOTE | 2018-12-15 16:29 | NUR ---
ED Nurse Note: ERMD assessed for hemorroid with 1 female RN present.
[2018-12-15] MEDS ORDERED: Isovue-300 100ml vial INJ PRN (16:30)
--- NOTE | 2018-12-15 16:30 | NUR ---
ED Nurse Note: pt drank CT oral contrast. CT informed.
--- NOTE | 2018-12-15 16:35 | Emergency Room Report ---
History of Present Illness General Chief Complaint: Abdominal Pain Source: Patient Present Illness HPI Patient is a 73-year-old female presented after increased lower abdominal pain. Patient states this is been intermittent for several months. She had prior history of similar pain in the past. She reports having increased cough as well as some rectal bleeding. She had prior history of rectal prolapse as well as hemorrhoids. She had previous hysterectomy. Patient had not been vomiting. She intermittently takes breathing treatment medications. She is currently taking Linzess as well as Dexilant. Allergies: Coded Allergies: MORPHINE (Verified Allergy, Severe, 11/25/18) nausea/vomiting Patient History Past Medical History: see triage record, COPD Now: No Reviewed Nursing Documentation: PMH: Agreed; PSxH: Agreed Nursing Documentation-PMH Hx Cardiac Problems: No - Gout Hx Hypertension: Yes Hx Pacemaker: No Hx Asthma: No Hx COPD: Yes Hx Diabetes: No Hx Cancer: No Hx Gastrointestinal Problems: Yes - Pancreatitis Hx Dialysis: No Hx Neurological Problems: Yes Hx Cerebrovascular Accident: No Hx Seizures: No Hx Head Trauma: Yes Review of Systems All Other Systems: negative except mentioned in HPI Physical Exam Vital Signs Date Time Temp Pulse Resp B/P (MAP) Pulse Ox O2 Delivery O2 Flow Rate FiO2 12/15/18 16:09 97.9 73 14 112/60 (77) 96 Room Air Sp02 EP Interpretation: reviewed, normal General Appearance: normal inspection, well appearing, no apparent distress, alert, GCS 15, Chronically Ill Head: atraumatic ENT: normal ENT inspection, hearing grossly normal, normal voice Neck: normal inspection, full range of motion, supple, no bony tend, limited range of motion Respiratory: normal inspection, normal breath sounds, no respiratory distress, no retraction, wheezing - faint Cardiovascular #1: regular rate, rhythm, no edema Gastrointestinal: normal inspection, normal bowel sounds, non tender, soft, no guarding, no hernia Rectal: hemorrhoids, other - no prolapse Genitourinary: no CVA tenderness Musculoskeletal: normal inspection, back normal, normal range of motion Neurologic: normal inspection, alert, oriented x3, responsive, motor brakeman III-XII nml as tested, speech normal Psychiatric: normal inspection, judgement/insight normal, mood/affect normal Medical Decision Making Diagnostic Impression: Primary Impression: COPD (chronic obstructive pulmonary disease) Additional Impressions: Bleeding external hemorrhoids Common bile duct dilatation ER Course Patient presented for lower abdominal pain and rectal bleeding. Differential diagnosis include was not limited to pancreatitis, rectal prolapse, diverticulitis among others. Because of complexity of patient's case laboratory testing and imaging studies were ordered.CT imaging showed dilated common bile duct suspected stone in distal CBD. Urinary bladder was moderately dilated. Patient was discussed with Dr. Luis F Norman for inpatient management. Dr. Villarreal was contacted for GI consult. Labs Test 12/15/18 16:45 12/15/18 18:45 White Blood Count 6.6 K/UL (4.8-10.8) Red Blood Count 4.02 M/UL (4.20-5.40) Hemoglobin 12.2 G/DL (12.0-16.0) Hematocrit 37.4 % (37.0-47.0) Mean Corpuscular Volume 93 FL (80-99) Mean Corpuscular Hemoglobin 30.2 PG (27.0-31.0) Mean Corpuscular Hemoglobin Concent 32.5 G/DL (32.0-36.0) Red Cell Distribution Width 12.5 % (11.6-14.8) Platelet Count 208 K/UL (150-450) Mean Platelet Volume 5.2 FL (6.5-10.1) Neutrophils (%) (Auto) 77.5 % (45.0-75.0) Lymphocytes (%) (Auto) 9.5 % (20.0-45.0) Monocytes (%) (Auto) 6.7 % (1.0-10.0) Eosinophils (%) (Auto) 5.1 % (0.0-3.0) Basophils (%) (Auto) 1.2 % (0.0-2.0) Prothrombin Time 11.8 SEC (9.30-11.50) Prothromb Time International Ratio 1.1 (0.9-1.1) Activated Partial Thromboplast Time 31 SEC (23-33) Sodium Level 144 MMOL/L (136-145) Potassium Level 3.8 MMOL/L (3.5-5.1) Chloride Level 109 MMOL/L (98-107) Carbon Dioxide Level 23 MMOL/L (21-32) Anion Gap 12 mmol/L (5-15) Blood Urea Nitrogen 31 mg/dL (7-18) Creatinine 1.5 MG/DL (0.55-1.30) Estimat Glomerular Filtration Rate mL/min (>60) Glucose Level 112 MG/DL (74-106) Calcium Level 8.9 MG/DL (8.5-10.1) Total Bilirubin 0.4 MG/DL (0.2-1.0) Aspartate Amino Transf (AST/SGOT) 19 U/L (15-37) Alanine Aminotransferase (ALT/SGPT) 27 U/L (12-78) Alkaline Phosphatase 91 U/L (46-116) Troponin I 0.000 ng/mL (0.000-0.056) Total Protein 6.6 G/DL (6.4-8.2) Albumin 3.8 G/DL (3.4-5.0) Globulin 2.8 g/dL Albumin/Globulin Ratio 1.4 (1.0-2.7) Thyroid Stimulating Hormone (TSH) 1.277 uiU/mL (0.358-3.740) Urine Color Pale yellow Urine Appearance Clear Urine pH 6 (4.5-8.0) Urine Specific [place] 1.010 (1.005-1.035) Urine Protein Negative (NEGATIVE) Urine Glucose (UA) Negative (NEGATIVE) Urine Ketones Negative (NEGATIVE) Urine Blood Negative (NEGATIVE) Urine Nitrite Negative (NEGATIVE) Urine Bilirubin Negative (NEGATIVE) Urine Urobilinogen Normal MG/DL (0.0-1.0) Urine Leukocyte Esterase 1+ (NEGATIVE) Urine RBC 0-2 /HPF (0 - 2) Urine WBC 0-2 /HPF (0 - 2) Urine Squamous Epithelial Cells Occasional /LPF Urine Bacteria None /HPF (NONE) Last Vital Signs Date Time Temp Pulse Resp B/P (MAP) Pulse Ox O2 Delivery O2 Flow Rate FiO2 12/15/18 16:24 73 14 Room Air 12/15/18 16:24 97.9 112/60 96 Status: unchanged Disposition: ADMITTED INPATIENT Condition: Stable Neville Alves MD Dec 15, 2018 16:35
[2018-12-15 16:54] LABS: BASOPHILS % (AUTO) 1.2 % (0.0-2.0); EOSINOPHILS % (AUTO) 5.1 % (0.0-3.0); HEMATOCRIT 37.4 % (37.0-47.0); HEMOGLOBIN 12.2 G/DL (12.0-16.0); LYMPHOCYTES % (AUTO) 9.5 % (20.0-45.0); MEAN CORPUSCULAR VOLUME 93 FL (80-99); MONOCYTES % (AUTO) 6.7 % (1.0-10.0); NEUTROPHILS % (AUTO) 77.5 % (45.0-75.0); PLATELET COUNT 208 K/UL (150-450); RED BLOOD COUNT 4.02 M/UL (4.20-5.40); RED CELL DISTRIBUTION WIDTH 12.5 % (11.6-14.8); WHITE BLOOD COUNT 6.6 K/UL (4.8-10.8)
--- NOTE | 2018-12-15 16:55 | NUR ---
ED Nurse Note: pt could not provide urine. will wait.
[2018-12-15 17:03] LABS: INR 1.1 (0.9-1.1)
[2018-12-15 17:06] LABS: ANION GAP 12 mmol/L (5-15); BLOOD UREA NITROGEN 31 mg/dL (7-18); CALCIUM 8.9 MG/DL (8.5-10.1); CARBON DIOXIDE 23 MMOL/L (21-32); CHLORIDE 109 MMOL/L (98-107); CREATININE 1.5 MG/DL (0.55-1.30); POTASSIUM 3.8 MMOL/L (3.5-5.1); SODIUM 144 MMOL/L (136-145)
[2018-12-15 17:18] LABS: ALANINE AMINOTRANSFERASE 27 U/L (12-78); ALBUMIN 3.8 G/DL (3.4-5.0); ALBUMIN/GLOBULIN RATIO 1.4 (1.0-2.7); ALKALINE PHOSPHATASE 91 U/L (46-116); ASPARTATE AMINO TRANSFERASE 19 U/L (15-37); BILIRUBIN,TOTAL 0.4 MG/DL (0.2-1.0)
--- NOTE | 2018-12-15 18:00 | NUR ---
ED Nurse Note: pt went down for CT in stable condition.
--- NOTE | 2018-12-15 18:22 | NUR ---
ED Nurse Note: Pt came back from CT in stable condition.
--- NOTE | 2018-12-15 18:28 | NUR ---
ED Nurse Note: pt still could not urinate. reported to ERMD and water provided with ERMD's verbal order.
--- NOTE | 2018-12-15 18:35 | NUR ---
ED Nurse Note: pt ambulated to bathroom for urine sample.
--- NOTE | 2018-12-15 18:47 | NUR ---
ED Nurse Note: Urine sent to the lab.
[2018-12-15 18:51] LABS: APPEARANCE,URINE CLEAR; BILIRUBIN, URINE NEGATIVE (NEGATIVE); COLOR,URINE PALE YELLOW; GLUCOSE, URINE (UA) NEGATIVE (NEGATIVE); KETONES,URINE NEGATIVE (NEGATIVE); LEUKOCYTE ESTERASE ,URINE 1+ (NEGATIVE); NITRITE,URINE NEGATIVE (NEGATIVE); PH,URINE 6 (4.5-8.0); PROTEIN,URINE NEGATIVE (NEGATIVE); UROBILINOGEN,URINE NORMAL MG/DL (0.0-1.0)
--- NOTE | 2018-12-15 19:26 | NUR ---
HAND-OFF: Report given to EVELYN Green. no orders to carry at this time.
[2018-12-15 19:54] VITALS: BP 118/72
[2018-12-15 21:15] VITALS: BP 116/78
[2018-12-15] MEDS ORDERED: HYDROcodone/Acetamin 10/325 tab ORAL ONE (21:15)
--- NOTE | 2018-12-15 21:15 | NUR ---
NURSE NOTES: Received report from JERMAINE Green RN: patient admitting diagnosis abdominal pain and rectal bleeding. States valuables list done and med recon will be completed prior to admission to .
--- NOTE | 2018-12-15 21:15 | NUR ---
ER Nurse Note: Reprot given to EVELYN Michelle in [place] for continuity of care. Pt stated pain; ERMD aware and pain meds administered per ERMD orders. Pt a&ox4, VSS, no signs of distress. Pt refused swabs. Pt left with all belongings.
--- NOTE | 2018-12-15 21:30 | NUR ---
NURSE NOTES: Admitted to 3E. Ambulating well, no dizziness, steady gait. Pain rated 5/10, abdominal, also has pain in neck and shoulders, states she has osteoarthritis.
[2018-12-15 21:45] VITALS: BP 115/64
--- NOTE | 2018-12-15 22:00 | NUR ---
NURSE NOTES: Assessment was completed, patient is poor historian, very tired at this time. Obtained most history from ER report, previous admissions and some from patient.
--- NOTE | 2018-12-15 23:30 | NUR ---
NURSE NOTES: Patient aware of diet ordered by MD, clear liquids, tolerating well. bed in low position, locked, call light within reach, will continue to monitor.
[2018-12-16 00:35] VITALS: BP 99/74
[2018-12-16] MEDS: HYDROcodone/Acetamin 10/325 tab ORAL PRN ×3 (01:08→21:04)
[2018-12-16 04:45] VITALS: BP 98/58
--- NOTE | 2018-12-16 07:15 | NUR ---
NURSE NOTES:BEDSIDE ROUNDS WITH OUTGOING RN(ZENA)PATIENT EATING BREAKFAST,ROOM AIR,A/OX4,NO C/O PAIN.WILL CONTINUE PLAN OF CARE.
--- NOTE | 2018-12-16 07:30 | NUR ---
HAND-OFF: Report given to EVELYN Bustos.
[2018-12-16 08:00] VITALS: BP 96/55
[2018-12-16] MEDS: Allopurinol 100mg Tab ORAL SCH (08:30)
[2018-12-16] MEDS: ALPRAZolam 0.5mg tab ORAL PRN ×2 (08:34→23:05)
--- NOTE | 2018-12-16 09:08 | Diagnostic Imaging Report ---
Clinical Indication: 9 out of 10 abdominal pain, loose stool for 5 days Technique: Patient given oral contrast. IV administration nonionic contrast. Venous phase spiral acquisition obtained through the abdomen and pelvis. Multiplanar reconstructions were generated. Total dose length product 607.22 mGycm. CTDIvol(s) 13.21 mGy. Dose reduction achieved using automated exposure control Comparison: 08/02/2017 Findings: There is colonic diverticulosis. There is a moderate amount retained stool within the colon. The appendix is normal. Small bowel loops are diffusely prominent but not frankly dilated. Contrast traverses most but not all of the small bowel. No free or loculated intraperitoneal gas or fluid is evident. The distal esophagus demonstrates a small sliding-type hiatal hernia. The stomach contains food, is otherwise grossly unremarkable. The duodenum is unremarkable. There is extrahepatic and central intrahepatic biliary ductal dilatation, which is new or increased since previous exam. Common bile duct measures up to 10 mm diameter. A 2 mm calcification projects within what appears to be the duodenal lumen, but could be at the distal ampulla.. The gallbladder is mildly distended. No definite gallstones. Liver demonstrates subcentimeter low-attenuation lesions which are too small to characterize. The pancreas demonstrates a few calcifications within the pancreatic tail. Previously demonstrated tiny pancreatic head lipoma is nearly visible currently. The spleen is unremarkable. Questionable left adrenal nodule is unchanged if real.. There is mild right hydronephrosis and prominent extrarenal pelvis which appears similar to the previous study. The kidneys demonstrate multiple cysts bilaterally. There are also bilateral subcentimeter low-attenuation lesions which are too small to characterize. The bladder is distended. The uterus is not visualized, presumably surgically absent. The bones demonstrate degenerative images of the lumbar spine and bilateral hips. There is evidence of interim weight loss. Fibrotic and atelectatic changes are seen at the lung bases Impression: Extrahepatic and central intrahepatic biliary ductal dilatation, progressive since prior study of 08/02/2017. 2 mm calcification projecting in the region of the ampulla, could represent an obstructing ampullary calculus. Consider MRCP for better characterization if clinically indicated Mild right hydronephrosis, also previously described and unchanged. This may reflect mild congenital ureteropelvic junction obstruction Colonic diverticulosis. No evidence of diverticulitis Evidence of moderate fecal retention Distended bladder Magnetic calcifications, minimal, could indicate evidence of chronic calcified pancreatitis. Correlate with clinical history Subcentimeter low-attenuation liver lesions, too small to characterize. No further follow-up necessary Bilateral renal cysts, also previously demonstrated, as well as subcentimeter low-attenuation lesion which is too small to characterize. Bilateral basilar pulmonary fibrotic and atelectatic changes Other findings as noted, including degenerative spondylosis, evidence of prior hysterectomy, hiatal hernia, small pancreatic lipoma This agrees with the preliminary interpretation provided overnight by Dr. Cuenca The CT scanner at [facility] is accredited by the [employer] and the scans are performed using protocols designed to limit radiation exposure to as low as reasonably achievable to attain images of sufficient resolution adequate for diagnostic evaluation.
--- NOTE | 2018-12-16 09:11 | NUR ---
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 RECTAL BLEEDING . COPD VS: BP 116/78, P 76, T 97.6, RR 20, SpO2 87 RBC 4.02, BUN 31, CR 1.5 IS:NORCO 10/325 1tab ADMITTED TO MED/SURG DCP: RETURN HOME
--- NOTE | 2018-12-16 11:30 | GI Initial Consult Note ---
History of Present Illness General Date patient seen: Dec 16, 2018 Time patient seen: 11:28 Reason for Hospitalization: Abdominal Pain Referring physician: TOAN GOLDSTEIN Reason for Consultation: ABDOMINAL PAIN Present Illness HPI Patient is a 73-year-old female presented after increased lower abdominal pain. Patient states this is been intermittent for several months. She had prior history of similar pain in the past. She reports having increased cough as well as some rectal bleeding. She had prior history of rectal prolapse as well as hemorrhoids. She had previous hysterectomy. Patient had not been vomiting. She intermittently takes breathing treatment medications. She is currently taking Linzess as well as Dexilant. This patient is known to us, 72-year-old female with a history of pancreatic mass, history of EUS with pancreatic ductal dilation back in . Has recent history of colonoscopy back in August 2018 noted with diverticulosis. Patient presents today complaining of severe constipation with abdominal pain and cramping. In addition the patient has complaint of hemorrhoidal bleed for the past week. Abdominal pelvis CT noted that there was extrahepatic and central intrahepatic biliary ductal dilation which was new since her previous exam. Common bile duct dilation of 10 mm with 2 mm calcification projecting in the region of the ampulla, could represent an obstructing ampullary calculus. Moderate fecal retention. Home Meds Reported Medications Dexlansoprazole (Dexilant) 60 Mg Jose Carlos.bp, 60 MG ORAL DAILY, CAP 11/28/18 Alprazolam* (XANAX*) 2 Mg Tablet, 2 MG ORAL TID PRN for PRN ANXIETY/AGITATION, # 30 TAB 0 Refills 11/25/18 Linaclotide (LINZESS) 145 Mcg Capsule, 145 MCG PO DAILY, CAP 10/01/18 Allopurinol* (ALLOPURINOL*) 100 Mg Tablet, 100 MG ORAL DAILY, TAB 07/20/17 Lipase/Protease/Amylase (CLARICE JOHNSON 24,000 UNITS CAPSULE) 1 Each Capsule., 2 EACH PO TID, CAP 02/03/16 Amlodipine Besylate/Benazepril 10-40 Mg (LOTREL 10-40 MG CAPSULE) 1 Each Capsule , 1 CAP ORAL DAILY, CAP 09/16/14 Med list reviewed/reconciled: Yes Allergies: Coded Allergies: MORPHINE (Verified Allergy, Severe, 11/25/18) nausea/vomiting Patient History History Provided By: Patient PMH Narrative History Provided By: Patient, Medical Record PMH Narrative Past Medical History: No History, Except For Hx Cardiac Problems: No Hx Hypertension: Yes Hx Pacemaker: No Hx Asthma: No Hx COPD: Yes Hx Diabetes: No Hx Cancer: No Hx Gastrointestinal Problems: Yes - gout Pancreatitis Hx Dialysis: No Hx Neurological Problems: No Hx Cerebrovascular Accident: No Hx Seizures: No Hx Head Trauma: Yes Social History: Denies: smoking, alcohol use, drug use, other Social History: Denies: smoking, alcohol use, drug use, other Review of Systems All Other Systems: negative except mentioned in HPI Physical Exam Vital Signs Date Time Temp Pulse Resp B/P (MAP) Pulse Ox O2 Delivery O2 Flow Rate FiO2 12/15/18 16:09 97.9 73 14 112/60 (77) 96 Room Air Sp02 EP Interpretation: reviewed, normal Labs Laboratory Tests Test 12/15/18 16:45 12/15/18 18:45 White Blood Count 6.6 K/UL (4.8-10.8) Red Blood Count 4.02 M/UL (4.20-5.40) L Hemoglobin 12.2 G/DL (12.0-16.0) Hematocrit 37.4 % (37.0-47.0) Mean Corpuscular Volume 93 FL (80-99) Mean Corpuscular Hemoglobin 30.2 PG (27.0-31.0) Mean Corpuscular Hemoglobin Concent 32.5 G/DL (32.0-36.0) Red Cell Distribution Width 12.5 % (11.6-14.8) Platelet Count 208 K/UL (150-450) Mean Platelet Volume 5.2 FL (6.5-10.1) L Neutrophils (%) (Auto) 77.5 % (45.0-75.0) H Lymphocytes (%) (Auto) 9.5 % (20.0-45.0) L Monocytes (%) (Auto) 6.7 % (1.0-10.0) Eosinophils (%) (Auto) 5.1 % (0.0-3.0) H Basophils (%) (Auto) 1.2 % (0.0-2.0) Prothrombin Time 11.8 SEC (9.30-11.50) H Prothromb Time International Ratio 1.1 (0.9-1.1) Activated Partial Thromboplast Time 31 SEC (23-33) Sodium Level 144 MMOL/L (136-145) Potassium Level 3.8 MMOL/L (3.5-5.1) Chloride Level 109 MMOL/L (98-107) H Carbon Dioxide Level 23 MMOL/L (21-32) Anion Gap 12 mmol/L (5-15) Blood Urea Nitrogen 31 mg/dL (7-18) H Creatinine 1.5 MG/DL (0.55-1.30) H Estimat Glomerular Filtration Rate mL/min (>60) Glucose Level 112 MG/DL (74-106) H Calcium Level 8.9 MG/DL (8.5-10.1) Total Bilirubin 0.4 MG/DL (0.2-1.0) Aspartate Amino Transf (AST/SGOT) 19 U/L (15-37) Alanine Aminotransferase (ALT/SGPT) 27 U/L (12-78) Alkaline Phosphatase 91 U/L (46-116) Troponin I 0.000 ng/mL (0.000-0.056) Total Protein 6.6 G/DL (6.4-8.2) Albumin 3.8 G/DL (3.4-5.0) Globulin 2.8 g/dL Albumin/Globulin Ratio 1.4 (1.0-2.7) Thyroid Stimulating Hormone (TSH) 1.277 uiU/mL (0.358-3.740) Urine Color Pale yellow Urine Appearance Clear Urine pH 6 (4.5-8.0) Urine Specific [place] 1.010 (1.005-1.035) Urine Protein Negative (NEGATIVE) Urine Glucose (UA) Negative (NEGATIVE) Urine Ketones Negative (NEGATIVE) Urine Blood Negative (NEGATIVE) Urine Nitrite Negative (NEGATIVE) Urine Bilirubin Negative (NEGATIVE) Urine Urobilinogen Normal MG/DL (0.0-1.0) Urine Leukocyte Esterase 1+ (NEGATIVE) H Urine RBC 0-2 /HPF (0 - 2) Urine WBC 0-2 /HPF (0 - 2) Urine Squamous Epithelial Cells Occasional /LPF Urine Bacteria None /HPF (NONE) General Appearance: well appearing, no apparent distress, alert, thin Head: normocephalic EENT: PERRL/EOMI, normal ENT inspection Neck: supple Respiratory: normal breath sounds, no respiratory distress Cardiovascular: normal rate Gastrointestinal: normal inspection, non tender, soft, normal bowel sounds, non -distended Rectal: deferred Genitourinary: no CVA tenderness Musculoskeletal: normal inspection, back normal Neurologic: normal inspection, alert, oriented x3, responsive Psychiatric: normal inspection, judgement/insight normal, memory normal Skin: normal inspection, normal color, no rash, warm/dry, palpation normal, well hydrated Lymphatic: normal inspection, no adenopathy Current Medications Current Medications Medications (Trade) Dose Ordered Sig/Divya Route PRN Reason Start Time Stop Time Status Last Admin Dose Admin Acetaminophen/ Hydrocodone Bitart ([place]ola 10/325) 1 tab Q4H PRN ORAL For Pain 12/15/18 23:15 12/22/18 23:14 12/16/18 01:08 Allopurinol (Zyloprim) 100 mg DAILY ORAL 12/16/18 09:00 01/15/19 08:59 12/16/18 08:30 Alprazolam (Xanax) 2 mg THREE TIMES A DAY PRN ORAL anxiety/agitation 12/15/18 23:15 12/22/18 23:14 12/16/18 08:34 Amlodipine Besylate (Norvasc) 10 mg DAILY ORAL 12/16/18 09:00 01/15/19 08:59 Benazepril HCl (Lotensin) 40 mg DAILY ORAL 12/16/18 09:00 01/15/19 08:59 Non-Formulary Medication (Non-Formulary Med) 1 ea DAILY ORAL 12/16/18 09:00 01/15/19 08:59 UNV Non-Formulary Medication (Non-Formulary Med) 2 ea THREE TIMES A DAY ORAL 12/16/18 09:00 01/15/19 08:59 UNV Pantoprazole (Protonix) 40 mg ACBREAKFAST ORAL 12/16/18 06:30 01/15/19 06:29 12/16/18 06:48 GI: Plan Problems: (1) Pancreatitis (2) Diarrhea (3) Gastrointestinal hemorrhage (4) Common bile duct dilatation (5) Constipation (6) Rectal prolapse (7) Pancreatic duct dilated Plan CTAP reviewed noted with increased biliary ductal dilation since last exam also with 2mm calcification possibly at the distal ampulla. Moderate fecal retention noted. EUS 11/25/18 SUMMARY OF FINDINGS: 1. Dilated both pancreatic duct and common bile duct. Common bile duct measured at the ampulla about 8.7 and pancreatic duct measured 5.8 and they both tapered down. Pancreatic duct tapered to about 2.2 in detail and common bile duct tapered to about 4.6. So, we have evidence of both the pancreatic duct and common bile duct mildly dilated without any obvious mass. 2. Also evidence of mild gallbladder sludge. RECOMMENDATIONS: MRCP ordered, will consider ERCP and sphincterotomy if patient has continued abdominal pain. advance to regular diet bowel regime zofran prn H2B follow labs Discussed with Dr. Villarreal. Thank you for this patient referral, we will follow. The patient was seen and examined at bedside and all new and available data was reviewed in the patients chart. I agree with the above findings, impression and plan. (Patient seen earlier today. Signature stamp does not reflect patient encounter time.). - MD Kerline Horner AnhSammi ANNE Dec 16, 2018 11:30
[2018-12-16 11:47] LABS: HEMATOCRIT 35.6 % (37.0-47.0); HEMOGLOBIN 11.5 G/DL (12.0-16.0); MEAN CORPUSCULAR VOLUME 94 FL (80-99); PLATELET COUNT 186 K/UL (150-450); RED CELL DISTRIBUTION WIDTH 12.5 % (11.6-14.8); WHITE BLOOD COUNT 3.2 K/UL (4.8-10.8)
[2018-12-16 11:59] LABS: ALANINE AMINOTRANSFERASE 23 U/L (12-78); ALKALINE PHOSPHATASE 78 U/L (46-116); ANION GAP 8 mmol/L (5-15); ASPARTATE AMINO TRANSFERASE 18 U/L (15-37); BILIRUBIN,TOTAL 0.3 MG/DL (0.2-1.0); BLOOD UREA NITROGEN 20 mg/dL (7-18); CALCIUM 9.1 MG/DL (8.5-10.1); CARBON DIOXIDE 25 MMOL/L (21-32); CHLORIDE 111 MMOL/L (98-107); CREATININE 0.9 MG/DL (0.55-1.30); POTASSIUM 4.2 MMOL/L (3.5-5.1); SODIUM 144 MMOL/L (136-145)
[2018-12-16 12:00] VITALS: BP 104/60
[2018-12-16] MEDS ORDERED: Sennosides 8.6mg tab ORAL PRN (13:45)
--- NOTE | 2018-12-16 14:49 | Consultation ---
History of Present Illness General Date patient seen: Dec 17, 2018 Chief Complaint: Abdominal Pain Referring physician: TOAN GOLDSTEIN Reason for Consultation: ABDOMINAL PAIN Present Illness HPI 73-year-old female with hx of HTN, COPD, abdominal surgery, diverticulosis, rectal bleeding and prolapse presented to ER with CC of lower abdominal pain, intermittent for several months. She reports having cough as well as some rectal bleeding. No fever, chills reproted. She is admitted to med/surg for further treatment. Allergies: Coded Allergies: MORPHINE (Verified Allergy, Severe, 11/25/18) nausea/vomiting Medication History Scheduled Amlodipine Besylate/Benazepril 10-40 Mg (Lotrel 10-40 Mg Capsule), 1 CAP ORAL DAILY, (Reported) Aspirin* (Aspir 81*), 81 MG ORAL DAILY, (Reported) Dexlansoprazole (Dexilant), 60 MG ORAL DAILY, (Reported) Diphenhydramine Hcl* (Benadryl*), 25 MG ORAL DAILY, (Reported) Hydroxyzine Pamoate* (Vistaril*), 25 MG ORAL DAILY, (Reported) Linaclotide (Linzess), 145 MCG PO DAILY, (Reported) Lipase/Protease/Amylase (Creon Dr 24,000 Units Capsule), 2 EACH PO TID, ( Reported) Naloxegol Oxalate (Movantik), 25 MG PO DAILY, (Reported) Omeprazole (Omeprazole), 40 MG ORAL DAILY, (Reported) Scheduled PRN Albuterol Sulfate (Ventolin Hfa), 2 PUFFS INH EVERY 4 HOURS PRN for Shortness of Breath, (Reported) Alprazolam* (Xanax*), 2 MG ORAL TID PRN for PRN ANXIETY/AGITATION, (Reported) Discontinued Medications Allopurinol* (Allopurinol*), 100 MG ORAL DAILY, (Reported) Discontinued Reason: Pt stopped taking med Patient History Healthcare decision maker Resuscitation status Full Code Advanced Directive on File Past Medical/Surgical History Past Medical/Surgical History: (1) COPD (chronic obstructive pulmonary disease) (2) Pancreatitis (3) Internal hemorrhoids (4) Constipation (5) Rectal prolapse (6) HTN (hypertension) (7) Diverticulosis Review of Systems All Other Systems: negative except mentioned in HPI Physical Exam General Appearance: cachetic, thin Lines, tubes and drains: peripheral, central line HEENT: normocephalic, atraumatic Neck: non-tender, normal alignment Respiratory/Chest: lungs clear Breasts: no masses Cardiovascular/Chest: normal peripheral pulses, regular rhythm, no JVD Abdomen: normal bowel sounds, non tender Genitourinary/Rectal: normal genital exam Extremities: normal range of motion Last 24 Hour Vital Signs Date Time Temp Pulse Resp B/P (MAP) Pulse Ox O2 Delivery O2 Flow Rate FiO2 12/16/18 12:00 97.3 61 20 104/60 (75) 93 12/16/18 08:29 96/55 12/16/18 08:29 63 96/55 12/16/18 08:00 97.5 63 18 96/55 (69) 97 12/16/18 07:53 Room Air 12/16/18 04:45 98.1 74 17 98/58 (71) 95 12/16/18 00:35 97.9 70 17 99/74 (82) 95 12/15/18 23:34 Room Air 12/15/18 21:45 Room Air 12/15/18 21:45 97.6 12/15/18 21:45 98.4 74 18 115/64 (81) 97 12/15/18 21:15 97.8 78 20 116/78 96 Room Air 12/15/18 21:15 97.6 76 20 116/78 87 Room Air 12/15/18 19:54 97.6 74 20 118/72 95 Room Air 12/15/18 16:24 73 14 Room Air 12/15/18 16:24 97.9 75 14 112/60 96 Room Air 12/15/18 16:09 97.9 73 14 112/60 (77) 96 Room Air Intake and Output 12/15/18 12/16/18 19:00 07:00 Intake Total 0 ml 120 ml Balance 0 ml 120 ml Intake Oral 0 ml 120 ml # Voids 1 Laboratory Tests Test 12/15/18 16:45 12/15/18 18:45 12/16/18 10:45 White Blood Count 6.6 K/UL (4.8-10.8) 3.2 K/UL (4.8-10.8) #L Red Blood Count 4.02 M/UL (4.20-5.40) L 3.80 M/UL (4.20-5.40) L Hemoglobin 12.2 G/DL (12.0-16.0) 11.5 G/DL (12.0-16.0) L Hematocrit 37.4 % (37.0-47.0) 35.6 % (37.0-47.0) L Mean Corpuscular Volume 93 FL (80-99) 94 FL (80-99) Mean Corpuscular Hemoglobin 30.2 PG (27.0-31.0) 30.1 PG (27.0-31.0) Mean Corpuscular Hemoglobin Concent 32.5 G/DL (32.0-36.0) 32.1 G/DL (32.0-36.0) Red Cell Distribution Width 12.5 % (11.6-14.8) 12.5 % (11.6-14.8) Platelet Count 208 K/UL (150-450) 186 K/UL (150-450) Mean Platelet Volume 5.2 FL (6.5-10.1) L 5.6 FL (6.5-10.1) L Neutrophils (%) (Auto) 77.5 % (45.0-75.0) H % (45.0-75.0) Lymphocytes (%) (Auto) 9.5 % (20.0-45.0) L % (20.0-45.0) Monocytes (%) (Auto) 6.7 % (1.0-10.0) % (1.0-10.0) Eosinophils (%) (Auto) 5.1 % (0.0-3.0) H % (0.0-3.0) Basophils (%) (Auto) 1.2 % (0.0-2.0) % (0.0-2.0) Prothrombin Time 11.8 SEC (9.30-11.50) H Prothromb Time International Ratio 1.1 (0.9-1.1) Activated Partial Thromboplast Time 31 SEC (23-33) Sodium Level 144 MMOL/L (136-145) 144 MMOL/L (136-145) Potassium Level 3.8 MMOL/L (3.5-5.1) 4.2 MMOL/L (3.5-5.1) Chloride Level 109 MMOL/L (98-107) H 111 MMOL/L (98-107) H Carbon Dioxide Level 23 MMOL/L (21-32) 25 MMOL/L (21-32) Anion Gap 12 mmol/L (5-15) 8 mmol/L (5-15) Blood Urea Nitrogen 31 mg/dL (7-18) H 20 mg/dL (7-18) H Creatinine 1.5 MG/DL (0.55-1.30) H 0.9 MG/DL (0.55-1.30) Estimat Glomerular Filtration Rate mL/min (>60) mL/min (>60) Glucose Level 112 MG/DL (74-106) H 75 MG/DL (74-106) Calcium Level 8.9 MG/DL (8.5-10.1) 9.1 MG/DL (8.5-10.1) Total Bilirubin 0.4 MG/DL (0.2-1.0) 0.3 MG/DL (0.2-1.0) Aspartate Amino Transf (AST/SGOT) 19 U/L (15-37) 18 U/L (15-37) Alanine Aminotransferase (ALT/SGPT) 27 U/L (12-78) 23 U/L (12-78) Alkaline Phosphatase 91 U/L (46-116) 78 U/L (46-116) Troponin I 0.000 ng/mL (0.000-0.056) Total Protein 6.6 G/DL (6.4-8.2) 6.1 G/DL (6.4-8.2) L Albumin 3.8 G/DL (3.4-5.0) 3.0 G/DL (3.4-5.0) L Globulin 2.8 g/dL 3.1 g/dL Albumin/Globulin Ratio 1.4 (1.0-2.7) 1.0 (1.0-2.7) Thyroid Stimulating Hormone (TSH) 1.277 uiU/mL (0.358-3.740) Urine Color Pale yellow Urine Appearance Clear Urine pH 6 (4.5-8.0) Urine Specific [place] 1.010 (1.005-1.035) Urine Protein Negative (NEGATIVE) Urine Glucose (UA) Negative (NEGATIVE) Urine Ketones Negative (NEGATIVE) Urine Blood Negative (NEGATIVE) Urine Nitrite Negative (NEGATIVE) Urine Bilirubin Negative (NEGATIVE) Urine Urobilinogen Normal MG/DL (0.0-1.0) Urine Leukocyte Esterase 1+ (NEGATIVE) H Urine RBC 0-2 /HPF (0 - 2) Urine WBC 0-2 /HPF (0 - 2) Urine Squamous Epithelial Cells Occasional /LPF Urine Bacteria None /HPF (NONE) Differential Total Cells Counted 100 Neutrophils % (Manual) 64 % (45-75) Lymphocytes % (Manual) 15 % (20-45) L Monocytes % (Manual) 11 % (1-10) H Eosinophils % (Manual) 9 % (0-3) H Basophils % (Manual) 1 % (0-2) Band Neutrophils 0 % (0-8) Platelet Estimate Adequate Platelet Morphology Normal Anisocytosis 1+ Height (Feet): 5 Height (Inches): 3.00 Weight (Pounds): 114 Medications Current Medications Medications (Trade) Dose Ordered Sig/Divya Route PRN Reason Start Time Stop Time Status Last Admin Dose Admin Acetaminophen/ Hydrocodone Bitart ([place] 10/325) 1 tab Q4H PRN ORAL For Pain 12/15/18 23:15 12/22/18 23:14 12/16/18 11:42 Allopurinol (Zyloprim) 100 mg DAILY ORAL 12/16/18 09:00 01/15/19 08:59 12/16/18 08:30 Alprazolam (Xanax) 2 mg THREE TIMES A DAY PRN ORAL anxiety/agitation 12/15/18 23:15 12/22/18 23:14 12/16/18 08:34 Amlodipine Besylate (Norvasc) 10 mg DAILY ORAL 12/16/18 09:00 01/15/19 08:59 Amylase/Lipase/ Protease (Zenpep) 1 ea DAILY ORAL 12/17/18 09:00 01/16/19 08:59 Benazepril HCl (Lotensin) 40 mg DAILY ORAL 12/16/18 09:00 01/15/19 08:59 Docusate Sodium (Colace) 100 mg THREE TIMES A DAY ORAL 12/16/18 18:00 01/15/19 17:59 Hydrocortisone (Anusol HC) 1 applic TWICE A DAY RECTAL 12/16/18 18:00 01/15/19 17:59 Non-Formulary Medication (Non-Formulary Med) 1 ea DAILY ORAL 12/16/18 09:00 7/31/19 08:59 UNV Pantoprazole (Protonix) 40 mg DAILY ORAL 12/17/18 09:00 01/16/19 08:59 Polyethylene Glycol (Miralax) 17 gm BEDTIME ORAL 12/16/18 21:00 01/15/19 20:59 Sennosides (Senokot) 8.6 mg DAILYPRN PRN ORAL Constipation 12/16/18 13:45 01/15/19 13:44 Assessment/Plan Problem List: (1) Rectal bleeding ICD Codes: K62.5 - Hemorrhage of anus and rectum SNOMED: 38809550 (2) COPD (chronic obstructive pulmonary disease) ICD Codes: J44.9 - COPD (chronic obstructive pulmonary disease) SNOMED: 43753311 (3) Diverticulosis ICD Codes: K57.90 - Diverticulosis SNOMED: 428658037 (4) HTN (hypertension) ICD Codes: I10 - Essential (primary) hypertension SNOMED: 39459675 (5) Constipation ICD Codes: K59.00 - Constipation SNOMED: 73405119 Assessment/Plan: NPO IV fluids check h/h prbc prn GI evaluation respiratory treatment symptomatic treatment dvt prophylaxis check electrolytes. Mina Zheng MD Dec 16, 2018 14:49
--- NOTE | 2018-12-16 15:21 | Consultation ---
History of Present Illness General Date patient seen: Dec 16, 2018 Reason for Hospitalization: Abdominal Pain Present Illness HPI 73 year old female well known to me from outpatient office visits and prior inpatient visits. She has known history of rectal prolapse and hemorrhoids. We have planned for outpatient colonoscopy and surgery in the past but follow up has been poor. She presented to ED with c/o lower abdominal pain. States she noted prolapse again recently and pain was not improving so she came for evaluation. Admitted for care and management. CT ordered and noted. patient seen, chart reviewed, patient examined. currently prolapse reduced. pain present but controlled. no n/v/f/c Allergies: Coded Allergies: MORPHINE (Verified Allergy, Severe, 11/25/18) nausea/vomiting Medication History Scheduled Allopurinol* (Allopurinol*), 100 MG ORAL DAILY, (Reported) Amlodipine Besylate/Benazepril 10-40 Mg (Lotrel 10-40 Mg Capsule), 1 CAP ORAL DAILY, (Reported) Dexlansoprazole (Dexilant), 60 MG ORAL DAILY, (Reported) Linaclotide (Linzess), 145 MCG PO DAILY, (Reported) Lipase/Protease/Amylase (Creon Dr 24,000 Units Capsule), 2 EACH PO TID, ( Reported) Scheduled PRN Alprazolam* (Xanax*), 2 MG ORAL TID PRN for PRN ANXIETY/AGITATION, (Reported) Patient History History Provided By: Patient, Medical Record, PMD Healthcare decision maker Resuscitation status Full Code Advanced Directive on File Past Medical/Surgical History Past Medical/Surgical History: (1) Common bile duct dilatation (2) Gastrointestinal hemorrhage (3) COPD (chronic obstructive pulmonary disease) (4) Diarrhea (5) Pancreatitis (6) Internal hemorrhoids (7) Esophagitis (8) Constipation (9) Rectal prolapse (10) Gastritis (11) Proctitis (12) HTN (hypertension) (13) Pancreatic duct dilated (14) Bleeding external hemorrhoids (15) Diverticulosis (16) GERD (gastroesophageal reflux disease) (17) Rectal bleeding Review of Systems Review of Symptoms General ROS: no weight loss or fever Psychological ROS: no depression or mood changes, no memory loss Ophthalmic ROS: no visual changes or eye irritation ENT ROS: no nasal congestion, hearing loss, dizziness Allergy and Immunology ROS: no allergic symptoms or urticaria Hematological and Lymphatic ROS: no swollen glands, unusual bleeding or bruising Endocrine ROS: no polyuria, polydipsia, weight changes, temperature intolerance Respiratory ROS: no cough, shortness of breath, or wheezing Cardiovascular ROS: no chest pain or dyspnea on exertion Gastrointestinal ROS: abdominal pain, no bright red blood in stool. Musculoskeletal ROS: no myalgias or arthralgias Neurological ROS: no TIA or stroke symptoms Dermatological ROS: no new or changing skin lesions, rashes or pruritis Physical Exam Physical Exam General appearance: alert, cooperative, no distress, appears stated age Head: Normocephalic, without obvious abnormality, atraumatic Eyes: conjunctivae/corneas clear. PERRL, EOM's intact. Fundi benign Throat: Lips, mucosa, and tongue normal. Teeth and gums normal Neck: supple, symmetrical, trachea midline, no adenopathy, thyroid: not enlarged, symmetric, no tenderness/mass/nodules, no carotid bruit and no JVD Lungs: clear to auscultation bilaterally Heart: regular rate and rhythm, S1, S2 normal, no murmur, click, rub or gallop Abdomen: soft, non-tender. Bowel sounds normal. No masses, no organomegaly Extremities: extremities normal, atraumatic, no cyanosis or edema Pulses: 2+ and symmetric Skin: Skin color, texture, turgor normal. No rashes or lesions Neurologic: Grossly normal Last 24 Hour Vital Signs Date Time Temp Pulse Resp B/P (MAP) Pulse Ox O2 Delivery O2 Flow Rate FiO2 12/16/18 12:00 97.3 61 20 104/60 (75) 93 12/16/18 08:29 96/55 12/16/18 08:29 63 96/55 12/16/18 08:00 97.5 63 18 96/55 (69) 97 12/16/18 07:53 Room Air 12/16/18 04:45 98.1 74 17 98/58 (71) 95 12/16/18 00:35 97.9 70 17 99/74 (82) 95 12/15/18 23:34 Room Air 12/15/18 21:45 Room Air 12/15/18 21:45 97.6 12/15/18 21:45 98.4 74 18 115/64 (81) 97 12/15/18 21:15 97.8 78 20 116/78 96 Room Air 6/30/19 21:15 97.6 76 20 116/78 87 Room Air 12/15/18 19:54 97.6 74 20 118/72 95 Room Air 12/15/18 16:24 73 14 Room Air 12/15/18 16:24 97.9 75 14 112/60 96 Room Air 12/15/18 16:09 97.9 73 14 112/60 (77) 96 Room Air Intake and Output 12/15/18 12/16/18 19:00 07:00 Intake Total 0 ml 120 ml Balance 0 ml 120 ml Intake Oral 0 ml 120 ml # Voids 1 Laboratory Tests Test 12/15/18 16:45 12/15/18 18:45 12/16/18 10:45 White Blood Count 6.6 K/UL (4.8-10.8) 3.2 K/UL (4.8-10.8) #L Red Blood Count 4.02 M/UL (4.20-5.40) L 3.80 M/UL (4.20-5.40) L Hemoglobin 12.2 G/DL (12.0-16.0) 11.5 G/DL (12.0-16.0) L Hematocrit 37.4 % (37.0-47.0) 35.6 % (37.0-47.0) L Mean Corpuscular Volume 93 FL (80-99) 94 FL (80-99) Mean Corpuscular Hemoglobin 30.2 PG (27.0-31.0) 30.1 PG (27.0-31.0) Mean Corpuscular Hemoglobin Concent 32.5 G/DL (32.0-36.0) 32.1 G/DL (32.0-36.0) Red Cell Distribution Width 12.5 % (11.6-14.8) 12.5 % (11.6-14.8) Platelet Count 208 K/UL (150-450) 186 K/UL (150-450) Mean Platelet Volume 5.2 FL (6.5-10.1) L 5.6 FL (6.5-10.1) L Neutrophils (%) (Auto) 77.5 % (45.0-75.0) H % (45.0-75.0) Lymphocytes (%) (Auto) 9.5 % (20.0-45.0) L % (20.0-45.0) Monocytes (%) (Auto) 6.7 % (1.0-10.0) % (1.0-10.0) Eosinophils (%) (Auto) 5.1 % (0.0-3.0) H % (0.0-3.0) Basophils (%) (Auto) 1.2 % (0.0-2.0) % (0.0-2.0) Prothrombin Time 11.8 SEC (9.30-11.50) H Prothromb Time International Ratio 1.1 (0.9-1.1) Activated Partial Thromboplast Time 31 SEC (23-33) Sodium Level 144 MMOL/L (136-145) 144 MMOL/L (136-145) Potassium Level 3.8 MMOL/L (3.5-5.1) 4.2 MMOL/L (3.5-5.1) Chloride Level 109 MMOL/L (98-107) H 111 MMOL/L (98-107) H Carbon Dioxide Level 23 MMOL/L (21-32) 25 MMOL/L (21-32) Anion Gap 12 mmol/L (5-15) 8 mmol/L (5-15) Blood Urea Nitrogen 31 mg/dL (7-18) H 20 mg/dL (7-18) H Creatinine 1.5 MG/DL (0.55-1.30) H 0.9 MG/DL (0.55-1.30) Estimat Glomerular Filtration Rate mL/min (>60) mL/min (>60) Glucose Level 112 MG/DL (74-106) H 75 MG/DL (74-106) Calcium Level 8.9 MG/DL (8.5-10.1) 9.1 MG/DL (8.5-10.1) Total Bilirubin 0.4 MG/DL (0.2-1.0) 0.3 MG/DL (0.2-1.0) Aspartate Amino Transf (AST/SGOT) 19 U/L (15-37) 18 U/L (15-37) Alanine Aminotransferase (ALT/SGPT) 27 U/L (12-78) 23 U/L (12-78) Alkaline Phosphatase 91 U/L (46-116) 78 U/L (46-116) Troponin I 0.000 ng/mL (0.000-0.056) Total Protein 6.6 G/DL (6.4-8.2) 6.1 G/DL (6.4-8.2) L Albumin 3.8 G/DL (3.4-5.0) 3.0 G/DL (3.4-5.0) L Globulin 2.8 g/dL 3.1 g/dL Albumin/Globulin Ratio 1.4 (1.0-2.7) 1.0 (1.0-2.7) Thyroid Stimulating Hormone (TSH) 1.277 uiU/mL (0.358-3.740) Urine Color Pale yellow Urine Appearance Clear Urine pH 6 (4.5-8.0) Urine Specific [place] 1.010 (1.005-1.035) Urine Protein Negative (NEGATIVE) Urine Glucose (UA) Negative (NEGATIVE) Urine Ketones Negative (NEGATIVE) Urine Blood Negative (NEGATIVE) Urine Nitrite Negative (NEGATIVE) Urine Bilirubin Negative (NEGATIVE) Urine Urobilinogen Normal MG/DL (0.0-1.0) Urine Leukocyte Esterase 1+ (NEGATIVE) H Urine RBC 0-2 /HPF (0 - 2) Urine WBC 0-2 /HPF (0 - 2) Urine Squamous Epithelial Cells Occasional /LPF Urine Bacteria None /HPF (NONE) Differential Total Cells Counted 100 Neutrophils % (Manual) 64 % (45-75) Lymphocytes % (Manual) 15 % (20-45) L Monocytes % (Manual) 11 % (1-10) H Eosinophils % (Manual) 9 % (0-3) H Basophils % (Manual) 1 % (0-2) Band Neutrophils 0 % (0-8) Platelet Estimate Adequate Platelet Morphology Normal Anisocytosis 1+ Height (Feet): 5 Height (Inches): 3.00 Weight (Pounds): 114 Medications Current Medications Medications (Trade) Dose Ordered Sig/Divya Route PRN Reason Start Time Stop Time Status Last Admin Dose Admin Acetaminophen/ Hydrocodone Bitart ([place] 10/325) 1 tab Q4H PRN ORAL For Pain 12/15/18 23:15 12/22/18 23:14 12/16/18 11:42 Allopurinol (Zyloprim) 100 mg DAILY ORAL 12/16/18 09:00 01/15/19 08:59 12/16/18 08:30 Alprazolam (Xanax) 2 mg THREE TIMES A DAY PRN ORAL anxiety/agitation 12/15/18 23:15 12/22/18 23:14 12/16/18 08:34 Amlodipine Besylate (Norvasc) 10 mg DAILY ORAL 12/16/18 09:00 01/15/19 08:59 Amylase/Lipase/ Protease (Zenpep) 1 ea DAILY ORAL 12/17/18 09:00 01/16/19 08:59 Benazepril HCl (Lotensin) 40 mg DAILY ORAL 12/16/18 09:00 01/15/19 08:59 Docusate Sodium (Colace) 100 mg THREE TIMES A DAY ORAL 12/16/18 18:00 01/15/19 17:59 Hydrocortisone (Anusol HC) 1 applic TWICE A DAY RECTAL 12/16/18 18:00 01/15/19 17:59 Non-Formulary Medication (Non-Formulary Med) 1 ea DAILY ORAL 12/16/18 09:00 01/15/19 08:59 UNV Pantoprazole (Protonix) 40 mg DAILY ORAL 12/17/18 09:00 01/16/19 08:59 Polyethylene Glycol (Miralax) 17 gm BEDTIME ORAL 12/16/18 21:00 01/15/19 20:59 Sennosides (Senokot) 8.6 mg DAILYPRN PRN ORAL Constipation 12/16/18 13:45 01/15/19 13:44 Assessment/Plan Problem List: (1) Common bile duct dilatation Assessment & Plan: CT noted MRCP ordered and Pending labs okay possible ERCP as per GI ICD Codes: K83.8 - Other specified diseases of biliary tract SNOMED: 139318182 (2) Gastrointestinal hemorrhage ICD Codes: K92.2 - Gastrointestinal hemorrhage, unspecified SNOMED: 81347866 (3) COPD (chronic obstructive pulmonary disease) ICD Codes: J44.9 - COPD (chronic obstructive pulmonary disease) SNOMED: 90898067 (4) Diarrhea ICD Codes: R19.7 - Diarrhea, unspecified SNOMED: 05618286 (5) Pancreatitis ICD Codes: K85.9 - Acute pancreatitis, unspecified SNOMED: 87855788 (6) Internal hemorrhoids ICD Codes: K64.8 - Internal hemorrhoids SNOMED: 13678361 (7) Esophagitis ICD Codes: K20.9 - Esophagitis, unspecified SNOMED: 64076418 (8) Constipation ICD Codes: K59.00 - Constipation SNOMED: 54798820 (9) Rectal prolapse Assessment & Plan: Hx of rectal prolapse and hemorrhoids has been offered surgery in past and has considered it but non compliant with follow outpatient currently rectal prolapse reduced and no acute bleeding noted will follow with recs ICD Codes: K62.3 - Rectal prolapse SNOMED: 39525964 (10) Gastritis ICD Codes: K29.70 - Gastritis SNOMED: 9480049 (11) Proctitis ICD Codes: K62.89 - Other specified diseases of anus and rectum SNOMED: 6043386 (12) HTN (hypertension) ICD Codes: I10 - Essential (primary) hypertension SNOMED: 26253662 (13) Pancreatic duct dilated ICD Codes: K86.89 - Other specified diseases of pancreas SNOMED: 567821571 (14) Bleeding external hemorrhoids ICD Codes: K64.4 - Residual hemorrhoidal skin tags SNOMED: 45756014 (15) Diverticulosis ICD Codes: K57.90 - Diverticulosis SNOMED: 230892888 (16) GERD (gastroesophageal reflux disease) ICD Codes: K21.9 - GERD (gastroesophageal reflux disease) SNOMED: 228776995 (17) Rectal bleeding ICD Codes: K62.5 - Hemorrhage of anus and rectum SNOMED: 12291376 Cheo Freire Dec 16, 2018 15:20
[2018-12-16 16:00] VITALS: BP 119/73
[2018-12-16] MEDS ORDERED: VENTOLIN HFA18 GM INH (18:03)
[2018-12-16] MEDS ORDERED: VISTARIL50 MG ORAL (18:04)
[2018-12-16] MEDS ORDERED: BENADRYL25 MG ORAL (18:05)
[2018-12-16] MEDS ORDERED: ASPIR 8181 MG ORAL (18:06)
[2018-12-16] MEDS ORDERED: OMEPRAZOLE40 M1 ORAL (18:06)
[2018-12-16] MEDS ORDERED: MOVANTIK25 MG PO (18:07)
[2018-12-16] MEDS: Docusate 100mg cap ORAL SCH (18:11)
--- NOTE | 2018-12-16 18:30 | NUR ---
NURSE NOTES:SPOKE TO MCKENNA(PTS.NEPHEW) RE;TO BRING THE RX BOTTLE OF NON FORMULARY MED.(LINACTOLIDE) BEV (PHARMACIST)INFORMED.
--- NOTE | 2018-12-16 19:18 | NUR ---
HAND-OFF: Report given to YVONNE RIVAS.PATIENT STABLE.
--- NOTE | 2018-12-16 19:20 | NUR ---
NURSE NOTES: Report taken from EVELYN Bustos. Patient is awake and in bed, A&Ox4. No signs of distress on room air. Having some pain through abdominal region 5/10 and rectum 5/10. Skin is intact. IV site c/d/i and patent, no fluid running currently. States that she has been coughing for some time and would like to see if she can get cough medicine. Bed in lowest position, call light within reach.
--- NOTE | 2018-12-16 19:37 | History & Physical ---
History and Physical History & Physicial Dictated for Int Med no. [id number]. Luis F Norman MD Dec 16, 2018 19:37
[2018-12-16 20:00] VITALS: BP 108/66
[2018-12-16] MEDS: Miralax 17gm pkt ORAL SCH (20:56)
[2018-12-16] MEDS: Guaifenesin/DM 10ml syrup ORAL PRN (21:03)
[2018-12-17] VITALS: BP 133/73
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
[2018-12-17 04:00] VITALS: BP 119/68
[2018-12-17] MEDS: HYDROcodone/Acetamin 10/325 tab ORAL PRN ×4 (04:05→20:22)
[2018-12-17 06:41] LABS: HEMATOCRIT 34.1 % (37.0-47.0); HEMOGLOBIN 11.2 G/DL (12.0-16.0); MEAN CORPUSCULAR VOLUME 94 FL (80-99); PLATELET COUNT 185 K/UL (150-450); RED BLOOD COUNT 3.65 M/UL (4.20-5.40); RED CELL DISTRIBUTION WIDTH 12.4 % (11.6-14.8); WHITE BLOOD COUNT 2.9 K/UL (4.8-10.8)
[2018-12-17 06:58] LABS: ANION GAP 10 mmol/L (5-15); BLOOD UREA NITROGEN 17 mg/dL (7-18); CARBON DIOXIDE 26 MMOL/L (21-32); CHLORIDE 109 MMOL/L (98-107); CREATININE 0.9 MG/DL (0.55-1.30); SODIUM 144 MMOL/L (136-145)
[2018-12-17 07:06] LABS: CALCIUM 8.9 MG/DL (8.5-10.1)
--- NOTE | 2018-12-17 07:09 | NUR ---
NURSE NOTES:REPORT GIVEN BY YVONNE RIVAS.BEDSIDE ROUNDS DONE,PT.ASLEEP,ROOM AIR,NAD.WILL CONTINUE CURRENT PLAN OF CARE.
--- NOTE | 2018-12-17 07:11 | NUR ---
HAND-OFF: Report given to EVELYN Bustos. VS stable.
[2018-12-17 08:00] VITALS: BP 108/62
[2018-12-17] MEDS: Allopurinol 100mg Tab ORAL SCH (08:17)
[2018-12-17] MEDS: Docusate 100mg cap ORAL SCH ×3 (08:17→17:50)
[2018-12-17] MEDS: Pancrelipase Dr Cap ORAL SCH (08:17)
--- NOTE | 2018-12-17 10:58 | GI Progress Note ---
Assessment/Plan Problems: (1) GERD (gastroesophageal reflux disease) ICD Codes: K21.9 - GERD (gastroesophageal reflux disease) SNOMED: 573592657 (2) Diverticulosis ICD Codes: K57.90 - Diverticulosis SNOMED: 478302456 (3) Bleeding external hemorrhoids ICD Codes: K64.4 - Residual hemorrhoidal skin tags SNOMED: 43772087 (4) Pancreatic duct dilated ICD Codes: K86.89 - Other specified diseases of pancreas SNOMED: 536799372 (5) Rectal prolapse ICD Codes: K62.3 - Rectal prolapse SNOMED: 71061528 (6) Constipation ICD Codes: K59.00 - Constipation SNOMED: 26854836 (7) Common bile duct dilatation ICD Codes: K83.8 - Other specified diseases of biliary tract SNOMED: 790846012 Status: stable Status Narrative Discussed with Dr. Villarreal. Assessment/Plan CTAP reviewed noted with increased biliary ductal dilation since last exam also with 2mm calcification possibly at the distal ampulla. Moderate fecal retention noted. EUS 11/25/18 SUMMARY OF FINDINGS: 1. Dilated both pancreatic duct and common bile duct. Common bile duct measured at the ampulla about 8.7 and pancreatic duct measured 5.8 and they both tapered down. Pancreatic duct tapered to about 2.2 in detail and common bile duct tapered to about 4.6. So, we have evidence of both the pancreatic duct and common bile duct mildly dilated without any obvious mass. 2. Also evidence of mild gallbladder sludge. RECOMMENDATIONS: MRCP taken pending final read, will consider ERCP and sphincterotomy if patient has continued abdominal pain. advance to regular diet bowel regime zofran prn H2B follow labs The patient was seen and examined at bedside and all new and available data was reviewed in the patients chart. I agree with the above findings, impression and plan. (Patient seen earlier today. Signature stamp does not reflect patient encounter time.). - Terry Villarreal MD Subjective Gastrointestinal/Abdominal: Reports: abdominal pain Subjective abdominal cramping Objective Last 24 Hour Vital Signs Date Time Temp Pulse Resp B/P (MAP) Pulse Ox O2 Delivery O2 Flow Rate FiO2 12/17/18 08:19 60 108/62 12/17/18 08:18 108/62 12/17/18 08:00 97.4 60 20 108/62 (77) 95 12/17/18 07:38 Room Air 12/17/18 04:00 97.8 61 18 119/68 (85) 92 12/17/18 00:00 97.7 63 17 133/73 (93) 96 12/16/18 21:00 Room Air 12/16/18 20:00 97.1 66 17 108/66 (80) 96 12/16/18 16:00 97.6 61 18 119/73 (88) 93 12/16/18 12:00 97.3 61 20 104/60 (75) 93 Intake and Output 12/16/18 12/17/18 19:00 07:00 Intake Total 500 ml 360 ml Balance 500 ml 360 ml Intake Oral 500 ml 360 ml # Voids 3 2 Laboratory Tests Test 12/17/18 04:50 White Blood Count 2.9 K/UL (4.8-10.8) L Red Blood Count 3.65 M/UL (4.20-5.40) L Hemoglobin 11.2 G/DL (12.0-16.0) L Hematocrit 34.1 % (37.0-47.0) L Mean Corpuscular Volume 94 FL (80-99) Mean Corpuscular Hemoglobin 30.7 PG (27.0-31.0) Mean Corpuscular Hemoglobin Concent 32.9 G/DL (32.0-36.0) Red Cell Distribution Width 12.4 % (11.6-14.8) Platelet Count 185 K/UL (150-450) Mean Platelet Volume 5.4 FL (6.5-10.1) L Neutrophils (%) (Auto) % (45.0-75.0) Lymphocytes (%) (Auto) % (20.0-45.0) Monocytes (%) (Auto) % (1.0-10.0) Eosinophils (%) (Auto) % (0.0-3.0) Basophils (%) (Auto) % (0.0-2.0) Differential Total Cells Counted 100 Neutrophils % (Manual) 66 % (45-75) Lymphocytes % (Manual) 19 % (20-45) L Monocytes % (Manual) 7 % (1-10) Eosinophils % (Manual) 7 % (0-3) H Basophils % (Manual) 1 % (0-2) Band Neutrophils 0 % (0-8) Platelet Estimate Adequate Platelet Morphology Normal Hypochromasia 1+ Anisocytosis 1+ Sodium Level 144 MMOL/L (136-145) Potassium Level 4.0 MMOL/L (3.5-5.1) Chloride Level 109 MMOL/L (98-107) H Carbon Dioxide Level 26 MMOL/L (21-32) Anion Gap 10 mmol/L (5-15) Blood Urea Nitrogen 17 mg/dL (7-18) Creatinine 0.9 MG/DL (0.55-1.30) Estimat Glomerular Filtration Rate mL/min (>60) Glucose Level 81 MG/DL (74-106) Calcium Level 8.9 MG/DL (8.5-10.1) Height (Feet): 5 Height (Inches): 3.00 Weight (Pounds): 114 General Appearance: WD/WN, no apparent distress, alert, thin Cardiovascular: normal rate Respiratory/Chest: normal breath sounds, no respiratory distress Abdominal Exam: normal bowel sounds, non tender, soft Extremities: normal range of motion, non-tender Petey Churchill NP Dec 17, 2018 10:58
[2018-12-17 12:00] VITALS: BP 139/71
[2018-12-17] MEDS: ALPRAZolam 0.5mg tab ORAL PRN ×2 (12:11→22:05)
--- NOTE | 2018-12-17 12:28 | Surgery Progress Note ---
Surgery Progress Note Subjective Additional Comments no acute events. labs stable no bleeding pain improved Objective Last 24 Hour Vital Signs Date Time Temp Pulse Resp B/P (MAP) Pulse Ox O2 Delivery O2 Flow Rate FiO2 12/17/18 08:19 60 108/62 12/17/18 08:18 108/62 12/17/18 08:00 97.4 60 20 108/62 (77) 95 12/17/18 07:38 Room Air 12/17/18 04:00 97.8 61 18 119/68 (85) 92 12/17/18 00:00 97.7 63 17 133/73 (93) 96 12/16/18 21:00 Room Air 12/16/18 20:00 97.1 66 17 108/66 (80) 96 12/16/18 16:00 97.6 61 18 119/73 (88) 93 I&O Intake and Output 12/16/18 12/17/18 19:00 07:00 Intake Total 500 ml 360 ml Balance 500 ml 360 ml Intake Oral 500 ml 360 ml # Voids 3 2 Cardiovascular: RSR Respiratory: clear Abdomen: soft, present bowel sounds, non-distended Extremities: no tenderness, no cyanosis Laboratory Tests Test 12/17/18 04:50 White Blood Count 2.9 K/UL (4.8-10.8) L Red Blood Count 3.65 M/UL (4.20-5.40) L Hemoglobin 11.2 G/DL (12.0-16.0) L Hematocrit 34.1 % (37.0-47.0) L Mean Corpuscular Volume 94 FL (80-99) Mean Corpuscular Hemoglobin 30.7 PG (27.0-31.0) Mean Corpuscular Hemoglobin Concent 32.9 G/DL (32.0-36.0) Red Cell Distribution Width 12.4 % (11.6-14.8) Platelet Count 185 K/UL (150-450) Mean Platelet Volume 5.4 FL (6.5-10.1) L Neutrophils (%) (Auto) % (45.0-75.0) Lymphocytes (%) (Auto) % (20.0-45.0) Monocytes (%) (Auto) % (1.0-10.0) Eosinophils (%) (Auto) % (0.0-3.0) Basophils (%) (Auto) % (0.0-2.0) Differential Total Cells Counted 100 Neutrophils % (Manual) 66 % (45-75) Lymphocytes % (Manual) 19 % (20-45) L Monocytes % (Manual) 7 % (1-10) Eosinophils % (Manual) 7 % (0-3) H Basophils % (Manual) 1 % (0-2) Band Neutrophils 0 % (0-8) Platelet Estimate Adequate Platelet Morphology Normal Hypochromasia 1+ Anisocytosis 1+ Sodium Level 144 MMOL/L (136-145) Potassium Level 4.0 MMOL/L (3.5-5.1) Chloride Level 109 MMOL/L (98-107) H Carbon Dioxide Level 26 MMOL/L (21-32) Anion Gap 10 mmol/L (5-15) Blood Urea Nitrogen 17 mg/dL (7-18) Creatinine 0.9 MG/DL (0.55-1.30) Estimat Glomerular Filtration Rate mL/min (>60) Glucose Level 81 MG/DL (74-106) Calcium Level 8.9 MG/DL (8.5-10.1) Plan Problems: (1) Common bile duct dilatation Assessment & Plan: CT noted MRCP ordered and Pending labs okay possible ERCP as per GI (2) Gastrointestinal hemorrhage (3) COPD (chronic obstructive pulmonary disease) (4) Diarrhea (5) Pancreatitis (6) Internal hemorrhoids (7) Esophagitis (8) Constipation (9) Rectal prolapse Assessment & Plan: Hx of rectal prolapse and hemorrhoids has been offered surgery in past and has considered it but non compliant with follow outpatient currently rectal prolapse reduced and no acute bleeding noted will follow with recs (10) Gastritis (11) Proctitis (12) HTN (hypertension) (13) Pancreatic duct dilated (14) Bleeding external hemorrhoids (15) Diverticulosis (16) GERD (gastroesophageal reflux disease) (17) Rectal bleeding Cheo Freire Dec 17, 2018 12:28
--- NOTE | 2018-12-17 13:13 | Pulmonology Progress Note ---
Assessment/Plan Problems: (1) Rectal bleeding (2) COPD (chronic obstructive pulmonary disease) (3) Diverticulosis (4) HTN (hypertension) (5) Constipation Assessment/Plan advance diet all noted IV fluids check h/h prbc prn GI evaluation respiratory treatment symptomatic treatment dvt prophylaxis check electrolytes. Subjective ROS Limited/Unobtainable: No Constitutional: Reports: no symptoms HEENT: Repors: no symptoms Allergies: Coded Allergies: MORPHINE (Verified Allergy, Severe, 11/25/18) nausea/vomiting Objective Last 24 Hour Vital Signs Date Time Temp Pulse Resp B/P (MAP) Pulse Ox O2 Delivery O2 Flow Rate FiO2 12/17/18 12:00 97.8 62 20 139/71 (93) 94 12/17/18 08:19 60 108/62 12/17/18 08:18 108/62 12/17/18 08:00 97.4 60 20 108/62 (77) 95 12/17/18 07:38 Room Air 12/17/18 04:00 97.8 61 18 119/68 (85) 92 12/17/18 00:00 97.7 63 17 133/73 (93) 96 12/16/18 21:00 Room Air 12/16/18 20:00 97.1 66 17 108/66 (80) 96 12/16/18 16:00 97.6 61 18 119/73 (88) 93 Intake and Output 12/16/18 12/17/18 19:00 07:00 Intake Total 500 ml 360 ml Balance 500 ml 360 ml Intake Oral 500 ml 360 ml # Voids 3 2 General Appearance: WD/WN HEENT: normocephalic, atraumatic Respiratory/Chest: chest wall non-tender, lungs clear Cardiovascular: normal rate Abdomen: normal bowel sounds, no organomegaly Genitourinary: normal external genitalia Microbiology Date/Time Source Procedure Growth Status 12/16/18 05:00 Nasal Nares MRSA Culture - Final NO METHICILLIN RESISTANT STAPH AUREUS... Complete Laboratory Tests 12/17/18 04:50: White Blood Count 2.9L, Red Blood Count 3.65L, Hemoglobin 11.2L, Hematocrit 34.1L, Mean Corpuscular Volume 94, Mean Corpuscular Hemoglobin 30.7, Mean Corpuscular Hemoglobin Concent 32.9, Red Cell Distribution Width 12.4, Platelet Count 185, Mean Platelet Volume 5.4L, Neutrophils (%) (Auto) , Lymphocytes (%) ( Auto) , Monocytes (%) (Auto) , Eosinophils (%) (Auto) , Basophils (%) (Auto) , Differential Total Cells Counted 100, Neutrophils % (Manual) 66, Lymphocytes % ( Manual) 19L, Monocytes % (Manual) 7, Eosinophils % (Manual) 7H, Basophils % ( Manual) 1, Band Neutrophils 0, Platelet Estimate Adequate, Platelet Morphology Normal, Hypochromasia 1+, Anisocytosis 1+, Sodium Level 144, Potassium Level 4.0 , Chloride Level 109H, Carbon Dioxide Level 26, Anion Gap 10, Blood Urea Nitrogen 17, Creatinine 0.9, Estimat Glomerular Filtration Rate , Glucose Level 81, Calcium Level 8.9 Current Medications Medications (Trade) Dose Ordered Sig/Divya Route PRN Reason Start Time Stop Time Status Last Admin Dose Admin Acetaminophen/ Hydrocodone Bitart ([place] 10/325) 1 tab Q4H PRN ORAL For Pain 12/15/18 23:15 12/22/18 23:14 12/17/18 08:20 Allopurinol (Zyloprim) 100 mg DAILY ORAL 12/16/18 09:00 01/15/19 08:59 12/17/18 08:17 Alprazolam (Xanax) 2 mg THREE TIMES A DAY PRN ORAL anxiety/agitation 12/15/18 23:15 12/22/18 23:14 12/17/18 12:11 Amlodipine Besylate (Norvasc) 10 mg DAILY ORAL 12/16/18 09:00 01/15/19 08:59 12/17/18 08:19 Amylase/Lipase/ Protease (Zenpep) 1 ea DAILY ORAL 12/17/18 09:00 01/16/19 08:59 12/17/18 08:17 Benazepril HCl (Lotensin) 40 mg DAILY ORAL 12/16/18 09:00 01/15/19 08:59 12/17/18 08:18 Docusate Sodium (Colace) 100 mg THREE TIMES A DAY ORAL 12/16/18 18:00 01/15/19 17:59 12/17/18 12:10 Guaifenesin/ Dextromethorphan (Robitussin DM Syrup) 10 ml Q4H PRN ORAL For Cough 12/16/18 20:00 01/15/19 19:59 12/16/18 21:03 Hydrocortisone (Anusol HC) 1 applic TWICE A DAY RECTAL 12/16/18 18:00 01/15/19 17:59 12/17/18 08:24 Pantoprazole (Protonix) 40 mg DAILY ORAL 12/17/18 09:00 01/16/19 08:59 12/17/18 08:18 Patient Own Medication (Patient's Own Med) 1 ea DAILY ORAL 12/17/18 13:00 01/16/19 12:59 Polyethylene Glycol (Miralax) 17 gm BEDTIME ORAL 12/16/18 21:00 01/15/19 20:59 12/16/18 20:56 Sennosides (Senokot) 8.6 mg DAILYPRN PRN ORAL Constipation 12/16/18 13:45 01/15/19 13:44 Mina Zheng MD Dec 17, 2018 13:13
[2018-12-17] MEDS: LINZESS 145 MCG ORAL SCH (13:16)
--- NOTE | 2018-12-17 15:15 | Diagnostic Imaging Report ---
Indication: Biliary ductal dilatation/obstruction. Abdominal pain Technique: MRI of the abdomen was performed in a 1.5 Anuradha magnet. Pulse sequences obtained include coronal and axial T2 single shot fast spin echo breathhold and respiratory gated coronal T2 3-D M.R.C.P.; this data set was displayed in different projections or MIPs. In addition, multiple coronal oblique thin T2 weighted, fat saturated SE sequences obtained through the CBD. Comparison: CT abdomen 12/15/2018 Findings: The study is degraded by motion. There is moderate biliary ductal dilatation demonstrated. The distal CBD there is a abrupt cut off of the fluid-filled biliary ductal: Suspicious for a stone. The main pancreatic duct is also dilated measures about 1 cm. The CBD measures about 1.2 cm. Gallbladder is distended but no obvious gallstones are seen on the current study. There are multiple cysts within both kidneys demonstrated. These are both cortical as well as parapelvic. There is a large parapelvic cyst versus a extrarenal dilated renal pelvis in the left kidney measuring approximately 7 cm. There is no ureteral dilatation bilaterally as visualized. IMPRESSION: Intrahepatic and extrahepatic biliary ductal dilatation with abrupt cut off in the distal CBD suspicious for stone. Dilated main pancreatic duct likely also obstructed. Evaluation is limited due to breathing motion which is significant. Multiple bilateral renal cysts. Dilated left renal pelvis versus a large parapelvic cyst. If the former, suspect chronic UPJ obstruction.
[2018-12-17 16:00] VITALS: BP 107/64
--- NOTE | 2018-12-17 17:33 | Internal Med Progress Note ---
Subjective Date of Service: Dec 17, 2018 Physician Name Luis F Norman Attending Physician Luis F Norman MD Current Medications Medications (Trade) Dose Ordered Sig/Divya Route PRN Reason Start Time Stop Time Status Last Admin Dose Admin Acetaminophen/ Hydrocodone Bitart ([place] 10/325) 1 tab Q4H PRN ORAL For Pain 12/15/18 23:15 12/22/18 23:14 12/17/18 13:16 Allopurinol (Zyloprim) 100 mg DAILY ORAL 12/16/18 09:00 01/15/19 08:59 12/17/18 08:17 Alprazolam (Xanax) 2 mg THREE TIMES A DAY PRN ORAL anxiety/agitation 12/15/18 23:15 12/22/18 23:14 12/17/18 12:11 Amlodipine Besylate (Norvasc) 10 mg DAILY ORAL 12/16/18 09:00 01/15/19 08:59 12/17/18 08:19 Amylase/Lipase/ Protease (Zenpep) 1 ea DAILY ORAL 12/17/18 09:00 01/16/19 08:59 12/17/18 08:17 Benazepril HCl (Lotensin) 40 mg DAILY ORAL 12/16/18 09:00 01/15/19 08:59 12/17/18 08:18 Docusate Sodium (Colace) 100 mg THREE TIMES A DAY ORAL 12/16/18 18:00 01/15/19 17:59 12/17/18 12:10 Guaifenesin/ Dextromethorphan (Robitussin DM Syrup) 10 ml Q4H PRN ORAL For Cough 12/16/18 20:00 01/15/19 19:59 12/16/18 21:03 Hydrocortisone (Anusol HC) 1 applic TWICE A DAY RECTAL 12/16/18 18:00 01/15/19 17:59 12/17/18 08:24 Pantoprazole (Protonix) 40 mg DAILY ORAL 12/17/18 09:00 01/16/19 08:59 12/17/18 08:18 Patient Own Medication (Patient's Own Med) 1 ea DAILY ORAL 12/17/18 13:00 01/16/19 12:59 12/17/18 13:16 Polyethylene Glycol (Miralax) 17 gm BEDTIME ORAL 12/16/18 21:00 01/15/19 20:59 12/16/18 20:56 Sennosides (Senokot) 8.6 mg DAILYPRN PRN ORAL Constipation 12/16/18 13:45 01/15/19 13:44 Allergies: Coded Allergies: MORPHINE (Verified Allergy, Severe, 11/25/18) nausea/vomiting ROS Limited/Unobtainable: No Constitutional: Reports: no symptoms HEENT: Reports: no symptoms Cardiovascular: Reports: no symptoms Respiratory: Reports: no symptoms Gastrointestinal/Abdominal: Reports: abdominal pain, rectal bleeding Genitourinary: Reports: no symptoms Neurologic/Psychiatric: Reports: no symptoms Subjective 73 YO F admitted with abdominal pain and rectal bleeding. Now distal common bile duct stone. Objective Last Vital Signs Date Time Temp Pulse Resp B/P (MAP) Pulse Ox O2 Delivery O2 Flow Rate FiO2 12/17/18 16:00 97.8 63 20 107/64 (78) 95 12/17/18 07:38 Room Air Laboratory Tests Test 12/17/18 04:50 White Blood Count 2.9 K/UL (4.8-10.8) L Red Blood Count 3.65 M/UL (4.20-5.40) L Hemoglobin 11.2 G/DL (12.0-16.0) L Hematocrit 34.1 % (37.0-47.0) L Mean Corpuscular Volume 94 FL (80-99) Mean Corpuscular Hemoglobin 30.7 PG (27.0-31.0) Mean Corpuscular Hemoglobin Concent 32.9 G/DL (32.0-36.0) Red Cell Distribution Width 12.4 % (11.6-14.8) Platelet Count 185 K/UL (150-450) Mean Platelet Volume 5.4 FL (6.5-10.1) L Neutrophils (%) (Auto) % (45.0-75.0) Lymphocytes (%) (Auto) % (20.0-45.0) Monocytes (%) (Auto) % (1.0-10.0) Eosinophils (%) (Auto) % (0.0-3.0) Basophils (%) (Auto) % (0.0-2.0) Differential Total Cells Counted 100 Neutrophils % (Manual) 66 % (45-75) Lymphocytes % (Manual) 19 % (20-45) L Monocytes % (Manual) 7 % (1-10) Eosinophils % (Manual) 7 % (0-3) H Basophils % (Manual) 1 % (0-2) Band Neutrophils 0 % (0-8) Platelet Estimate Adequate Platelet Morphology Normal Hypochromasia 1+ Anisocytosis 1+ Sodium Level 144 MMOL/L (136-145) Potassium Level 4.0 MMOL/L (3.5-5.1) Chloride Level 109 MMOL/L (98-107) H Carbon Dioxide Level 26 MMOL/L (21-32) Anion Gap 10 mmol/L (5-15) Blood Urea Nitrogen 17 mg/dL (7-18) Creatinine 0.9 MG/DL (0.55-1.30) Estimat Glomerular Filtration Rate mL/min (>60) Glucose Level 81 MG/DL (74-106) Calcium Level 8.9 MG/DL (8.5-10.1) Microbiology Date/Time Source Procedure Growth Status 12/16/18 05:00 Nasal Nares MRSA Culture - Final NO METHICILLIN RESISTANT STAPH AUREUS... Complete Intake and Output 12/16/18 12/17/18 19:00 07:00 Intake Total 500 ml 360 ml Balance 500 ml 360 ml Intake Oral 500 ml 360 ml # Voids 3 2 Objective PHYSICAL EXAMINATION: GENERAL: The patient is a well-developed and well-nourished female, in no apparent distress. HEENT: Eyes, pupils are equal and responsive to light and accommodation. Extraocular movements are intact. NECK: Supple. No lymphadenopathy. CHEST: Lungs are clear to auscultation bilaterally without wheezes or rales. CARDIOVASCULAR: Regular rhythm and rate. S1 and S2 are normal without murmurs, rubs, or gallops. ABDOMEN: Soft, nontender, and nondistended. Positive bowel sounds. No evidence of hepatosplenomegaly. Currently, no rebound or guarding noted. EXTREMITIES: Negative for clubbing, cyanosis, or edema. RECTAL/GENITAL: Not performed. NEUROLOGIC: Cranial nerves II through XII are grossly intact without focal deficits. Motor strength is 5/5 bilaterally. Deep tendon reflexes are 2+ Assessment/Plan Assessment/Plan ASSESSMENT: This is a 73-year-old female. 1. Cholecystitis. 2. Cholelithiasis. 3. Rectal bleeding. 4. Abdominal pain. 5. Chronic obstructive pulmonary disease. 6. Hypertension. 7. Gout. 8. Bilateral foot neuropathy. 9. History of renal cyst. 10. History of proctitis. 11. Internal hemorrhoids. 12. Diverticulosis. TREATMENT: 1. Cholecystitis/cholelithiasis. A General Surgery consultation has been obtained with Dr. Freire. A Gastroenterology consultation has been obtained with Dr. Terry Villarreal. The patient may require endoscopic retrograde cholangiopancreatography versus cholecystectomy. We will follow recommendations of GI and Surgery. 2. Rectal bleeding as above. A Gastroenterology consultation has been obtained with Dr. Terry Villarreal. This may be secondary to diverticulosis versus hemorrhoids. We will follow recommendations of Gastroenterology. 3. Hypertension. Continue Lotrel as above. 4. Gout. 5. Neuropathy of the feet. 6. History of proctitis. 7. History of internal hemorrhoids. 8. History of renal cyst. 9. Chronic obstructive pulmonary disease. A Pulmonary consultation has been obtained with Dr. Mina Zheng. 10. MRCP=distal common bile duct stone Luis F Norman MD Dec 17, 2018 17:33
[2018-12-17] MEDS: Guaifenesin/DM 10ml syrup ORAL PRN (17:52)
--- NOTE | 2018-12-17 19:20 | NUR ---
HAND-OFF: Report given to ALBERT RIVAS.PATIENT STABLE.
--- NOTE | 2018-12-17 19:30 | NUR ---
NURSE NOTES: Received a report from EVELYN Bustos. Rounds done. Pt is awake and alert lying in bed. Will continue to monitor.
[2018-12-17 20:00] VITALS: BP 115/66
[2018-12-17] MEDS: Miralax 17gm pkt ORAL SCH (20:13)
--- NOTE | 2018-12-17 21:00 | NUR ---
NURSE NOTES: Pt is awake alert. No respiratory distress noted. But complains pain from OH, right shoulder, chin, and lower abdomen. Given PRN [place] 10/325mg 1 t po and relieved pain not very much. Denies to take more pain medication. No coughing noted. Leave call light within reach. Bed is locked and lowest. Will continue to monitor.
[2018-12-18 00:58] VITALS: BP 134/64
[2018-12-18] MEDS: Guaifenesin/DM 10ml syrup ORAL PRN (01:10)
[2018-12-18] MEDS: HYDROcodone/Acetamin 10/325 tab ORAL PRN ×2 (01:15→09:38)
[2018-12-18 04:30] VITALS: BP 136/63
[2018-12-18 06:39] LABS: ALANINE AMINOTRANSFERASE 17 U/L (12-78); ALBUMIN 3.2 G/DL (3.4-5.0); ALBUMIN/GLOBULIN RATIO 1.2 (1.0-2.7); ALKALINE PHOSPHATASE 74 U/L (46-116); ANION GAP 7 mmol/L (5-15); ASPARTATE AMINO TRANSFERASE 17 U/L (15-37); BILIRUBIN,TOTAL 0.3 MG/DL (0.2-1.0); BLOOD UREA NITROGEN 17 mg/dL (7-18); CALCIUM 8.7 MG/DL (8.5-10.1); CARBON DIOXIDE 28 MMOL/L (21-32); CHLORIDE 108 MMOL/L (98-107); CREATININE 0.9 MG/DL (0.55-1.30); POTASSIUM 4.3 MMOL/L (3.5-5.1); SODIUM 143 MMOL/L (136-145)
[2018-12-18 06:55] LABS: HEMATOCRIT 34.7 % (37.0-47.0); HEMOGLOBIN 11.3 G/DL (12.0-16.0); MEAN CORPUSCULAR VOLUME 93 FL (80-99); PLATELET COUNT 188 K/UL (150-450); RED BLOOD COUNT 3.72 M/UL (4.20-5.40); RED CELL DISTRIBUTION WIDTH 12.2 % (11.6-14.8); WHITE BLOOD COUNT 3.2 K/UL (4.8-10.8)
--- NOTE | 2018-12-18 07:30 | NUR ---
HAND-OFF: Report given to EVELYN Piper. Pt is stable condition. Done round.
--- NOTE | 2018-12-18 07:45 | NUR ---
NURSE NOTES: Received report from Gho RN. Patient is awake alert and oriented x4, no acute distress noted. Reporting some abdominal pain, will medicate per order. IV intact, asymptomatic. SCD's off at this time, patient reports she gets up, goes to bathroom, and walks around room independently. Patient updated on plan of care for the day. Fall precautions maintained. Side rails upx3, bed low and locked, call light in reach, bed alarm armed. Will continue to monitor.
[2018-12-18 08:00] VITALS: BP 99/49
[2018-12-18 09:30] VITALS: BP 130/73
[2018-12-18] MEDS: Pancrelipase Dr Cap ORAL SCH (09:37)
[2018-12-18] MEDS: Docusate 100mg cap ORAL SCH ×3 (09:38→18:00)
[2018-12-18] MEDS: Allopurinol 100mg Tab ORAL SCH (09:38)
[2018-12-18] MEDS: LINZESS 145 MCG ORAL SCH (09:39)
--- NOTE | 2018-12-18 10:55 | GI Progress Note ---
Assessment/Plan Problems: (1) GERD (gastroesophageal reflux disease) ICD Codes: K21.9 - GERD (gastroesophageal reflux disease) SNOMED: 207149851 (2) Diverticulosis ICD Codes: K57.90 - Diverticulosis SNOMED: 409676125 (3) Bleeding external hemorrhoids ICD Codes: K64.4 - Residual hemorrhoidal skin tags SNOMED: 60876394 (4) Rectal prolapse ICD Codes: K62.3 - Rectal prolapse SNOMED: 58203942 (5) Constipation ICD Codes: K59.00 - Constipation SNOMED: 26866812 (6) Common bile duct dilatation ICD Codes: K83.8 - Other specified diseases of biliary tract SNOMED: 393713256 Status: unchanged Status Narrative Discussed with Dr. Villarreal Assessment/Plan CTAP reviewed noted with increased biliary ductal dilation since last exam also with 2mm calcification possibly at the distal ampulla. Moderate fecal retention noted. EUS 11/25/18 SUMMARY OF FINDINGS: 1. Dilated both pancreatic duct and common bile duct. Common bile duct measured at the ampulla about 8.7 and pancreatic duct measured 5.8 and they both tapered down. Pancreatic duct tapered to about 2.2 in detail and common bile duct tapered to about 4.6. So, we have evidence of both the pancreatic duct and common bile duct mildly dilated without any obvious mass. 2. Also evidence of mild gallbladder sludge. MRCP reviewed noted with stone in the distal common bile duct. RECOMMENDATIONS: outpatient ERCP okay for DC per GI standpoint The patient was seen and examined at bedside and all new and available data was reviewed in the patients chart. I agree with the above findings, impression and plan. (Patient seen earlier today. Signature stamp does not reflect patient encounter time.). - Terry Villarreal MD Subjective Subjective abdominal cramping and pain Objective Last 24 Hour Vital Signs Date Time Temp Pulse Resp B/P (MAP) Pulse Ox O2 Delivery O2 Flow Rate FiO2 12/18/18 09:37 130/73 12/18/18 09:37 64 130/73 12/18/18 09:30 64 130/73 (92) 12/18/18 08:00 97.6 62 20 99/49 (66) 98 12/18/18 04:30 97.6 63 18 136/63 (87) 94 12/18/18 00:58 97.9 61 18 134/64 (87) 96 12/17/18 21:00 Room Air 12/17/18 20:00 98.5 60 18 115/66 (82) 95 12/17/18 16:00 97.8 63 20 107/64 (78) 95 12/17/18 12:00 97.8 62 20 139/71 (93) 94 Intake and Output 12/17/18 12/18/18 19:00 07:00 Intake Total 800 ml 300 ml Balance 800 ml 300 ml Intake Oral 800 ml 300 ml # Voids 4 2 Laboratory Tests Test 12/18/18 04:40 White Blood Count 3.2 K/UL (4.8-10.8) L Red Blood Count 3.72 M/UL (4.20-5.40) L Hemoglobin 11.3 G/DL (12.0-16.0) L Hematocrit 34.7 % (37.0-47.0) L Mean Corpuscular Volume 93 FL (80-99) Mean Corpuscular Hemoglobin 30.5 PG (27.0-31.0) Mean Corpuscular Hemoglobin Concent 32.7 G/DL (32.0-36.0) Red Cell Distribution Width 12.2 % (11.6-14.8) Platelet Count 188 K/UL (150-450) Mean Platelet Volume 5.3 FL (6.5-10.1) L Neutrophils (%) (Auto) % (45.0-75.0) Lymphocytes (%) (Auto) % (20.0-45.0) Monocytes (%) (Auto) % (1.0-10.0) Eosinophils (%) (Auto) % (0.0-3.0) Basophils (%) (Auto) % (0.0-2.0) Differential Total Cells Counted 100 Neutrophils % (Manual) 62 % (45-75) Lymphocytes % (Manual) 19 % (20-45) L Monocytes % (Manual) 9 % (1-10) Eosinophils % (Manual) 10 % (0-3) H Basophils % (Manual) 0 % (0-2) Band Neutrophils 0 % (0-8) Platelet Estimate Adequate Platelet Morphology Normal Red Blood Cell Morphology Normal Sodium Level 143 MMOL/L (136-145) Potassium Level 4.3 MMOL/L (3.5-5.1) Chloride Level 108 MMOL/L (98-107) H Carbon Dioxide Level 28 MMOL/L (21-32) Anion Gap 7 mmol/L (5-15) Blood Urea Nitrogen 17 mg/dL (7-18) Creatinine 0.9 MG/DL (0.55-1.30) Estimat Glomerular Filtration Rate mL/min (>60) Glucose Level 72 MG/DL (74-106) L Calcium Level 8.7 MG/DL (8.5-10.1) Total Bilirubin 0.3 MG/DL (0.2-1.0) Aspartate Amino Transf (AST/SGOT) 17 U/L (15-37) Alanine Aminotransferase (ALT/SGPT) 17 U/L (12-78) Alkaline Phosphatase 74 U/L (46-116) Total Protein 5.9 G/DL (6.4-8.2) L Albumin 3.2 G/DL (3.4-5.0) L Globulin 2.7 g/dL Albumin/Globulin Ratio 1.2 (1.0-2.7) Height (Feet): 5 Height (Inches): 3.00 Weight (Pounds): 112 General Appearance: WD/WN, no apparent distress, alert, thin Cardiovascular: normal rate Respiratory/Chest: normal breath sounds, no respiratory distress Abdominal Exam: normal bowel sounds, non tender, soft Extremities: normal range of motion, non-tender Petey Churchill NP Dec 18, 2018 10:55
[2018-12-18 12:00] VITALS: BP 101/56
--- NOTE | 2018-12-18 12:00 | Internal Med Progress Note ---
Subjective Date of Service: Dec 18, 2018 Physician Name Luis F Norman Attending Physician Luis F Norman MD Current Medications Medications (Trade) Dose Ordered Sig/Divya Route PRN Reason Start Time Stop Time Status Last Admin Dose Admin Acetaminophen/ Hydrocodone Bitart ([place] 10/325) 1 tab Q4H PRN ORAL For Pain 12/15/18 23:15 12/22/18 23:14 12/18/18 09:38 Allopurinol (Zyloprim) 100 mg DAILY ORAL 12/16/18 09:00 01/15/19 08:59 12/18/18 09:38 Alprazolam (Xanax) 2 mg THREE TIMES A DAY PRN ORAL anxiety/agitation 12/15/18 23:15 12/22/18 23:14 12/17/18 22:05 Amlodipine Besylate (Norvasc) 10 mg DAILY ORAL 12/16/18 09:00 01/15/19 08:59 12/18/18 09:37 Amylase/Lipase/ Protease (Zenpep) 1 ea DAILY ORAL 12/17/18 09:00 01/16/19 08:59 12/18/18 09:37 Benazepril HCl (Lotensin) 40 mg DAILY ORAL 12/16/18 09:00 01/15/19 08:59 12/18/18 09:37 Docusate Sodium (Colace) 100 mg THREE TIMES A DAY ORAL 12/16/18 18:00 01/15/19 17:59 12/18/18 09:38 Guaifenesin/ Dextromethorphan (Robitussin DM Syrup) 10 ml Q4H PRN ORAL For Cough 12/16/18 20:00 01/15/19 19:59 12/18/18 01:10 Hydrocortisone (Anusol HC) 1 applic TWICE A DAY RECTAL 12/16/18 18:00 01/15/19 17:59 12/18/18 09:39 Pantoprazole (Protonix) 40 mg DAILY ORAL 12/17/18 09:00 01/16/19 08:59 12/18/18 09:37 Patient Own Medication (Patient's Own Med) 1 ea DAILY ORAL 12/17/18 13:00 01/16/19 12:59 12/18/18 09:39 Polyethylene Glycol (Miralax) 17 gm BEDTIME ORAL 12/16/18 21:00 01/15/19 20:59 12/17/18 20:13 Sennosides (Senokot) 8.6 mg DAILYPRN PRN ORAL Constipation 12/16/18 13:45 01/15/19 13:44 Allergies: Coded Allergies: MORPHINE (Verified Allergy, Severe, 11/25/18) nausea/vomiting ROS Limited/Unobtainable: No Constitutional: Reports: no symptoms HEENT: Reports: no symptoms Cardiovascular: Reports: no symptoms Respiratory: Reports: no symptoms Gastrointestinal/Abdominal: Reports: no symptoms Genitourinary: Reports: no symptoms Neurologic/Psychiatric: Reports: no symptoms Subjective 73 YO F admitted with abdominal pain and rectal bleeding. Now distal common bile duct stone. Objective Last Vital Signs Date Time Temp Pulse Resp B/P (MAP) Pulse Ox O2 Delivery O2 Flow Rate FiO2 12/18/18 09:37 130/73 12/18/18 09:37 64 12/18/18 08:00 97.6 20 98 12/17/18 21:00 Room Air Laboratory Tests Test 12/18/18 04:40 White Blood Count 3.2 K/UL (4.8-10.8) L Red Blood Count 3.72 M/UL (4.20-5.40) L Hemoglobin 11.3 G/DL (12.0-16.0) L Hematocrit 34.7 % (37.0-47.0) L Mean Corpuscular Volume 93 FL (80-99) Mean Corpuscular Hemoglobin 30.5 PG (27.0-31.0) Mean Corpuscular Hemoglobin Concent 32.7 G/DL (32.0-36.0) Red Cell Distribution Width 12.2 % (11.6-14.8) Platelet Count 188 K/UL (150-450) Mean Platelet Volume 5.3 FL (6.5-10.1) L Neutrophils (%) (Auto) % (45.0-75.0) Lymphocytes (%) (Auto) % (20.0-45.0) Monocytes (%) (Auto) % (1.0-10.0) Eosinophils (%) (Auto) % (0.0-3.0) Basophils (%) (Auto) % (0.0-2.0) Differential Total Cells Counted 100 Neutrophils % (Manual) 62 % (45-75) Lymphocytes % (Manual) 19 % (20-45) L Monocytes % (Manual) 9 % (1-10) Eosinophils % (Manual) 10 % (0-3) H Basophils % (Manual) 0 % (0-2) Band Neutrophils 0 % (0-8) Platelet Estimate Adequate Platelet Morphology Normal Red Blood Cell Morphology Normal Sodium Level 143 MMOL/L (136-145) Potassium Level 4.3 MMOL/L (3.5-5.1) Chloride Level 108 MMOL/L (98-107) H Carbon Dioxide Level 28 MMOL/L (21-32) Anion Gap 7 mmol/L (5-15) Blood Urea Nitrogen 17 mg/dL (7-18) Creatinine 0.9 MG/DL (0.55-1.30) Estimat Glomerular Filtration Rate mL/min (>60) Glucose Level 72 MG/DL (74-106) L Calcium Level 8.7 MG/DL (8.5-10.1) Total Bilirubin 0.3 MG/DL (0.2-1.0) Aspartate Amino Transf (AST/SGOT) 17 U/L (15-37) Alanine Aminotransferase (ALT/SGPT) 17 U/L (12-78) Alkaline Phosphatase 74 U/L (46-116) Total Protein 5.9 G/DL (6.4-8.2) L Albumin 3.2 G/DL (3.4-5.0) L Globulin 2.7 g/dL Albumin/Globulin Ratio 1.2 (1.0-2.7) Microbiology Date/Time Source Procedure Growth Status 12/16/18 05:00 Nasal Nares MRSA Culture - Final NO METHICILLIN RESISTANT STAPH AUREUS... Complete 12/16/18 05:00 Rectal Mucosa VRE Culture - Final NO VANCOMYCIN RESISTANT ENTEROCOCCUS ... Complete 12/16/18 05:00 Rectal Mucosa - Final NO CARBAPENEM-RESISTANT ENTEROBACTERI... Complete Intake and Output 12/17/18 12/18/18 19:00 07:00 Intake Total 800 ml 300 ml Balance 800 ml 300 ml Intake Oral 800 ml 300 ml # Voids 4 2 Objective PHYSICAL EXAMINATION: GENERAL: The patient is a well-developed and well-nourished female, in no apparent distress. HEENT: Eyes, pupils are equal and responsive to light and accommodation. Extraocular movements are intact. NECK: Supple. No lymphadenopathy. CHEST: Lungs are clear to auscultation bilaterally without wheezes or rales. CARDIOVASCULAR: Regular rhythm and rate. S1 and S2 are normal without murmurs, rubs, or gallops. ABDOMEN: Soft, nontender, and nondistended. Positive bowel sounds. No evidence of hepatosplenomegaly. Currently, no rebound or guarding noted. EXTREMITIES: Negative for clubbing, cyanosis, or edema. RECTAL/GENITAL: Not performed. NEUROLOGIC: Cranial nerves II through XII are grossly intact without focal deficits. Motor strength is 5/5 bilaterally. Deep tendon reflexes are 2+ Assessment/Plan Assessment/Plan ASSESSMENT: This is a 73-year-old female. 1. Diverticulosis. 2. Cholelithiasis. 3. Rectal bleeding. 4. Abdominal pain. 5. Chronic obstructive pulmonary disease. 6. Hypertension. 7. Gout. 8. Bilateral foot neuropathy. 9. History of renal cyst. 10. History of proctitis. 11. Internal hemorrhoids. TREATMENT: 1. Cholecystitis/cholelithiasis. A General Surgery consultation has been obtained with Dr. Freire. A Gastroenterology consultation has been obtained with Dr. Terry Villarreal. The patient may require endoscopic retrograde cholangiopancreatography versus cholecystectomy. We will follow recommendations of GI and Surgery. 2. Rectal bleeding as above. A Gastroenterology consultation has been obtained with Dr. Terry Villarreal. This may be secondary to diverticulosis versus hemorrhoids. We will follow recommendations of Gastroenterology. 3. Hypertension. Continue Lotrel as above. 4. Gout. 5. Neuropathy of the feet. 6. History of proctitis. 7. History of internal hemorrhoids. 8. History of renal cyst. 9. Chronic obstructive pulmonary disease. A Pulmonary consultation has been obtained with Dr. Mina Zheng. 10. MRCP=distal common bile duct stone Luis F Norman MD Dec 18, 2018 12:00
--- NOTE | 2018-12-18 12:56 | Pulmonology Progress Note ---
Assessment/Plan Problems: (1) Rectal bleeding (2) COPD (chronic obstructive pulmonary disease) (3) Diverticulosis (4) HTN (hypertension) (5) Constipation Assessment/Plan advance diet all noted IV fluids check h/h prbc prn still has lower abdominal pain respiratory treatment symptomatic treatment dvt prophylaxis check electrolytes. Subjective ROS Limited/Unobtainable: No Constitutional: Reports: no symptoms HEENT: Repors: no symptoms Allergies: Coded Allergies: MORPHINE (Verified Allergy, Severe, 11/25/18) nausea/vomiting Objective Last 24 Hour Vital Signs Date Time Temp Pulse Resp B/P (MAP) Pulse Ox O2 Delivery O2 Flow Rate FiO2 12/18/18 09:37 130/73 12/18/18 09:37 64 130/73 12/18/18 09:30 64 130/73 (92) 12/18/18 08:00 97.6 62 20 99/49 (66) 98 12/18/18 04:30 97.6 63 18 136/63 (87) 94 12/18/18 00:58 97.9 61 18 134/64 (87) 96 12/17/18 21:00 Room Air 12/17/18 20:00 98.5 60 18 115/66 (82) 95 12/17/18 16:00 97.8 63 20 107/64 (78) 95 Intake and Output 12/17/18 12/18/18 19:00 07:00 Intake Total 800 ml 300 ml Balance 800 ml 300 ml Intake Oral 800 ml 300 ml # Voids 4 2 General Appearance: WD/WN HEENT: normocephalic, atraumatic Respiratory/Chest: chest wall non-tender, lungs clear Breasts: no masses Cardiovascular: normal peripheral pulses, normal rate Abdomen: normal bowel sounds, soft, non tender Genitourinary: normal external genitalia Skin: no rash Microbiology Date/Time Source Procedure Growth Status 12/16/18 05:00 Nasal Nares MRSA Culture - Final NO METHICILLIN RESISTANT STAPH AUREUS... Complete 12/16/18 05:00 Rectal Mucosa VRE Culture - Final NO VANCOMYCIN RESISTANT ENTEROCOCCUS ... Complete 12/16/18 05:00 Rectal Mucosa - Final NO CARBAPENEM-RESISTANT ENTEROBACTERI... Complete Laboratory Tests 12/18/18 04:40: White Blood Count 3.2L, Red Blood Count 3.72L, Hemoglobin 11.3L, Hematocrit 34.7L, Mean Corpuscular Volume 93, Mean Corpuscular Hemoglobin 30.5, Mean Corpuscular Hemoglobin Concent 32.7, Red Cell Distribution Width 12.2, Platelet Count 188, Mean Platelet Volume 5.3L, Neutrophils (%) (Auto) , Lymphocytes (%) ( Auto) , Monocytes (%) (Auto) , Eosinophils (%) (Auto) , Basophils (%) (Auto) , Differential Total Cells Counted 100, Neutrophils % (Manual) 62, Lymphocytes % ( Manual) 19L, Monocytes % (Manual) 9, Eosinophils % (Manual) 10H, Basophils % ( Manual) 0, Band Neutrophils 0, Platelet Estimate Adequate, Platelet Morphology Normal, Red Blood Cell Morphology Normal, Sodium Level 143, Potassium Level 4.3 , Chloride Level 108H, Carbon Dioxide Level 28, Anion Gap 7, Blood Urea Nitrogen 17, Creatinine 0.9, Estimat Glomerular Filtration Rate , Glucose Level 72L, Calcium Level 8.7, Total Bilirubin 0.3, Aspartate Amino Transf (AST/SGOT) 17, Alanine Aminotransferase (ALT/SGPT) 17, Alkaline Phosphatase 74, Total Protein 5.9L, Albumin 3.2L, Globulin 2.7, Albumin/Globulin Ratio 1.2 Current Medications Medications (Trade) Dose Ordered Sig/Divya Route PRN Reason Start Time Stop Time Status Last Admin Dose Admin Acetaminophen/ Hydrocodone Bitart ([place] 10/325) 1 tab Q4H PRN ORAL For Pain 12/15/18 23:15 12/22/18 23:14 12/18/18 09:38 Allopurinol (Zyloprim) 100 mg DAILY ORAL 12/16/18 09:00 01/15/19 08:59 12/18/18 09:38 Alprazolam (Xanax) 2 mg THREE TIMES A DAY PRN ORAL anxiety/agitation 12/15/18 23:15 12/22/18 23:14 12/17/18 22:05 Amlodipine Besylate (Norvasc) 10 mg DAILY ORAL 12/16/18 09:00 01/15/19 08:59 12/18/18 09:37 Amylase/Lipase/ Protease (Zenpep) 1 ea DAILY ORAL 12/17/18 09:00 01/16/19 08:59 12/18/18 09:37 Benazepril HCl (Lotensin) 40 mg DAILY ORAL 12/16/18 09:00 01/15/19 08:59 12/18/18 09:37 Docusate Sodium (Colace) 100 mg THREE TIMES A DAY ORAL 12/16/18 18:00 01/15/19 17:59 12/18/18 09:38 Guaifenesin/ Dextromethorphan (Robitussin DM Syrup) 10 ml Q4H PRN ORAL For Cough 12/16/18 20:00 01/15/19 19:59 12/18/18 01:10 Hydrocortisone (Anusol HC) 1 applic TWICE A DAY RECTAL 12/16/18 18:00 01/15/19 17:59 12/18/18 09:39 Pantoprazole (Protonix) 40 mg DAILY ORAL 12/17/18 09:00 01/16/19 08:59 12/18/18 09:37 Patient Own Medication (Patient's Own Med) 1 ea DAILY ORAL 12/17/18 13:00 01/16/19 12:59 12/18/18 09:39 Polyethylene Glycol (Miralax) 17 gm BEDTIME ORAL 12/16/18 21:00 01/15/19 20:59 12/17/18 20:13 Sennosides (Senokot) 8.6 mg DAILYPRN PRN ORAL Constipation 12/16/18 13:45 01/15/19 13:44 Mina Zheng MD Dec 18, 2018 12:56
--- NOTE | 2018-12-18 13:12 | Surgery Progress Note ---
Surgery Progress Note Subjective Additional Comments ERCP dilated ducts, sludge, no obstruction doing well. no complaints. Objective Last 24 Hour Vital Signs Date Time Temp Pulse Resp B/P (MAP) Pulse Ox O2 Delivery O2 Flow Rate FiO2 12/18/18 09:37 130/73 12/18/18 09:37 64 130/73 12/18/18 09:30 64 130/73 (92) 12/18/18 08:00 97.6 62 20 99/49 (66) 98 12/18/18 04:30 97.6 63 18 136/63 (87) 94 12/18/18 00:58 97.9 61 18 134/64 (87) 96 12/17/18 21:00 Room Air 12/17/18 20:00 98.5 60 18 115/66 (82) 95 12/17/18 16:00 97.8 63 20 107/64 (78) 95 I&O Intake and Output 12/17/18 12/18/18 19:00 07:00 Intake Total 800 ml 300 ml Balance 800 ml 300 ml Intake Oral 800 ml 300 ml # Voids 4 2 Cardiovascular: RSR Respiratory: clear Abdomen: soft, non-tender, present bowel sounds, non-distended Extremities: no tenderness, no cyanosis Laboratory Tests Test 12/18/18 04:40 White Blood Count 3.2 K/UL (4.8-10.8) L Red Blood Count 3.72 M/UL (4.20-5.40) L Hemoglobin 11.3 G/DL (12.0-16.0) L Hematocrit 34.7 % (37.0-47.0) L Mean Corpuscular Volume 93 FL (80-99) Mean Corpuscular Hemoglobin 30.5 PG (27.0-31.0) Mean Corpuscular Hemoglobin Concent 32.7 G/DL (32.0-36.0) Red Cell Distribution Width 12.2 % (11.6-14.8) Platelet Count 188 K/UL (150-450) Mean Platelet Volume 5.3 FL (6.5-10.1) L Neutrophils (%) (Auto) % (45.0-75.0) Lymphocytes (%) (Auto) % (20.0-45.0) Monocytes (%) (Auto) % (1.0-10.0) Eosinophils (%) (Auto) % (0.0-3.0) Basophils (%) (Auto) % (0.0-2.0) Differential Total Cells Counted 100 Neutrophils % (Manual) 62 % (45-75) Lymphocytes % (Manual) 19 % (20-45) L Monocytes % (Manual) 9 % (1-10) Eosinophils % (Manual) 10 % (0-3) H Basophils % (Manual) 0 % (0-2) Band Neutrophils 0 % (0-8) Platelet Estimate Adequate Platelet Morphology Normal Red Blood Cell Morphology Normal Sodium Level 143 MMOL/L (136-145) Potassium Level 4.3 MMOL/L (3.5-5.1) Chloride Level 108 MMOL/L (98-107) H Carbon Dioxide Level 28 MMOL/L (21-32) Anion Gap 7 mmol/L (5-15) Blood Urea Nitrogen 17 mg/dL (7-18) Creatinine 0.9 MG/DL (0.55-1.30) Estimat Glomerular Filtration Rate mL/min (>60) Glucose Level 72 MG/DL (74-106) L Calcium Level 8.7 MG/DL (8.5-10.1) Total Bilirubin 0.3 MG/DL (0.2-1.0) Aspartate Amino Transf (AST/SGOT) 17 U/L (15-37) Alanine Aminotransferase (ALT/SGPT) 17 U/L (12-78) Alkaline Phosphatase 74 U/L (46-116) Total Protein 5.9 G/DL (6.4-8.2) L Albumin 3.2 G/DL (3.4-5.0) L Globulin 2.7 g/dL Albumin/Globulin Ratio 1.2 (1.0-2.7) Plan Problems: (1) Common bile duct dilatation Assessment & Plan: CT noted MRCP ordered and Pending labs okay ERCP without obstruction okay for diet dc planning (2) Gastrointestinal hemorrhage (3) COPD (chronic obstructive pulmonary disease) (4) Diarrhea (5) Pancreatitis (6) Internal hemorrhoids (7) Esophagitis (8) Constipation (9) Rectal prolapse Assessment & Plan: Hx of rectal prolapse and hemorrhoids has been offered surgery in past and has considered it but non compliant with follow outpatient currently rectal prolapse reduced and no acute bleeding noted will follow with recs (10) Gastritis (11) Proctitis (12) HTN (hypertension) (13) Bleeding external hemorrhoids (14) Diverticulosis (15) GERD (gastroesophageal reflux disease) (16) Rectal bleeding Cheo Freire Dec 18, 2018 13:12
[2018-12-18] MEDS: ALPRAZolam 0.5mg tab ORAL PRN (14:27)
--- NOTE | 2018-12-18 14:42 | Diagnostic Imaging Report ---
Indication: Chest trauma and pain Comparison: 10/14/2018 2 views of the chest obtained. Findings: Cardiomediastinal silhouette and pulmonary vascularity are within normal limits for age. The diaphragmatic contour is smooth and costophrenic angles are sharp. No pleural effusions are identified. The bones are osteopenic. Moderate degenerative changes of both shoulders noted. Impression: No acute disease
[2018-12-18 16:00] VITALS: BP 101/57
--- NOTE | 2018-12-18 16:15 | NUR ---
DISCHARGE PLANNED PATIENT WILL DC HOME VIA [facility] 1700. Addendum: 12/18/18 at 1624 by [place] LVN SPOKE TO EDILBERTO Solomon [phone] AND SHE WILL BE AT HOME TO RECEIVE PATIENT.
--- NOTE | 2018-12-18 18:15 | NUR ---
NURSE NOTES: Patient discharged. No acute distress on discharge, patient in stable condition. Provided with discharge education/handouts and reports understanding of provided education. Patient instructed to follow up with primary care provider and GI doctor within one week. IV removed intact. Patient transferred safely onto [facility], transported off unit via S ambulance personnel.
--- NOTE | 2018-12-19 09:38 | Discharge Summary ---
Discharge Summary Discharge Summary _ DATE OF ADMISSION: 12/15/2018 DATE OF DISCHARGE: 12/18/2018 DISCHARGED BY: Dr. Luis F Norman CONSULTANTS: Dr. Mina Villarreal BRIEF HOSPITAL COURSE: Patient is a 73-year-old -[place] female, who presented with chief complaint of abdominal pain and rectal bleeding. She has medical history significant for COPD, hypertension, gout, history of renal cyst, bilateral neuropathy of the feet, proctitis, internal hemorrhoids, diverticulosis and history of rectal prolapse. The patient presented to [place] emergency room complaining of bilateral lower quadrant abdominal pain. Pain had been on and off for several months. During past admission, patient left AGAINST MEDICAL ADVICE. On evaluation at the ED, vital signs were stable. Ptosis. Hemoglobin and hematocrit were stable. Electrolytes were normal. BUN was elevated to 31 and creatinine to 1.5. Troponin negative. TSH was normal. Abdominal and pelvic CT scan showed extrahepatic and central intrahepatic biliary duct dilatation, progressive since prior study of 08/02/2017. There was a 2 mm calcification projecting in the region of the ampulla, possible obstructive ampullary calculus. There was no evidence of diverticulitis. Evidence of moderate fecal retention and distended bladder. Patient was then admitted for evaluation of cholecystitis/cholelithiasis. She was placed on clear liquids she was given IV hydration. She was given symptomatic treatment. She complained of cough. She was given respiratory treatment. She was seen by GI. Diet was advanced. MRCP was ordered. Surgical evaluation was done on the rectal prolapse. She was offered surgery in the past, however, patient was noncompliant with outpatient follow-up. On examination, patient had rectal prolapse which was currently reduced. There was no bleeding noted. MRCP showed intrahepatic and extrahepatic biliary ductal dilatation with abrupt cut off in the distal CBD suspicious for stone. She was recommended outpatient ERCP. She was tolerating diet. H&H was stable. She was cleared for discharge to follow-up with PMD and GI in a week. FINAL DIAGNOSES: Abdominal pain possibly due to common bile duct stone Rectal prolapse Bleeding external hemorrhoids Hypertension gout Neuropathy of the feet Renal cyst COPD Diverticulosis GERD Constipation Common bile duct dilatation Gastritis DISPOSITION: Patient was discharged home. DISCHARGE MEDICATIONS: Refer to Discharge Medication List. DISCHARGE INSTRUCTIONS: Follow-up in a week. I have been assigned to complete a discharge summary on this account, I was not involved with the patient's management.--DAYANA Gordillo Jacqueline Robles NP Dec 19, 2018 09:38
--- NOTE | 2018-12-19 21:47 | Cardiology Report ---
APPROVED REPORT EKG Measurement Heart [id number] Normal sinus rhythm Possible Left atrial enlargement Septal infarct, age undetermined Abnormal ECG
== END 2018-12-18 18:10 | disposition home or self-care (01) | DRG 446 ==
LOC: EMR 16:40 → 3E 19:12 → EDBEDREQ 20:23 → 3E 21:54
DX: K80.50 Calculus of bile duct without cholangitis or cholecystitis without obstruction (principal); K62.3 Rectal prolapse; K64.8 Other hemorrhoids; R10.9 Unspecified abdominal pain; Z88.6 Allergy status to analgesic agent; Z87.891 Personal history of nicotine dependence; K64.4 Residual hemorrhoidal skin tags; I10 Essential (primary) hypertension; M10.9 Gout, unspecified; G62.89 Other specified polyneuropathies; N28.1 Cyst of kidney, acquired; J44.9 Chronic obstructive pulmonary disease, unspecified; K57.90 Diverticulosis of intestine, part unspecified, without perforation or abscess without bleeding; K29.70 Gastritis, unspecified, without bleeding; K21.9 Gastro-esophageal reflux disease without esophagitis; K86.89 Other specified diseases of pancreas; K59.00 Constipation, unspecified
CPT/HCPCS: 36415; 71046; 74177; 74181; 80048; 80053; 81001; 84443; 84484; 85007; 85025; 85610; 85730; 87081; 93005; 99285

== ENCOUNTER 2019-01-08 13:01 | Outpatient (CLI) | payer MEDICARE, OTHER ==
[~2019-01-08 13:01] MED LIST changes: +ASPIR 8181 MG ORAL; +BENADRYL25 MG ORAL; +MOVANTIK25 MG PO; +VENTOLIN HFA18 GM INH; +VISTARIL50 MG ORAL
--- NOTE | 2019-01-08 13:31 | General Progress Note ---
Assessment/Plan Problem List: (1) GERD (gastroesophageal reflux disease) ICD Codes: K21.9 - GERD (gastroesophageal reflux disease) SNOMED: 386622192 (2) Bleeding external hemorrhoids ICD Codes: K64.4 - Residual hemorrhoidal skin tags SNOMED: 61264438 (3) HTN (hypertension) ICD Codes: I10 - Essential (primary) hypertension SNOMED: 82265619 (4) Gastritis ICD Codes: K29.70 - Gastritis SNOMED: 8989485 (5) Constipation ICD Codes: K59.00 - Constipation SNOMED: 12750971 (6) Esophagitis ICD Codes: K20.9 - Esophagitis, unspecified SNOMED: 75058626 Assessment/Plan: abd pain R>>> L CT reviewed labs reviewed no elevated Ca 19-9 ? CBD stone plan ERCP refill linzess, protonix and bentyl Subjective ROS Limited/Unobtainable: Yes Allergies: Coded Allergies: MORPHINE (Verified Allergy, Severe, 11/25/18) nausea/vomiting Objective General Appearance: alert EENT: normal ENT inspection Neck: supple Cardiovascular: normal rate Respiratory/Chest: lungs clear Abdomen: soft, hypoactive bowel sounds, tender Extremities: non-tender Terry Villarreal MD Jan 08, 2019 13:31
[2019-01-08 15:27] VITALS: BP 111/65
[2019-01-10] MEDS ORDERED: Iothalamate Meglumine 60% 30ML INJ ONE (11:59)
== END 2019-01-08 15:01 | disposition home or self-care (01) ==
LOC: PAN 13:01
DX: K21.9 Gastro-esophageal reflux disease without esophagitis (principal); K64.4 Residual hemorrhoidal skin tags; I10 Essential (primary) hypertension; K29.70 Gastritis, unspecified, without bleeding; K59.00 Constipation, unspecified; K20.9 Esophagitis, unspecified
CPT/HCPCS: 99212

== ENCOUNTER 2019-01-10 10:12 | Day surgery (SDC) | payer MEDICARE, OTHER ==
[~2019-01-10] VITALS: Ht 154.9 cm; Wt 47.6 kg
[2019-01-10] VITALS (8 sets, daily range): BP systolic 121–141; BP diastolic 65–83
--- NOTE | 2019-01-10 11:03 | Pre-Procedure Note/Attestation ---
Pre-Procedure Note/Attestation Complete Prior to Procedure Planned Procedure: not applicable Procedure Narrative: ercp Indications for Procedure Pre-Operative Diagnosis: choledocholithiasis Attestation I attest that I discussed the nature of the procedure; its benefits; risks and complications; and alternatives (and the risks and benefits of such alternatives ), prior to the procedure, with the patient (or the patient's legal wine sales representative). I attest that, if there was a reasonable possibility of needing a blood transfusion, the patient (or the patient's legal wine sales representative) was given the [facility] of Health Services standardized written summary, pursuant to the Wesley Mery Blood Safety Act ([place] Health and Safety Code # 1645, as amended). I attest that I re-evaluated the patient just prior to the surgery and that there has been no change in the patient's H&P, except as documented below: Terry Villarreal MD Jan 10, 2019 11:03
--- NOTE | 2019-01-10 11:04 | Short Stay Surgery H&P ---
History of Present Illness History of Present Illness Chief Complaint see recent office note HPI Alisa Severino is a 73 year old female who was admitted on for Abdominal Pain Patient History Allergies: Coded Allergies: MORPHINE (Verified Allergy, Severe, 01/10/19) nausea/vomiting Medication History Scheduled Amlodipine Besylate/Benazepril 10-40 Mg (Lotrel 10-40 Mg Capsule), 1 CAP ORAL DAILY, (Reported) Aspirin* (Aspir 81*), 81 MG ORAL DAILY, (Reported) Dexlansoprazole (Dexilant), 60 MG ORAL DAILY, (Reported) Diphenhydramine Hcl* (Benadryl*), 25 MG ORAL DAILY, (Reported) Linaclotide (Linzess), 145 MCG PO DAILY, (Reported) Lipase/Protease/Amylase (Creon Dr 24,000 Units Capsule), 2 EACH PO TID, ( Reported) Omeprazole (Omeprazole), 40 MG ORAL DAILY, (Reported) Scheduled PRN Albuterol Sulfate (Ventolin Hfa), 2 PUFFS INH EVERY 4 HOURS PRN for Shortness of Breath, (Reported) Alprazolam* (Xanax*), 2 MG ORAL TID PRN for PRN ANXIETY/AGITATION, (Reported) Discontinued Medications Hydroxyzine Pamoate* (Vistaril*), 25 MG ORAL DAILY, (Reported) Discontinued Reason: Pt stopped taking med Naloxegol Oxalate (Movantik), 25 MG PO DAILY, (Reported) Discontinued Reason: MD discontinued med Physical Exam Vital Signs Last Vital Signs Date Time Temp Pulse Resp B/P (MAP) Pulse Ox O2 Delivery O2 Flow Rate FiO2 01/10/19 10:54 Room Air 01/10/19 10:44 97.9 63 18 141/68 98 Plan Attestation Are the patient's medical conditions optimized for surgery? Terry Villarreal MD Jan 10, 2019 11:04
[2019-01-10] MEDS ORDERED: fentaNYL 100 mcg/2 mL IV ONE (11:25)
[2019-01-10] MEDS ORDERED: Midazolam 2mg/2ml Inj ONE (11:25)
[2019-01-10] MEDS ORDERED: LR 1000ml ONE (12:00)
[2019-01-10] MEDS ORDERED: Propofol 200mg/20ml IV ONE (12:00)
[2019-01-10] MEDS ORDERED: Iothalamate Meglumine 60% 30ML INJ ONE (12:35)
--- NOTE | 2019-01-10 12:58 | Anethesia Preoperative Eval ---
Anesthesia Pre-op PMH/ROS General Date of Evaluation: Jan 10, 2019 Time of Evaluation: 12:00 Anesthesiologist: Kathryn Toribio CRNA ASA Score: ASA 3 Mallampati Score Class I : Soft palate, uvula, fauces, pillars visible Class II: Soft palate, uvula, fauces visible Class III: Soft palate, base of uvula visible Class IV: Only hard plate visible Mallampati Classification: Class II Surgeon: Cherelle Diagnosis: Choledocholisthisasis Surgical Procedure: ERCP Anesthesia History: none Social History: smoking Family History: no anesthesia problems Allergies: Coded Allergies: MORPHINE (Verified Allergy, Severe, 01/10/19) nausea/vomiting Medications: see eMAR Patient NPO?: Yes NPO Date: Jan 10, 2019 NPO Time: 00:00 Past Medical History Cardiovascular: Reports: HTN; Denies: CAD, [place], valve dz, arrhythmia, other Pulmonary: Reports: COPD; Denies: asthma, TAE, other Gastrointestinal/Genitourinary: Reports: GERD, other - pancreatitis, hemorrhoids, rectal prolapse, diverticulosis; Denies: CRI, ESRD Neurologic/Psychiatric: Denies: dementia, CVA, depression/anxiety, TIA, other Endocrine: Denies: DM, hypothyroidism, steroids, other HEENT: Reports: cataract (L), cataract (R); Denies: glaucoma, [place] (L), [place] (R), other Hematology/Immune: Denies: anemia, DVT, bleeding disorder, other Musculoskeletal/Integumentary: Reports: other - gout, chronic LBP; Denies: OA, RA, DJD, DDD, edema PMH Narrative: as noted above PSxH Narrative: see chart Anesthesia Pre-op Phys. Exam Physician Exam Last Vital Signs Date Time Temp Pulse Resp B/P (MAP) Pulse Ox O2 Delivery O2 Flow Rate FiO2 01/10/19 10:54 Room Air 01/10/19 10:44 97.9 63 18 141/68 98 Constitutional: NAD Neurologic: other - alert & oriented Cardiovascular: RRR Respiratory: CTA Gastrointestinal: S/NT/ND Airway Exam Mallampati Score: Class II Neck: FROM TMD: > 3 FB ROM: full Teeth: missing, intact Dentures: upper; no lower Anesthesia Pre-op A/P Studies Pre-op Studies: EKG - NSR, possible LAE, septal infarct Risk Assessment & Plan Assessment: ASA 3, ok to proceed Plan: MAC Status Change Before Surgery: No Pre-Antibiotics Given Within 1 Hr of Incision: No Kathryn Toribio CRNA Jan 10, 2019 12:58
[2019-01-10] MEDS ORDERED: Metoclopramide 10mg/2ml Inj IVP PRN (13:00)
[2019-01-10] MEDS ORDERED: Hydromorphone 0.5mg/0.5ml inj IVP PRN (13:00)
--- NOTE | 2019-01-10 13:27 | Immediate Post-Op Evaluation ---
Immediate Post-Op Evalulation Immediate Post-Op Evalulation Procedure: ERCP, sphincterotomy, removal of stones Date of Evaluation: Jan 10, 2019 Time of Evaluation: 13:23 IV Fluids: LR 500 ml Blood Pressure Systolic: 121 Blood Pressure Diastolic: 72 Pulse Rate: 70 Respiratory Rate: 23 O2 Sat by Pulse Oximetry: 100 Temperature (Fahrenheit): 97.9 Pain Score (1-10): 4 Nausea: No Vomiting: No Complications none Patient Status: awake, reacts, patent Hydration Status: adequate Given Within 1 Hr of Incision: Kathryn Espinal CRNA Jan 10, 2019 13:27
--- NOTE | 2019-01-10 13:44 | 48 Hour Post Anesthesia Eval ---
Post Anesthesia Evaluation Procedure: ERCP, sphincterotomy, removal of stones Date of Evaluation: Jan 10, 2019 Time of Evaluation: 13:42 Blood Pressure Systolic: 113 0: 65 Pulse Rate: 67 Respiratory Rate: 24 Temperature (Fahrenheit): 97.9 O2 Sat by Pulse Oximetry: 100 Airway: patent Nausea: No Vomiting: No Pain Intensity: 2 Hydration Status: adequate Cardiopulmonary Status: stable Mental Status/LOC: patient returned to baseline Follow-up Care/Observations: per GI Post-Anesthesia Complications: none Follow-up care needed: N/A Kathryn Toribio CRNA Jan 10, 2019 13:44
--- NOTE | 2019-01-10 15:38 | Diagnostic Imaging Report ---
INDICATION: Pain, intraoperative TECHNIQUE: Intraoperative imaging Fluoroscopy time: 248.3 seconds Total dose: 0.20660 mGym2 Total number of images: 6 7 COMPARISON: Abdominal MRI 12/16/2018 FINDINGS: Intraoperative imaging demonstrates opacification of dilated extra hepatic and central intrahepatic biliary ducts, subsequent papillotomy and passage of stone extraction balloon IMPRESSION: Intraoperative imaging, as described
--- NOTE | 2019-01-11 00:15 | Procedure Note ---
DATE OF PROCEDURE: 01/10/2019 SURGEON: Terry Villarreal M.D. PROCEDURE: ERCP with sphincterotomy, balloon occlusion cholangiogram. ANESTHESIA: Per Kathryn JONES. INSTRUMENT: Olympus adult ERCP scope. INDICATION: Dilated common bile duct, questionable CBD stone on MRCP, abdominal pain, and weight loss. REASON FOR PROCEDURE: The procedure, risks, benefits, and possible consequences, including hemorrhage, aspiration, perforation and infection, and alternative treatments, were explained to the patient/legal guardian by Dr. Terry Villarreal and the patient/legal guardian understood and accepted these risks. PROCEDURE IN DETAIL: After informed consent was obtained and the patient was adequately sedated, the ERCP scope was advanced from mouth into the second portion of the duodenum. Using catheter, we cannulated the common bile duct. Initial cholangiogram showed severely dilated intrahepatic ducts up to about 12 mm in size. The duct was dilated all the way down to the ampulla suggestive of papillary stenosis despite the patient gallbladder. Then, over a guidewire, we introduced sphincterotome and did 95% sphincterotomy. Then balloon occlusion cholangiogram was performed. We could not see the cystic duct even though we performed balloon occlusion cholangiogram. Intrahepatic was significantly dilated as dictated above. We did a balloon sweep and removed minimum sludge from the distal common bile duct. Post balloon occlusion cholangiogram from the common bile duct into the duodenum was good, so no stent was placed. The patient tolerated procedure very well without complications. SUMMARY OF FINDINGS: 1. Possible papillary stenosis. 2. Biliary sludge. 3. Status post ERCP, sphincterotomy, balloon occlusion cholangiogram. RECOMMENDATIONS: The patient to be followed in the office to see if this procedure helped with the abdominal pain. The patient also is scheduled to have a repeat colonoscopy, which we will proceed to rule out other causes of weight loss. If the patient has persistent pain despite of this procedure and negative colonoscopy, we will recommend a HIDA scan to evaluate for chronic cholecystitis. Terry Villarreal M.D. DR: Michela JOB#: [id number] CC:
== END 2019-01-10 14:20 | disposition home or self-care (01) ==
LOC: GAS 10:12
DX: K83.8 Other specified diseases of biliary tract (principal); R10.9 Unspecified abdominal pain; R63.4 Abnormal weight loss; Z68.1 Body mass index [BMI] 19.9 or less, adult; Z88.6 Allergy status to analgesic agent; Z79.82 Long term (current) use of aspirin; Z79.899 Other long term (current) drug therapy; J44.9 Chronic obstructive pulmonary disease, unspecified; I10 Essential (primary) hypertension; K21.9 Gastro-esophageal reflux disease without esophagitis
CPT/HCPCS: 43262; 43277; 74328; 76000; J1170; J2250; J2704; J2765; J3010; Q9961; 94003; 94150

== ENCOUNTER 2019-02-05 10:05 | Day surgery (SDC) | payer MEDICARE, OTHER ==
[~2019-02-05] VITALS: Ht 160 cm; Wt 49.0 kg
[2019-02-05] VITALS (8 sets, daily range): BP systolic 91–132; BP diastolic 51–77
--- NOTE | 2019-02-05 08:31 | Anethesia Preoperative Eval ---
Anesthesia Pre-op PMH/ROS General Date of Evaluation: Feb 05, 2019 Anesthesiologist: Avi ASA Score: ASA 3 Mallampati Score Class I : Soft palate, uvula, fauces, pillars visible Class II: Soft palate, uvula, fauces visible Class III: Soft palate, base of uvula visible Class IV: Only hard plate visible Mallampati Classification: Class II Surgeon: Cherelle Diagnosis: rectal bleeding Surgical Procedure: colonoscopy Anesthesia History: none Family History: no anesthesia problems Allergies: Coded Allergies: MORPHINE (Verified Allergy, Severe, 02/05/19) nausea/vomiting Medications: see eMAR Patient NPO?: Yes NPO Date: Feb 04, 2019 NPO Time: 22:00 Past Medical History Cardiovascular: Reports: HTN, other - HLD; Denies: CAD, [place], valve dz, arrhythmia Pulmonary: Reports: COPD; Denies: asthma, TAE, other Gastrointestinal/Genitourinary: Reports: GERD; Denies: CRI, ESRD, other Neurologic/Psychiatric: Reports: depression/anxiety; Denies: dementia, CVA, TIA, other Endocrine: Denies: DM, hypothyroidism, steroids, other HEENT: Reports: [place] (L), [place] (R); Denies: cataract (L), cataract (R), glaucoma, other Hematology/Immune: Reports: anemia - chronic; Denies: DVT, bleeding disorder, other Musculoskeletal/Integumentary: Reports: OA; Denies: RA, DJD, DDD, edema, other PSxH Narrative: CECY, right ankle surgery Anesthesia Pre-op Phys. Exam Physician Exam see chart Constitutional: NAD Cardiovascular: RRR Respiratory: CTA Airway Exam Mallampati Score: Class II MO: limited ROM: limited Anesthesia Pre-op A/P Labs see chart Studies Pre-op Studies: EKG - sr Risk Assessment & Plan Assessment: ASA III Plan: MAC Status Change Before Surgery: No Pre-Antibiotics Drug: N/A Chloe Hernandez MD Feb 05, 2019 08:31
[~2019-02-05 10:05] MED LIST changes: +DiphenhydrAMINE 50mg/ml Inj IVP PRN; +LR 1000ml 1,000 ML IVLG SCH
[2019-02-05] MEDS ORDERED: Propofol 200mg/20ml IV ONE (11:00)
[2019-02-05] MEDS ORDERED: Lidocaine 1% MPF 10mg/ml 5ml ONE (11:00)
--- NOTE | 2019-02-05 11:04 | Pre-Procedure Note/Attestation ---
Pre-Procedure Note/Attestation Complete Prior to Procedure Planned Procedure: not applicable Procedure Narrative: colonoscopy Indications for Procedure Pre-Operative Diagnosis: screening Attestation I attest that I discussed the nature of the procedure; its benefits; risks and complications; and alternatives (and the risks and benefits of such alternatives ), prior to the procedure, with the patient (or the patient's legal b2b sales representative). I attest that, if there was a reasonable possibility of needing a blood transfusion, the patient (or the patient's legal b2b sales representative) was given the [facility] of Health Services standardized written summary, pursuant to the [address] Blood Safety Act ([place] Health and Safety Code # 1645, as amended). I attest that I re-evaluated the patient just prior to the surgery and that there has been no change in the patient's H&P, except as documented below: Terry Villarreal MD Feb 05, 2019 11:04
--- NOTE | 2019-02-05 11:05 | Short Stay Surgery H&P ---
History of Present Illness History of Present Illness Chief Complaint see recent consult note HPI Alisa Severino is a 73 year old female who was admitted on for Abdominal Pain Patient History Allergies: Coded Allergies: MORPHINE (Verified Allergy, Severe, 02/05/19) nausea/vomiting Medication History Scheduled Amlodipine Besylate/Benazepril 10-40 Mg (Lotrel 10-40 Mg Capsule), 1 CAP ORAL DAILY, (Reported) Aspirin* (Aspir 81*), 81 MG ORAL DAILY, (Reported) Dexlansoprazole (Dexilant), 60 MG ORAL DAILY, (Reported) Diphenhydramine Hcl* (Benadryl*), 25 MG ORAL DAILY, (Reported) Linaclotide (Linzess), 145 MCG PO DAILY, (Reported) Lipase/Protease/Amylase (Creon Dr 24,000 Units Capsule), 2 EACH PO TID, ( Reported) Omeprazole (Omeprazole), 40 MG ORAL DAILY, (Reported) Scheduled PRN Albuterol Sulfate (Ventolin Hfa), 2 PUFFS INH EVERY 4 HOURS PRN for Shortness of Breath, (Reported) Alprazolam* (Xanax*), 2 MG ORAL TID PRN for PRN ANXIETY/AGITATION, (Reported) Physical Exam Vital Signs Last Vital Signs Date Time Temp Pulse Resp B/P (MAP) Pulse Ox O2 Delivery O2 Flow Rate FiO2 02/05/19 10:37 Room Air 02/05/19 10:35 97.6 90 18 132/77 96 Plan Attestation Are the patient's medical conditions optimized for surgery? Terry Villarreal MD Feb 05, 2019 11:05
--- NOTE | 2019-02-05 11:37 | Endoscopy Procedure Note ---
Endoscopy Procedure Note General Indication for Procedure: screening Procedures Performed: colonoscopy Operative Findings/Diagnosis: diverticulosis Specimen: none Pt Tolerated Procedure Well: Yes Estimated Blood Loss: none Anesthesia Anesthesiologist: heather Anesthesia: MAC Inserted Devices Implant(s) used?: No Quality Quality of Bowel Preparation: Poor Did scope reach the cecum?: Yes Was there any complications?: No GI Core Measures 50 yrs or older w/o bx or poly: No 10yrs. F/U recommended: Yes If not recommended, why?: Above average risk 18 years or older w/prev. colo: Yes <3yrs. since last colonoscopy: No Terry Villarreal MD Feb 05, 2019 11:37
--- NOTE | 2019-02-05 11:41 | Immediate Post-Op Evaluation ---
Immediate Post-Op Evalulation Immediate Post-Op Evalulation Procedure: Colonoscopy Date of Evaluation: Feb 05, 2019 Time of Evaluation: 11:44 IV Fluids: 400 Blood Products: 0 Estimated Blood Loss: 0 Urinary Output: 0 Blood Pressure Systolic: 91 Blood Pressure Diastolic: 59 Pulse Rate: 61 Respiratory Rate: 16 O2 Sat by Pulse Oximetry: 100 Temperature (Fahrenheit): 97.2 Pain Score (1-10): 0 Nausea: No Vomiting: No Complications 0 Patient Status: awake, reacts, patent, none Hydration Status: adequate Drug: N/A Chloe Hernandez MD Feb 05, 2019 11:41
--- NOTE | 2019-02-05 11:41 | 48 Hour Post Anesthesia Eval ---
Post Anesthesia Evaluation Procedure: Colonoscopy Date of Evaluation: Feb 05, 2019 Airway: patent Nausea: No Vomiting: No Pain Intensity: 0 Hydration Status: adequate Cardiopulmonary Status: at baseline Mental Status/LOC: patient returned to baseline Post-Anesthesia Complications: 0 Follow-up care needed: ready to discharge Chloe Hernandez MD Feb 05, 2019 11:41
--- NOTE | 2019-02-05 18:15 | Procedure Note ---
DATE OF PROCEDURE: 02/05/2019 SURGEON: Terry Villarreal M.D. PROCEDURE: Colonoscopy. ANESTHESIA: Per Dr. Cárdenas. INSTRUMENT: Olympus adult flexible colonoscope. INDICATION: Screening colonoscopy and weight loss. REASON FOR PROCEDURE: The procedure, risks, benefits, and possible consequences, including hemorrhage, aspiration, perforation and infection, and alternative treatments, were explained to the patient/legal guardian by Dr. Terry Villarreal and the patient/legal guardian understood and accepted these risks. PROCEDURE IN DETAIL: After informed consent was obtained and the patient was adequately sedated, first rectal exam was performed, which was normal. Then, the scope was advanced from the . Quality of prep was very poor. We could not see the appendix orifice, ileocecal valve. So, we could not find exactly cecum because of the prep. examination was grossly limited given above. The patient had significant diverticulosis, mostly in the left colon. No active bleeding at this time. No obvious mass was seen. Retroflexion of rectum showed evidence of internal hemorrhoids. The retroflexion was also limited given the stool in the rectum. FINDINGS: 1. Very poor colonoscopy prep and incomplete. 2. Diverticulosis. 3. Internal hemorrhoids. RECOMMENDATIONS: The patient to follow in the office for further follow up. This is the second time we tried to this patient colonoscopy and she is not clean, so we need to educate the patient about colonoscopy prep. While follow up in the office, we will make further recommendation as needed. Terry Villarreal M.D. DR: MINA JOB#: [id number] CC:
== END 2019-02-05 13:00 | disposition home or self-care (01) ==
LOC: GAS 10:05
DX: Z12.11 Encounter for screening for malignant neoplasm of colon (principal); R63.4 Abnormal weight loss; K57.90 Diverticulosis of intestine, part unspecified, without perforation or abscess without bleeding; K64.8 Other hemorrhoids; Z88.6 Allergy status to analgesic agent; Z79.82 Long term (current) use of aspirin; Z79.899 Other long term (current) drug therapy; I10 Essential (primary) hypertension; E78.5 Hyperlipidemia, unspecified; K21.9 Gastro-esophageal reflux disease without esophagitis; F32.9 Major depressive disorder, single episode, unspecified; F41.9 Anxiety disorder, unspecified; M19.90 Unspecified osteoarthritis, unspecified site
CPT/HCPCS: G0121; J2704; 94003; 94150

== ENCOUNTER 2019-02-26 13:47 | Outpatient (CLI) | payer MEDICARE, OTHER ==
[~2019-02-26 13:47] MED LIST changes: -DiphenhydrAMINE 50mg/ml Inj IVP PRN; -LR 1000ml 1,000 ML IVLG SCH
--- NOTE | 2019-02-26 14:24 | General Progress Note ---
Assessment/Plan Problem List: (1) Rectal bleeding ICD Codes: K62.5 - Hemorrhage of anus and rectum SNOMED: 11622537 (2) GERD (gastroesophageal reflux disease) ICD Codes: K21.9 - GERD (gastroesophageal reflux disease) SNOMED: 792468722 (3) Diverticulosis ICD Codes: K57.90 - Diverticulosis SNOMED: 573125445 (4) Bleeding external hemorrhoids ICD Codes: K64.4 - Residual hemorrhoidal skin tags SNOMED: 98039947 (5) HTN (hypertension) ICD Codes: I10 - Essential (primary) hypertension SNOMED: 59856444 (6) Proctitis ICD Codes: K62.89 - Other specified diseases of anus and rectum SNOMED: 8574687 (7) Gastritis ICD Codes: K29.70 - Gastritis SNOMED: 2139841 (8) Rectal prolapse ICD Codes: K62.3 - Rectal prolapse SNOMED: 55213177 (9) Constipation ICD Codes: K59.00 - Constipation SNOMED: 98415018 (10) Esophagitis ICD Codes: K20.9 - Esophagitis, unspecified SNOMED: 99694858 Assessment/Plan: FINDINGS: 1. Very poor colonoscopy prep and incomplete. 2. Diverticulosis. 3. Internal hemorrhoids. plan Cologuard test Subjective ROS Limited/Unobtainable: Yes Allergies: Coded Allergies: MORPHINE (Verified Allergy, Severe, 02/05/19) nausea/vomiting Objective General Appearance: alert EENT: normal ENT inspection Neck: supple Cardiovascular: normal rate Respiratory/Chest: decreased breath sounds Abdomen: normal bowel sounds, non tender, soft Extremities: non-tender Terry Villarreal MD Feb 26, 2019 14:24
[2019-02-26 14:36] VITALS: BP 112/70
== END 2019-02-26 15:47 | disposition home or self-care (01) ==
LOC: PAN 13:47
DX: K62.5 Hemorrhage of anus and rectum (principal); K21.9 Gastro-esophageal reflux disease without esophagitis; K57.90 Diverticulosis of intestine, part unspecified, without perforation or abscess without bleeding; K64.4 Residual hemorrhoidal skin tags; I10 Essential (primary) hypertension; K62.89 Other specified diseases of anus and rectum; K29.70 Gastritis, unspecified, without bleeding; K62.3 Rectal prolapse; K59.00 Constipation, unspecified; K20.9 Esophagitis, unspecified; Z88.6 Allergy status to analgesic agent; K64.8 Other hemorrhoids

== ENCOUNTER 2019-03-28 21:36 | Emergency (ER) | payer MEDICARE, OTHER ==
[~2019-03-28] VITALS: Ht 160 cm; Wt 49.0 kg
--- NOTE | 2019-03-28 21:52 | NUR ---
ED Nurse Note: Placed in MSE. Plaster insitu to above L eye no active bleed. Ambulatory to ED.
[2019-03-28 22:04] VITALS: BP 118/72
[2019-03-28] MEDS ORDERED: Acetaminophen 500mg (ES) tab PO ONE (22:15)
[2019-03-28] MEDS ORDERED: Tetanus/Diptheria/Pertussis IM ONE (22:15)
[2019-03-28] MEDS ORDERED: LORazepam 1mg tab ORAL ONE (22:15)
[2019-03-28] MEDS ORDERED: TYLENOL EXTRA500 MG ORAL (23:43)
[2019-03-28] MEDS ORDERED: BACITRACIN15 GM TOPIC (23:43)
[2019-03-28 23:55] VITALS: BP 118/72
--- NOTE | 2019-03-28 23:55 | NUR ---
ER DISCHARGE NOTE: Following wound closure with dermabond by . Patient is cleared to be discharged per ERMD, pt is aox4, on room air, with stable vital signs. pt was given dc and prescription instructions, pt was able to verbalize understanding, pt id band removed. pt is able to ambulate with steady gait. pt took all belongings. Patient to be taken home by nephew.
--- NOTE | 2019-03-29 02:08 | Emergency Room Report ---
History of Present Illness General Chief Complaint: Multiple Trauma/Fall Source: Patient Present Illness HPI 73-year-old female presents ED for evaluation. Patient states that tonight she had a mechanical trip and fall and hit her head. Denies LOC. Notes bleeding to her left nondenominational. Tetanus unknown. Pain is dull, 5 out of 10, nonradiating. Denies photophobia or blurry vision. Denies nausea or vomiting. Denies any other injuries. Denies taking blood thinners. No other aggravating relieving factors. Denies any other associated symptoms Allergies: Coded Allergies: MORPHINE (Verified Allergy, Severe, 02/05/19) nausea/vomiting Patient History Past Medical History: HTN, COPD Pertinent Family History: none Social History: Denies: smoking, alcohol use, drug use Last Menstrual Period: n/a Now: No Immunizations: UTD Reviewed Nursing Documentation: PMH: Agreed; PSxH: Agreed Nursing Documentation-PMH Past Medical History: No History, Except For Hx Cardiac Problems: Yes Hx Hypertension: Yes Hx Pacemaker: No Hx Asthma: No Hx COPD: Yes Hx Diabetes: No Hx Cancer: No Hx Gastrointestinal Problems: Yes - rectal prolapse, Hx Dialysis: No Hx Neurological Problems: Yes Hx Cerebrovascular Accident: No Hx Seizures: No Hx Head Trauma: Yes Review of Systems All Other Systems: negative except mentioned in HPI Physical Exam Vital Signs Date Time Temp Pulse Resp B/P (MAP) Pulse Ox O2 Delivery O2 Flow Rate FiO2 03/28/19 21:38 98.1 70 18 134/75 (94) 98 Room Air Sp02 EP Interpretation: reviewed, normal General Appearance: no apparent distress, alert, GCS 15, non-toxic Head: normocephalic, other - 1cm vertical laceration to L nondenominational Eyes: bilateral eye normal inspection, bilateral eye PERRL, bilateral eye EOMI ENT: normal ENT inspection Neck: normal inspection Respiratory: normal inspection Cardiovascular #1: normal inspection Gastrointestinal: normal inspection Rectal: deferred Genitourinary: no CVA tenderness Musculoskeletal: back normal, gait/station normal, normal range of motion, non- tender Neurologic: alert, oriented x3, responsive, motor strength/tone normal, sensory intact, speech normal Psychiatric: normal inspection Skin: laceration - L nondenominational Lymphatic: normal inspection Procedures Laceration/Wound Repair Laceration/Wound Repair : Consent: Verbal Wound Location: head Wound's Depth, Shape: superficial, linear Wound Explored: clean Wound Debrided: minimal Wound Repaired With: Dermabond Layer Closure?: No Sterile Dressing Applied?: Yes Splint Applied?: No Sling Applied?: No Patient Tolerated: Well Complications: None Medical Decision Making Diagnostic Impression: Primary Impression: Laceration Additional Impression: Head injury Qualified Codes: S09.90XA - Unspecified injury of head, initial encounter ER Course Hospital Course 73 yo F presents with fall and head injury with laceration to nondenominational Differential diagnoses include: skull fx, intracranial injury, concussion Clinical course Patient placed on stretcher. After initial history and physical I ordered tdap , CT head and pain medications CT head shows no acute process. Irrigated. Superficial and Dermabond was applied. discussed findings with Patient. Will discharge to home. PMD Dr. Norman made aware Diagnosis - laceration, head injury Stable and discharged to home with Rx tylenol, bacitracin. wound care instructions given. Followup with PMD. Return to ED if symptoms recur or worsen CT/MRI/US Diagnostic Results CT/MRI/US Diagnostic Results : Imaging Test Ordered: CT Head Impression no acute process Last Vital Signs Date Time Temp Pulse Resp B/P (MAP) Pulse Ox O2 Delivery O2 Flow Rate FiO2 03/28/19 22:04 98.2 68 16 118/72 Room Air 03/28/19 21:38 98 Status: improved Disposition: HOME, SELF-CARE Condition: Stable Scripts Bacitracin (Bacitracin) 28.4 Gm Oint...g. 1 APPLIC TOPIC THREE TIMES A DAY, #28.4 GM Prov: Yousif Aguila MD 03/28/19 Acetaminophen* (TYLENOL EXTRA STRENGTH*) 500 Mg Tablet 500 MG ORAL Q8H PRN for Prn Headache/Temp > 101, #30 TAB 0 Refills Prov: Yousif Aguila MD 03/28/19 Referrals: Luis F Norman MD NOT CHOSEN IPA/,REFERRING (PCP) Patient Instructions: Tissue Adhesive Wound Care, [id number] Yousif Aguila MD Mar 29, 2019 02:08
== END 2019-03-28 23:55 | disposition home or self-care (01) ==
LOC: EMR 23:15
DX: S01.81XA Laceration without foreign body of other part of head, initial encounter (principal); S09.90XA Unspecified injury of head, initial encounter; I10 Essential (primary) hypertension; J44.9 Chronic obstructive pulmonary disease, unspecified; Z88.6 Allergy status to analgesic agent; Z23 Encounter for immunization; W01.0XXA Fall on same level from slipping, tripping and stumbling without subsequent striking against object, initial encounter; Y92.9 Unspecified place or not applicable
CPT/HCPCS: 70450; 90471; 90715; 99282

== ENCOUNTER 2019-04-27 12:58 | Emergency (ER) | payer MEDICARE, OTHER ==
[~2019-04-27] VITALS: Ht 160 cm; Wt 50.8 kg
[~2019-04-27 12:58] MED LIST changes: +BACITRACIN15 GM TOPIC
--- NOTE | 2019-04-27 13:20 | NUR ---
ED Nurse Note: Pt ambulated into ER from home with complaint of abdominal pain x 2 weeks with prolapsed bleeding hemmorhoids. Pt AAOx4, stable vital signs and breathing even and unlabored. No respiratory or cardiac distress noted.
--- NOTE | 2019-04-27 13:39 | NUR ---
ED Nurse Note: rectal exam done by ERMD with Sukhi Wallace RN present at bedside.
--- NOTE | 2019-04-27 13:44 | Emergency Room Report ---
History of Present Illness General Chief Complaint: Abdominal Pain Source: Patient Present Illness HPI 73-year-old female history of diverticulosis presents with intermittent rectal bleeding x2 weeks, with spotting/blood mixed with stool, no lightheadedness no chest pain, she does endorse some lower abdominal cramping that comes and goes no aggravating relieving factors severity is moderate, intermittent lasting minutes patient had a endoscopy/colonoscopy however her bowel prep was inadequate, in October, no fevers chills chest pain shortness of breath, patient presents for evaluation and pain control. Allergies: Coded Allergies: MORPHINE (Verified Allergy, Severe, 02/05/19) nausea/vomiting Patient History Past Medical History: see triage record Last Menstrual Period: N/A Reviewed Nursing Documentation: PMH: Agreed; PSxH: Agreed Nursing Documentation-PMH Hx Cardiac Problems: Yes Hx Hypertension: Yes Hx Pacemaker: No Hx Asthma: No Hx COPD: Yes Hx Diabetes: No Hx Cancer: No Hx Gastrointestinal Problems: Yes - rectal prolapse, Acid Reflux Hx Dialysis: No History Of Psychiatric Problem: Yes - panic attacks Hx Neurological Problems: Yes Hx Cerebrovascular Accident: No Hx Seizures: No Hx Head Trauma: Yes Review of Systems All Other Systems: negative except mentioned in HPI Physical Exam Vital Signs Date Time Temp Pulse Resp B/P (MAP) Pulse Ox O2 Delivery O2 Flow Rate FiO2 04/27/19 13:09 98.2 95 15 117/73 (88) 94 Room Air Sp02 EP Interpretation: reviewed, normal General Appearance: well appearing, no apparent distress, alert Head: normocephalic, atraumatic Eyes: bilateral eye PERRL, bilateral eye EOMI ENT: uvula midline, moist mucus membranes Neck: supple, thyroid normal, supple/symm/no masses Respiratory: lungs clear, no respiratory distress, no retraction, no accessory muscle use Cardiovascular #1: normal peripheral pulses, regular rate, rhythm, no edema, no gallop, no murmur Gastrointestinal: soft, no guarding, no rebound, tenderness - Mild tenderness left lower quadrant right lower quadrant, suprapubically Rectal: normal rectal tone, heme negative stool, hemorrhoids, other - Industrial Truck Operator :Sukhi Wallace RN Musculoskeletal: normal inspection Neurologic: alert, oriented x3 Psychiatric: mood/affect normal Skin: no rash, warm/dry Medical Decision Making Diagnostic Impression: Primary Impression: Rectal bleeding Additional Impressions: Abdominal pain Qualified Codes: R10.9 - Unspecified abdominal pain Hemorrhoids Qualified Codes: K64.9 - Unspecified hemorrhoids ER Course 73-year-old female presents with rectal bleeding, negative Hemoccult, patient with benign abdomen, reducible left inguinal hernia. Differential diagnosis includes diverticulitis, diverticulosis, hemorrhoids. Patient with unchanged hemoglobin from the past, no evidence of latisha bleed CT shows no acute processes, counseled patient to follow-up with CT surgery as well as GI for proper scope Patient feels comfortable going home Labs unremarkable disposition Home with return precautions Laboratory Tests Test 04/27/19 14:10 White Blood Count 5.5 K/UL (4.8-10.8) Red Blood Count 4.06 M/UL (4.20-5.40) L Hemoglobin 12.2 G/DL (12.0-16.0) Hematocrit 37.4 % (37.0-47.0) Mean Corpuscular Volume 92 FL (80-99) Mean Corpuscular Hemoglobin 30.1 PG (27.0-31.0) Mean Corpuscular Hemoglobin Concent 32.7 G/DL (32.0-36.0) Red Cell Distribution Width 12.1 % (11.6-14.8) Platelet Count 289 K/UL (150-450) Mean Platelet Volume 4.6 FL (6.5-10.1) L Neutrophils (%) (Auto) 77.5 % (45.0-75.0) H Lymphocytes (%) (Auto) 10.9 % (20.0-45.0) L Monocytes (%) (Auto) 6.6 % (1.0-10.0) Eosinophils (%) (Auto) 3.5 % (0.0-3.0) H Basophils (%) (Auto) 1.5 % (0.0-2.0) Prothrombin Time 11.4 SEC (9.30-11.50) Prothrombin Time INR 1.1 (0.9-1.1) PTT 31 SEC (23-33) Urine Color Pale yellow Urine Appearance Clear Urine pH 5 (4.5-8.0) Urine Specific [place] 1.010 (1.005-1.035) Urine Protein Negative (NEGATIVE) Urine Glucose (UA) Negative (NEGATIVE) Urine Ketones Negative (NEGATIVE) Urine Blood 1+ (NEGATIVE) H Urine Nitrite Negative (NEGATIVE) Urine Bilirubin Negative (NEGATIVE) Urine Urobilinogen Normal MG/DL (0.0-1.0) Urine Leukocyte Esterase Negative (NEGATIVE) Urine RBC 2-4 /HPF (0 - 2) H Urine WBC 2-4 /HPF (0 - 2) Urine Squamous Epithelial Cells Few /LPF (NONE/OCC) Urine Bacteria Occasional /HPF (NONE) Sodium Level 142 MMOL/L (136-145) Potassium Level 3.8 MMOL/L (3.5-5.1) Chloride Level 107 MMOL/L (98-107) Carbon Dioxide Level 19 MMOL/L (21-32) L Anion Gap 17 mmol/L (5-15) H Blood Urea Nitrogen 23 mg/dL (7-18) H Creatinine 1.0 MG/DL (0.55-1.30) Estimate Glomerular Filtration Rate mL/min (>60) Glucose Level 96 MG/DL (74-106) Calcium Level 8.8 MG/DL (8.5-10.1) Total Bilirubin 0.5 MG/DL (0.2-1.0) Aspartate Amino Transferase (AST) 19 U/L (15-37) Alanine Aminotransferase (ALT) 23 U/L (12-78) Alkaline Phosphatase 93 U/L (46-116) Total Protein 7.1 G/DL (6.4-8.2) Albumin 3.7 G/DL (3.4-5.0) Globulin 3.4 g/dL Albumin/Globulin Ratio 1.1 (1.0-2.7) Lipase 74 U/L (73-393) CT/MRI/US Diagnostic Results CT/MRI/US Diagnostic Results : Impression Preliminary Findings Only See Final Report For Complete Findings CT ABDOMEN & PELVIS With Contrast: Comparison 12/15/2018 There is now a small left inguinal hernia containing what may be a small portion of small bowel axial 68 and coronal 13 May correlate for focal tenderness and reducibility Large amount of stool throughout the colon without wall thickening or pericolonic inflammatory change No evidence of bowel obstruction or free air No free fluid seen Bladder is mildly distended with portion of the right side protruding towards the right internal inguinal ring for example coronal 17 Diffuse intra-and extra hepatic biliary ductal dilation is not significantly changed in appearance Pancreatic ductal dilation appears increased currently measuring 8 mm axial 31, previously 7 mm Renal cysts again noted Spondylosis/discogenic change at L4-5 with severe appearing central and bilateral foraminal narrowing again noted, appears unchanged Radiologist: Zechariah Ellis M.D. Study ready at 15:38 and initial results transmitted at 16:55 Last Vital Signs Date Time Temp Pulse Resp B/P (MAP) Pulse Ox O2 Delivery O2 Flow Rate FiO2 04/27/19 13:09 98.2 95 15 117/73 (88) 94 Room Air Disposition: HOME, SELF-CARE Condition: Stable Referrals: Terry Villarreal MD [facility] Didier Uribe [facility]. [facility] Patient Instructions: Abdominal Pain, Adult, Hemorrhoids, [id number], How to Take a Sitz Bath Additional Instructions: The patient was provided with discharge instructions, notified to follow-up with a primary care doctor and or specialist in the next 24-48 hours, and to return to the ED if they have worsening of their symptoms. Please note that this report is being documented using DRAGON technology. This can lead to erroneous entry secondary to incorrect interpretation by the dictating instrument. PLEASE FOLLOW-UP WITH COLORECTAL SURGERY, FOLLOW-UP WITH GI Huy Ramos MD Apr 27, 2019 13:44
[2019-04-27] MEDS ORDERED: Omnipaque-300 100ml vial INJ PRN (13:45)
[2019-04-27 14:14] VITALS: BP 125/64
[2019-04-27 14:23] LABS: BASOPHILS % (AUTO) 1.5 % (0.0-2.0); EOSINOPHILS % (AUTO) 3.5 % (0.0-3.0); HEMATOCRIT 37.4 % (37.0-47.0); HEMOGLOBIN 12.2 G/DL (12.0-16.0); LYMPHOCYTES % (AUTO) 10.9 % (20.0-45.0); MEAN CORPUSCULAR VOLUME 92 FL (80-99); MONOCYTES % (AUTO) 6.6 % (1.0-10.0); NEUTROPHILS % (AUTO) 77.5 % (45.0-75.0); PLATELET COUNT 289 K/UL (150-450); RED BLOOD COUNT 4.06 M/UL (4.20-5.40); RED CELL DISTRIBUTION WIDTH 12.1 % (11.6-14.8); WHITE BLOOD COUNT 5.5 K/UL (4.8-10.8)
[2019-04-27 14:28] LABS: APPEARANCE,URINE CLEAR; BILIRUBIN, URINE NEGATIVE (NEGATIVE); COLOR,URINE PALE YELLOW; GLUCOSE, URINE (UA) NEGATIVE (NEGATIVE); KETONES,URINE NEGATIVE (NEGATIVE); LEUKOCYTE ESTERASE ,URINE NEGATIVE (NEGATIVE); NITRITE,URINE NEGATIVE (NEGATIVE); PH,URINE 5 (4.5-8.0); PROTEIN,URINE NEGATIVE (NEGATIVE); UROBILINOGEN,URINE NORMAL MG/DL (0.0-1.0)
[2019-04-27 14:44] LABS: ANION GAP 17 mmol/L (5-15); BLOOD UREA NITROGEN 23 mg/dL (7-18); CALCIUM 8.8 MG/DL (8.5-10.1); CARBON DIOXIDE 19 MMOL/L (21-32); CHLORIDE 107 MMOL/L (98-107); POTASSIUM 3.8 MMOL/L (3.5-5.1); SODIUM 142 MMOL/L (136-145)
[2019-04-27 14:46] LABS: INR 1.1 (0.9-1.1)
[2019-04-27 14:49] LABS: ALANINE AMINOTRANSFERASE 23 U/L (12-78); ALBUMIN 3.7 G/DL (3.4-5.0); ALBUMIN/GLOBULIN RATIO 1.1 (1.0-2.7); ALKALINE PHOSPHATASE 93 U/L (46-116); ASPARTATE AMINO TRANSFERASE 19 U/L (15-37); BILIRUBIN,TOTAL 0.5 MG/DL (0.2-1.0)
--- NOTE | 2019-04-27 16:56 | Diagnostic Imaging Report ---
Indication: Abdominal pain Technique: Continuous helical transaxial imaging of the abdomen and pelvis was obtained from the lung bases to the pubic symphysis during intravenous contrast administration. Coronal 2-D reformats were also obtained. Study obtained in a Siemens sensation [address] Automatic Exposure Control was utilized. Total Dose length Product (DLP): 591.[address] Dose Index Volume (CTDIvol): 10.5 mGy Comparison: 12/15/2018 Findings: The lung bases are clear. There is a prominence of the biliary ducts within the liver. Gallbladder is mildly distended. There are multiple cysts present within both kidneys largest of which is a central parapelvic cyst in the left kidney measuring about 6.3 cm. There is narrowing of intervertebral discs and accompanying endplate osteophyte formation. Hypertrophied facet joints also demonstrated.. Moderate stool retention noted. Bladder is distended. There is a small left inguinal hernia containing loop of small bowel. There is a small right inguinal hernia containing part of the bladder. Uterus is not seen. There are mildly distended loops of fluid-filled small bowel. Suspect the enteritis. Correlate clinically. There is narrowing of intervertebral discs and accompanying endplate osteophyte formation. Hypertrophied facet joints also demonstrated. Moderate calcification of the aorta and iliac arteries demonstrated. IMPRESSION: Generalized mild biliary ductal dilatation without significant change from previous examination. Portable bilateral renal cysts. Bilateral inguinal hernias containing bowel on the left and part of the bladder on the right. Moderate feces retention within the colon. Degenerative changes of the spine. [facility] has communicated the preliminary results to the Emergency Department. Their findings are largely concordant with this report. The CT scanner at [facility] is accredited by the [employer] and the scans are performed using dose optimization techniques as appropriate to a performed exam including Automatic Exposure control.
[2019-04-27 17:35] VITALS: BP 145/70
--- NOTE | 2019-04-27 17:37 | NUR ---
ED Nurse Note: Pt cleared by health care Provider for discharge. DC instructions was given and explained to pt and verbalized understanding of teachings. All medical deviecs such as ID band removed. Pt is AAO x4, ambulatory and left with all personal belongings. Taxi provided per pt's request.
== END 2019-04-27 17:35 | disposition home or self-care (01) ==
LOC: EMR 13:47
DX: K62.5 Hemorrhage of anus and rectum (principal); R10.9 Unspecified abdominal pain; K64.9 Unspecified hemorrhoids; Z88.6 Allergy status to analgesic agent; I10 Essential (primary) hypertension; N28.1 Cyst of kidney, acquired; M47.9 Spondylosis, unspecified
CPT/HCPCS: 36415; 74177; 80053; 81003; 83690; 85025; 85610; 85730; 86850; 86900; 86901; 96361; 96374; 96375; 99284; J2405; Q9967; S0028; J7030

== ENCOUNTER 2019-05-21 13:01 | Outpatient (CLI) | payer MEDICARE, OTHER ==
--- NOTE | 2019-05-21 14:01 | General Progress Note ---
Assessment/Plan Assessment/Plan: Assessment/Plan Problem List: (1) Rectal bleeding ICD Codes: K62.5 - Hemorrhage of anus and rectum SNOMED: 32890449 (2) GERD (gastroesophageal reflux disease) ICD Codes: K21.9 - GERD (gastroesophageal reflux disease) SNOMED: 046763571 (3) Diverticulosis ICD Codes: K57.90 - Diverticulosis SNOMED: 535316148 (4) Bleeding external hemorrhoids ICD Codes: K64.4 - Residual hemorrhoidal skin tags SNOMED: 97383381 (5) HTN (hypertension) ICD Codes: I10 - Essential (primary) hypertension SNOMED: 03616889 (6) Proctitis ICD Codes: K62.89 - Other specified diseases of anus and rectum SNOMED: 9339800 (7) Gastritis ICD Codes: K29.70 - Gastritis SNOMED: 3140482 (8) Rectal prolapse ICD Codes: K62.3 - Rectal prolapse SNOMED: 71129114 (9) Constipation ICD Codes: K59.00 - Constipation SNOMED: 61943899 (10) Esophagitis ICD Codes: K20.9 - Esophagitis, unspecified SNOMED: 13942381 Assessment/Plan: FINDINGS: 1. Very poor colonoscopy prep and incomplete. 2. Diverticulosis. 3. Internal hemorrhoids. CT reviewed with the patient anusol HC refered to surg for hernia Subjective ROS Limited/Unobtainable: No Allergies: Coded Allergies: MORPHINE (Verified Allergy, Severe, 02/05/19) nausea/vomiting Objective General Appearance: alert EENT: normal ENT inspection Neck: supple Cardiovascular: normal rate Respiratory/Chest: decreased breath sounds Abdomen: normal bowel sounds, non tender, soft Extremities: non-tender Terry Villarreal MD May 21, 2019 14:01
[2019-05-21 14:43] VITALS: BP 126/73
== END 2019-05-21 15:00 | disposition home or self-care (01) ==
LOC: PAN 13:01
DX: K62.5 Hemorrhage of anus and rectum (principal); K21.9 Gastro-esophageal reflux disease without esophagitis; K57.90 Diverticulosis of intestine, part unspecified, without perforation or abscess without bleeding; K64.4 Residual hemorrhoidal skin tags; I10 Essential (primary) hypertension; K62.89 Other specified diseases of anus and rectum; K29.70 Gastritis, unspecified, without bleeding; K62.3 Rectal prolapse; K59.00 Constipation, unspecified; K20.9 Esophagitis, unspecified; K64.8 Other hemorrhoids; Z88.6 Allergy status to analgesic agent

== ENCOUNTER 2019-07-15 09:57 | Outpatient (CLI) | payer MEDICARE, OTHER ==
--- NOTE | 2019-07-15 11:09 | General Progress Note ---
Assessment/Plan Assessment/Plan: Assessment/Plan Problem List: (1) Rectal bleeding ICD Codes: K62.5 - Hemorrhage of anus and rectum SNOMED: 66333389 (2) GERD (gastroesophageal reflux disease) ICD Codes: K21.9 - GERD (gastroesophageal reflux disease) SNOMED: 933526502 (3) Diverticulosis ICD Codes: K57.90 - Diverticulosis SNOMED: 582535729 (4) Bleeding external hemorrhoids ICD Codes: K64.4 - Residual hemorrhoidal skin tags SNOMED: 49796504 (5) HTN (hypertension) ICD Codes: I10 - Essential (primary) hypertension SNOMED: 67767681 (6) Proctitis ICD Codes: K62.89 - Other specified diseases of anus and rectum SNOMED: 3463171 (7) Gastritis ICD Codes: K29.70 - Gastritis SNOMED: 8965128 (8) Rectal prolapse ICD Codes: K62.3 - Rectal prolapse SNOMED: 89405867 (9) Constipation ICD Codes: K59.00 - Constipation SNOMED: 51956568 (10) Esophagitis ICD Codes: K20.9 - Esophagitis, unspecified SNOMED: 40465734 Assessment/Plan: FINDINGS: 1. Very poor colonoscopy prep and incomplete. 2. Diverticulosis. 3. Internal hemorrhoids. CT reviewed with the patient anusol HC cont Dexilant, linzess, and creon fu surg for hernia repair fu [facility] RTC 3 months Subjective ROS Limited/Unobtainable: Yes Allergies: Coded Allergies: MORPHINE (Verified Allergy, Severe, 02/05/19) nausea/vomiting Objective General Appearance: alert EENT: normal ENT inspection Neck: supple Cardiovascular: normal rate Respiratory/Chest: decreased breath sounds Abdomen: normal bowel sounds, non tender, soft Extremities: non-tender Terry Villarreal MD Jul 15, 2019 11:09
[2019-07-15 13:29] VITALS: BP 146/83
== END 2019-07-15 11:57 | disposition home or self-care (01) ==
LOC: PAN 09:57
DX: K62.5 Hemorrhage of anus and rectum (principal); K21.9 Gastro-esophageal reflux disease without esophagitis; K57.90 Diverticulosis of intestine, part unspecified, without perforation or abscess without bleeding; K64.4 Residual hemorrhoidal skin tags; I10 Essential (primary) hypertension; K62.89 Other specified diseases of anus and rectum; K29.70 Gastritis, unspecified, without bleeding; K62.3 Rectal prolapse; K59.00 Constipation, unspecified; K20.9 Esophagitis, unspecified; K64.8 Other hemorrhoids
CPT/HCPCS: 99212

== ENCOUNTER 2020-05-14 16:42 | Emergency (ER) | payer MEDICARE, OTHER ==
[~2020-05-14] VITALS: Ht 160 cm; Wt 49.0 kg
[2020-05-14 17:19] VITALS: BP 156/81
--- NOTE | 2020-05-14 17:21 | NUR ---
ED Nurse Note:pt. came from home with c/o headache and weakness, A/Ox4 ambulatory with walker
--- NOTE | 2020-05-14 17:28 | Emergency Room Report ---
History of Present Illness General Chief Complaint: Headache Present Illness HPI 74-year-old female presents to the emergency department complaining of 7 out of 10 in severity lower abdominal pain times "years ". In addition to 5 out of 10 severity pain in the right side of the neck that radiates to the right shoulder times "months ". Both of which pt. reports has been evaluated for by her doctors but has been inconclusive and she would like more evaluation. Patient denies trauma or fall. She reports longstanding history of GI issues and has had abdominal surgeries as well as history of polyps and prolapsed uterus and hemorrhoids. Patient reports she is noticing some dysuria and urinary frequency and mild intermittent headaches. She reports 1 or 2 episodes of dizziness earlier this month that lasted several seconds and resolved. She denies syncope or visual changes. Patient states she has not had any today or this week. Miley ent denies chest pain or palpitations. She denies nausea or vomiting. She denies hematuria. Pt. denies fevers or chills. She denies constipation or diarrhea. Pt. requests " check up" to make sure everything is ok, as she has not have full exam in "a while". Pt. reports she see's Dr. Duggan. She also reports hx of anxiety as well. Allergies: Coded Allergies: MORPHINE (Verified Allergy, Severe, 02/05/19) nausea/vomiting COVID-19 Screening Contact w/high risk pt: No Experienced COVID-19 symptoms?: No COVID-19 Testing performed BUFFER OPERATOR: No Patient History Past Medical History: see triage record Past Surgical History: none Pertinent Family History: none Now: No Reviewed Nursing Documentation: PMH: Agreed; PSxH: Agreed Nursing Documentation-PMH Hx Cardiac Problems: Yes Hx Hypertension: Yes Hx Pacemaker: No Hx Asthma: No Hx COPD: Yes Hx Diabetes: No Hx Cancer: No Hx Gastrointestinal Problems: Yes - rectal prolapse, Acid Reflux Hx Dialysis: No Hx Neurological Problems: Yes Hx Cerebrovascular Accident: No Hx Seizures: No Hx Head Trauma: Yes Review of Systems All Other Systems: negative except mentioned in HPI Physical Exam Vital Signs Date Time Temp Pulse Resp B/P (MAP) Pulse Ox O2 Delivery O2 Flow Rate FiO2 05/14/20 17:03 97.9 64 16 156/81 (106) 96 Room Air Medical Decision Making PA Attestation Dr. Aguila is my supervising Physician whom patient management has been discussed with. Diagnostic Impression: Primary Impression: Pain of multiple sites Additional Impression: Abdominal pain Qualified Codes: R10.84 - Generalized abdominal pain ER Course 74-year-old female presents to the emergency department complaining of 7 out of 10 in severity lower abdominal pain times "years ". In addition to 5 out of 10 severity pain in the right side of the neck that radiates to the right shoulder times "months ". Both of which pt. reports has been evaluated for by her doctors but has been inconclusive and she would like more evaluation. Patient denies trauma or fall. She reports longstanding history of GI issues and has had abdominal surgeries as well as history of polyps and prolapsed uterus and hemorrhoids. Patient reports she is noticing some dysuria and urinary frequency and mild intermittent headaches. She reports 1 or 2 episodes of dizziness earlier this month that lasted several seconds and resolved. She denies syncope or visual changes. Patient states she has not had any today or this week. Patient denies chest pain or palpitations. She denies nausea or vomiting. She denies hematuria. Pt. denies fevers or chills. She denies constipation or diarrhea. Pt. requests " check up" to make sure everything is ok, as she has not have full exam in "a while". Pt. reports she see's Dr. Duggan. She also reports hx of anxiety as well. Ddx considered but are not limited to UTI, Fibroids, SAH, muscle strain, Diverticulitis, acute appendicitis, diarrhea, UC , PUD, GE, pancreatitis, gallstones, cancer, hypochondriasis just to name a few. H&PE are most consistent with chronic stable symptoms for which pt. endorses PCP and GI are aware of and have previously evaluated her for. Pt. is nontoxic in appearance and in no acute distress. No evidence of acute abdomen on exam no focal neurological deficits. Patient is not in any respiratory distress. ORDERS: -CBC, CMP, lipase, UA: -EKG: NSR - UA: WNL ED INTERVENTIONS: -- Pt. given reassurance and a copy of her labs and EKG to take with her to her out patient follow up with her PCP and GI. -I do not identify an emergent condition at this time. With current presentation, pt. is stable for close outpatient follow up and conservative treatment. D/w pt. to return promptly to ED with worsening or new symptoms.- Pt. verbalizes' understanding and agreement with proposed treatment plan. DISCHARGE: At this time pt. is stable for d/c to home. Will provide printed patient care instructions, and any necessary prescriptions. Care plan and follow up instructions have been discussed with the patient prior to discharge. Labs Test 05/14/20 17:40 White Blood Count 5.5 K/UL (4.8-10.8) Red Blood Count 4.41 M/UL (4.20-5.40) Hemoglobin 12.6 G/DL (12.0-16.0) Hematocrit 38.6 % (37.0-47.0) Mean Corpuscular Volume 88 FL (80-99) Mean Corpuscular Hemoglobin 28.6 PG (27.0-31.0) Mean Corpuscular Hemoglobin Concent 32.6 G/DL (32.0-36.0) Red Cell Distribution Width 16.2 % (11.6-14.8) Platelet Count 250 K/UL (150-450) Mean Platelet Volume 5.9 FL (6.5-10.1) Neutrophils (%) (Auto) 75.6 % (45.0-75.0) Lymphocytes (%) (Auto) 11.9 % (20.0-45.0) Monocytes (%) (Auto) 7.8 % (1.0-10.0) Eosinophils (%) (Auto) 3.6 % (0.0-3.0) Basophils (%) (Auto) 1.1 % (0.0-2.0) Urine Color Pale yellow Urine Appearance Clear Urine pH 6 (4.5-8.0) Urine Specific [place] 1.010 (1.005-1.035) Urine Protein 2+ (NEGATIVE) Urine Glucose (UA) Negative (NEGATIVE) Urine Ketones Negative (NEGATIVE) Urine Blood 1+ (NEGATIVE) Urine Nitrite Negative (NEGATIVE) Urine Bilirubin Negative (NEGATIVE) Urine Urobilinogen Normal MG/DL (0.0-1.0) Urine Leukocyte Esterase 1+ (NEGATIVE) Urine RBC 0-2 /HPF (0 - 2) Urine WBC 0-2 /HPF (0 - 2) Urine Squamous Epithelial Cells Few /LPF (NONE/OCC) Urine Bacteria Few /HPF (NONE) Sodium Level 141 MMOL/L (136-145) Potassium Level 3.7 MMOL/L (3.5-5.1) Chloride Level 107 MMOL/L (98-107) Carbon Dioxide Level 22 MMOL/L (21-32) Anion Gap 12 mmol/L (5-15) Blood Urea Nitrogen 28 mg/dL (7-18) Creatinine 1.2 MG/DL (0.55-1.30) Estimat Glomerular Filtration Rate 53.0 mL/min (>60) Glucose Level 107 MG/DL (74-106) Calcium Level 8.9 MG/DL (8.5-10.1) Total Bilirubin 0.3 MG/DL (0.2-1.0) Aspartate Amino Transf (AST/SGOT) 20 U/L (15-37) Alanine Aminotransferase (ALT/SGPT) 13 U/L (12-78) Alkaline Phosphatase 91 U/L (46-116) Total Protein 7.5 G/DL (6.4-8.2) Albumin 3.9 G/DL (3.4-5.0) Globulin 3.6 g/dL Albumin/Globulin Ratio 1.1 (1.0-2.7) Lipase 145 U/L (73-393) Last Vital Signs Date Time Temp Pulse Resp B/P (MAP) Pulse Ox O2 Delivery O2 Flow Rate FiO2 05/14/20 17:19 97.9 87 16 156/81 96 Room Air Status: improved Disposition: HOME, SELF-CARE Condition: Stable Patient Instructions: Abdominal Pain, Adult, [id number], Medical Screening Exam Additional Instructions: ~ ~ An emergent medical condition has not been identified based on this patients presentation, exam and any necessary testing/imaging. The patient is determined to be stable for outpatient follow-up and management of symptoms by a primary care provider. Take any previously prescribed medications as directed. Follow up with a Primary Care Provider in 3-5 days, even if your symptoms have resolved. Return sooner to ED if new symptoms occur, or current symptoms become worse. - Please note that this Emergency Department Report was dictated using InfoVistachief operator lock tender technology software, occasionally this can lead to erroneous entry secondary to interpretation by the dictation equipment. Jacey Chanel May 14, 2020 17:28
[2020-05-14 18:09] LABS: APPEARANCE,URINE CLEAR; BILIRUBIN, URINE NEGATIVE (NEGATIVE); COLOR,URINE PALE YELLOW; GLUCOSE, URINE (UA) NEGATIVE (NEGATIVE); KETONES,URINE NEGATIVE (NEGATIVE); LEUKOCYTE ESTERASE ,URINE 1+ (NEGATIVE); NITRITE,URINE NEGATIVE (NEGATIVE); PH,URINE 6 (4.5-8.0); PROTEIN,URINE 2+ (NEGATIVE); UROBILINOGEN,URINE NORMAL MG/DL (0.0-1.0)
[2020-05-14 18:11] LABS: BASOPHILS % (AUTO) 1.1 % (0.0-2.0); EOSINOPHILS % (AUTO) 3.6 % (0.0-3.0); HEMATOCRIT 38.6 % (37.0-47.0); HEMOGLOBIN 12.6 G/DL (12.0-16.0); LYMPHOCYTES % (AUTO) 11.9 % (20.0-45.0); MEAN CORPUSCULAR VOLUME 88 FL (80-99); MONOCYTES % (AUTO) 7.8 % (1.0-10.0); NEUTROPHILS % (AUTO) 75.6 % (45.0-75.0); PLATELET COUNT 250 K/UL (150-450); RED BLOOD COUNT 4.41 M/UL (4.20-5.40); RED CELL DISTRIBUTION WIDTH 16.2 % (11.6-14.8); WHITE BLOOD COUNT 5.5 K/UL (4.8-10.8)
[2020-05-14 18:13] LABS: CALCIUM 8.9 MG/DL (8.5-10.1); CREATININE 1.2 MG/DL (0.55-1.30); POTASSIUM 3.7 MMOL/L (3.5-5.1)
[2020-05-14 18:17] LABS: ALBUMIN 3.9 G/DL (3.4-5.0); ALBUMIN/GLOBULIN RATIO 1.1 (1.0-2.7); BILIRUBIN,TOTAL 0.3 MG/DL (0.2-1.0)
[2020-05-14 19:30] VITALS: BP 156/81
--- NOTE | 2020-05-14 19:32 | NUR ---
ER DISCHARGE NOTE: Patient is cleared to be discharged per ERMD, pt is aox4, on room air, with stable vital signs. pt was given dc and prescription instructions, pt was able to verbalize understanding, pt id band and iv site removed without complications. pt is able to ambulate with steady gait. pt took all belongings.
== END 2020-05-14 19:30 | disposition home or self-care (01) ==
LOC: EMR 19:10
DX: R10.84 Generalized abdominal pain (principal); M54.2 Cervicalgia; M25.511 Pain in right shoulder; I11.9 Hypertensive heart disease without heart failure; J44.9 Chronic obstructive pulmonary disease, unspecified; Z88.5 Allergy status to narcotic agent; Z98.890 Other specified postprocedural states
CPT/HCPCS: 36415; 80053; 81003; 83690; 85025; 93005; 99284